=== PATIENT | male | born 1985 | race Caucasian/White ===

== ENCOUNTER 2017-12-01 13:41 | Emergency (ER) | payer MEDICAID ==
[~2017-12-01] VITALS: Ht 177.8 cm; Wt 84.0 kg
[~2017-12-01 13:41] MED LIST: ARIP5TAB4 PO; AZIT250T13 PO; CLIN150C2 PO; GUAI600T45 PO; HYDR1TAB PO; PSEU-259 PO; RISP3TAB11 PO; TRAM50TA2 PO
[2017-12-01] MEDS ORDERED: normal saline 1000ML IV soln IVB ONE (14:05)
[2017-12-01 14:24] LABS: BASOPHILS % (AUTO) 0.7 % (0-1); EOSINOPHILS # (AUTO) 0.1 X10'3 (0-0.9); EOSINOPHILS % (AUTO) 2.4 % (0-6); HEMATOCRIT 35.3 % (42.0-52.0); HEMOGLOBIN 11.8 g/dl (14.0-17.9); LYMPHOCYTES # (AUTO) 1.9 X10'3 (1.1-4.8); LYMPHOCYTES % (AUTO) 38.4 % (21-51); MEAN CORPUSCULAR HEMOGLOBIN 30.6 PG (27.0-31.0); MEAN CORPUSCULAR HGB CONC 33.4 % (33.0-36.5); MEAN CORPUSCULAR VOLUME 91.6 FL (78-98); MEAN PLATELET VOLUME 6.5 FL (7.4-10.4); MONOCYTES # (AUTO) 0.4 X10'3 (0-0.9); MONOCYTES % (AUTO) 8.2 % (2-12); NEUTROPHILS # (AUTO) 2.5 X10'3 (1.8-7.7); NEUTROPHILS % (AUTO) 50.3 % (42-75); PLATELET COUNT 297 X10'3 (140-440); RED BLOOD COUNT 3.86 X10'6 (4.70-6.10); RED CELL DISTRIBUTION WIDTH 14.9 % (11.5-14.5); WHITE BLOOD COUNT 4.9 X10'3 (4.5-11.0)
[2017-12-01 14:40] LABS: ALANINE AMINOTRANSFERASE 21 U/L (12-78); ALBUMIN 3.3 G/DL (3.4-5.0); ALKALINE PHOSPHATASE 58 IU/L (46-116); ANION GAP 6 (8-16); ASPARTATE AMINO TRANSFERASE 15 U/L (10-37); BILIRUBIN,TOTAL 0.3 MG/DL (0.1-1.0); BLOOD UREA NITROGEN 13 MG/DL (7-18); CHLORIDE 109 MMOL/L (99-107); CREATININE 0.42 MG/DL (0.60-1.10); GLUCOSE 94 MG/DL (70-104); POTASSIUM 3.6 MMOL/L (3.5-5.1); SODIUM 142 MMOL/L (135-145); TOTAL CARBON DIOXIDE 26.8 MMOL/L (24-32); TOTAL PROTEIN 6.6 G/DL (6.4-8.2); eGFR > 90 ML/MIN
[2017-12-01 14:40] LABS: URINE AMPHETAMINE SCREEN NEGATIVE (Neg); URINE BARBITUATE SCREEN NEGATIVE (Neg); URINE BENZODIAZEPINES SCREEN NEGATIVE (Neg); URINE CANNABINOID SCREEN POSITIVE (Neg); URINE COCAINE SCREEN NEGATIVE (Neg); URINE METHADONE SCREEN NEGATIVE (Neg); URINE OPIATE SCREEN NEGATIVE (Neg); URINE PHENCYCLIDINE SCREEN NEGATIVE (Neg)
[2017-12-01 14:41] LABS: ETHANOL 0.325 GM/DL (0.0-0.010)
[2017-12-01 19:41] VITALS: BP 122/73
== END 2017-12-01 19:42 | disposition home or self-care (01) ==
LOC: ER 13:41
DX: F10.129 Alcohol abuse with intoxication, unspecified (principal); Z59.0 Homelessness; Z79.899 Other long term (current) drug therapy; Y90.9 Presence of alcohol in blood, level not specified
CPT/HCPCS: 36415; 80053; 80305; 80320; 85025; 99284; J7030

== ENCOUNTER → 2018-02-20 | Emergency (ER) | payer MEDICAID ==
[~2018-02-20] VITALS: Ht 182.9 cm; Wt 74.0 kg
[2018-02-20 14:29] VITALS: BP 126/81
== END | disposition home or self-care (01) ==
LOC: ER 12:43
DX: S99.822A Other specified injuries of left foot, initial encounter (principal); S99.821A Other specified injuries of right foot, initial encounter; F17.210 Nicotine dependence, cigarettes, uncomplicated; Z79.899 Other long term (current) drug therapy; Z59.0 Homelessness; Z60.2 Problems related to living alone; X58.XXXA Exposure to other specified factors, initial encounter; Y93.9 Activity, unspecified; Y92.89 Other specified places as the place of occurrence of the external cause; Y99.8 Other external cause status
CPT/HCPCS: 99281

== ENCOUNTER 2018-02-24 12:58 | Emergency (ER) | payer MEDICAID ==
[~2018-02-24] VITALS: Ht 188 cm; Wt 95.0 kg
[2018-02-24] MEDS ORDERED: Potassium Cl inj 20 MEQ, magnesium sulf injection 2 GM, folic acid inj. 1 MG, thiamine ... IV ONE ×6 (13:39)
[2018-02-24] MEDS ORDERED: normal saline 1000ML IV soln IVB ONE (13:40)
[2018-02-24 14:06] LABS: BASOPHILS % (AUTO) 0.3 % (0-1); EOSINOPHILS # (AUTO) 0.1 X10'3 (0-0.9); EOSINOPHILS % (AUTO) 1.1 % (0-6); HEMATOCRIT 35.1 % (42.0-52.0); HEMOGLOBIN 11.8 g/dl (14.0-17.9); LYMPHOCYTES # (AUTO) 2.1 X10'3 (1.1-4.8); LYMPHOCYTES % (AUTO) 25.4 % (21-51); MEAN CORPUSCULAR HEMOGLOBIN 32.5 PG (27.0-31.0); MEAN CORPUSCULAR HGB CONC 33.5 % (33.0-36.5); MEAN CORPUSCULAR VOLUME 96.8 FL (78-98); MEAN PLATELET VOLUME 6.9 FL (7.4-10.4); MONOCYTES # (AUTO) 0.8 X10'3 (0-0.9); MONOCYTES % (AUTO) 9.2 % (2-12); NEUTROPHILS # (AUTO) 5.3 X10'3 (1.8-7.7); PLATELET COUNT 306 X10'3 (140-440); RED BLOOD COUNT 3.62 X10'6 (4.70-6.10); RED CELL DISTRIBUTION WIDTH 14.7 % (11.5-14.5); WHITE BLOOD COUNT 8.2 X10'3 (4.5-11.0)
[2018-02-24 14:12] LABS: INR 0.9 INR; PROTHROMBIN TIME 9.7 SECONDS (9.0-12.0)
[2018-02-24 14:16] LABS: ALANINE AMINOTRANSFERASE 30 U/L (12-78); ALBUMIN 3.4 G/DL (3.4-5.0); ALBUMIN/GLOBULIN RATIO 0.9 (1.1-1.5); ALKALINE PHOSPHATASE 64 IU/L (46-116); ANION GAP 10 (8-16); ASPARTATE AMINO TRANSFERASE 15 U/L (10-37); BILIRUBIN,TOTAL 0.3 MG/DL (0.1-1.0); BLOOD UREA NITROGEN 15 MG/DL (7-18); BUN/CREATININE RATIO 34.1 (5.4-32.0); CALCIUM 8.9 MG/DL (8.5-10.1); CHLORIDE 103 MMOL/L (99-107); CREATININE 0.44 MG/DL (0.60-1.10); GLUCOSE 98 MG/DL (70-104); POTASSIUM 3.6 MMOL/L (3.5-5.1); SODIUM 140 MMOL/L (135-145); TOTAL CARBON DIOXIDE 27.5 MMOL/L (24-32); eGFR > 90 ML/MIN
[2018-02-24 14:36] LABS: ACETAMINOPHEN < 2.0 UG/ML (10-30)
[2018-02-24 14:37] LABS: ETHANOL 0.348 GM/DL (0.0-0.010)
[2018-02-24] MEDS ORDERED: normal saline 1000ml 1,000 ML IV ONE ×2 (15:05)
[2018-02-24 17:06] LABS: URINE AMPHETAMINE SCREEN NEGATIVE (Neg); URINE BARBITUATE SCREEN NEGATIVE (Neg); URINE BENZODIAZEPINES SCREEN NEGATIVE (Neg); URINE CANNABINOID SCREEN NEGATIVE (Neg); URINE COCAINE SCREEN NEGATIVE (Neg); URINE METHADONE SCREEN NEGATIVE (Neg); URINE OPIATE SCREEN NEGATIVE (Neg); URINE PHENCYCLIDINE SCREEN NEGATIVE (Neg)
[2018-02-24 19:33] VITALS: BP 105/62
== END 2018-02-24 21:45 | disposition home or self-care (01) ==
LOC: ER 12:58
DX: F10.129 Alcohol abuse with intoxication, unspecified (principal); R41.82 Altered mental status, unspecified; Z59.0 Homelessness
CPT/HCPCS: 36415; 80053; 80305; 80320; 80329; 85025; 85610; 96360; 96361; 99285; J3411; J3475; J3480; J3490; J7030

== ENCOUNTER 2018-05-12 15:50 | Emergency (ER) | payer MEDICAID ==
[2018-05-12] MEDS ORDERED: CHLO25CA10 PO (23:37)
== END 2018-05-12 17:03 | disposition left against medical advice (07) ==
LOC: ER 15:51
DX: Z02.89 Encounter for other administrative examinations (principal); Z53.21 Procedure and treatment not carried out due to patient leaving prior to being seen by health care provider

== ENCOUNTER 2018-10-23 12:25 | Emergency (ER) | payer MEDICAID ==
[~2018-10-23] VITALS: Ht 182.9 cm; Wt 90.0 kg
[~2018-10-23 12:25] MED LIST changes: +CHLO25CA10 PO
[2018-10-23 12:35] VITALS: BP 124/71
[2018-10-23] MEDS ORDERED: TETanus/Pertussis (Acell)/Diphther VAC/PF (Tdap-Adult) 0.5ml syringe IM ONE (12:50)
== END 2018-10-23 13:54 ==
LOC: ER 12:25
DX: S06.0X0A Concussion without loss of consciousness, initial encounter (principal); S00.03XA Contusion of scalp, initial encounter; S00.81XA Abrasion of other part of head, initial encounter; F10.129 Alcohol abuse with intoxication, unspecified; Y90.9 Presence of alcohol in blood, level not specified; Z60.2 Problems related to living alone; Z59.0 Homelessness; Z56.0 Unemployment, unspecified; Z79.2 Long term (current) use of antibiotics; Z79.899 Other long term (current) drug therapy; X58.XXXA Exposure to other specified factors, initial encounter; Y93.89 Activity, other specified; Y92.89 Other specified places as the place of occurrence of the external cause; Y99.8 Other external cause status
CPT/HCPCS: 70450; 90471; 90715; 99284

== ENCOUNTER 2018-12-02 23:24 | Emergency (ER) | payer MEDICAID ==
[~2018-12-02] VITALS: Ht 180.3 cm; Wt 94.9 kg
[2018-12-03 00:15] VITALS: BP 123/73
== END 2018-12-03 01:56 | disposition home or self-care (01) ==
LOC: ER 23:24
DX: T69.022A Immersion foot, left foot, initial encounter (principal); T69.021A Immersion foot, right foot, initial encounter; J06.9 Acute upper respiratory infection, unspecified; F17.200 Nicotine dependence, unspecified, uncomplicated; Z79.2 Long term (current) use of antibiotics; Z79.899 Other long term (current) drug therapy; Z59.0 Homelessness; Z60.2 Problems related to living alone; X31.XXXA Exposure to excessive natural cold, initial encounter; Y93.89 Activity, other specified; Y92.89 Other specified places as the place of occurrence of the external cause; Y99.8 Other external cause status
CPT/HCPCS: 99281

== ENCOUNTER 2019-02-05 03:16 | Emergency (ER) | payer MEDICAID ==
[~2019-02-05] VITALS: Ht 180.3 cm; Wt 98.1 kg
--- NOTE | 2019-02-05 03:38 | NUR ---
ANGELINA CONTACTED CASE #[id number]
[2019-02-05] MEDS ORDERED: acetaminophen 325mg tablet PO ONE (04:25)
[2019-02-05 04:48] VITALS: BP 127/76
== END 2019-02-05 04:55 | disposition home or self-care (01) ==
LOC: ER 03:16
DX: S09.90XA Unspecified injury of head, initial encounter (principal); M54.5 Low back pain; M79.641 Pain in right hand; Z59.0 Homelessness; Z60.2 Problems related to living alone; Z79.899 Other long term (current) drug therapy; W22.8XXA Striking against or struck by other objects, initial encounter; Y93.39 Activity, other involving climbing, rappelling and jumping off; Y92.89 Other specified places as the place of occurrence of the external cause; Y99.8 Other external cause status
CPT/HCPCS: 99282

== ENCOUNTER 2019-07-20 21:49 | Emergency (ER) | payer MEDICAID ==
[~2019-07-20] VITALS: Ht 180.3 cm; Wt 90.0 kg
[2019-07-20 21:51] VITALS: BP 109/58
== END 2019-07-20 23:01 | disposition home or self-care (01) ==
LOC: ER 21:50
DX: S00.01XA Abrasion of scalp, initial encounter (principal); S90.811A Abrasion, right foot, initial encounter; F20.9 Schizophrenia, unspecified; Z59.0 Homelessness; Z79.2 Long term (current) use of antibiotics; Z79.899 Other long term (current) drug therapy; V89.2XXA Person injured in unspecified motor-vehicle accident, traffic, initial encounter; Y93.89 Activity, other specified; Y92.89 Other specified places as the place of occurrence of the external cause; Y99.8 Other external cause status
CPT/HCPCS: 73630; 99283

== ENCOUNTER 2019-12-22 23:16 | Emergency (ER) | payer MEDICAID ==
[~2019-12-22] VITALS: Ht 180.3 cm; Wt 83.2 kg
[~2019-12-22 23:16] MED LIST changes: +ARIP5TAB14 PO; -ARIP5TAB4 PO
[2019-12-22 23:22] VITALS: BP 139/89
== END 2019-12-23 00:24 | disposition home or self-care (01) ==
LOC: ER 23:17
DX: M79.604 Pain in right leg (principal); Z60.2 Problems related to living alone; Z59.0 Homelessness; Z79.2 Long term (current) use of antibiotics; Z79.899 Other long term (current) drug therapy
CPT/HCPCS: 99281

== ENCOUNTER 2020-04-12 17:59 | Emergency (ER) | payer MEDICAID ==
[~2020-04-12] VITALS: Ht 180.3 cm; Wt 81.8 kg
[2020-04-12] MEDS ORDERED: LORazepam 2 mg/ml vial IV ONE ×2 (19:20→20:20)
[2020-04-12] MEDS ORDERED: normal saline 1000ML IV soln IVB ONE ×2 (19:20→20:20)
[2020-04-12 19:42] LABS: BASOPHILS # (AUTO) 0.1 X10'3 (0-0.2); BASOPHILS % (AUTO) 0.6 % (0-1); EOSINOPHILS # (AUTO) 0.1 X10'3 (0-0.9); EOSINOPHILS % (AUTO) 0.9 % (0-6); HEMATOCRIT 30.8 % (42.0-52.0); LYMPHOCYTES # (AUTO) 1.1 X10'3 (1.1-4.8); LYMPHOCYTES % (AUTO) 13.7 % (21-51); MEAN CORPUSCULAR HEMOGLOBIN 30.5 PG (27.0-31.0); MEAN CORPUSCULAR HGB CONC 32.5 g/dL (33.0-36.5); MEAN CORPUSCULAR VOLUME 93.9 FL (78-98); MEAN PLATELET VOLUME 6.6 FL (7.4-10.4); MONOCYTES # (AUTO) 1.2 X10'3 (0-0.9); MONOCYTES % (AUTO) 14.6 % (2-12); NEUTROPHILS # (AUTO) 5.6 X10'3 (1.8-7.7); NEUTROPHILS % (AUTO) 70.2 % (42-75); PLATELET COUNT 506 X10'3 (140-440); RED BLOOD COUNT 3.29 X10'6 (4.70-6.10); RED CELL DISTRIBUTION WIDTH 15.5 % (11.5-14.5)
[2020-04-12 19:49] LABS: PARTIAL THROMBOPLASTIN TIME 28 SECONDS (22-32)
[2020-04-12 19:58] LABS: ALANINE AMINOTRANSFERASE 20 U/L (12-78); ALBUMIN 2.8 G/DL (3.4-5.0); ALBUMIN/GLOBULIN RATIO 0.5 (1.1-1.5); ALKALINE PHOSPHATASE 93 IU/L (46-116); ANION GAP 9 (8-16); ASPARTATE AMINO TRANSFERASE 17 U/L (10-37); BILIRUBIN,TOTAL 0.5 MG/DL (0.1-1.0); BLOOD UREA NITROGEN 11 MG/DL (7-18); BUN/CREATININE RATIO 12.8 (5.4-32.0); CALCIUM 8.5 MG/DL (8.5-10.1); CHLORIDE 107 MMOL/L (99-107); CREATININE 0.86 MG/DL (0.60-1.10); GLUCOSE 129 MG/DL (70-104); POTASSIUM 3.7 MMOL/L (3.5-5.1); SODIUM 147 MMOL/L (135-145); TOTAL CARBON DIOXIDE 30.8 MMOL/L (24-32); TOTAL PROTEIN 8.1 G/DL (6.4-8.2); eGFR > 90 ML/MIN
[2020-04-12 20:03] LABS: ETHANOL 0.011 GM/DL (0.0-0.010); TROPONIN I < 0.04 NG/ML (0.0-0.05)
[2020-04-12 20:31] LABS: CLARITY,URINE TURBID (Clear); COLOR,URINE YELLOW (Yellow); GLUCOSE, URINE NEGATIVE (Neg); KETONES,URINE NEGATIVE (Neg); LEUKOCYTE ESTERASE ,URINE NEGATIVE (Neg); NITRITES, URINE NEGATIVE (Neg); OCCULT BLOOD,URINE TRACE-INTACT (Neg); PROTEIN,URINE TRACE mg/dl (Neg)
[2020-04-12 20:35] LABS: UA COLLECTION TYPE URINAL
[2020-04-12 20:38] LABS: BACTERIA,URINE NONE SEEN /HPF (Neg); RBC,URINE NONE SEEN /HPF (0-2); SQUAMOUS EPITHELIAL CELL,UR FEW /LPF (FEW); WBC,URINE NONE SEEN /HPF (0-4)
[2020-04-12 20:39] LABS: AMORPHOUS URATES 4+
[2020-04-12 20:49] LABS: URINE AMPHETAMINE SCREEN POSITIVE (Neg); URINE BARBITUATE SCREEN NEGATIVE (Neg); URINE BENZODIAZEPINES SCREEN NEGATIVE (Neg); URINE CANNABINOID SCREEN NEGATIVE (Neg); URINE COCAINE SCREEN NEGATIVE (Neg); URINE METHADONE SCREEN NEGATIVE (Neg); URINE OPIATE SCREEN NEGATIVE (Neg); URINE PHENCYCLIDINE SCREEN NEGATIVE (Neg)
[2020-04-12 22:18] VITALS: BP 123/84
== END 2020-04-12 22:21 | disposition home or self-care (01) ==
LOC: ER 17:59
DX: F10.239 Alcohol dependence with withdrawal, unspecified (principal); E86.0 Dehydration; R19.7 Diarrhea, unspecified; R32 Unspecified urinary incontinence; Z72.89 Other problems related to lifestyle; Z60.2 Problems related to living alone; Z59.0 Homelessness; Z79.2 Long term (current) use of antibiotics; Z79.899 Other long term (current) drug therapy; Y90.9 Presence of alcohol in blood, level not specified
CPT/HCPCS: 36415; 70450; 71045; 80053; 80305; 80320; 81001; 82140; 84484; 85025; 85610; 85730; 93005; 96361; 96374; 96376; 99285; J2060; J7030

== ENCOUNTER 2020-04-30 13:27 | Emergency (ER) | payer MEDICAID ==
[~2020-04-30] VITALS: Ht 180.3 cm; Wt 81.0 kg
[2020-04-30 13:35] VITALS: BP 112/75
[2020-04-30] MEDS ORDERED: PERM60CR19 TOP (14:33)
== END 2020-04-30 14:55 | disposition home or self-care (01) ==
LOC: ER 13:29
DX: B86 Scabies (principal); L29.8 Other pruritus; Z72.89 Other problems related to lifestyle; Z60.2 Problems related to living alone; Z59.0 Homelessness; Z79.2 Long term (current) use of antibiotics; Z79.899 Other long term (current) drug therapy
CPT/HCPCS: 99283

== ENCOUNTER 2020-05-08 09:37 | Emergency (ER) | payer MEDICAID ==
[~2020-05-08 09:37] MED LIST changes: +PERM60CR19 TOP
--- NOTE | 2020-05-08 09:45 | NUR ---
Pt was placed in T2 to await triage. Pt was not in room when I went in to triage him. I was informed he was in the bathroom
--- NOTE | 2020-05-08 09:53 | NUR ---
Went in to T2 to attempt to triage patient. Pt refused to be seen, and left running across the street. Unable to contact patient due to being homeless and has no phone. Was seen here recently for scabies and provided with medication to treat it.
== END 2020-05-08 10:00 | disposition left against medical advice (07) ==
LOC: ER 09:37
DX: R21 Rash and other nonspecific skin eruption (principal); Z53.21 Procedure and treatment not carried out due to patient leaving prior to being seen by health care provider

== ENCOUNTER 2020-07-14 01:12 | Emergency (ER) | payer MEDICAID ==
[~2020-07-14] VITALS: Ht 180.3 cm; Wt 75.0 kg
[~2020-07-14 01:12] MED LIST changes: -PERM60CR19 TOP
[2020-07-14] MEDS ORDERED: TETanus/Pertussis (Acell)/Diphther VAC/PF (Tdap-Adult) 0.5ml syringe IMVAC ONE (02:15)
[2020-07-14] MEDS ORDERED: LIDOcaine 1% W/epiNEPHrine 1:200,000 10ml vial IJ ONE (02:50)
[2020-07-14] MEDS ORDERED: amox tr/potassium clavulanate 875/125mg TAB PO ONE (02:50)
[2020-07-14] MEDS ORDERED: AMOX-422 PO (04:22)
[2020-07-14 04:35] VITALS: BP 91/57
== END 2020-07-14 04:38 | disposition home or self-care (01) ==
LOC: ER 01:13
DX: S62.394A Other fracture of fourth metacarpal bone, right hand, initial encounter for closed fracture (principal); S00.31XA Abrasion of nose, initial encounter; S61.204A Unspecified open wound of right ring finger without damage to nail, initial encounter; Z72.89 Other problems related to lifestyle; Z60.2 Problems related to living alone; Z59.0 Homelessness; Z79.899 Other long term (current) drug therapy; Y08.89XA Assault by other specified means, initial encounter; Y93.89 Activity, other specified; Y92.89 Other specified places as the place of occurrence of the external cause; Y99.8 Other external cause status
CPT/HCPCS: 29125; 73130; 90471; 90715; 96374; 99283; 99284

== ENCOUNTER 2020-07-18 05:11 | Emergency (ER) | payer MEDICAID ==
[~2020-07-18] VITALS: Ht 180.3 cm; Wt 85.0 kg
[~2020-07-18 05:11] MED LIST changes: +AMOX-422 PO
[2020-07-18 05:17] VITALS: BP 127/88
[2020-07-18] MEDS ORDERED: amox tr/potassium clavulanate 875/125mg TAB PO ONE (05:50)
[2020-07-18] MEDS ORDERED: AMOX-117 PO (05:59)
== END 2020-07-18 06:27 | disposition home or self-care (01) ==
LOC: ER 05:12
DX: S62.604D Fracture of unspecified phalanx of right ring finger, subsequent encounter for fracture with routine healing (principal); L08.89 Other specified local infections of the skin and subcutaneous tissue; Z72.89 Other problems related to lifestyle; Z59.0 Homelessness; Z60.2 Problems related to living alone; Z79.899 Other long term (current) drug therapy; X58.XXXD Exposure to other specified factors, subsequent encounter
CPT/HCPCS: 29125; 99283

== ENCOUNTER 2020-07-22 19:23 | Emergency (ER) | payer MEDICAID ==
[~2020-07-22] VITALS: Ht 180.3 cm; Wt 66.4 kg
[~2020-07-22 19:23] MED LIST changes: +AMOX-117 PO
[2020-07-22 19:25] VITALS: BP 125/83
[2020-07-22] MEDS ORDERED: ketorolac tromethamine 15mg/ml inj. IM ONE (20:15)
== END 2020-07-22 21:20 | disposition home or self-care (01) ==
LOC: ER 19:25
DX: S62.304A Unspecified fracture of fourth metacarpal bone, right hand, initial encounter for closed fracture (principal); Z60.2 Problems related to living alone; Z59.0 Homelessness; Z79.2 Long term (current) use of antibiotics; Z79.899 Other long term (current) drug therapy; X58.XXXA Exposure to other specified factors, initial encounter; Y93.89 Activity, other specified; Y92.89 Other specified places as the place of occurrence of the external cause; Y99.8 Other external cause status
CPT/HCPCS: 29125; 73130; 96372; 99283; J1885

== ENCOUNTER 2020-08-03 02:24 | Emergency (ER) | payer MEDICAID ==
[~2020-08-03] VITALS: Ht 185.4 cm; Wt 75.0 kg
[~2020-08-03 02:24] MED LIST changes: -AMOX-117 PO; -AMOX-422 PO
[2020-08-03 02:34] VITALS: BP 133/86
== END 2020-08-03 02:37 | disposition home or self-care (01) ==
LOC: ER 02:24
DX: M79.641 Pain in right hand (principal); Z72.89 Other problems related to lifestyle; Z60.2 Problems related to living alone; Z59.0 Homelessness; Z79.899 Other long term (current) drug therapy
CPT/HCPCS: 99281

== ENCOUNTER 2020-09-17 15:15 | Emergency (ER) | payer MEDICAID ==
[~2020-09-17] VITALS: Ht 182.9 cm; Wt 75.0 kg
[2020-09-17 16:55] VITALS: BP 139/93
== END 2020-09-17 16:57 | disposition home or self-care (01) ==
LOC: ER 15:16
DX: Z59.0 Homelessness (principal); Z60.2 Problems related to living alone; Z72.89 Other problems related to lifestyle; Z79.2 Long term (current) use of antibiotics; Z79.899 Other long term (current) drug therapy
CPT/HCPCS: 99283

== ENCOUNTER 2020-11-07 04:42 | Emergency (ER) | payer MEDICAID ==
[~2020-11-07] VITALS: Ht 180.3 cm; Wt 120.0 kg
[2020-11-07 04:46] VITALS: BP 157/98
== END 2020-11-07 05:02 | disposition home or self-care (01) ==
LOC: ER 04:43
DX: R05 Cough (principal); Z20.828 Contact with and (suspected) exposure to other viral communicable diseases; Z72.89 Other problems related to lifestyle; Z60.2 Problems related to living alone; Z59.0 Homelessness; Z79.2 Long term (current) use of antibiotics; Z79.899 Other long term (current) drug therapy
CPT/HCPCS: 36415; 87635; 99283

== ENCOUNTER 2020-11-14 20:23 | Emergency (ER) | payer MEDICAID ==
[~2020-11-14] VITALS: Ht 180.3 cm; Wt 68.1 kg
[2020-11-14 20:30] VITALS: BP 118/82
--- NOTE | 2020-11-14 21:34 | NUR ---
when asked why pt is here he states that hes "just not feeling good" when asked how he sais he has been throwing up for a few days, when asked what he has been eating he stated "trashcan food". provider made aware.
== END 2020-11-14 21:50 | disposition home or self-care (01) ==
LOC: ER 20:24
DX: R11.0 Nausea (principal); Z72.89 Other problems related to lifestyle; Z60.2 Problems related to living alone; Z59.0 Homelessness; Z79.2 Long term (current) use of antibiotics; Z79.899 Other long term (current) drug therapy
CPT/HCPCS: 99281

== ENCOUNTER 2021-04-27 08:09 | Inpatient (IN) | payer MEDICAID ==
[~2021-04-27] VITALS: Ht 180.3 cm; Wt 106.4 kg
[2021-04-27] MEDS ORDERED: loperamide 2mg capsule PO PRN (09:05)
[2021-04-27] MEDS ORDERED: acetaminophen 325mg tablet PO PRN (09:05)
[2021-04-27] MEDS ORDERED: NICOTINE POLACRILEX 2 MG LOZENGE BC PRN (09:05)
[2021-04-27] MEDS ORDERED: NO HOME MEDS (09:29)
--- NOTE | 2021-04-27 09:35 | NUR ---
Admission note: Pt admitted today on 1370 from [facility] to restore competency. Pt has history of schizophrenia and substance abuse. Pt had negative PPD and Covid tests. Pt has multiple charges ranging from obstruction, public intoxication, trespassing, disturbing the peace, defecating in prohibited place, battery upon officer, unlawful camping, possession. Pt is not on any medications. Pt is cooperative with admit.
[2021-04-27 10:23] VITALS: BP 114/76
[2021-04-27 20:00] VITALS: BP 116/73
[2021-04-27] MEDS ORDERED: risperiDONE 0.5mg tablet PO SCH (21:00)
--- NOTE | 2021-04-28 05:18 | NUR ---
Nursing Progress Note: Stu Ortegatika Legal hold 1370 Client on involuntary status for GD Report received from Ramiro Ag RN, with use of SBAR. Why are they here: Admission note: Pt admitted today on 1370 from [facility] to restore competency. Pt has history of schizophrenia and substance abuse. Pt had negative PPD and Covid tests. Pt has multiple charges ranging from obstruction, public intoxication, trespassing, disturbing the peace, defecating in prohibited place, battery upon officer, unlawful camping, possession. Pt is not on any medications. Pt is cooperative with admit. Assessment What has happened this shift: S/I, H/I: Denies. A/VH: Denies. Sleep: Sleeping after shift change. Will tally at 0500 hours. 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 Were meds taken: Any med S/E: None reported or observed. Mental Status Exam Appearance: Clean, wearing scrubs. Looks somewhat disheveled. Eye contact: Fair. Behavior: Sleepy but cooperative. Speech: Quiet, regular rhythm. Mood: Depressed. Affect: Flat. Thought process: Delusional, looks toward the window and mumbles. Thought Content: Just wants to sleep. Cognition: Oriented to person, place, somewhat to situation, not to date. Insight: Poor. Judgment: Poor. Interventions PRN's used: None. Therapeutic interventions: Maintained a safe and therapeutic environment, provided clear and simple instructions, encouraged cooperation with unit procedures, monitored behaviors and need for intervention; distraction, redirection, and maintained Q 15 minute safety checks Justification of Continued Inpatient Treatment: Pt. requires interruption of current crisis, medication adjustments, and a safe and supportive environment.
[2021-04-28 08:00] VITALS: BP 94/62
[2021-04-28 11:28] LABS: HEMOGLOBIN A1C 5.4 % (4.5-6.2)
[2021-04-28 11:34] LABS: CHOL/HDL RATIO 2.4 (0.00-4.99); CHOLESTEROL 112 MG/DL (0-200); HDL CHOLESTEROL 47 MG/DL (35-60); LDL CHOLESTEROL 56 MG/DL (50-100); TRIGLYCERIDES 37 MG/DL (20-135)
--- NOTE | 2021-04-28 18:56 | NUR ---
Nursing Progress Note: Legal hold 1370 Client on involuntary status for GD Report received from Juliet Coleman RN, with use of SBAR. Why are they here: Admission note: Pt admitted today on 1370 from [facility] to restore competency. Pt has history of schizophrenia and substance abuse. Pt had negative PPD and Covid tests. Pt has multiple charges ranging from obstruction, public intoxication, trespassing, disturbing the peace, defecating in prohibited place, battery upon officer, unlawful camping, possession. Pt is not on any medications. Pt is cooperative with admit. Assessment What has happened this shift: Pt was quiet and paced in his room. He asked how long he had to be here. He denies MH symptoms but was brief in answers and did not want to talk. Pt was isolative most of the day. Paced the halls a little. S/I, H/I: Denies. A/VH: Denies. Sleep: No naps ADL's: Independent Group attendance: No groups Were meds taken: No meds on day shift Any med S/E: None noted. Mental Status Exam Appearance: Wearing unit scrubs. Eye contact: Fair. Behavior: Isolative, quiet. Speech: WNL Mood: Quiet Affect: Blunted Thought process: Circumstantial Thought Content: Wants to know how long he is here and why, how to go, etc. Cognition: Alert Insight: Poor. Judgment: Poor. Interventions PRN's used: None. Therapeutic interventions: Maintained a safe and therapeutic environment, provided clear and simple instructions, encouraged cooperation with unit procedures, monitored behaviors and need for intervention; distraction, redirection, and maintained Q 15 minute safety checks Justification of Continued Inpatient Treatment: Pt. requires interruption of current crisis, medication adjustments, and a safe and supportive environment.
[2021-04-28 20:00] VITALS: BP 104/71
[2021-04-28] MEDS ORDERED: risperiDONE 2mg tablet PO SCH (21:00)
--- NOTE | 2021-04-29 04:17 | NUR ---
Nursing Progress Note: Carmencita Ortegafrancisca Legal hold 1370 Client on involuntary status for GD Report received from Ramiro Ag RN, with use of SBAR. Why are they here: Admission note: Pt admitted today on 1370 from [facility] to restore competency. Pt has history of schizophrenia and substance abuse. Pt had negative PPD and Covid tests. Pt has multiple charges ranging from obstruction, public intoxication, trespassing, disturbing the peace, defecating in prohibited place, battery upon officer, unlawful camping, possession. Pt is not on any medications. Pt is cooperative with admit. Assessment What has happened this shift: Patient sleeps in bed following shift change. Patient awakens for nightly medications and 1:1 Interview at bedside. Patient is oriented to person, place, time, not totally aware of circumstances surrounding his admission here. Patient is very polite and cooperative. Out of his room for snacks. During interview patient keeps looking to the right, towards the window, like someone is there? Patient denies hallucinations. Patient is reassured that he is in a safe place. Frequent rounding for patient safety. S/I, H/I: Denies. A/VH: Denies. Sleep: Sleeping after shift change. Will tally at 0500 hours. ADL's: Independent Group attendance: No group on pumper hand. Were meds taken: Compliant with NOC medications. Any med S/E: None reported or observed. Mental Status Exam Appearance: Clean, wearing scrubs. Disheveled. Eye contact: Fair. Behavior: Sleepy but cooperative. Speech: Quiet, regular rhythm. Mood: Depressed. Affect: Flat. Thought process: Difficult to evaluate. Thought Content: Just wants to sleep. Cognition: Oriented to person, time,, not to situation that brought him here. Insight: Poor. Judgment: Poor. Interventions PRN's used: None. Therapeutic interventions: Maintained a safe and therapeutic environment, provided clear and simple instructions, encouraged cooperation with unit procedures, monitored behaviors and need for intervention; distraction, redirection, and maintained Q 15 minute safety checks Justification of Continued Inpatient Treatment: Pt. requires interruption of current crisis, medication adjustments, and a safe and supportive environment.
[2021-04-29 06:49] LABS: EOSINOPHILS # (AUTO) 0.1 X10'3 (0-0.9); HEMATOCRIT 39.2 % (42.0-52.0); HEMOGLOBIN 13.1 g/dl (14.0-17.9); LYMPHOCYTES # (AUTO) 1.6 X10'3 (1.1-4.8); LYMPHOCYTES % (AUTO) 37.4 % (21-51); MEAN CORPUSCULAR HEMOGLOBIN 30.9 PG (27.0-31.0); MEAN CORPUSCULAR HGB CONC 33.5 g/dL (33.0-36.5); MEAN CORPUSCULAR VOLUME 92.1 FL (78-98); MEAN PLATELET VOLUME 7.6 FL (7.4-10.4); MONOCYTES # (AUTO) 0.4 X10'3 (0-0.9); MONOCYTES % (AUTO) 8.5 % (2-12); NEUTROPHILS # (AUTO) 2.1 X10'3 (1.8-7.7); NEUTROPHILS % (AUTO) 50.1 % (42-75); PLATELET COUNT 228 X10'3 (140-440); RED BLOOD COUNT 4.26 X10'6 (4.70-6.10); RED CELL DISTRIBUTION WIDTH 13.5 % (11.5-14.5); WHITE BLOOD COUNT 4.2 X10'3 (4.5-11.0)
[2021-04-29 07:07] LABS: ALANINE AMINOTRANSFERASE 20 U/L (12-78); ALBUMIN 3.6 G/DL (3.4-5.0); ALKALINE PHOSPHATASE 70 IU/L (46-116); ANION GAP 4 (8-16); ASPARTATE AMINO TRANSFERASE 9 U/L (10-37); BLOOD UREA NITROGEN 13 MG/DL (7-18); BUN/CREATININE RATIO 21.3 (5.4-32.0); CALCIUM 8.8 MG/DL (8.5-10.1); CHLORIDE 108 MMOL/L (99-107); CREATININE 0.61 MG/DL (0.60-1.10); GLUCOSE 83 MG/DL (70-104); POTASSIUM 3.9 MMOL/L (3.5-5.1); SODIUM 145 MMOL/L (135-145); TOTAL CARBON DIOXIDE 32.9 MMOL/L (24-32); TOTAL PROTEIN 7.3 G/DL (6.4-8.2); eGFR > 90 ML/MIN
[2021-04-29] MEDS ORDERED: paliperidone palmitate inj 234 MG/1.5 ML SYRINGE IM ONE (08:00)
[2021-04-29 09:03] VITALS: BP 100/73
--- NOTE | 2021-04-29 14:12 | NUR ---
Nursing Progress Note: Legal hold 1370 Client on involuntary status for GD Report received from DANIEL Garcia, with use of SBAR. Why are they here: Pt admitted from [facility] to restore competency. Pt has history of schizophrenia and substance abuse. Pt had negative PPD and Covid tests. Pt has multiple charges ranging from obstruction, public intoxication, trespassing, disturbing the peace, defecating in prohibited place, battery upon officer, unlawful camping, possession. Pt is not on any medications. Assessment What has happened this shift: Pt was up for breakfast. Pt was cooperative with scheduled 234 mg Invega Sustenna injection given in his left deltoid this morning at 0848. Pt denied depression, SI/HI. Pt denied AH. When asked VH, pt replied, "not right now." Asked pt if he had been experiencing VH last night. Pt replied, "yeah...people walking around." No unsafe behaviors noted. S/I, H/I: Pt denied A/VH: Pt denied AH/VH today though admitted to some VH last night. Sleep: Pt slept 7 hours last night per noc shift report. ADL's: Independent Group attendance: No groups today. Were meds taken: Yes Any med S/E: None noted or reported Mental Status Exam Appearance: Thin man with disheveled medium length curly dark brown hair wearing a blue surgical mask and clean green unit scrubs. Eye contact: Fair Behavior: Cooperative with care, paces unit, mostly isolative to self. Speech: Clear, audible, minimal, poverty of speech Mood: Calm Affect: Calm Thought process: Poverty of thought. Thought Content: Pt was cooperative, answered questions with short responses but did not express his thoughts. Cognition: A/O X 2 Insight: Poor. Judgment: Poor. Interventions PRN's used: None. Therapeutic interventions: 1:1 assessment, therapeutic communication, encouraged pt to express his thoughts and feelings, active listening. VIEYRA Invega Sustenna injection/education/monitoring, behavior monitoring, and maintained Q 15 minute safety checks. Justification of Continued Inpatient Treatment: Pt is here to establish competency to stand trial. He needs medication management in a safe and therapeutic environment.
--- NOTE | 2021-04-29 17:14 | NUR ---
HS Risperdal D/c'd. 2nd Invega Sustenna injection due on 05/03/21.
[2021-04-29 20:46] VITALS: BP 95/62
--- NOTE | 2021-04-30 01:12 | NUR ---
Nursing Progress Note: Legal hold: 1370 Client on involuntary status for GD Report received from Ramiro SANCHEZ, with use of SBAR. Why are they here: Pt admitted from [facility] to restore competency. Pt has history of schizophrenia and substance abuse. Pt had negative PPD and Covid tests. Pt has multiple charges ranging from obstruction, public intoxication, trespassing, disturbing the peace, defecating in prohibited place, battery upon officer, unlawful camping, and possession. Pt is not on any medications. Assessment What has happened this shift: Pt was lying in bed awake when change of shift occurred. During 1:1 assessment, pt denied SI/SH/HI/AVH. Pt responds not today when asked about auditory hallucinations, pt states he has had hallucinations in the past. Pt laid in bed most of shift and does not interact with staff or peers; isolates to self in room. Reports eating his meals and showering earlier in the day. Appears disheveled with green scrubs and unbrushed hair. No medications this shift. Pt did not get up for snack. S/I, H/I: Pt denied A/VH: Pt denied AH/VH today though [facility] Sleep: pt stayed in bed sleeping all shift ADL's: Independent Group attendance: n/a Were meds taken: n/a Any med S/E: None noted or reported Mental Status Exam Appearance: Thin man with disheveled medium length curly dark brown hair with clean green unit scrubs. Eye contact: Fair Behavior: Cooperative with care, isolates to self in room Speech: Clear, audible, minimal, poverty of speech Mood: Calm, "fine" Affect: Calm, cooperative Thought process: Poverty of thought. Thought Content: Cooperative with assessment, answers all questions with simple no Cognition: A/O X 2 Insight: Poor. Judgment: Poor. Interventions PRN's used: None. Therapeutic interventions: 1:1 assessment, therapeutic communication, encouraged pt to express his thoughts and feelings, active listening. LA Invega Sustenna monitoring, behavior monitoring, and maintained Q 15 minute safety checks. Justification of Continued Inpatient Treatment: Pt is here to establish competency to stand trial. He needs medication management in a safe and therapeutic environment.
[2021-04-30 08:00] VITALS: BP 113/74
--- NOTE | 2021-04-30 15:34 | NUR ---
Nursing Progress Note: Legal hold 1370 Client on involuntary status for GD Report received from DANIEL Johnson, with use of SBAR. Why are they here: Pt admitted from [facility] to restore competency. Pt has history of schizophrenia and substance abuse. Pt had negative PPD and Covid tests. Pt has multiple charges ranging from obstruction, public intoxication, trespassing, disturbing the peace, defecating in prohibited place, battery upon officer, unlawful camping, possession. Pt is not on any medications. Assessment What has happened this shift: Pt visible on the unit today, pacing slowly through the garcia or in his room. Pt stays to himself and does not initiate interaction with others. Pt responding to internal stimuli - observed talking and laughing to himself. When nurse says, "Hi Cameron, how are you today?" Pt responds by mimicking, "Hi Cameron, how are you today. S/I, H/I: Pt denied A/VH: Pt denied AH/VH today though admitted to some VH last night. Sleep: Pt slept 7.5 hours last night per noc shift report. ADL's: Independent Group attendance: No groups today. Were meds taken: Yes Any med S/E: None noted or reported Mental Status Exam Appearance: Thin man with disheveled medium length curly dark brown hair wearing a blue surgical mask and clean green unit scrubs. Eye contact: Fair Behavior: Cooperative with care, paces unit, mostly isolative to self. Speech: Clear, audible, minimal, poverty of speech Mood: Calm Affect: Calm Thought process: Poverty of thought. Thought Content: Pt was cooperative, answered questions with short responses but did not express his thoughts. Cognition: A/O X 2 Insight: Poor. Judgment: Poor. Interventions PRN's used: None. Therapeutic interventions: 1:1 assessment, therapeutic communication, encouraged pt to express his thoughts and feelings, active listening. VIEYRA Invega Sustenna injection/education/monitoring, behavior monitoring, and maintained Q 15 minute safety checks. Justification of Continued Inpatient Treatment: Pt is here to establish competency to stand trial. He needs medication management in a safe and therapeutic environment.
[2021-04-30 19:09] VITALS: BP 111/68
--- NOTE | 2021-04-30 20:36 | NUR ---
Nursing Progress Note: Legal hold 1370 Client on involuntary status for GD Report received from LUIS CARLOS Rubio, with use of SBAR. Why are they here: Pt admitted from [facility] to restore competency. Pt has history of schizophrenia and substance abuse. Pt had negative PPD and Covid tests. Pt has multiple charges ranging from obstruction, public intoxication, trespassing, disturbing the peace, defecating in prohibited place, battery upon officer, unlawful camping, possession. Pt is not on any medications. Assessment What has happened this shift: Pt was walking in the garcia at change of shift. Pt isolates to himself and states "Im here because Im just pacing the hallway you know?" Pt is calm cooperative with flat affect paces in the hallway until snack time then goes to bed. S/I, H/I: Pt denied A/VH: Pt denied AH/VH Sleep: see sleep hours ADL's: Independent Group attendance: No evening groups Were meds taken: Yes Any med S/E: None noted or reported Mental Status Exam Appearance: Thin man with disheveled medium length curly dark brown hair wearing clean green unit scrubs. Eye contact: Fair Behavior: Cooperative with care, paces unit, mostly isolative to self. Speech: Clear, audible, minimal, poverty of speech Mood: Calm Affect: Calm Thought process: Poverty of thought. Thought Content: Pt talks about pacing Cognition: A/O X 2 Insight: Poor. Judgment: Poor. Interventions PRN's used: None. Therapeutic interventions: 1:1 assessment, therapeutic communication, encouraged pt to express his thoughts and feelings, active listening. JARRELL Haas injection/education/monitoring, behavior monitoring, and maintained Q 15 minute safety checks. Justification of Continued Inpatient Treatment: Pt is here to establish competency to stand trial. He needs medication management in a safe and therapeutic environment. Addendum: 04/30/21 at 2351 by Nargis Pemberton RN Pt up requesting a snack states he can't sleep, prn trazodone given
[2021-04-30] MEDS: traZODone 50mg tablet PO PRN (23:48)
[2021-05-01 08:00] VITALS: BP 99/73
--- NOTE | 2021-05-01 13:55 | NUR ---
Initial: Pt admit for schizophrenia. Currently on a regular diet documented with 100% PO intake throughout [facility]. [facility] 05/01. No documented edema or wounds. No nutrition diagnosis at this time. Will continue to follow. Recommendations: 1) Continue regular diet 2) Bowel care per rx 3) Weekly scaled weights Addendum: 05/01/21 at [address] Amended: Links added.
--- NOTE | 2021-05-01 15:18 | NUR ---
Nursing Progress Note: Legal hold 1370 Client on involuntary status for GD Report received from DANIEL Geiger, with use of SBAR. Why are they here: Pt admitted from [facility] to restore competency. Pt has history of schizophrenia and substance abuse. Pt had negative PPD and Covid tests. Pt has multiple charges ranging from obstruction, public intoxication, trespassing, disturbing the peace, defecating in prohibited place, battery upon officer, unlawful camping, possession. Pt is not on any medications. Assessment What has happened this shift: Pt was up for breakfast. Pt was pleasant and cooperative with unit procedures. Pt does not socialize with staff or peers. Pt is mostly isolative to self. Pt does pace the unit. Pt is disorganized in behavior and speech. When asked pt if he was feeling depressed, he replied, "hmmm... a little." Pt denied SI, "I'm just walking around." When asked if he were hearing voices, pt replied, "not right now...I don't know if I'm seein' straight though." Asked pt if he was seeing anything unusual. Pt answered, "no." At 1050, this RN noted that pt was holding a lock (a dread lock) of his hair in his hands playing with it. Pt admitted to pulling it off of his head; no bleeding or injury noted. Pt has messy disheveled curly brown hair with mats/dreads scattered through it. Encouraged pt to shower to wash his hair and apply conditioner to work out the mats and dreads. Pt declined. Pt has poverty of speech and thought, he is very food and snack focused. S/I, H/I: Pt denied A/VH: Pt denied though did state that he wasn't sure if he was seeing straight. Sleep: Pt slept 5.5 hours last night per noc shift report, pt does not nap during the day. ADL's: Independent Group attendance: No Were meds taken: None scheduled. Any med S/E: None noted or reported Mental Status Exam Appearance: Thin man with disheveled medium length curly dark brown hair with scattered mats/dreads, and a sparse varghese/moustache wearing green unit scrubs with food stains on his top. Eye contact: Fair Behavior: Disorganized, cooperative though resistive to personal hygiene, paces, isolative to self. Speech: Clear, audible, minimal, poverty of speech. Mood: Mildly anxious Affect: Restless Thought process: Disorganized, poverty of thought. Thought Content: Focused on food and snacks. Cognition: A/O X 2 Insight: Poor. Judgment: Poor. Interventions PRN's used: None. Therapeutic interventions: 1:1 assessment, therapeutic communication, active listening, encouraged pt to express his thoughts and feelings, ensured contract for safety, gave clear and simple directions, encouragement to participate in unit activities and attend groups, behavior monitoring and intervention as needed; distraction, redirection, reality orientation, limit setting, provided positive reinforcement, and maintained Q 15 minute safety checks. Justification of Continued Inpatient Treatment: Pt is here to establish competency to stand trial. He needs medication management in a safe and therapeutic environment.
[2021-05-01] MEDS: LORazepam 1 MG tablet PO PRN (18:36)
[2021-05-01 20:04] VITALS: BP 104/72
--- NOTE | 2021-05-01 21:14 | NUR ---
Nursing Progress Note: Legal hold 1370 Client on involuntary status for GD Report received from DANIEL Rubio, with use of SBAR. Why are they here: Pt admitted from [facility] to restore competency. Pt has history of schizophrenia and substance abuse. Pt had negative PPD and Covid tests. Pt has multiple charges ranging from obstruction, public intoxication, trespassing, disturbing the peace, defecating in prohibited place, battery upon officer, unlawful camping, possession. Pt is not on any medications. Assessment What has happened this shift: Pt was walking in the garcia at change of shift and requested "sleeping pills." Pt explained he wants to go to bed and "Im agitate." Pt was irritable and was overheard talking to himself stating "Listed dumb ass it's way too much, stop laughing!" Pt denies a/vh. Pt isolates to himself. Pt has several cups and wrappers from food in his room. Attempted to assist patient with cleaning up garbage on his night stand and he states "No dont throw anything away I need all of that." Pt has a cup with a chunk of his hair in it and explains he needs a hair cut because he has too much hair. Pt had pulled this hair out during day shift according to day shifts note and he now wants to save it. Pt was given prn ativan and then had a snack before going to bed. S/I, H/I: Pt denied A/VH: Pt denied although he is over heard having conversations with himself. Sleep: see sleep hours ADL's: Independent Group attendance: No Were meds taken: prn only Any med S/E: None noted or reported Mental Status Exam Appearance: Thin man with disheveled medium length curly dark brown hair with scattered mats/dreads, and a sparse varghese/moustache wearing green unit scrubs with food stains on his top. Eye contact: Fair Behavior: Disorganized, cooperative though resistive to personal hygiene, paces, isolative to self. Speech: Clear, audible, minimal, poverty of speech. Mood: agitated Affect: constricted Thought process: Disorganized, poverty of thought. Thought Content: Focused on food and sleep Cognition: A/O X 2 Insight: Poor. Judgment: Poor. Interventions PRN's used: None. Therapeutic interventions: 1:1 assessment, therapeutic communication, active listening, encouraged pt to express his thoughts and feelings, ensured contract for safety, gave clear and simple directions, encouragement to participate in unit activities and attend groups, behavior monitoring and intervention as needed; distraction, redirection, reality orientation, limit setting, provided positive reinforcement, and maintained Q 15 minute safety checks. Justification of Continued Inpatient Treatment: Pt is here to establish competency to stand trial. He needs medication management in a safe and therapeutic environment.
[2021-05-02] MEDS: PALIPERIDONE 3 MG TAB.ER.24 PO SCH (07:23)
[2021-05-02 08:58] VITALS: BP 113/75
[2021-05-02] MEDS: LORazepam 1 MG tablet PO PRN ×2 (09:42→20:11)
--- NOTE | 2021-05-02 15:05 | NUR ---
Nursing Progress Note: Legal hold 1370 Client on involuntary status for GD Report received from DANIEL Geiger, with use of SBAR. Why are they here: Pt admitted from [facility] to restore competency. Pt has history of schizophrenia and substance abuse. Pt had negative PPD and Covid tests. Pt has multiple charges ranging from obstruction, public intoxication, trespassing, disturbing the peace, defecating in prohibited place, battery upon officer, unlawful camping, possession. Pt is not on any medications. Assessment What has happened this shift: Pt was up before breakfast. Pt was cooperative with taking his PO paliperidone 3 mg this morning. Pt showered and combed out the tangles in his hair. Pt vigorously brushed his teeth for at least 10 minutes. Pt became restless and agitated after breakfast. Pt made statements about wishing to leave to see his family. Reality orientation was provided by the charge nurse that pt was here on a 1370 to establish competency for trial. It was explained that while he couldn't leave, his family could visit him here. Pt was observed pacing and talking angrily to himself. He appeared to be responding to internal stimuli. Pt was offered a PRN Ativan 1 mg which he took at 0942. Pt continues to deny SI/HI/AH/VH. Pt remains very food focused with frequent complaints of hunger and repeated requests for extra food and snacks. S/I, H/I: Pt denies A/VH: Pt denies though talks to self and appears to be responding to internal stimuli. Sleep: Pt slept 7 hours last night per noc shift report, pt does not nap during the day. ADL's: Independent Group attendance: No Were meds taken: Yes Any med S/E: None noted or reported Mental Status Exam Appearance: Thin man with facial hair and medium length curly dark brown hair dressed in clean green unit scrubs. Eye contact: Fair Behavior: Restless, irritable, paces and talks to himself, food seeking. Speech: Clear, audible Mood: Mild agitation. Affect: Restless, mildly agitated. Thought process: Perseverative Thought Content: Perseverated on wanting to leave and wanting more food and snacks. Cognition: A/O X 2; oriented to person and place. Insight: Poor. Judgment: Poor. Interventions PRN's used: Ativan 1 mg. Therapeutic interventions: 1:1 assessment, therapeutic communication, active listening, encouraged pt to express his thoughts and feelings, ensured contract for safety, gave clear and simple directions, encouragement of personal hygiene, encouragement to participate in unit activities and attend groups, behavior monitoring and intervention as needed; distraction, redirection, reality orientation, limit setting, provided positive reinforcement, and maintained Q 15 minute safety checks. Justification of Continued Inpatient Treatment: Pt is here to establish competency to stand trial. He needs medication management in a safe and therapeutic environment.
[2021-05-02 19:18] VITALS: BP 107/77
[2021-05-02] MEDS: traZODone 50mg tablet PO PRN (20:11)
[2021-05-02] MEDS: acetaminophen 325mg tablet PO PRN (20:12)
--- NOTE | 2021-05-02 21:42 | NUR ---
Nursing Progress Note: Legal hold 1370 Client on involuntary status for GD Report received from DANIEL Hassan, with use of SBAR. Why are they here: Pt admitted from [facility] to restore competency. Pt has history of schizophrenia and substance abuse. Pt had negative PPD and Covid tests. Pt has multiple charges ranging from obstruction, public intoxication, trespassing, disturbing the peace, defecating in prohibited place, battery upon officer, unlawful camping, possession. Pt is not on any medications. Assessment What has happened this shift: Pt was in the hallway at change of shift requesting snacks. Pt denies a/vh but was noted to be responding to internal stimuli. Pt requested a shower while other people were using the showers and then decided to not take one tonight. Pt c/o "jaw pain" and took tylenol prior to going to bed. S/I, H/I: Pt denies A/VH: Pt denies though talks to self and appears to be responding to internal stimuli. Sleep:see sleep hours ADL's: Independent Group attendance: No Were meds taken: Yes Any med S/E: None noted or reported Mental Status Exam Appearance: Thin man with facial hair and medium length curly dark brown hair dressed in clean green unit scrubs. Eye contact: Fair Behavior: Restless, irritable, paces and talks to himself, food seeking. Speech: Clear, audible Mood: anxious Affect: shallow Thought process: Perseverative Thought Content: Perseverate wanting more food and snacks. Cognition: A/O X 2; oriented to person and place. Insight: Poor. Judgment: Poor. Interventions PRN's used: Ativan, trazodone Therapeutic interventions: 1:1 assessment, therapeutic communication, active listening, encouraged pt to express his thoughts and feelings, ensured contract for safety, gave clear and simple directions, encouragement of personal hygiene, encouragement to participate in unit activities and attend groups, behavior monitoring and intervention as needed; distraction, redirection, reality orientation, limit setting, provided positive reinforcement, and maintained Q 15 minute safety checks. Justification of Continued Inpatient Treatment: Pt is here to establish competency to stand trial. He needs medication management in a safe and therapeutic environment.
[2021-05-03 08:00] VITALS: BP 121/70
[2021-05-03] MEDS ORDERED: paliperidone palmitate 156 mg/ml inj.**IM only IM ONE (08:00)
[2021-05-03] MEDS: LORazepam 1 MG tablet PO PRN (08:36)
[2021-05-03] MEDS: PALIPERIDONE 3 MG TAB.ER.24 PO SCH (08:36)
[2021-05-03] MEDS ORDERED: haloperidol 5mg tablet PO ONE (09:50)
[2021-05-03] MEDS ORDERED: diphenhydrAMINE 25mg capsule PO ONE (09:50)
[2021-05-03] MEDS ORDERED: LORazepam 1 MG tablet PO ONE (09:50)
[2021-05-03] MEDS: simethicone 125mg capsule PO PRN ×2 (10:00→15:50)
[2021-05-03] MEDS ORDERED: paliperidone palmitate inj 234 MG/1.5 ML SYRINGE IM ONE (12:15)
[2021-05-03] MEDS ORDERED: simethicone 125mg capsule PO SCH (13:00)
[2021-05-03] MEDS: mag hydrox/Alum hydrox/simeth 30ml oral suspension PO PRN (16:41)
--- NOTE | 2021-05-03 17:11 | NUR ---
Nursing Progress Note: JUDI. Legal hold: 1370 Client on involuntary status for GD Report received from DANIEL Geiger, with use of SBAR. Why are they here: Pt admitted from [facility] to restore competency. Pt has history of schizophrenia and substance abuse. Pt had negative PPD and Covid tests. Pt has multiple charges ranging from obstruction, public intoxication, trespassing, disturbing the peace, defecating in prohibited place, battery upon officer, unlawful camping, and possession. Pt is not on any medications. Assessment What has happened this shift: Received patient sleeping at shift change, no distress noted. Pt woke prior to breakfast and paced garcia. Pt has extremely bad gas. Simethicone was ordered and PRN Maalox administered. Will need to continue to monitor. Pt encouraged to sit on toilet. Reports bowel movement this A.M. Pt appeared to be responding to internal stimuli AEB intently talking to self then looking over shoulder. Pt presented as slightly agitated. PRN Ativan was administered with 0800 medication with minimal effect. Pt kept asking repairer typewriter when do I get to leave. Him Coder explained that he was here for court competency. Pt later was observed standing in front of nurses station, raising voice and then observed on the phone increasing tone and agitation. Pt was demanding to leave and was not redirectable. BEN Wagoner came to repairer typewriter and ordered PO Haldol 10mg, Ativan 2mg, Benadryl 50 mg. Pt took medication without issue. Pt slept until lunch and when he woke was much calmer. Pt showered this afternoon. Pt is disorganized in his thoughts and when he speaks he doesnt always make sense, but able to make needs known. Invega Sustenna injections was due today, however medication was not received in pharmacy. Per Diego medication should be here tomorrow. Robert changed next Invega Sustenna injection to 234mg. S/I, H/I: Pt denies both. A/VH: Pt denies though talks to self and appears to be responding to internal stimuli. Sleep: 7.0 hours per sleep assessment. Napped after PO medication. ADL's: Independent Group attendance: No Were meds taken: Yes, without issue. Any med S/E: None noted or reported Mental Status Exam Appearance: Thin man with facial hair and medium length curly dark brown hair, unkempt varghese. Dressed in clean green unit scrubs. Eye contact: Fair Behavior: Restless, irritable, paces and talks to himself, food seeking. Speech: Mumbles, disorganized. Mood: Agitated at first, then calm. Affect: Flat Thought process: Perseverating Thought Content: Perseverated on wanting to leave and wanting more food and snacks. Cognition: A/O X 2; oriented to person and place. Insight: Poor. Judgment: Poor. Interventions PRN's used: Haldol 10mg, Ativan 2mg, Benadryl 50mg. Therapeutic interventions: 1:1 assessment, therapeutic communication, active listening, encouraged pt to express his thoughts and feelings, gave clear and simple directions, encouragement of personal hygiene, encouragement to participate in unit activities and attend groups, behavior monitoring and intervention as needed; distraction, redirection, reality orientation, limit setting, provided positive reinforcement, and maintained Q 15 minute safety checks. Justification of Continued Inpatient Treatment: Pt is here to establish competency to stand trial. He needs medication management in a safe and therapeutic environment. Addendum: 05/03/21 at 1717 by Emily Sandoval RN Other PRN's administered Maalox and Simethicone x2.
[2021-05-03 20:00] VITALS: BP 146/78
--- NOTE | 2021-05-04 00:02 | NUR ---
Nursing Progress Note: Legal hold 1370 Client on involuntary status for GD Report received from DANIEL Hernandez, with use of SBAR. Why are they here: Pt admitted from [facility] to restore competency. Pt has history of schizophrenia and substance abuse. Pt had negative PPD and Covid tests. Pt has multiple charges ranging from obstruction, public intoxication, trespassing, disturbing the peace, defecating in prohibited place, battery upon officer, unlawful camping, possession. Pt is not on any medications. Assessment What has happened this shift: Pt was in bed at shift change, refusing to answer questions, but allowed physical exam. Pt remained in bed all evening and was only seen out of his room once for snack. Pt did not request prns and does not have hs meds scheduled. S/I, H/I: rose A/VH: rose Sleep: see sleep hours ADL's: Independent, needs shower Group attendance: No Were meds taken: n/a Any med S/E: n/a Mental Status Exam Appearance: long hair, disheveled Eye contact: poor Behavior: sleeping Speech: rose Mood: tired Affect: rose Thought process: rose Thought Content: rose Cognition: rose Insight: Poor. Judgment: Poor. Interventions PRN's used: rose Therapeutic interventions: 1:1 assessment, therapeutic communication, active listening, encouraged pt to express his thoughts and feelings, ensured contract for safety, gave clear and simple directions, encouragement of personal hygiene, encouragement to participate in unit activities and attend groups, behavior monitoring and intervention as needed; distraction, redirection, reality orientation, limit setting, provided positive reinforcement, and maintained Q 15 minute safety checks. Justification of Continued Inpatient Treatment: Pt is here to establish competency to stand trial. He needs medication management in a safe and therapeutic environment.
[2021-05-04] MEDS: PALIPERIDONE 3 MG TAB.ER.24 PO SCH (07:53)
[2021-05-04 08:00] VITALS: BP 123/72
[2021-05-04] MEDS: simethicone 125mg capsule PO PRN (08:12)
[2021-05-04] MEDS ORDERED: paliperidone palmitate inj 234 MG/1.5 ML SYRINGE IM ONE ×2 (10:00→13:15)
--- NOTE | 2021-05-04 17:03 | NUR ---
Nursing Progress Note: JUDI. Legal hold: 1370 Client on involuntary status for GD Report received from DANIEL Power, with use of SBAR. Why are they here: [facility]. Pt has history of schizophrenia and substance abuse. Pt had negative PPD and Covid tests. Pt has multiple charges ranging from obstruction, public intoxication, trespassing, disturbing the peace, defecating in prohibited place, battery upon officer, unlawful camping, and possession. Pt is not on any medications. Assessment What has happened this shift: Received patient sleeping at shift change, pt woke before breakfast and paced garcia. Pt reports he slept well. Pt presents with no agitation this AM and was compliant with his medication. Pt denies S/I, H/I. When asked about voices pt states not right now, but I do sometimes. Pt continues to ask when he can leave and scientific writer reiterates why he is here and needs to wait for his court hearing. Pt remained calm throughout the shift. Eats meals in group room, paces garcia or rests in his bed. Pt keeps to himself. Pt is less disorganized today. Pt received 2nd dose of Invega Sustenna 234 mg injection in left deltoid (per provider order.) S/I, H/I: Pt denies both. A/VH: Endorses AH but not right now. Sleep: 7.75 hours per sleep assessment. Intermittent naps ADL's: Independent Group attendance: No Were meds taken: Yes, without issue. Any med S/E: None noted or reported Mental Status Exam Appearance: Thin man with facial hair and medium length, unkempt curly dark brown hair, unkempt varghese. Dressed in clean green unit scrubs. Eye contact: Fair Behavior: Cooperative, calm continues to paces and talks to himself, food seeking. Speech: Mumbles, less disorganized. Mood: Restless Affect: Flat Thought process: Perseverating Thought Content: Perseverated on wanting to leave, but not agitated. Cognition: A/O X 3 Insight: Poor. Judgment: Poor. Interventions PRN's used: Simethicone Therapeutic interventions: 1:1 assessment, therapeutic communication, active listening, encouraged pt to express his thoughts and feelings, gave clear and simple directions, encouragement of personal hygiene, encouragement to participate in unit activities and attend groups, behavior monitoring and intervention as needed, redirection, reality orientation,provided positive reinforcement, and maintained Q 15 minute safety checks. Justification of Continued Inpatient Treatment: Pt is here to establish competency to stand trial. He needs medication management in a safe and therapeutic environment. Addendum: 05/04/21 at 1815 by Emily Sandoval RN Pt's gas and flatulence have decreased significantly today.
[2021-05-04] MEDS: acetaminophen 325mg tablet PO PRN (19:08)
[2021-05-04 19:24] VITALS: BP 110/75
--- NOTE | 2021-05-05 02:15 | NUR ---
Nursing Progress Note: Legal hold 1370 Client on involuntary status for GD Report received from DANIEL Hernandez, with use of SBAR. Why are they here: Pt admitted from [facility] to restore competency. Pt has history of schizophrenia and substance abuse. Pt had negative PPD and Covid tests. Pt has multiple charges ranging from obstruction, public intoxication, trespassing, disturbing the peace, defecating in prohibited place, battery upon officer, unlawful camping, possession. Pt is not on any medications. Assessment What has happened this shift: Pt was more active on the unit this shift. Pt was seen walking the halls at various times during the evening shift. Pt does not interact with other patients but was friendly and cooperative for 1;1. Pt complained of arm pain but no other complaints. Pt given Tylenol for arm pain. Pt attended snack and went to bed without issue. S/I, H/I: denies, states, Not right now A/VH: denies, states, not right now Sleep: see sleep hours ADL's: Independent Group attendance: No Were meds taken: n/a Any med S/E: n/a Mental Status Exam Appearance: long messy hair Eye contact: fair Behavior: calm Speech: quiet Mood: tired Affect: flat Thought process: linear Thought Content: food Cognition: a/o x3 Insight: Poor. Judgment: Poor. Interventions PRN's used: tylenol Therapeutic interventions: 1:1 assessment, therapeutic communication, active listening, encouraged pt to express his thoughts and feelings, ensured contract for safety, gave clear and simple directions, encouragement of personal hygiene, encouragement to participate in unit activities and attend groups, behavior monitoring and intervention as needed; distraction, redirection, reality orientation, limit setting, provided positive reinforcement, and maintained Q 15 minute safety checks.
[2021-05-05 07:45] VITALS: BP 109/76
[2021-05-05] MEDS: PALIPERIDONE 3 MG TAB.ER.24 PO SCH (08:08)
[2021-05-05] MEDS: LORazepam 1 MG tablet PO PRN (08:11)
--- NOTE | 2021-05-05 10:51 | NUR ---
Nursing Progress Note: Legal hold: 1370 Client on involuntary status for GD Report received from Juliet Coleman RN, with use of SBAR. Why are they here: Pt admitted from [facility] to restore competency. Pt has history of schizophrenia and substance abuse. Pt had negative PPD and Covid tests. Pt has multiple charges ranging from obstruction, public intoxication, trespassing, disturbing the peace, defecating in prohibited place, battery upon officer, unlawful camping, and possession. Pt is not on any medications. Assessment What has happened this shift: Pt pacing halls asking for a shower and coffee at start of shift. Pt given coffee and is put on the "shower list." Pt smiled. Pt is cooperative with medications pass and morning assessment. He showered before breakfast. After breakfast pt c/o of hunger so was given mild and a P&J sandwich. Pt later up for snacks and lunch. S/I, H/I: denies A/VH: Endorses A/H Sleep: intermittent napping during the morning ADL's: Independent Group attendance: N/A Were Meds taken: Yes Any med S/E: None noted or reported Mental Status Exam Appearance: Thin male with unkempt curly dark brown hair and wearing clean green unit scrubs. Eye contact: Fair Behavior: Cooperative, calm Speech: Mumbles, disorganized Mood: Restless Affect: Flat Thought process: Perseverating Thought Content: Perseverated on wanting to leave Cognition: A/O X 3 Insight: Poor. Judgment: Poor. Interventions PRN's used: N/A Therapeutic interventions: Provided 1:1 assessment, therapeutic communication with active listening, encouraged pt to express his thoughts and feelings, medication administration/education/monitoring, reality orientation,provided positive reinforcement, and maintained Q 15 minute safety checks. Justification of Continued Inpatient Treatment: Pt is here to establish competency to stand trial. He needs medication management in a safe and therapeutic environment.
[2021-05-05 19:00] VITALS: BP 94/60
--- NOTE | 2021-05-06 01:20 | NUR ---
Nursing Progress Note: Legal hold 1370 Client on involuntary status for GD Report received from DANIEL Hernandez, with use of SBAR. Why are they here: [facility]. Pt has history of schizophrenia and substance abuse. Pt had negative PPD and Covid tests. Pt has multiple charges ranging from obstruction, public intoxication, trespassing, disturbing the peace, defecating in prohibited place, battery upon officer, unlawful camping, possession. Pt is not on any medications. Assessment What has happened this shift: Pt isolated to his room a lot this shift but would walk the halls at various times. Pt does not interact with patients or staff unless approached, but is cooperative for 1:1. Pts only need at this time is for more snacks, as he reports he is constantly hungry. No hs meds scheduled. S/I, H/I: denies, states, Not right now A/VH: denies, states, not right now Sleep: see sleep hours ADL's: Independent Group attendance: No Were meds taken: n/a Any med S/E: n/a Mental Status Exam Appearance: long messy hair Eye contact: fair Behavior: calm Speech: quiet Mood: tired Affect: flat Thought process: linear Thought Content: food Cognition: a/o x3 Insight: Poor. Judgment: Poor. Interventions PRN's used: none Therapeutic interventions: 1:1 assessment, therapeutic communication, active listening, encouraged pt to express his thoughts and feelings, ensured contract for safety, gave clear and simple directions, encouragement of personal hygiene, encouragement to participate in unit activities and attend groups, behavior monitoring and intervention as needed; distraction, redirection, reality orientation, limit setting, provided positive reinforcement, and maintained Q 15 minute safety checks.
[2021-05-06 07:36] VITALS: BP 108/76
[2021-05-06] MEDS: PALIPERIDONE 3 MG TAB.ER.24 PO SCH (08:16)
--- NOTE | 2021-05-06 15:08 | NUR ---
Nursing Progress Note: Legal hold: 1370 Client on involuntary status for GD Report received from DANIEL Rubio, with use of SBAR. Why are they here: Pt admitted from [facility] to restore competency. Pt has history of schizophrenia and substance abuse. Pt had negative PPD and Covid tests. Pt has multiple charges ranging from obstruction, public intoxication, trespassing, disturbing the peace, defecating in prohibited place, battery upon officer, unlawful camping, and possession. Pt is not on any medications. Assessment What has happened this shift: Pt observed sleeping on his bed at start of shift. Normal RR, even and unlabored. Pt woke for breakfast. Pt joins the others in the main room for meals and snacks throughout the day. The rest of the day he spends sitting on his bed or resting on his bed. S/I, H/I: denies A/VH: Endorses A/H Sleep: Naps on his bed in the morning ADL's: Independent Group attendance: N/A Were Meds taken: Yes Any med S/E: None noted or reported Mental Status Exam Appearance: Thin male with unkempt curly dark brown hair and wearing clean green unit scrubs. Eye contact: Fair Behavior: Cooperative, calm Speech: Mumbles, disorganized Mood: Restless Affect: Flat Thought process: Perseverating Thought Content: Quiet today Cognition: A/O X 3 Insight: Poor. Judgment: Poor. Interventions PRN's used: N/A Therapeutic interventions: Provided 1:1 assessment, therapeutic communication with active listening, encouraged pt to express his thoughts and feelings, medication administration/education/monitoring, reality orientation,provided positive reinforcement, and maintained Q 15 minute safety checks. Justification of Continued Inpatient Treatment: Pt is here to establish competency to stand trial. He needs medication management in a safe and therapeutic environment.
[2021-05-06] MEDS: simethicone 125mg capsule PO PRN (16:43)
[2021-05-06 20:06] VITALS: BP 111/74
[2021-05-06] MEDS: simethicone 125mg capsule PO SCH (20:06)
--- NOTE | 2021-05-07 00:17 | NUR ---
Nursing Progress Note: Legal hold 1370 Client on involuntary status for GD Report received from DANIEL Hernandez, with use of SBAR. Why are they here: [facility]. Pt has history of schizophrenia and substance abuse. Pt had negative PPD and Covid tests. Pt has multiple charges ranging from obstruction, public intoxication, trespassing, disturbing the peace, defecating in prohibited place, battery upon officer, unlawful camping, possession. Pt is not on any medications. Assessment What has happened this shift: Pt was active on the unit tonight, walking the halls but not interacting with other patients. Pt showered independently and attended snack. No behavior issues noted and no delusional statements made. All hs meds were taken without issue. Pt is now on scheduled simethicone. S/I, H/I: denies, states, Not right now A/VH: denies, states, not right now Sleep: see sleep hours ADL's: Independent Group attendance: No Were meds taken: n/a Any med S/E: n/a Mental Status Exam Appearance: long messy hair Eye contact: fair Behavior: calm Speech: quiet Mood: tired Affect: flat Thought process: linear Thought Content: food Cognition: a/o x3 Insight: Poor. Judgment: Poor. Interventions PRN's used: none Therapeutic interventions: 1:1 assessment, therapeutic communication, active listening, encouraged pt to express his thoughts and feelings, ensured contract for safety, gave clear and simple directions, encouragement of personal hygiene, encouragement to participate in unit activities and attend groups, behavior monitoring and intervention as needed; distraction, redirection, reality orientation, limit setting, provided positive reinforcement, and maintained Q 15 minute safety checks.
[2021-05-07 07:42] VITALS: BP 108/68
[2021-05-07] MEDS: PALIPERIDONE 3 MG TAB.ER.24 PO SCH (08:02)
[2021-05-07] MEDS: simethicone 125mg capsule PO SCH ×3 (08:02→20:00)
--- NOTE | 2021-05-07 16:48 | NUR ---
Nursing Progress Note: Legal hold 1370 Client on involuntary status for GD Report received from DANIEL Johnson, with use of SBAR. Why are they here: Pt admitted from [facility] to restore competency. Pt has history of schizophrenia and substance abuse. Pt had negative PPD and Covid tests. Pt has multiple charges ranging from obstruction, public intoxication, trespassing, disturbing the peace, defecating in prohibited place, battery upon officer, unlawful camping, possession. Pt is not on any medications. Assessment What has happened this shift: Pt visible on the unit today, pacing slowly through the garcia or in his room. Pt stays to himself and does not initiate interaction with others. Pt responding to internal stimuli - observed talking and laughing to himself. Pt encouraged to shower, but he refuses today. Pt compliant with medications. S/I, H/I: Pt denied A/VH: Pt denied AH/VH today Sleep: Pt slept 8.5 hours last night per noc shift report. ADL's: Independent Group attendance: No groups today. Were meds taken: Yes Any med S/E: None noted or reported Mental Status Exam Appearance: Thin man with disheveled medium length curly dark brown hair wearing a blue surgical mask and clean green unit scrubs. Eye contact: Fair Behavior: Cooperative with care, paces unit, mostly isolative to self. Speech: Clear, audible, minimal, poverty of speech Mood: Calm Affect: Calm Thought process: Poverty of thought. Thought Content: Pt was cooperative, answered questions with short responses but did not express his thoughts. Cognition: A/O X 2 Insight: Poor. Judgment: Poor. Interventions PRN's used: None. Therapeutic interventions: 1:1 assessment, therapeutic communication, encouraged pt to express his thoughts and feelings, active listening. VIEYRA Invega Sustenna injection/education/monitoring, behavior monitoring, and maintained Q 15 minute safety checks. Justification of Continued Inpatient Treatment: Pt is here to establish competency to stand trial. He needs medication management in a safe and therapeutic environment.
[2021-05-07 19:50] VITALS: BP 95/76
--- NOTE | 2021-05-08 02:29 | NUR ---
Nursing Progress Note: Legal hold 1370 Client on involuntary status for GD Report received from DANIEL Hernandez, with use of SBAR. Why are they here: [facility]. Pt has history of schizophrenia and substance abuse. Pt had negative PPD and Covid tests. Pt has multiple charges ranging from obstruction, public intoxication, trespassing, disturbing the peace, defecating in prohibited place, battery upon officer, unlawful camping, possession. Pt is not on any medications. Assessment What has happened this shift: Pt was active this evening, walking the halls until he went to bed. Pt showered tonight, without needing prompting. Pt still has a poverty of words and does not want to discuss much. Pt accepted simethicone without issue. No prns needed. S/I, H/I: denies, states, Not right now A/VH: denies, states, not right now Sleep: see sleep hours ADL's: Independent Group attendance: No Were meds taken: n/a Any med S/E: n/a Mental Status Exam Appearance: long messy hair Eye contact: fair Behavior: calm Speech: quiet Mood: tired Affect: flat Thought process: linear Thought Content: food Cognition: a/o x3 Insight: Poor. Judgment: Poor. Interventions PRN's used: none Therapeutic interventions: 1:1 assessment, therapeutic communication, active listening, encouraged pt to express his thoughts and feelings, ensured contract for safety, gave clear and simple directions, encouragement of personal hygiene, encouragement to participate in unit activities and attend groups, behavior monitoring and intervention as needed; distraction, redirection, reality orientation, limit setting, provided positive reinforcement, and maintained Q 15 minute safety checks.
[2021-05-08 07:50] VITALS: BP 99/61
[2021-05-08] MEDS: simethicone 125mg capsule PO SCH ×3 (07:58→20:52)
[2021-05-08] MEDS: PALIPERIDONE 3 MG TAB.ER.24 PO SCH (07:58)
--- NOTE | 2021-05-08 16:58 | NUR ---
Nursing Progress Note: Legal hold 1370 Client on involuntary status for GD Report received from DANIEL Geiger, with use of SBAR. Why are they here: [facility]. Pt has history of schizophrenia and substance abuse. Pt had negative PPD and Covid tests. Pt has multiple charges ranging from obstruction, public intoxication, trespassing, disturbing the peace, defecating in prohibited place, battery upon officer, unlawful camping, possession. Pt is not on any medications. Assessment What has happened this shift: Pt visible on the unit today, pacing slowly through the garcia or in his room. Pt stays to himself and does not initiate interaction with others. Pt responding to internal stimuli - observed talking and laughing to himself. Pt encouraged to shower, but he refuses today. Pt compliant with medications. Pt more focused on food and asks repeatedly for lelea crackers. Pt bx is cooperative and he accepts "no" without agitation. S/I, H/I: Pt denied A/VH: Pt denied AH/VH today Sleep: Pt slept 8.5 hours last night per noc shift report. ADL's: Independent Group attendance: No groups today. Were meds taken: Yes Any med S/E: None noted or reported Mental Status Exam Appearance: Thin man with disheveled medium length curly dark brown hair wearing a blue surgical mask and clean green unit scrubs. Eye contact: Fair Behavior: Cooperative with care, paces unit, mostly isolative to self. Speech: Clear, audible, minimal, poverty of speech Mood: Calm Affect: Calm Thought process: Poverty of thought. Thought Content: Pt was cooperative, answered questions with short responses but did not express his thoughts. Cognition: A/O X 2 Insight: Poor. Judgment: Poor. Interventions PRN's used: None. Therapeutic interventions: 1:1 assessment, therapeutic communication, encouraged pt to express his thoughts and feelings, active listening. JARRELL Invjimmy Sustenna injection/education/monitoring, behavior monitoring, and maintained Q 15 minute safety checks. Justification of Continued Inpatient Treatment: Pt is here to establish competency to stand trial. He needs medication management in a safe and therapeutic environment.
[2021-05-08 20:53] VITALS: BP 104/64
--- NOTE | 2021-05-09 01:53 | NUR ---
Nursing Progress Note: Legal hold 1370 Client on involuntary status for GD Report received from DANIEL Hernandez with use of SBAR. Why are they here: [facility]. Pt has history of schizophrenia and substance abuse. Pt had negative PPD and Covid tests. Pt has multiple charges ranging from obstruction, public intoxication, trespassing, disturbing the peace, defecating in prohibited place, battery upon officer, unlawful camping, possession. Pt is not on any medications. Assessment What has happened this shift: The patient spends a lot of time in his room when he's not pacing. He doesn't initiate conversation, except to ask for snacks. He's not behavioral, or prone to outburst. He keeps quiet. The patient appears disheveled, but clean. He has no scheduled medicine, except for Simethicone, which is somewhat effective, but not fully. He goes to bed right after HS med pass, but gets up a couple times to pace during the night. S/I, H/I: Denies A/VH: Denies Sleep: See sleep assessment ADL's: Independent Group attendance: No Were meds taken: Yes Any med S/E: No Mental Status Exam Appearance: Tall disheveled man with long messy hair, wearing unit scrubs. Eye contact: Fair Behavior: Calm, cooperative, isolative, paced, guarded Speech: Quiet Mood: "OK" Affect: Flat Thought process: Linear Thought Content: Getting needs met. Cognition: a/o x3 Insight: Poor. Judgment: Poor. Interventions PRN's used: none Therapeutic interventions: 1:1 assessment, therapeutic communication, active listening, encouraged pt to express his thoughts and feelings, ensured contract for safety, gave clear and simple directions, encouragement of personal hygiene, encouragement to participate in unit activities and attend groups, behavior monitoring and intervention as needed; distraction, redirection, reality orientation, limit setting, provided positive reinforcement, and maintained Q 15 minute safety checks.
[2021-05-09] MEDS: PALIPERIDONE 3 MG TAB.ER.24 PO SCH (07:37)
[2021-05-09] MEDS: simethicone 125mg capsule PO SCH ×3 (07:37→20:30)
[2021-05-09 08:00] VITALS: BP 105/68
--- NOTE | 2021-05-09 08:50 | NUR ---
Reassessment: Pt continues eating well with mostly 100% PO intake on regular diet. LB 05/07. No nutrition intervention implemented at this time. Will continue to follow. Recommendations: 1) Continue regular diet 2) Bowel care per rx 3) Weekly scaled weights Addendum: 05/09/21 at [address] Amended: Links added.
--- NOTE | 2021-05-09 12:11 | NUR ---
Nursing Progress Note: Legal hold 1370 Client on involuntary status for GD Report received from DANIEL Geiger, with use of SBAR. Why are they here: Pt admitted from [facility] to restore competency. Pt has history of schizophrenia and substance abuse. Pt had negative PPD and Covid tests. Pt has multiple charges ranging from obstruction, public intoxication, trespassing, disturbing the peace, defecating in prohibited place, battery upon officer, unlawful camping, possession. Pt is not on any medications. Assessment What has happened this shift: Pt was up before breakfast. Pt was cooperative with taking his PO paliperidone 3 mg this morning. Edmunda allowed 1:1 assessment at bedside. Patient is seen talking to himself in the hallway, when this video game script writer asked patient who he was talking to patient states "myself". Patient was up for all meals and snacks. S/I, H/I: Pt denies A/VH: Pt denies though talks to self and appears to be responding to internal stimuli. Sleep: Pt slept 9 hours last night per noc shift report, pt does not nap during the day. ADL's: Independent Group attendance: No Were meds taken: Yes Any med S/E: None noted or reported Mental Status Exam Appearance: Thin man with facial hair and medium length curly dark brown hair dressed in clean green unit scrubs. Eye contact: Fair Behavior: Restless, irritable, paces and talks to himself, food seeking. Speech: Clear, audible Mood: Mild agitation. Affect: Restless, Thought process: Perseverative Thought Content: Perseverated on wanting to leave and wanting more food and snacks. Cognition: A/O X 2; oriented to person and place. Insight: Poor. Judgment: Poor. Interventions PRN's used: none yet today Therapeutic interventions: 1:1 assessment, therapeutic communication, active listening, encouraged pt to express his thoughts and feelings, ensured contract for safety, gave clear and simple directions, encouragement of personal hygiene, encouragement to participate in unit activities and attend groups, behavior monitoring and intervention as needed; distraction, redirection, reality orientation, limit setting, provided positive reinforcement, and maintained Q 15 minute safety checks. Justification of Continued Inpatient Treatment: Pt is here to establish competency to stand trial. He needs medication management in a safe and therapeutic environment.
[2021-05-09 19:09] VITALS: BP 119/83
--- NOTE | 2021-05-10 01:36 | NUR ---
Nursing Progress Note: Legal hold 1370 Client on involuntary status for GD Report received from DANIEL Hassan, with use of SBAR. Why are they here: Pt admitted from [place] [facility] to restore competency. Pt has history of schizophrenia and substance abuse. Pt had negative PPD and Covid tests. Pt has multiple charges ranging from obstruction, public intoxication, trespassing, disturbing the peace, defecating in prohibited place, battery upon officer, unlawful camping, possession. Pt is not on any medications. Assessment What has happened this shift: Pt was in the hallway at change of shift, asking for snacks and a shower. pt showered this evening and was provided with clean scrubs to wear. Pt continues to be food oriented. Pt isolates to himself and appears to be RIS although denies a/vh. Pt is med compliant at HS med pass and then went to bed. S/I, H/I: Pt denies A/VH: Pt denies though talks to self and appears to be responding to internal stimuli. Sleep: see sleep hours ADL's: Independent Group attendance: No Were meds taken: Yes Any med S/E: None noted or reported Mental Status Exam Appearance: Thin man with facial hair and medium length curly dark brown hair dressed in clean green unit scrubs. Eye contact: Fair Behavior: Restless, irritable, paces and talks to himself, food seeking. Speech: Clear, audible Mood: euthymic Affect: Restless, Thought process: Perseverative Thought Content: Perseverated on wanting to leave and wanting more food and snacks. Cognition: A/O X 2; oriented to person and place. Insight: Poor. Judgment: Poor. Interventions PRN's used: none yet today Therapeutic interventions: 1:1 assessment, therapeutic communication, active listening, encouraged pt to express his thoughts and feelings, ensured contract for safety, gave clear and simple directions, encouragement of personal hygiene, encouragement to participate in unit activities and attend groups, behavior monitoring and intervention as needed; distraction, redirection, reality orientation, limit setting, provided positive reinforcement, and maintained Q 15 minute safety checks. Justification of Continued Inpatient Treatment: Pt is here to establish competency to stand trial. He needs medication management in a safe and therapeutic environment.
[2021-05-10] MEDS: simethicone 125mg capsule PO SCH ×3 (07:49→21:09)
[2021-05-10] MEDS: PALIPERIDONE 3 MG TAB.ER.24 PO SCH (07:49)
[2021-05-10 08:27] VITALS: BP 112/78
--- NOTE | 2021-05-10 14:23 | NUR ---
Nursing Progress Note: JUDI Legal hold: 1370 Client on involuntary status for GD Report received from LUIS CARLOS Geiger, with use of SBAR. Why are they here: [facility]. Pt has history of schizophrenia and substance abuse. Pt had negative PPD and Covid tests. Pt has multiple charges ranging from obstruction, public intoxication, trespassing, disturbing the peace, defecating in prohibited place, battery upon officer, unlawful camping, and possession. Pt is not on any medications. Assessment What has happened this shift: Received patient sleeping at shift change, respirations even and unlabored. Pt woke prior to breakfast and requested a cup of coffee. Pt paced garcia, keeping to himself. He is calm and cooperative. Pt appears slightly more animated. Noted pt standing in garcia, looking around at activity and smiling, then continued with pacing. Pt intermittently naps throughout the day. Pt endorses AH, sometimes their good, sometimes their bad, thats just how it works sometimes. Pt has some disorganized thoughts, he is unable to remember where he was living when he was arrested maybe it was [place] or [employer]. Pt states his charges were trespassing, resisting arrest. Some thought blocking occurs during conversation, however pt presents better today than last week. S/I, H/I: Pt denies both. A/VH: Pt denies though talks to self and appears to be responding to internal stimuli. Sleep: 6.5 hours per sleep assessment. Intermittent short naps. ADL's: Independent Group attendance: No Were meds taken: Yes, without hesitation. Any med S/E: None noted or reported Mental Status Exam Appearance: Thin man with scruffy facial hair, big, curly dark brown hair dressed in clean green unit scrubs. Eye contact: Fair Behavior: Cooperative, restless. Paces garcia talks to himself, food seeking. Isolates to self. Speech: Clear, audible, minimal. Mood: Restless Affect: Flat Thought process: Thought Content: Continues to want to leave, but is cooperative. Cognition: A/O X 3 Insight: Poor. Judgment: Poor. Interventions PRN's used: None. Therapeutic interventions: Encouraged pt to express his thoughts and feelings, gave clear and simple directions, encouraged participation in personal hygiene and unit activities, behavior monitoring and intervention as needed, redirection, reality orientation, limit setting, provided positive reinforcement, and maintained Q 15 minute safety checks. Justification of Continued Inpatient Treatment: Patient is here to establish competency to stand trial. Patient needs medication management in a safe and therapeutic environment.
[2021-05-10 20:57] VITALS: BP 103/64
[2021-05-10] MEDS: traZODone 50mg tablet PO PRN (21:09)
[2021-05-10] MEDS: LORazepam 1 MG tablet PO PRN (21:10)
--- NOTE | 2021-05-11 03:57 | NUR ---
Nursing Progress Note: Legal hold 1370 Client on involuntary status for GD Report received from DANIEL Rubio, with use of SBAR. Why are they here: Pt admitted from [facility] to restore competency. Pt has history of schizophrenia and substance abuse. Pt had negative PPD and Covid tests. Pt has multiple charges ranging from obstruction, public intoxication, trespassing, disturbing the peace, defecating in prohibited place, battery upon officer, unlawful camping, possession. Pt is not on any medications. Assessment What has happened this shift: Pt paced majority of the shift, resting inbetween pacing a couple times. Pt given PRNs to no effect. He perseverates on food, but is redirectable and polite. He is gesturing towards the ceiling, and observed to be talking to self but denies AH/VH. Pt's gas seems to worsen post dairy product, specifically milk carton, and when asked pt states his stomach "has more gurgles" after milk. Elimination of dairy could be attempted to see if pts gassiness improves. S/I, H/I: Pt denies A/VH: Pt denies though talks to self and appears to be responding to internal stimuli. Sleep: see sleep hours ADL's: Independent Group attendance: No Were meds taken: Yes Any med S/E: None noted or reported Mental Status Exam Appearance: Thin man with facial hair and medium length curly dark brown hair dressed in clean green unit scrubs. Eye contact: Good Behavior: Restless, paces and talks to himself, food seeking Speech: Clear, audible Mood: "Good" Affect: Restless Thought process: Perseverative Thought Content: Perseverated on wanting more food and snacks. Cognition: A/O X 2; oriented to person and place. Insight: Poor. Judgment: Poor Interventions PRN's used: Trazodone, Ativan to no effect Therapeutic interventions: 1:1 assessment, therapeutic communication, active listening, encouraged pt to express his thoughts and feelings, ensured contract for safety, gave clear and simple directions, encouragement of personal hygiene, encouragement to participate in unit activities and attend groups, behavior monitoring and intervention as needed; distraction, redirection, reality orientation, limit setting, provided positive reinforcement, and maintained Q 15 minute safety checks. Justification of Continued Inpatient Treatment: Pt is here to establish competency to stand trial. He needs medication management in a safe and therapeutic environment.
[2021-05-11] MEDS: LORazepam 1 MG tablet PO PRN ×3 (04:41→21:11)
[2021-05-11] MEDS: PALIPERIDONE 3 MG TAB.ER.24 PO SCH (07:12)
[2021-05-11] MEDS: simethicone 125mg capsule PO SCH ×3 (07:12→21:11)
[2021-05-11 07:28] VITALS: BP 109/76
--- NOTE | 2021-05-11 15:06 | NUR ---
Nursing Progress Note: JUDI Legal hold: 1370 Client on involuntary status for GD Report received from LUIS CARLOS Mims, with use of SBAR. Why are they here: Patient admitted from [facility] to restore competency. Pt has history of schizophrenia and substance abuse. Pt had negative PPD and Covid tests. Pt has multiple charges ranging from obstruction, public intoxication, trespassing, disturbing the peace, defecating in prohibited place, battery upon officer, unlawful camping, and possession. Pt is not on any medications. Assessment What has happened this shift: Received patient sleeping at shift change, respirations even and unlabored. Pt woke prior to breakfast and requested a PB&J. Pt continues to pace halls when he is awake. Coach Driver observed pt leaning his head against the window of the nurses station, when asked if he was okay pt stated Im just talking to myself. Pt appeared a little more anxious than yesterday. PRN Ativan was administered with moderate effect. Pt continues to be food focused. Pt received soymilk at breakfast with no residual effect. Milk carton at lunch and pt was extremely gassy. Coach Driver ordered soymilk for breakfast and dinner and will encourage pt not to drink milk. Pt has not been sleeping Trazadone was increased to 100mg HS with repeat dose. NO MILK CARTON DRINK monitor other dairy products for increased gas. S/I, H/I: Pt denies both. A/VH: Pt denies though talks to self and appears to be responding to internal stimuli. Sleep: 4.0 hours per sleep assessment. Short nap after breakfast and lunch. ADL's: Independent Group attendance: No Were meds taken: Yes, without hesitation. Any med S/E: None noted or reported Mental Status Exam Appearance: Thin man with scruffy facial hair, big, curly dark brown hair dressed in clean green unit scrubs. Eye contact: Fair Behavior: Cooperative, restless. Paces garcia talks to himself, food seeking. Isolates to self. Speech: Clear, audible, minimal. Mood: Restless Affect: Flat Thought process: Disorganized at times. Thought Content: Food focused. Cognition: A/O X 3 Insight: Poor. Judgment: Poor. Interventions PRN's used: Ativan Therapeutic interventions: Encouraged pt to express his thoughts and feelings, gave clear and simple directions, encouraged participation in personal hygiene and unit activities, behavior monitoring and intervention as needed, redirection, reality orientation, limit setting, provided positive reinforcement, and maintained Q 15 minute safety checks. Justification of Continued Inpatient Treatment: Patient is here to establish competency to stand trial. Patient needs medication management in a safe and therapeutic environment.
[2021-05-11] MEDS: mag hydrox/Alum hydrox/simeth 30ml oral suspension PO PRN (15:57)
[2021-05-11 19:56] VITALS: BP 117/84
[2021-05-11] MEDS: traZODone 50mg tablet PO PRN (21:11)
--- NOTE | 2021-05-12 04:40 | NUR ---
Nursing Progress Note: Legal hold: 1370 Client on involuntary status for GD Report received from DANIEL Rubio with use of SBAR. Why are they here: Pt admitted from [facility] to restore competency. Pt has history of schizophrenia and substance abuse. Pt had negative PPD and Covid tests. Pt has multiple charges ranging from obstruction, public intoxication, trespassing, disturbing the peace, defecating in prohibited place, battery upon officer, unlawful camping, possession. Pt is not on any medications. Assessment What has happened this shift: Patient laying in bed at the beginning of shift. Pleasant and cooperative with care; compliant with medication. PRN Trazodone and Ativan provided with fair effect. Patient denies SI, HI, A/VH but appears to be talking to himself at times. Patient continues to have excessive gas; no milk products consumed this shift. Patient participated in HS snack prior to bed. He is observed sleeping and appear to be sleeping better this shift than previous night. He continues to get up intermittently to request snacks but easily redirected. S/I, H/I: Denies A/VH: Appears to be responding to IS Sleep: Refer to sleep assessment ADL's: Independent Group attendance: No Were meds taken: Yes Any med S/E: None observed or reported Mental Status Exam Appearance: Disheveled, malodorous and wearing green unit attire. Eye contact: Good Behavior: Pleasant and cooperative, pacing the unit Speech: Clear, audible, minimal Mood: "Good" Affect: Congruent to mood Thought process: Perseverative Thought Content: Food and meeting needs Cognition: A/O X 2; oriented to person and place. Insight: Poor. Judgment: Poor Interventions PRN's used: Trazodone and Ativan Therapeutic interventions: 1:1 assessment, therapeutic communication, active listening, encouraged pt to express his thoughts and feelings, ensured contract for safety, gave clear and simple directions, encouragement of personal hygiene, encouragement to participate in unit activities and attend groups, behavior monitoring and intervention as needed; distraction, redirection, reality orientation, limit setting, provided positive reinforcement, and maintained Q 15 minute safety checks. Justification of Continued Inpatient Treatment: Pt is here to establish competency to stand trial. He needs medication management in a safe and therapeutic environment.
[2021-05-12 08:12] VITALS: BP 115/74
[2021-05-12] MEDS: PALIPERIDONE 3 MG TAB.ER.24 PO SCH (08:52)
[2021-05-12] MEDS: simethicone 125mg capsule PO SCH ×3 (08:52→20:56)
--- NOTE | 2021-05-12 16:16 | NUR ---
Nursing Progress Note Legal hold: 1370 Client on involuntary status for GD Report received from LUIS CARLOS Mims, with use of SBAR. Why are they here: Patient admitted from [facility] to restore competency. Pt has history of schizophrenia and substance abuse. Pt had negative PPD and Covid tests. Pt has multiple charges ranging from obstruction, public intoxication, trespassing, disturbing the peace, defecating in prohibited place, battery upon officer, unlawful camping, and possession. Pt is not on any medications. Assessment What has happened this shift: Pt awake pacing halls at start of shift. Pt requesting "coffee and P&J" prior to breakfast. Pt given coffee. Suggested pt eat at breakfast. Pt complied. Pt appears to be hungry and thirsty requesting both all shift. Pt is redirected to meals and snacks. Reminded pt to decrease diary intake encouraging him to not eat cheese or drink milk at meals. Pt is med compliant. S/I, H/I: Denies both A/VH: Endorses A/H; observed mumbling while fixated on a window Sleep: Slept 4 hours per sleep assessment; no naps today ADL's: Independent Group attendance: No Were Meds taken: Yes Any med S/E: None noted or reported Mental Status Exam Appearance: Thin man with dark brown hair dressed in clean green unit scrubs. Eye contact: Fair Behavior: Cooperative, continuously talks to himself; appears irritable with his voices Speech: Clear, can be somewhat pressured Mood: Restless Affect: Flat Thought process: Disorganized Thought Content: Food and liquid focused Cognition: A/O X 3 Insight: Poor. Judgment: Poor. Interventions PRN's used: N/A Therapeutic interventions: 1:1 assessment, therapeutic communication with active listening, behavior monitoring and intervention as needed, reality orientation, and maintained Q 15 minute safety checks. Justification of Continued Inpatient Treatment: Patient is here to establish competency to stand trial. Patient needs medication management in a safe and therapeutic environment.
[2021-05-12 19:00] VITALS: BP 128/77
[2021-05-12] MEDS: traZODone 50mg tablet PO PRN (20:56)
[2021-05-12] MEDS: LORazepam 1 MG tablet PO PRN (20:56)
--- NOTE | 2021-05-13 05:03 | NUR ---
Nursing Progress Note: Legal hold: 1370 Client on involuntary status for GD Report received from DANIEL Rubio with use of SBAR. Why are they here: Pt admitted from [facility] to restore competency. Pt has history of schizophrenia and substance abuse. Pt had negative PPD and Covid tests. Pt has multiple charges ranging from obstruction, public intoxication, trespassing, disturbing the peace, defecating in prohibited place, battery upon officer, unlawful camping, possession. Pt is not on any medications. Assessment What has happened this shift: Patient active on the unit at the beginning of shift making several requests. Patient asking for a lot of mouth was in the last several times and instructional writer asked why he was going through them so quickly. He responded, "I've been having really bad breath and the toothpaste and a tooth brush can't seam to get it." Patient is cooperative with medication. PRNs Ativan and Trazodone provided with fair effect. Patient denies SI, HI, A/VH but appears to talk to himself throughout the shift. When patient does not feel his requests are being met quick enough or not satisfied with the answer he asks the next staff member he sees. Patient participated in HS snack and immediately after requesting more snacks; he is pleasant with redirection, however, continues to ask each staff member when he is unsatisfied with answers. Patient showered prior to bed; clean sweats and t-shirt provided and he appears to be happy with the clothing. Patient is observed sleeping and waking intermittently throughout the night. S/I, H/I: Denies A/VH: Appears to be responding to IS Sleep: Refer to sleep assessment ADL's: Independent Group attendance: No Were meds taken: Yes Any med S/E: None observed or reported Mental Status Exam Appearance: Disheveled, malodorous and wearing green unit attire. Eye contact: Good Behavior: Pleasant, pacing the unit Speech: Clear, audible, minimal Mood: "Good" Affect: Congruent to mood Thought process: Perseverative Thought Content: Meeting needs, food, shower Cognition: A/O X 2; oriented to person and place. Insight: Poor. Judgment: Poor Interventions PRN's used: Trazodone and Ativan Therapeutic interventions: 1:1 assessment, therapeutic communication, active listening, encouraged pt to express his thoughts and feelings, ensured contract for safety, gave clear and simple directions, encouragement of personal hygiene, encouragement to participate in unit activities and attend groups, behavior monitoring and intervention as needed; distraction, redirection, reality orientation, limit setting, provided positive reinforcement, and maintained Q 15 minute safety checks. Justification of Continued Inpatient Treatment: Pt is here to establish competency to stand trial. He needs medication management in a safe and therapeutic environment.
[2021-05-13 08:00] VITALS: BP 114/73
[2021-05-13] MEDS: PALIPERIDONE 3 MG TAB.ER.24 PO SCH (08:07)
[2021-05-13] MEDS: simethicone 125mg capsule PO SCH ×3 (08:07→21:05)
--- NOTE | 2021-05-13 14:39 | NUR ---
Nursing Progress Note Legal hold: 1370 Client on involuntary status for GD Report received from Juliet Coleman RN, with use of SBAR. Why are they here: [facility]. Pt has history of schizophrenia and substance abuse. Pt had negative PPD and Covid tests. Pt has multiple charges ranging from obstruction, public intoxication, trespassing, disturbing the peace, defecating in prohibited place, battery upon officer, unlawful camping, and possession. Pt is not on any medications. Assessment What has happened this shift: Pt up pacing halls at the start of the shift. Pt continued to pace most of the day. Pt is pleasant and cooperative with treatment here. He is requesting a "hair cut." Pt also asked, "where am I going from here?" Pt was reminded of his court proceedings once mentally cleared to return to court. Pt did not acknowledge understanding instead turned and walked off. S/I, H/I: Denies A/VH: Endorses A/H; he is observed more than once laughing inappropriately and talking aloud to himself Sleep: Up all shift ADL's: Independent Group attendance: N/A Were Meds taken: Yes Any med S/E: None noted or reported Mental Status Exam Appearance: Thin man with dark brown hair dressed in clean green unit scrubs with orange crocks Eye contact: Fair Behavior: Cooperative Speech: Clear, can be somewhat pressured Mood: Restless Affect: Flat Thought process: Disorganized Thought Content: Food and liquid focused Cognition: A/O X 3 Insight: Poor. Judgment: Poor. Interventions PRN's used: N/A Therapeutic interventions: 1:1 assessment, therapeutic communication with active listening, behavior monitoring and intervention as needed, reality orientation, and maintained Q 15 minute safety checks. Justification of Continued Inpatient Treatment: Patient is here to establish competency to stand trial. Patient needs medication management in a safe and therapeutic environment.
[2021-05-13 19:19] VITALS: BP 123/69
[2021-05-13] MEDS: LORazepam 1 MG tablet PO PRN (21:05)
[2021-05-13] MEDS: traZODone 50mg tablet PO PRN (21:05)
--- NOTE | 2021-05-14 04:58 | NUR ---
Nursing Progress Note: Legal hold: 1370 Client on involuntary status for GD Report received from DANIEL Rubio with use of SBAR. Why are they here: Pt admitted from [facility] to restore competency. Pt has history of schizophrenia and substance abuse. Pt had negative PPD and Covid tests. Pt has multiple charges ranging from obstruction, public intoxication, trespassing, disturbing the peace, defecating in prohibited place, battery upon officer, unlawful camping, possession. Pt is not on any medications. Assessment What has happened this shift: Patient pacing the unit at the beginning of shift. Pleasant and cooperative with care; compliant with medication. PRN Trazodone and Ativan provided with good effect. Patient denies SI, HI, A/VH. He continues to appear to be responding to IS. Patient continues to perseverate on snack but more redirectable this shift; less staff splitting the previous HS shift. Patient participated in DC[employer] green party prior to bed. He is observed sleeping; continues to wake intermittently but goes back to sleep. S/I, H/I: Denies A/VH: Appears to be responding to IS Sleep: Refer to sleep assessment ADL's: Independent Group attendance: No Were meds taken: Yes Any med S/E: None observed or reported Mental Status Exam Appearance: Neat and clean; wearing appropriate attire Eye contact: Good Behavior: Pleasant, pacing the unit Speech: Clear, audible, minimal Mood: "Good" Affect: Congruent to mood Thought process: Perseverative Thought Content: Meeting needs, food Cognition: A/O X 2; oriented to person and place. Insight: Poor. Judgment: Poor Interventions PRN's used: Trazodone and Ativan Therapeutic interventions: 1:1 assessment, therapeutic communication, active listening, encouraged pt to express his thoughts and feelings, ensured contract for safety, gave clear and simple directions, encouragement of personal hygiene, encouragement to participate in unit activities and attend groups, behavior monitoring and intervention as needed; distraction, redirection, reality orientation, limit setting, provided positive reinforcement, and maintained Q 15 minute safety checks. Justification of Continued Inpatient Treatment: Pt is here to establish competency to stand trial. He needs medication management in a safe and therapeutic environment.
[2021-05-14] MEDS: simethicone 125mg capsule PO SCH ×3 (07:42→21:41)
[2021-05-14] MEDS: PALIPERIDONE 3 MG TAB.ER.24 PO SCH (07:42)
[2021-05-14 08:00] VITALS: BP 110/73
--- NOTE | 2021-05-14 15:23 | NUR ---
Nursing Progress Note Legal hold 1370 Client on involuntary status for GD Report received from RN with use of SBAR Why are they here: [facility]. Pt has history of schizophrenia and substance abuse. Pt had negative PPD and Covid tests. Pt has multiple charges ranging from obstruction, public intoxication, trespassing, disturbing the peace, defecating in prohibited place, battery upon officer, unlawful camping, possession. Pt is not on any medications. Assessment What has happened this shift: Received Pt in bed sleeping w/o distress at the beginning of the shift. Pt woke and was cooperative with vitals. Pt ate breakfast and all meals in community room with others appropriately and ate well. Pt took AM meds and all scheduled meds w/o issue. Pt walks halls a lot and seen talking to himself often. Pt asks for food and drinks frequently and is able to take direction and limits well. Pt continues to have intermittent foul flatus. Pt showered today and cleaned his room. S/I, H/I: Pt denied A/VH: Pt denied AH/VH today Sleep: None this shift ADL's: Independent Group attendance: NA Were meds taken: Yes Any med S/E: None noted or reported Mental Status Exam Appearance: Disheveled, in green scrubs Eye contact: Fair Behavior: Cooperative, pleasant, isolative Speech: Clear, audible, minimal, poverty of speech Mood: Euthymic Affect: Calm Thought process: Poverty of thought Thought Content: Getting food and drinks Cognition: A/O X 2 Insight: Poor Judgment: Poor Interventions PRN's used: None Therapeutic interventions: 1:1 assessment, therapeutic communication, encouraged pt to express his thoughts and feelings, active listening/education/monitoring, behavior monitoring, and maintained Q 15 minute safety checks. Justification of Continued Inpatient Treatment: Pt is here to establish competency to stand trial. He needs medication management in a safe and therapeutic environment.
[2021-05-14 20:01] VITALS: BP 99/64
[2021-05-14] MEDS: mag hydrox/Alum hydrox/simeth 30ml oral suspension PO PRN (21:41)
[2021-05-14] MEDS: LORazepam 1 MG tablet PO PRN (21:41)
--- NOTE | 2021-05-15 05:26 | NUR ---
Nursing Progress Note: Legal hold: 1370 Client on involuntary status for GD Report received from DANIEL Rubio with use of SBAR. Why are they here: Pt admitted from [facility] to restore competency. Pt has history of schizophrenia and substance abuse. Pt had negative PPD and Covid tests. Pt has multiple charges ranging from obstruction, public intoxication, trespassing, disturbing the peace, defecating in prohibited place, battery upon officer, unlawful camping, possession. Pt is not on any medications. Assessment What has happened this shift: Patient pacing the garcia at the beginning of shift. Pleasant and cooperative with care; compliant with medication. PRNs Ativan, Trazodone and Maalox provided with good effect. Patient continues to deny SI, HI, A/VH; he appears to be responding to IS. Patient participated in HS snack prior to bed; observed sleeping and does not appear to be having difficulty. S/I, H/I: Denies A/VH: Appears to be responding to IS Sleep: Refer to sleep assessment ADL's: Independent Group attendance: No Were meds taken: Yes Any med S/E: None observed or reported Mental Status Exam Appearance: Neat and clean; wearing appropriate attire Eye contact: Good Behavior: Pleasant, pacing the unit Speech: Clear, audible, minimal Mood: "Good" Affect: Congruent to mood Thought process: Perseverative Thought Content: Meeting needs, food Cognition: A/O X 2; oriented to person and place. Insight: Poor. Judgment: Poor Interventions PRN's used: Trazodone, Maalox and Ativan Therapeutic interventions: 1:1 assessment, therapeutic communication, active listening, encouraged pt to express his thoughts and feelings, ensured contract for safety, gave clear and simple directions, encouragement of personal hygiene, encouragement to participate in unit activities and attend groups, behavior monitoring and intervention as needed; distraction, redirection, reality orientation, limit setting, provided positive reinforcement, and maintained Q 15 minute safety checks. Justification of Continued Inpatient Treatment: Pt is here to establish competency to stand trial. He needs medication management in a safe and therapeutic environment.
[2021-05-15] MEDS: simethicone 125mg capsule PO SCH ×3 (07:28→20:09)
[2021-05-15] MEDS: PALIPERIDONE 3 MG TAB.ER.24 PO SCH (07:28)
[2021-05-15] MEDS: mag hydrox/Alum hydrox/simeth 30ml oral suspension PO PRN ×2 (07:35→20:09)
[2021-05-15 08:00] VITALS: BP 127/80
--- NOTE | 2021-05-15 18:02 | NUR ---
Nursing Progress Note: JUDI Legal hold 1370 Client on involuntary status for GD. Report received from LUIS CARLOS Geiger with use of SBAR. Why are they here: Pt admitted from [facility] to restore competency. Pt has history of schizophrenia and substance abuse. Pt had negative PPD and Covid tests. Pt has multiple charges ranging from obstruction, public intoxication, trespassing, disturbing the peace, defecating in prohibited place, battery upon officer, unlawful camping, possession. Pt is not on any medications. Assessment What has happened this shift: Received patient sleeping at shift change, no distress noted. Pt is cooperative with care and medications. Pt continues to be fixated on food and drinks, always wants to eat. Pt reported having a bowel movement today the first in four days. Executive Sous Chef asked if he wanted to be started on a stool softener pt stated "I don't always need it." Observed pt pacing garcia and talking to himself, but showed no agitation and is polite. Pt states the soy milk has been easier on his stomach. Pt has AH, but "none today." S/I, H/I: Denies both. A/VH: Pt denied AH/VH today. Sleep: 5.75 hours per sleep assessment. Intermittent naps. ADL's: Independent. Showered today. Group attendance: No scheduled group today. Were meds taken: Yes, without issue. Any med S/E: None noted or reported Mental Status Exam Appearance: Disheveled, but clean, scruffy varghese, big hair. Dressed in green scrubs. Eye contact: Fair Behavior: Cooperative, pleasant, isolative Speech: Clear, audible, minimal, poverty of speech Mood: Euthymic Affect: Calm Thought process: Poverty of thought Thought Content: Getting needs met. Cognition: A/O X 2 Insight: Poor Judgment: Poor Interventions PRN's used: None Therapeutic interventions: 1:1 assessment, therapeutic communication, encouraged pt to express his thoughts and feelings, active listening/education/monitoring, behavior monitoring, and maintained Q 15 minute safety checks. Justification of Continued Inpatient Treatment: Pt is here to establish competency to stand trial. He needs medication management in a safe and therapeutic environment.
[2021-05-15 19:54] VITALS: BP 105/70
[2021-05-15] MEDS: traZODone 50mg tablet PO PRN (20:09)
[2021-05-15] MEDS: LORazepam 1 MG tablet PO PRN (20:09)
--- NOTE | 2021-05-16 04:54 | NUR ---
Nursing Progress Note: Legal hold: 1370 Client on involuntary status for GD Report received from DANIEL Rubio with use of SBAR. Why are they here: Pt admitted from [facility] to restore competency. Pt has history of schizophrenia and substance abuse. Pt had negative PPD and Covid tests. Pt has multiple charges ranging from obstruction, public intoxication, trespassing, disturbing the peace, defecating in prohibited place, battery upon officer, unlawful camping, possession. Pt is not on any medications. Assessment What has happened this shift: Patient active on the unit at the beginning of shift. Pleasant and cooperative with care; compliant with medication. PRN Ativan, Trazodone and Maalox provided with good effect. Patient denies SI, HI, A/VH; appear to be responding to IS. Patient received HS snack prior to bed; observed sleeping and does not appear to be having difficulty. S/I, H/I: Denies A/VH: Appears to be responding to IS Sleep: Refer to sleep assessment ADL's: Independent Group attendance: No Were meds taken: Yes Any med S/E: None observed or reported Mental Status Exam Appearance: Neat and clean; wearing appropriate attire Eye contact: Good Behavior: Pleasant, pacing the unit Speech: Clear, audible, minimal Mood: "Good" Affect: Congruent to mood Thought process: Perseverative Thought Content: Meeting needs, food Cognition: A/O X 2; oriented to person and place. Insight: Poor. Judgment: Poor Interventions PRN's used: Trazodone, Maalox and Ativan Therapeutic interventions: 1:1 assessment, therapeutic communication, active listening, encouraged pt to express his thoughts and feelings, ensured contract for safety, gave clear and simple directions, encouragement of personal hygiene, encouragement to participate in unit activities and attend groups, behavior monitoring and intervention as needed; distraction, redirection, reality orientation, limit setting, provided positive reinforcement, and maintained Q 15 minute safety checks. Justification of Continued Inpatient Treatment: Pt is here to establish competency to stand trial. He needs medication management in a safe and therapeutic environment.
[2021-05-16] MEDS: simethicone 125mg capsule PO SCH ×3 (07:47→20:00)
[2021-05-16] MEDS: PALIPERIDONE 3 MG TAB.ER.24 PO SCH (07:47)
[2021-05-16 08:21] VITALS: BP 101/74
--- NOTE | 2021-05-16 09:33 | NUR ---
F/u 05/16: Pt continues eating well with mostly 100% PO intake on regular diet. LBM 05/15. No nutrition intervention implemented at this time. Will continue to follow. Recommendations: 1) Continue regular diet 2) Bowel care per rx 3) Weekly scaled weights Addendum: 05/16/21 at [address] Amended: Links added.
[2021-05-16] MEDS: mag hydrox/Alum hydrox/simeth 30ml oral suspension PO PRN (14:30)
--- NOTE | 2021-05-16 14:47 | NUR ---
Nursing Progress Note: Legal hold 1370 Client on involuntary status for GD. Report received from LUIS CARLOS Geiger with use of SBAR. Why are they here: Pt admitted from [facility] to restore competency. Pt has history of schizophrenia and substance abuse. Pt had negative PPD and Covid tests. Pt has multiple charges ranging from obstruction, public intoxication, trespassing, disturbing the peace, defecating in prohibited place, battery upon officer, unlawful camping, possession. Pt is not on any medications. Assessment What has happened this shift: Pt showered before breakfast. Pt denied depression, anxiety, SI/HI/AH/VH. Pt was cooperative with morning medications. Pt asked for Maalox before routine meds as he stated, "my stomach feels like it's bowling." Suggested pt take his routine simethicone first and if his stomach still felt like this afterwards to let this RN know. Pt did not ask for Maalox again until after lunch. Pt was given PRN Maalox at 1430 with good effect. Pt is pleasant and cooperative with care. Pt paces the hallways though is mostly isolative to self. No unsafe behaviors noted. S/I, H/I: Pt denies. A/VH: Pt denies. Sleep: Pt slept 6.25 hours last night per noc shift report, takes short intermittent naps during the day. ADL's: Independent. Showered today. Group attendance: No scheduled group today. Were meds taken: Yes Any med S/E: None noted or reported Mental Status Exam Appearance: Disheveled, but clean man with a scruffy varghese, and brushed out curly/afro-like, dark hair. Dressed in dark pants and a black t-shirt with a green scrub top over it. Eye contact: Fair to good. Behavior: Cooperative, pleasant, isolative, paces the unit and anxiously awaits meals and snacks. Speech: Clear, audible, minimal, poverty of speech Mood: Euthymic Affect: Calm Thought process: Poverty of thought Thought Content: Focuses on routine of the day, especially meals and snacks. Cognition: A/O X 2 Insight: Poor Judgment: Poor Interventions PRN's used: Maalox Therapeutic interventions: 1:1 assessment, therapeutic communication, encouraged pt to express his thoughts and feelings, active listening/education/monitoring, behavior monitoring, and maintained Q 15 minute safety checks. Justification of Continued Inpatient Treatment: Pt is here to establish competency to stand trial. He needs medication management in a safe and therapeutic environment.
[2021-05-16 20:59] VITALS: BP 108/68
--- NOTE | 2021-05-17 00:58 | NUR ---
Nursing Progress Note: Legal hold: 1370 Client on involuntary status for GD Report received from DANIEL Hassan with use of SBAR. Why are they here: Pt admitted from [facility] to restore competency. Pt has history of schizophrenia and substance abuse. Pt had negative PPD and Covid tests. Pt has multiple charges ranging from obstruction, public intoxication, trespassing, disturbing the peace, defecating in prohibited place, battery upon officer, unlawful camping, possession. Pt is not on any medications. Assessment What has happened this shift: Patient was active on the unit but is not observed interacting with others. Pt is friendly and cooperative for 1;1, denies having any concerns. Pt reported that the voices have been gone since yesterday. Pt attended snack, accepted hs meds without issue. S/I, H/I: Denies A/VH: denies Sleep: Refer to sleep assessment ADL's: Independent Group attendance: No Were meds taken: Yes Any med S/E: None observed or reported Mental Status Exam Appearance: Neat and clean; wearing appropriate attire Eye contact: Good Behavior: Pleasant, pacing the unit Speech: Clear, audible, minimal Mood: "Good" Affect: Congruent to mood Thought process: Perseverative Thought Content: Meeting needs, food Cognition: A/O X 2; oriented to person and place. Insight: Poor. Judgment: Poor Interventions PRN's used: none Therapeutic interventions: 1:1 assessment, therapeutic communication, active listening, encouraged pt to express his thoughts and feelings, ensured contract for safety, gave clear and simple directions, encouragement of personal hygiene, encouragement to participate in unit activities and attend groups, behavior monitoring and intervention as needed; distraction, redirection, reality orientation, limit setting, provided positive reinforcement, and maintained Q 15 minute safety checks. Justification of Continued Inpatient Treatment: Pt is here to establish competency to stand trial. He needs medication management in a safe and therapeutic environment.
[2021-05-17 07:44] VITALS: BP 119/80
[2021-05-17] MEDS: PALIPERIDONE 3 MG TAB.ER.24 PO SCH (08:03)
[2021-05-17] MEDS: simethicone 125mg capsule PO SCH ×3 (08:03→20:00)
--- NOTE | 2021-05-17 15:09 | NUR ---
Nursing Progress Note: Legal hold 1370 Client on involuntary status for GD. Report received from LUIS CARLOS Geiger with use of SBAR. Why are they here: Pt admitted from [facility] to restore competency. Pt has history of schizophrenia and substance abuse. Pt had negative PPD and Covid tests. Pt has multiple charges ranging from obstruction, public intoxication, trespassing, disturbing the peace, defecating in prohibited place, battery upon officer, unlawful camping, possession. Pt is not on any medications. Assessment What has happened this shift: Pt was up for breakfast. Pt was cooperative with medications. Pt reports he is "great." Pt denies depression, SI/HI/AH/VH. Pt became mildly agitated before afternoon snack as he asked for coffee at around 1445 and was told he had to wait until 1500. Pt began cussing to himself. Pt was calm again after snack. S/I, H/I: Pt denies. A/VH: Pt denies. Sleep: Pt slept 6.75 hours last night per noc shift report, takes short intermittent naps during the day. ADL's: Independent. Group attendance: No scheduled group today. Were meds taken: Yes Any med S/E: None noted or reported Mental Status Exam Appearance: Disheveled, but clean man with a scruffy varghese, and brushed out curly/afro-like, dark hair. Dressed in green unit scrubs. Eye contact: Fair to good. Behavior: Cooperative, mostly pleasant, isolative, paces the unit and anxiously awaits meals and snacks. Speech: Clear, audible, minimal, poverty of speech Mood: Euthymic Affect: Calm, one brief period of mild agitation before afternoon snack. Thought process: Poverty of thought Thought Content: Focuses on routines of the day, especially meals and snacks. Cognition: A/O X 2 Insight: Poor Judgment: Poor Interventions PRN's used: None Therapeutic interventions: 1:1 assessment, therapeutic communication, encouraged pt to express his thoughts and feelings, active listening/education/monitoring, behavior monitoring, and maintained Q 15 minute safety checks. Justification of Continued Inpatient Treatment: Pt is here to establish competency to stand trial. He needs medication management in a safe and therapeutic environment.
[2021-05-17] MEDS: magnesium hydroxide 30ml (MOM) UD suspension PO PRN (17:19)
[2021-05-17 19:00] VITALS: BP 85/45
[2021-05-17] MEDS: traZODone 50mg tablet PO PRN (19:37)
--- NOTE | 2021-05-18 00:03 | NUR ---
Nursing Progress Note: Legal hold: 1370 Client on involuntary status for GD Report received from DANIEL Hernandez with use of SBAR. Why are they here: Pt admitted from [facility] to restore competency. Pt has history of schizophrenia and substance abuse. Pt had negative PPD and Covid tests. Pt has multiple charges ranging from obstruction, public intoxication, trespassing, disturbing the peace, defecating in prohibited place, battery upon officer, unlawful camping, possession. Pt is not on any medications. Assessment What has happened this shift: Patient was in bed off and on during first part of shift. Pt walks the halls not interacting with others. Pt denies any complaints, denies voices. Pt attended snack and accepted hs meds without issue. Pt requested trazadone for sleep tonight. Pt has been consuming at least 5 pitchers of water a night so pt was encouraged to drink just a couple at night. Pt was receptive to limiting water. S/I, H/I: Denies A/VH: denies Sleep: Refer to sleep assessment ADL's: Independent Group attendance: No Were meds taken: Yes Any med S/E: None observed or reported Mental Status Exam Appearance: Neat and clean; messy hair Eye contact: Good Behavior: Pleasant, pacing the unit Speech: Clear, audible, minimal Mood: ok Affect: Congruent to mood Thought process: Perseverative Thought Content: Meeting needs, food Cognition: A/O X 2; oriented to person and place. Insight: Poor. Judgment: Poor Interventions PRN's used: none Therapeutic interventions: 1:1 assessment, therapeutic communication, active listening, encouraged pt to express his thoughts and feelings, ensured contract for safety, gave clear and simple directions, encouragement of personal hygiene, encouragement to participate in unit activities and attend groups, behavior monitoring and intervention as needed; distraction, redirection, reality orientation, limit setting, provided positive reinforcement, and maintained Q 15 minute safety checks. Justification of Continued Inpatient Treatment: Pt is here to establish competency to stand trial. He needs medication management in a safe and therapeutic environment.
[2021-05-18] MEDS: simethicone 125mg capsule PO SCH ×3 (07:37→20:31)
[2021-05-18] MEDS: PALIPERIDONE 3 MG TAB.ER.24 PO SCH (07:37)
[2021-05-18] MEDS: LORazepam 1 MG tablet PO PRN (07:37)
[2021-05-18 08:00] VITALS: BP 105/77
--- NOTE | 2021-05-18 14:35 | NUR ---
Nursing Progress Note: Legal hold 1370 Client on involuntary status for GD. Report received from Ramiro SANCHEZ with use of SBAR. Why are they here: [facility]. Pt has history of schizophrenia and substance abuse. Pt had negative PPD and Covid tests. Pt has multiple charges ranging from obstruction, public intoxication, trespassing, disturbing the peace, defecating in prohibited place, battery upon officer, unlawful camping, possession. Pt is not on any medications. Assessment What has happened this shift: Pt was up before breakfast asking for a water pitcher refill. Pt appeared restless and was hovering near the nurse's station with many requests. Pt was given a PRN Ativan at 0737 with good effect. After breakfast, pt reported that he was "doin' good." Pt denied depression, SI/HI/AH/VH. Pt is A/O x 3, pt was disoriented to the date, he initially thought it was April but then changed his mind and said May but did not know the date, he did know it was 2020. Pt is oriented to the situation. He stated that he was in [facility] for public intoxication and trespassing and that he is anxious to get the court paperwork over with so he could get out of here. Pt's daily paliperidone was decreased from 6 mg to 3 mg, he has a new order for Haldol 5 mg HS. S/I, H/I: Pt denies. A/VH: Pt denies. Sleep: Pt slept 5 hours last night per noc shift report. ADL's: Independent. Group attendance: No scheduled group today. Were meds taken: Yes Any med S/E: None noted or reported Mental Status Exam Appearance: Disheveled, but clean man with a scruffy varghese, and brushed out curly/afro-like, dark hair. Dressed in green unit scrubs. Eye contact: Good Behavior: Cooperative, mostly pleasant, isolative, paces the unit and anxiously awaits meals and snacks. Speech: Clear, audible, minimal, poverty of speech Mood: Anxious Affect: Restless Thought process: Somewhat perseverative Thought Content: Perseverates on meals, drinks, and snacks. Cognition: A/O X 3, d/o to time. Insight: Poor Judgment: Poor Interventions PRN's used: Ativan 1 mg Therapeutic interventions: 1:1 assessment, therapeutic communication, encouraged pt to express his thoughts and feelings, active listening/education/monitoring, behavior monitoring; distraction, redirection, limit setting, provided positive reinforcement, and maintained Q 15 minute safety checks. Justification of Continued Inpatient Treatment: Pt is here to establish competency to stand trial. He needs medication management in a safe and therapeutic environment.
[2021-05-18 19:00] VITALS: BP 93/63
[2021-05-18] MEDS: haloperidol 5mg tablet PO SCH (20:31)
[2021-05-18] MEDS: traZODone 50mg tablet PO PRN (20:31)
--- NOTE | 2021-05-19 01:58 | NUR ---
Nursing Progress Note: Legal hold: 1370 Client on involuntary status for GD Report received from DANIEL Hernandez with use of SBAR. Why are they here: Pt admitted from [facility] to restore competency. Pt has history of schizophrenia and substance abuse. Pt had negative PPD and Covid tests. Pt has multiple charges ranging from obstruction, public intoxication, trespassing, disturbing the peace, defecating in prohibited place, battery upon officer, unlawful camping, possession. Pt is not on any medications. Assessment What has happened this shift: Patient has horrible flatulence again this evening. Pt endorses hearing voices, states they are, ok, they say hi and stuff. Pt walked the halls most of the evening, occasionally asking for more snacks. Pt requested a shower and did so independently. Pt accepted hs meds without issue. Pt started on Haldol tonight. S/I, H/I: Denies A/VH: endorses voices Sleep: Refer to sleep assessment ADL's: Independent Group attendance: No Were meds taken: Yes Any med S/E: None observed or reported Mental Status Exam Appearance: Neat and clean; messy hair Eye contact: Good Behavior: Pleasant, pacing the unit Speech: Clear, audible, minimal Mood: ok Affect: Congruent to mood Thought process: Perseverative Thought Content: Meeting needs, food Cognition: A/O X 2; oriented to person and place. Insight: Poor. Judgment: Poor Interventions PRN's used: none Therapeutic interventions: 1:1 assessment, therapeutic communication, active listening, encouraged pt to express his thoughts and feelings, ensured contract for safety, gave clear and simple directions, encouragement of personal hygiene, encouragement to participate in unit activities and attend groups, behavior monitoring and intervention as needed; distraction, redirection, reality orientation, limit setting, provided positive reinforcement, and maintained Q 15 minute safety checks. Justification of Continued Inpatient Treatment: Pt is here to establish competency to stand trial. He needs medication management in a safe and therapeutic environment.
[2021-05-19 08:00] VITALS: BP 109/78
[2021-05-19] MEDS: PALIPERIDONE 3 MG TAB.ER.24 PO SCH (08:22)
[2021-05-19] MEDS: simethicone 125mg capsule PO SCH ×3 (08:22→20:00)
[2021-05-19] MEDS: LORazepam 1 MG tablet PO PRN (12:43)
--- NOTE | 2021-05-19 12:51 | NUR ---
Pt decided at the last minute that he was not going to take his NOON dose of Olanzapine. Pt states, "I am not here for a medication change." He further stated he takes, Depakote, Vistaril, Risperdal and Trazodone when "I am having an episode." Addendum: 05/19/21 at 1255 by Laisha Hong RN ERROR this note was not intended for this chart. Please disregard.
[2021-05-19] MEDS: magnesium hydroxide 30ml (MOM) UD suspension PO PRN (14:05)
--- NOTE | 2021-05-19 14:09 | NUR ---
Nursing Progress Note: Legal hold 1370 Client on involuntary status for GD. Report received from Ramiro SANCHEZ with use of SBAR. Why are they here: Pt admitted from [facility] to restore competency. Pt has history of schizophrenia and substance abuse. Pt had negative PPD and Covid tests. Pt has multiple charges ranging from obstruction, public intoxication, trespassing, disturbing the peace, defecating in prohibited place, battery upon officer, unlawful camping, possession. Pt is not on any medications. Assessment What has happened this shift: Pt denies depression, SI/HI/AH/VH. Pt is restless and does appear anxious at times. Pt was given a PRN Ativan 1 mg at 1243 for increased restlessness and anxiety with good effect. Pt had some episodes of flatulence after lunch. Pt approached this RN to ask for some Maalox. Asked pt what was going on with his stomach, what was he feeling? Pt described symptoms of constipation. Pt admits to having a small BM this morning but holds his lower abdomen and states that it's like it's stuck and won't come out. Pt denied heartburn or indigestion. Medication education provided that what he needed was MOM not Maalox. MOM given at 1405. S/I, H/I: Pt denies. A/VH: Pt denies. Sleep: Pt slept 6 hours last night per noc shift report. ADL's: Independent. Group attendance: No scheduled group today. Were meds taken: Yes Any med S/E: Pt reported symptoms of constipation. Mental Status Exam Appearance: Disheveled, but clean man with a scruffy varghese, and brushed out curly/afro-like, dark hair. Dressed in green unit scrubs. Eye contact: Good Behavior: Cooperative, restless, mostly pleasant, isolative, paces the unit and anxiously awaits meals and snacks. Speech: Clear, audible, minimal, poverty of speech Mood: Anxious Affect: Restless Thought process: Somewhat perseverative Thought Content: Perseverates on meals, drinks, and snacks. Cognition: A/O X 3, d/o to time. Insight: Poor Judgment: Poor Interventions PRN's used: Ativan 1 mg, MOM Therapeutic interventions: 1:1 assessment, therapeutic communication, encouraged pt to express his thoughts and feelings, active listening/education/monitoring, medication administration/education/monitoring, behavior monitoring; distraction, redirection, limit setting, provided positive reinforcement, and maintained Q 15 minute safety checks. Justification of Continued Inpatient Treatment: Pt is here to establish competency to stand trial. He needs medication management in a safe and therapeutic environment.
[2021-05-19 19:00] VITALS: BP 104/64
[2021-05-19] MEDS: haloperidol 5mg tablet PO SCH (20:00)
[2021-05-19] MEDS: traZODone 50mg tablet PO PRN (20:00)
--- NOTE | 2021-05-19 23:40 | NUR ---
Nursing Progress Note: Legal hold: 1370 Client on involuntary status for GD Report received from DANIEL Hernandez with use of SBAR. Why are they here: Pt admitted from [facility] to restore competency. Pt has history of schizophrenia and substance abuse. Pt had negative PPD and Covid tests. Pt has multiple charges ranging from obstruction, public intoxication, trespassing, disturbing the peace, defecating in prohibited place, battery upon officer, unlawful camping, possession. Pt is not on any medications. Assessment What has happened this shift: Patient continues to have foul smelling flatulence despite receiving simethicone. Pt denies being suicidal but endorses voices. Pt is seen walking the halls with a blank look on his face, he does not interact with others except to ask for snacks and water. Pt is cooperative and does not have any behavior issues. All hs meds taken. S/I, H/I: Denies A/VH: endorses voices Sleep: Refer to sleep assessment ADL's: Independent Group attendance: No Were meds taken: Yes Any med S/E: None observed or reported Mental Status Exam Appearance: Neat and clean; messy hair Eye contact: Good Behavior: Pleasant, pacing the unit Speech: Clear, audible, minimal Mood: ok Affect: Congruent to mood Thought process: Perseverative Thought Content: Meeting needs, food Cognition: A/O X 2; oriented to person and place. Insight: Poor. Judgment: Poor Interventions PRN's used: none Therapeutic interventions: 1:1 assessment, therapeutic communication, active listening, encouraged pt to express his thoughts and feelings, ensured contract for safety, gave clear and simple directions, encouragement of personal hygiene, encouragement to participate in unit activities and attend groups, behavior monitoring and intervention as needed; distraction, redirection, reality orientation, limit setting, provided positive reinforcement, and maintained Q 15 minute safety checks. Justification of Continued Inpatient Treatment: Pt is here to establish competency to stand trial. He needs medication management in a safe and therapeutic environment.
[2021-05-20] MEDS: simethicone 125mg capsule PO SCH ×3 (07:08→20:10)
[2021-05-20] MEDS: LORazepam 1 MG tablet PO PRN (07:08)
[2021-05-20] MEDS: PALIPERIDONE 3 MG TAB.ER.24 PO SCH (07:08)
[2021-05-20 07:55] VITALS: BP 107/72
[2021-05-20] MEDS ORDERED: paliperidone palmitate inj 234 MG/1.5 ML SYRINGE IM ONE (14:20)
[2021-05-20] MEDS: magnesium hydroxide 30ml (MOM) UD suspension PO PRN (16:09)
--- NOTE | 2021-05-20 16:21 | NUR ---
ADMINISTERED INVEGA SUSTENNA 234MG IM L DELTOID
--- NOTE | 2021-05-20 16:23 | NUR ---
Nursing Progress Note: Legal hold 1370 Client on involuntary status for GD. Report received from Juliet Coleman RN with use of SBAR. Why are they here: Pt admitted from [facility] to restore competency. Pt has history of schizophrenia and substance abuse. Pt had negative PPD and Covid tests. Pt has multiple charges ranging from obstruction, public intoxication, trespassing, disturbing the peace, defecating in prohibited place, battery upon officer, unlawful camping, possession. Pt is not on any medications. Assessment What has happened this shift: Received pt sleeping at the start of shift. Pt up for meals and snacks. Reports BM this morning. Towards the end of the shift pt received another dose of MOM. Pt ask a few times during the day when he will be able to return to court of his hearing. Pt showered today and changed into clean scrubs. S/I, H/I: Pt denies. A/VH: Pt denies. Sleep: Slept in the morning after breakfast ADL's: Independent. Group attendance: N/A Were Meds taken: Yes Any med S/E: None noted or reported Mental Status Exam Appearance: Tall lean young man with dark bushy hair wearing green scrubs Eye contact: Good Behavior: Cooperative, restless states, "bored." Speech: Clear, poverty of speech Mood: Anxious Affect: Restless Thought process: Perseverates on food, water and coffee Thought Content: food, water and coffee Cognition: A/O X 3, d/o to time. Insight: Poor Judgment: Poor Interventions PRN's used: Ativan 1 mg, MOM Therapeutic interventions: Provided 1:1 assessment with therapeutic communication, medication administration/education/monitoring, provided positive reinforcement, and maintained Q 15 minute safety checks. Justification of Continued Inpatient Treatment: Pt is here to establish competency to stand trial. He needs medication management in a safe and therapeutic environment.
[2021-05-20] MEDS: haloperidol 5mg tablet PO SCH (20:10)
[2021-05-20] MEDS: traZODone 50mg tablet PO PRN (20:10)
--- NOTE | 2021-05-21 01:04 | NUR ---
Nursing Progress Note: Legal hold: 1370 Client on involuntary status for GD Report received from DANIEL Hernandez with use of SBAR. Why are they here: Pt admitted from [facility] to restore competency. Pt has history of schizophrenia and substance abuse. Pt had negative PPD and Covid tests. Pt has multiple charges ranging from obstruction, public intoxication, trespassing, disturbing the peace, defecating in prohibited place, battery upon officer, unlawful camping, possession. Pt is not on any medications. Assessment What has happened this shift: Patient was active on the unit all evening. Pt walks the halls not interacting with others. Pt was not observed responding to IS. Pt still endorses voices but states, they arent bad. Pt accepted hs meds without issue. S/I, H/I: Denies A/VH: endorses voices Sleep: Refer to sleep assessment ADL's: Independent Group attendance: No Were meds taken: Yes Any med S/E: None observed or reported Mental Status Exam Appearance: Neat and clean; messy hair Eye contact: Good Behavior: Pleasant, pacing the unit Speech: Clear, audible, minimal Mood: ok Affect: Congruent to mood Thought process: Perseverative Thought Content: Meeting needs, food Cognition: A/O X 2; oriented to person and place. Insight: Poor. Judgment: Poor Interventions PRN's used: none Therapeutic interventions: 1:1 assessment, therapeutic communication, active listening, encouraged pt to express his thoughts and feelings, ensured contract for safety, gave clear and simple directions, encouragement of personal hygiene, encouragement to participate in unit activities and attend groups, behavior monitoring and intervention as needed; distraction, redirection, reality orientation, limit setting, provided positive reinforcement, and maintained Q 15 minute safety checks. Justification of Continued Inpatient Treatment: Pt is here to establish competency to stand trial. He needs medication management in a safe and therapeutic environment.
[2021-05-21] MEDS: simethicone 125mg capsule PO SCH ×3 (07:37→20:00)
--- NOTE | 2021-05-21 14:49 | NUR ---
Nursing Progress Note Legal hold 1370 Client on involuntary status for GD Report received from RN with use of SBAR Why are they here: [facility]. Pt has history of schizophrenia and substance abuse. Pt had negative PPD and Covid tests. Pt has multiple charges ranging from obstruction, public intoxication, trespassing, disturbing the peace, defecating in prohibited place, battery upon officer, unlawful camping, possession. Pt is not on any medications. Assessment What has happened this shift: Received Pt in bed sleeping w/o distress at the beginning of the shift. Pt woke and was cooperative with vitals. Pt ate breakfast and all meals in community room with others appropriately and ate well. Pt took AM meds and all scheduled meds w/o issue. Pt showered in the morning w/o prompting. Pt asks for water and coffee frequently, and cooperates with limits well. Took nap in morning, and watched tv in community room a lot. Pt seen talking to himself while walking halls S/I, H/I: Pt denied A/VH: Pt denied AH/VH today Sleep: None this shift ADL's: Independent Group attendance: NA Were meds taken: Yes Any med S/E: None noted or reported Mental Status Exam Appearance: Disheveled, in green scrubs Eye contact: Fair Behavior: Cooperative, pleasant, isolative Speech: Clear, audible, minimal, poverty of speech Mood: Euthymic Affect: Calm Thought process: Poverty of thought Thought Content: Getting food and drinks Cognition: A/O X 2 Insight: Poor Judgment: Poor Interventions PRN's used: None Therapeutic interventions: 1:1 assessment, therapeutic communication, encouraged pt to express his thoughts and feelings, active listening/education/monitoring, behavior monitoring, and maintained Q 15 minute safety checks. Justification of Continued Inpatient Treatment: Pt is here to establish competency to stand trial. He needs medication management in a safe and therapeutic environment.
[2021-05-21] MEDS: haloperidol 5mg tablet PO SCH (20:00)
[2021-05-21] MEDS: traZODone 50mg tablet PO PRN (20:00)
[2021-05-21 20:39] VITALS: BP 100/63
--- NOTE | 2021-05-22 00:49 | NUR ---
Nursing Progress Note: Legal hold: 1370 Client on involuntary status for GD Report received from DANIEL Hernandez with use of SBAR. Why are they here: Pt admitted from [facility] to restore competency. Pt has history of schizophrenia and substance abuse. Pt had negative PPD and Covid tests. Pt has multiple charges ranging from obstruction, public intoxication, trespassing, disturbing the peace, defecating in prohibited place, battery upon officer, unlawful camping, possession. Pt is not on any medications. Assessment What has happened this shift: Patient reports that he had a good day. Pt does not engage much but denies any complaints or concerns. Pt was observed talking to himself at various times during the evening shift. Pt does not appear to be in distress. Pt will ask for snacks multiple times but is polite when told no. all hs meds taken without issue. S/I, H/I: Denies A/VH: endorses voices Sleep: Refer to sleep assessment ADL's: Independent Group attendance: No Were meds taken: Yes Any med S/E: None observed or reported Mental Status Exam Appearance: Neat and clean; messy hair Eye contact: Good Behavior: Pleasant, pacing the unit Speech: Clear, audible, minimal Mood: ok Affect: Congruent to mood Thought process: Perseverative Thought Content: Meeting needs, food Cognition: A/O X 2; oriented to person and place. Insight: Poor. Judgment: Poor Interventions PRN's used: none Therapeutic interventions: 1:1 assessment, therapeutic communication, active listening, encouraged pt to express his thoughts and feelings, ensured contract for safety, gave clear and simple directions, encouragement of personal hygiene, encouragement to participate in unit activities and attend groups, behavior monitoring and intervention as needed; distraction, redirection, reality orientation, limit setting, provided positive reinforcement, and maintained Q 15 minute safety checks. Justification of Continued Inpatient Treatment: Pt is here to establish competency to stand trial. He needs medication management in a safe and therapeutic environment.
[2021-05-22 07:14] VITALS: BP 100/60
[2021-05-22] MEDS: simethicone 125mg capsule PO SCH ×3 (08:04→20:18)
--- NOTE | 2021-05-22 12:59 | NUR ---
Nursing Progress Note: Legal hold: 1370 Client on involuntary status for GD Report received from DANIEL Hernandez with use of SBAR. Why are they here: Pt admitted from [facility] to restore competency. Pt has history of schizophrenia and substance abuse. Pt had negative PPD and Covid tests. Pt has multiple charges ranging from obstruction, public intoxication, trespassing, disturbing the peace, defecating in prohibited place, battery upon officer, unlawful camping, possession. Pt is not on any medications. Assessment What has happened this shift: Patient was seen ambulating in the halls at various times during the day. Pt was observed talking to himself, in no apparent distress. Pt is polite and cooperative for 1:1 but does not talk much. Pt is still endorsing voices that he says, they dont bother me. All meds were taken without issue. S/I, H/I: Denies A/VH: endorses voices Sleep: Refer to sleep assessment ADL's: Independent Group attendance: No Were meds taken: Yes Any med S/E: None observed or reported Mental Status Exam Appearance: Neat and clean; messy hair Eye contact: Good Behavior: Pleasant, pacing the unit Speech: Clear, audible, minimal Mood: ok Affect: Congruent to mood Thought process: Perseverative Thought Content: Meeting needs, food Cognition: A/O X 2; oriented to person and place. Insight: Poor. Judgment: Poor Interventions PRN's used: none Therapeutic interventions: 1:1 assessment, therapeutic communication, active listening, encouraged pt to express his thoughts and feelings, ensured contract for safety, gave clear and simple directions, encouragement of personal hygiene, encouragement to participate in unit activities and attend groups, behavior monitoring and intervention as needed; distraction, redirection, reality orientation, limit setting, provided positive reinforcement, and maintained Q 15 minute safety checks. Justification of Continued Inpatient Treatment: Pt is here to establish competency to stand trial. He needs medication management in a safe and therapeutic environment.
[2021-05-22 19:25] VITALS: BP 96/57
[2021-05-22] MEDS: haloperidol 5mg tablet PO SCH (20:18)
[2021-05-22] MEDS: traZODone 50mg tablet PO PRN (20:18)
--- NOTE | 2021-05-23 00:40 | NUR ---
Nursing Progress Note: Legal hold: 1370 Report received from Mary SANCHEZ with use of SBAR Why are they here: Pt admitted from [facility] to restore competency. Pt has history of schizophrenia and substance abuse. Pt had negative PPD and Covid tests. Pt has multiple charges ranging from obstruction, public intoxication, trespassing, disturbing the peace, defecating in prohibited place, battery upon officer, unlawful camping, possession. Pt is not on any medications. Assessment What has happened this shift: The patient has been periodically up on the unit. He was friendly and pleasant when approached for the evening assessment. At the beginning of the shift he was sleeping on his bed and he did report that he was feeling fatigued. He stated that he has been sleeping good at night and that his appetite was good as well. He has asked for extra food items several times. His interactions were appropriate. He denies psychotic symptoms and none were evident during the assessment. When asked how his mood was he stated "good right now" He appeared disheveled with his hair sticking up in disarray but he appears clean and stated that he had showered yesterday. He has had no behaviors that required redirection from staff. He has been compliant with the unit rules. S/I, H/I: denied by the patient A/VH: denied by the patient Sleep: patient reports sleeping well during the night ADL's: Independent Group attendance: No groups this shift Were meds taken: yes Any med S/E the patient denied side effects Mental Status Exam Appearance: Appears stated age wearing green scrubs Eye contact: Intermittent Behavior: see above note Speech: spontaneous with moderate rate rhythm Mood: "good" Affect: Blunted Thought process: logical, linear Cognition: alert and oriented Insight: impaired Judgment: impaired Interventions PRN's used: Trazodone Therapeutic interventions: One to one with the patient to assess for severity of thought disorder and for depressive symptoms. Medication provided. Assessed for medication side effects. Encouraged patient to contact staff if he had any concerns or needs. 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
[2021-05-23] MEDS: simethicone 125mg capsule PO SCH ×3 (07:39→20:02)
[2021-05-23 07:46] VITALS: BP 109/73
--- NOTE | 2021-05-23 09:41 | NUR ---
F/u 05/16: Pt PO ~100% avg meals on regular diet meeting needs. LBM 05/22. No nutrition intervention implemented at this time. Will continue to follow. Recommendations: 1) Continue regular diet 2) Bowel care per rx 3) Weekly scaled weights Addendum: 05/23/21 at [address] Amended: Links added.
--- NOTE | 2021-05-23 15:13 | NUR ---
Nursing Progress Note: Legal hold: 1370 Client on involuntary status for GD Report received from Fely SANCHEZ with use of SBAR. Why are they here: Pt admitted from [facility] to restore competency. Pt has history of schizophrenia and substance abuse. Pt had negative PPD and Covid tests. Pt has multiple charges ranging from obstruction, public intoxication, trespassing, disturbing the peace, defecating in prohibited place, battery upon officer, unlawful camping, possession. Pt is not on any medications. Assessment What has happened this shift:Patient has had no change in the past few days. Patient was seen ambulating in the halls at various times during the day. Pt was observed talking to himself, in no apparent distress. Pt is polite and cooperative for 1:1 but does not talk much. Pt is still endorsing voices that he says, they dont bother me. All meds were taken without issue. Only medication given on day shift are gas pills. Patient did report less gas today and less abdominal discomfort. S/I, H/I: Denies A/VH: endorses voices Sleep: Per NOC 8.5 ADL's: Independent Group attendance: No Were meds taken: Yes Any med S/E: None observed or reported Mental Status Exam Appearance: Neat and clean; messy hair Eye contact: Good Behavior: Pleasant, pacing the unit, asking for snack/food all day long Speech: Clear, audible, minimal Mood: ok Affect: Congruent to mood Thought process: Perseverative Thought Content: Meeting needs, food Cognition: A/O X 2; oriented to person and place. Insight: Poor. Judgment: Poor Interventions PRN's used: none Therapeutic interventions: 1:1 assessment, therapeutic communication, active listening, encouraged pt to express his thoughts and feelings, ensured contract for safety, gave clear and simple directions, encouragement of personal hygiene, encouragement to participate in unit activities and attend groups, behavior monitoring and intervention as needed; distraction, redirection, reality orientation, limit setting, provided positive reinforcement, and maintained Q 15 minute safety checks. Justification of Continued Inpatient Treatment: Pt is here to establish competency to stand trial. He needs medication management in a safe and therapeutic environment.
[2021-05-23] MEDS: traZODone 50mg tablet PO PRN (20:02)
[2021-05-23] MEDS: haloperidol 5mg tablet PO SCH (20:02)
[2021-05-23 20:20] VITALS: BP 97/62
--- NOTE | 2021-05-23 23:51 | NUR ---
Nursing Progress Note: Legal hold: 1370 Client on involuntary status for GD Report received from DANIEL Rubio with use of SBAR. Why are they here: Pt admitted from [facility] to restore competency. Pt has history of schizophrenia and substance abuse. Pt had negative PPD and Covid tests. Pt has multiple charges ranging from obstruction, public intoxication, trespassing, disturbing the peace, defecating in prohibited place, battery upon officer, unlawful camping, possession. Pt is not on any medications. Assessment What has happened this shift: Patient was friendly and cooperative for 1;1, denying having any complaints. Pt continues to walk the halls, talking to himself at times. When asked if the voices bother him, he responds, no, theyre not bad. Pt reported having one bout of diarrhea this morning. S/I, H/I: Denies A/VH: endorses voices Sleep: Refer to sleep assessment ADL's: Independent Group attendance: No Were meds taken: Yes Any med S/E: None observed or reported Mental Status Exam Appearance: Neat and clean; messy hair Eye contact: Good Behavior: Pleasant, pacing the unit Speech: Clear, audible, minimal Mood: ok Affect: Congruent to mood Thought process: Perseverative Thought Content: Meeting needs, food Cognition: A/O X 2; oriented to person and place. Insight: Poor. Judgment: Poor Interventions PRN's used: none Therapeutic interventions: 1:1 assessment, therapeutic communication, active listening, encouraged pt to express his thoughts and feelings, ensured contract for safety, gave clear and simple directions, encouragement of personal hygiene, encouragement to participate in unit activities and attend groups, behavior monitoring and intervention as needed; distraction, redirection, reality orientation, limit setting, provided positive reinforcement, and maintained Q 15 minute safety checks. Justification of Continued Inpatient Treatment: Pt is here to establish competency to stand trial. He needs medication management in a safe and therapeutic environment.
[2021-05-24] MEDS: simethicone 125mg capsule PO SCH ×3 (07:14→20:43)
[2021-05-24 07:52] VITALS: BP 98/60
--- NOTE | 2021-05-24 12:47 | NUR ---
Nursing Progress Note Legal hold 1370 Client on involuntary status for GD Report received from RN with use of SBAR Why are they here: [facility]. Pt has history of schizophrenia and substance abuse. Pt had negative PPD and Covid tests. Pt has multiple charges ranging from obstruction, public intoxication, trespassing, disturbing the peace, defecating in prohibited place, battery upon officer, unlawful camping, possession. Pt is not on any medications. Assessment What has happened this shift: Received Pt in bed sleeping w/o distress at the beginning of the shift. Pt woke and was cooperative with vitals and AM assessments. Pt ate breakfast and all meals in community room with others appropriately and ate well. Pt took his AM med w/o issue. Pt asks for water and snacks often, yet cooperates with limits well. Took short nap in morning, and was seen walking halls and stopping to watch TV in recreation room periodically. Pt continues to talk to himself throughout the day. Pt continues to be calm and polite with staff and others. S/I, H/I: Pt denied A/VH: Pt denied AH/VH today Sleep: None this shift ADL's: Independent Group attendance: NA Were meds taken: Yes Any med S/E: None noted or reported Mental Status Exam Appearance: Disheveled, in own clothes Eye contact: Fair Behavior: Cooperative, pleasant, isolative Speech: Clear, audible, minimal, poverty of speech Mood: Euthymic Affect: Calm Thought process: Poverty of thought Thought Content: Getting snacks and drinks Cognition: A/O X 2 Insight: Poor Judgment: Poor Interventions PRN's used: None Therapeutic interventions: 1:1 assessment, therapeutic communication, encouraged pt to express his thoughts and feelings, active listening/education/monitoring, behavior monitoring, and maintained Q 15 minute safety checks. Justification of Continued Inpatient Treatment: Pt is here to establish competency to stand trial. He needs medication management in a safe and therapeutic environment.
[2021-05-24 19:00] VITALS: BP 96/52
[2021-05-24] MEDS: traZODone 50mg tablet PO PRN (20:43)
[2021-05-24] MEDS: haloperidol 5mg tablet PO SCH (20:43)
--- NOTE | 2021-05-24 22:28 | NUR ---
Nursing Progress Note Legal hold 1370 Client on involuntary status for GD Report received from DANIEL Hassan with use of SBAR Why are they here: [facility]. Pt has history of schizophrenia and substance abuse. Pt had negative PPD and Covid tests. Pt has multiple charges ranging from obstruction, public intoxication, trespassing, disturbing the peace, defecating in prohibited place, battery upon officer, unlawful camping, possession. Pt is not on any medications. Assessment What has happened this shift: Patient was out of room for dinner meal, he was observed watching some television, he retired early to his room to sleep. 1:1 Interview at bedside. Patient is disheveled looking. He is oriented to person and place, Patient is disheveled looking. He denies S/I, H/I or any hallucinations. Patient complies with evening medications. He states he had a small BM this am. S/I, H/I: Denies. A/VH: Denies. Sleep: Napping shortly after dinner. Will tally at 0500 hours. ADL's: Independent. Group attendance: No group on quartz cutter. Were meds taken: Yes, medication compliant. Any med S/E: None noted or reported. Mental Status Exam Appearance: Disheveled, wearing street clothes. Eye contact: Fair. Behavior: Cooperative, pleasant, isolating in room. Speech: Clear, audible, minimal, poverty of speech. Mood: Euthymic. Affect: Calm. Thought process: Poverty of thought. Thought Content: Sleep. Cognition: A/O X 2. Insight: Poor. Judgment: Poor. Interventions PRN's used: None Therapeutic interventions: 1:1 assessment, therapeutic communication, encouraged pt to express his thoughts and feelings, active listening/education/monitoring, behavior monitoring, and maintained Q 15 minute safety checks. Justification of Continued Inpatient Treatment: Pt is here to establish competency to stand trial. He needs medication management in a safe and therapeutic environment.
[2021-05-25 07:00] VITALS: BP 108/69
[2021-05-25] MEDS: simethicone 125mg capsule PO SCH ×3 (07:56→20:38)
--- NOTE | 2021-05-25 12:07 | NUR ---
Pt attended [facility] today. NEEL ManzoW
--- NOTE | 2021-05-25 12:49 | NUR ---
Nursing Progress Note: Legal hold: 1370 Client on involuntary status for GD Report received from Fely SANCHEZ with use of SBAR. Why are they here: Pt admitted from [facility] to restore competency. Pt has history of schizophrenia and substance abuse. Pt had negative PPD and Covid tests. Pt has multiple charges ranging from obstruction, public intoxication, trespassing, disturbing the peace, defecating in prohibited place, battery upon officer, unlawful camping, possession. Pt is not on any medications. Assessment What has happened this shift:Patient has had no change in the past few days. Patient was seen ambulating in the halls at various times during the day. Pt was observed talking to himself, in no apparent distress. Pt is polite and cooperative for 1:1 but does not talk much. Pt is still endorsing voices that he says, they dont say much lately" All meds were taken without issue. Only medication given on day shift are gas pills. Patient did report less gas today and less abdominal discomfort. Patient was weighed today, it should be noted that patient has gained greater than 30 pounds in the 28 days that he has been here. Hints patient is always fixated on food. S/I, H/I: Denies A/VH: endorses voices Sleep: Per NOC 8.5 ADL's: Independent Group attendance: No Were meds taken: Yes Any med S/E: None observed or reported Mental Status Exam Appearance: Neat and clean; messy hair Eye contact: Good Behavior: Pleasant, pacing the unit, asking for snack/food all day long Speech: Clear, audible, minimal Mood: ok Affect: Congruent to mood Thought process: Perseverative Thought Content: Meeting needs, food Cognition: A/O X 2; oriented to person and place. Insight: Poor. Judgment: Poor Interventions PRN's used: none Therapeutic interventions: 1:1 assessment, therapeutic communication, active listening, encouraged pt to express his thoughts and feelings, ensured contract for safety, gave clear and simple directions, encouragement of personal hygiene, encouragement to participate in unit activities and attend groups, behavior monitoring and intervention as needed; distraction, redirection, reality orientation, limit setting, provided positive reinforcement, and maintained Q 15 minute safety checks. Justification of Continued Inpatient Treatment: Pt is here to establish competency to stand trial. He needs medication management in a safe and therapeutic environment.
[2021-05-25 19:00] VITALS: BP 93/61
[2021-05-25] MEDS: haloperidol 5mg tablet PO SCH (20:39)
[2021-05-25] MEDS: traZODone 50mg tablet PO PRN (20:39)
--- NOTE | 2021-05-26 02:46 | NUR ---
Nursing Progress Note Legal hold 1370 Client on involuntary status for GD Report received from DANIEL Rubio with use of SBAR Why are they here: [facility]. Pt has history of schizophrenia and substance abuse. Pt had negative PPD and Covid tests. Pt has multiple charges ranging from obstruction, public intoxication, trespassing, disturbing the peace, defecating in prohibited place, battery upon officer, unlawful camping, possession. Pt is not on any medications. Assessment Patient primarily isolates in his room following shift change. 1:1 at bedside. Patient looks disheveled, he speaks minimally Patient denies S/I, H/I, or any depression. Patient discusses getting a haircut in the am. He is prompted to shower. S/I, H/I: Denies. A/VH: Denies. Sleep:Will tally at 0500 hours. ADL's: Independent, some prompting. Group attendance: No group on [facility] shift lead. Were meds taken: Yes, medication compliant. Any med S/E: None noted or reported. Mental Status Exam Appearance: Disheveled, wearing street clothes. Eye contact: Fair. Behavior: Cooperative, pleasant, isolating in room. Speech: Clear, audible, minimal, poverty of speech. Mood: Euthymic. Affect: Calm. Thought process: Poverty of thought. Thought Content: Sleep. Cognition: A/O X 2. Insight: Poor. Judgment: Poor. Interventions PRN's used: None Therapeutic interventions: 1:1 assessment, therapeutic communication, encouraged pt to express his thoughts and feelings, active listening/education/monitoring, behavior monitoring, and maintained Q 15 minute safety checks. Justification of Continued Inpatient Treatment: Pt is here to establish competency to stand trial. He needs medication management in a safe and therapeutic environment.
[2021-05-26 07:00] VITALS: BP 97/59
[2021-05-26] MEDS: simethicone 125mg capsule PO SCH ×3 (08:04→21:05)
--- NOTE | 2021-05-26 11:57 | NUR ---
Nursing Progress Note: Legal hold: 1370 Client on involuntary status for GD Report received from Juliet Coleman RN with use of SBAR. Why are they here: Pt admitted from [facility] to restore competency. Pt has history of schizophrenia and substance abuse. Pt had negative PPD and Covid tests. Pt has multiple charges ranging from obstruction, public intoxication, trespassing, disturbing the peace, defecating in prohibited place, battery upon officer, unlawful camping, possession. Pt is not on any medications. Assessment What has happened this shift:Patient has had no change in the past few days. Patient was seen ambulating in the halls at various times during the day. Pt was observed talking to himself, in no apparent distress. Pt is polite and cooperative for 1:1 but does not talk much. Pt is still endorsing voices that he says, they dont say much lately" All meds were taken without issue. Only medication given on day shift are gas pills. Patient did report less gas today and less abdominal discomfort. Patient is allowed to have meals and snack during snack times, he seems to be good with those boundaries. As in the past he was so fixated on food he was heating around the clock while awake. Cameron reports that "his Tummy" feels better if he does not over eat. No flatulent smells early this day. S/I, H/I: Denies A/VH: endorses voices Sleep: Per NOC 5.0, patient thinks he slept better than that and will attempt to nap ADL's: Independent Group attendance: No Were meds taken: Yes Any med S/E: None observed or reported Mental Status Exam Appearance: Neat and clean; messy hair (wanting a hair cut) Eye contact: Good Behavior: Pleasant, pacing the unit, asking for snack/food all day long Speech: Clear, audible, minimal Mood: ok Affect: Congruent to mood Thought process: Perseverative Thought Content: Meeting needs, food Cognition: A/O X 2; oriented to person and place. Insight: Poor. Judgment: Poor Interventions PRN's used: none Therapeutic interventions: 1:1 assessment, therapeutic communication, active listening, encouraged pt to express his thoughts and feelings, ensured contract for safety, gave clear and simple directions, encouragement of personal hygiene, encouragement to participate in unit activities and attend groups, behavior monitoring and intervention as needed; distraction, redirection, reality orientation, limit setting, provided positive reinforcement, and maintained Q 15 minute safety checks. Justification of Continued Inpatient Treatment: Pt is here to establish competency to stand trial. He needs medication management in a safe and therapeutic environment.
[2021-05-26 20:00] VITALS: BP 102/72
[2021-05-26] MEDS: traZODone 50mg tablet PO PRN (21:05)
[2021-05-26] MEDS: haloperidol 5mg tablet PO SCH (21:05)
--- NOTE | 2021-05-26 23:58 | NUR ---
Nursing Progress Note Legal hold 1370 Client on involuntary status for GD Report received from DANIEL Rubio with use of SBAR Why are they here: Pt admitted from [facility] to restore competency. Pt has history of schizophrenia and substance abuse. Pt had negative PPD and Covid tests. Pt has multiple charges ranging from obstruction, public intoxication, trespassing, disturbing the peace, defecating in prohibited place, battery upon officer, unlawful camping, possession. Pt is not on any medications. Assessment Patient primarily isolates in his room following shift change. 1:1 at bedside. Patient looks disheveled, he speaks minimally Patient denies S/I, H/I, or any depression. Patient is focused on food and rest. He denies any S/I, H/I, or any hallucinations. Patient is cooperative with medication administration. S/I, H/I: Denies. A/VH: Denies. Sleep:Will tally at 0500 hours. ADL's: Independent, some prompting. 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 Were meds taken: Yes, medication compliant. Any med S/E: None noted or reported. Mental Status Exam Appearance: Disheveled, wearing street clothes. Eye contact: Fair. Behavior: Cooperative, pleasant, isolating in room. Speech: Clear, audible, minimal, poverty of speech. Mood: Euthymic. Affect: Calm. Thought process: Poverty of thought. Thought Content: Sleep. Cognition: A/O X 2. Insight: Poor. Judgment: Poor. Interventions PRN's used: None Therapeutic interventions: 1:1 assessment, therapeutic communication, encouraged pt to express his thoughts and feelings, active listening/education/monitoring, behavior monitoring, and maintained Q 15 minute safety checks. Justification of Continued Inpatient Treatment: Pt is here to establish competency to stand trial. He needs medication management in a safe and therapeutic environment.
[2021-05-27] MEDS: simethicone 125mg capsule PO SCH ×3 (07:44→20:11)
[2021-05-27 08:00] VITALS: BP 102/74
--- NOTE | 2021-05-27 12:54 | NUR ---
Nursing Progress Note Legal hold 1370 Client on involuntary status for GD Report received from RN with use of SBAR Why are they here: Pt admitted from [facility] to restore competency. Pt has history of schizophrenia and substance abuse. Pt had negative PPD and Covid tests. Pt has multiple charges ranging from obstruction, public intoxication, trespassing, disturbing the peace, defecating in prohibited place, battery upon officer, unlawful camping, possession. Pt is not on any medications. Assessment What has happened this shift: Received Pt in bed sleeping w/o distress at the beginning of the shift. Pt woke and was cooperative with vitals and AM assessments. Pt ate breakfast and all meals in community room with others appropriately and continues to eat well and have foul smelling flatus. Pt took his AM Simethicone w/o issue. Pt asks for water and snacks often and is cooperative with all responses and/or limits. Pt spent time in community room watching TV and sat in hallway and watched unit activities. Pt continues to talk to himself throughout the day as if responding to internal stimuli. Pt encouraged to shower and perform ADLs. S/I, H/I: Pt denied A/VH: Pt denied Sleep: None this shift ADL's: Independent Group attendance: NA Were meds taken: Yes Any med S/E: None noted or reported Mental Status Exam Appearance: Disheveled, in own clothes Eye contact: Fair Behavior: Cooperative, pleasant, isolative Speech: Clear, audible, minimal, poverty of speech Mood: Euthymic Affect: Calm Thought process: Poverty of thought Thought Content: Getting snacks and drinks Cognition: A/O X 2 Insight: Poor Judgment: Poor Interventions PRN's used: None Therapeutic interventions: 1:1 assessment, therapeutic communication, encouraged pt to express his thoughts and feelings, active listening/education/monitoring, behavior monitoring, and maintained Q 15 minute safety checks. Justification of Continued Inpatient Treatment: Pt is here to establish competency to stand trial. He needs medication management in a safe and therapeutic environment.
[2021-05-27 19:28] VITALS: BP 98/55
[2021-05-27] MEDS: traZODone 50mg tablet PO PRN (20:12)
[2021-05-27] MEDS: haloperidol 5mg tablet PO SCH (20:12)
--- NOTE | 2021-05-28 01:45 | NUR ---
Nursing Progress Note Legal hold 1370 Client on involuntary status for GD Report received from DANIEL Rubio with use of SBAR Why are they here: Pt admitted from [facility] to restore competency. Pt has history of schizophrenia and substance abuse. Pt had negative PPD and Covid tests. Pt has multiple charges ranging from obstruction, public intoxication, trespassing, disturbing the peace, defecating in prohibited place, battery upon officer, unlawful camping, possession. Pt is not on any medications. Assessment What happened this shift: The patient was seen at shift change walking the halls and mumbling to himself. He has a vague look of anticipation. He doesn't speak much, but will answer yes or no. He occasionally stops to request crackers or other snacks. The patient continues to have noxious gas. Simethicone might be helping. He denies all mental health symptoms, but is obviously responding to IS. He's compliant with HS medications, wanders for a while, then goes to bed. S/I, H/I: Denies. A/VH: Denies. Sleep: See sleep assessment. ADL's: Independent, some prompting. Group attendance: No group on systems architect. Were meds taken: Yes. Any med S/E: None reported or observed. Mental Status Exam Appearance: Disheveled, wearing street clothes. Eye contact: Fair. Behavior: Cooperative, pleasant, isolating in room, wanders halls. Speech: Clear. Poverty Mood: Euthymic. Affect: Calm. Thought process: Poverty of thought. Thought Content: Snacks. Cognition: A/O X 2. Insight: Poor. Judgment: Poor. Interventions PRN's used: None Therapeutic interventions: 1:1 assessment, therapeutic communication, encouraged pt to express his thoughts and feelings, active listening/education/monitoring, behavior monitoring, and maintained Q 15 minute safety checks. Justification of Continued Inpatient Treatment: Pt is here to establish competency to stand trial. He needs medication management in a safe and therapeutic environment.
[2021-05-28 08:00] VITALS: BP 108/71
[2021-05-28] MEDS: simethicone 125mg capsule PO SCH ×3 (08:25→20:13)
[2021-05-28] MEDS: acetaminophen 325mg tablet PO PRN (12:56)
--- NOTE | 2021-05-28 14:42 | NUR ---
Nursing Progress Note Legal hold 1370 Client on involuntary status for GD Report received from RN with use of SBAR Why are they here: Pt admitted from [facility] to restore competency. Pt has history of schizophrenia and substance abuse. Pt had negative PPD and Covid tests. Pt has multiple charges ranging from obstruction, public intoxication, trespassing, disturbing the peace, defecating in prohibited place, battery upon officer, unlawful camping, possession. Pt is not on any medications. Assessment What has happened this shift: Patient was asleep at change of shift and up for breakfast. Patient takes his medication as prescribed. Patient is friendly. Patient took a morning nap and is seen walking around the unit during the day. Patient is in no distress. Patient drinks a lot of water. Patient denies suicidal/homicidal ideation. Patient denies audio/visual hallucinations but appears to mumble to himself. Possibly responding to internal stimuli. Patient c/o right leg pain and given Tylenol. No distress observed. S/I, H/I: Denies A/VH: Denies Sleep: Morning nap ADL's: Independent Group attendance: No Were meds taken: Yes Any med S/E: None noted or reported Mental Status Exam Appearance: Disheveled, in scrubs Eye contact: Fair Behavior: Cooperative, pleasant, isolative Speech: Clear, poverty of speech Mood: Euthymic Affect: Calm Thought process: Poverty of thought Thought Content: Getting his needs met Cognition: A/O X 2 Insight: Poor Judgment: Poor Interventions PRN's used: Tylenol Therapeutic interventions: 1:1 assessment, therapeutic communication, encouraged pt to express his thoughts and feelings, active listening/education/monitoring, behavior monitoring, and maintained Q 15 minute safety checks. Justification of Continued Inpatient Treatment: Pt is here to establish competency to stand trial. He needs medication management in a safe and therapeutic environment.
[2021-05-28 20:12] VITALS: BP 100/66
[2021-05-28] MEDS: haloperidol 5mg tablet PO SCH (20:13)
--- NOTE | 2021-05-29 02:04 | NUR ---
Nursing Progress Note Legal hold 1370 Client on involuntary status for GD Report received from DANIEL Rubio with use of SBAR Why are they here: Pt admitted from [facility] to restore competency. Pt has history of schizophrenia and substance abuse. Pt had negative PPD and Covid tests. Pt has multiple charges ranging from obstruction, public intoxication, trespassing, disturbing the peace, defecating in prohibited place, battery upon officer, unlawful camping, possession. Pt is not on any medications. Assessment What happened this shift: Received the patient napping on his bed. He gets up for vital signs, then walks the halls. He occasionally stops, as if he's listening for something, then walks on. When asked, he denies having hallucinations tonight. Spends more time in his room tonight, but comes to get snacks and HS meds, before returning to his room. S/I, H/I: Denies. A/VH: Denies. Sleep: See sleep assessment. ADL's: Independent, some prompting. 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 Were meds taken: Yes. Any med S/E: None reported or observed. Mental Status Exam Appearance: Disheveled, wild, flyaway hair, wearing street clothes. Eye contact: Fair. Behavior: Cooperative, pleasant, isolating in room, wanders halls. Speech: Clear. Poverty of speech Mood: Euthymic. Affect: Calm. Thought process: Poverty of thought. Thought Content: Snacks. Cognition: A/O X 2. Insight: Poor. Judgment: Poor. Interventions PRN's used: None Therapeutic interventions: 1:1 assessment, therapeutic communication, encouraged pt to express his thoughts and feelings, active listening/education/monitoring, behavior monitoring, and maintained Q 15 minute safety checks. Justification of Continued Inpatient Treatment: Pt is here to establish competency to stand trial. He needs medication management in a safe and therapeutic environment.
--- NOTE | 2021-05-29 07:20 | NUR ---
Requested IQ testing from [facility]. Dr Wheeler is going to meet with Cameron to complete IQ testing, hopefully this week. DAMIEN Pérez
[2021-05-29] MEDS ORDERED: paliperidone palmitate inj 234 MG/1.5 ML SYRINGE IM ONE (08:00)
[2021-05-29] MEDS: simethicone 125mg capsule PO SCH ×3 (08:29→20:15)
[2021-05-29 08:35] VITALS: BP 102/67
--- NOTE | 2021-05-29 11:32 | NUR ---
Reassessment: Pt continues with mostly 100% PO intake on regular diet while receiving double protein TID. Noted pt participating in snacks per documentation nurse. LBM 05/26 with PRN bowel care available last given 05/20. D/w dietary to send prunes and prune juice with next meal to assist with bowel regularity. Will continue to follow. Recommendations: 1) Continue regular diet; double eggs WB double meat BIDLD per diet order; offer snacks 2) Bowel care per rx 3) Weekly scaled weights Addendum: 05/29/21 at [address] Amended: Links added.
--- NOTE | 2021-05-29 11:58 | NUR ---
Esperanza Haas 234mg Due 06/10/2021
--- NOTE | 2021-05-29 12:37 | NUR ---
Nursing Progress Note: Legal hold: 1370 Client on involuntary status for GD Report received from Fely SANCHEZ with use of SBAR. Why are they here: Pt admitted from [facility] to restore competency. Pt has history of schizophrenia and substance abuse. Pt had negative PPD and Covid tests. Pt has multiple charges ranging from obstruction, public intoxication, trespassing, disturbing the peace, defecating in prohibited place, battery upon officer, unlawful camping, possession. Pt is not on any medications. Assessment What has happened this shift: Patient has had no change in the past few days. Patient was seen ambulating in the halls at various times during the day. Pt was observed talking to himself, in no apparent distress. Pt is polite and cooperative for 1:1 but does not talk much. Pt is still endorsing voices that he says, they dont say much lately" All meds were taken without issue. Invega Sustenna was not given today, Invega Sustenna 234mg is schedule for 06/10/21 patient is aware. Only medication given on day shift are gas pills. Patient did report some abdominal discomfort today along with gas, it is unclear if anything different was done. Patient is allowed to have meals and snack during snack times, he seems to be good with those boundaries. As in the past he was so fixated on food he was heating around the clock while awake. Patient did asked for a snack 35 mins before lunch, this com writer had patient wait for meal time. S/I, H/I: Denies A/VH: endorses voices, seem quieter lately Sleep: Per NOC 7.5, ADL's: Independent Group attendance: No Were meds taken: Yes Any med S/E: None observed or reported Mental Status Exam Appearance: Neat and clean; messy hair, clean shaven Eye contact: Good Behavior: Pleasant, pacing the unit, asking for snack/food all day long Speech: Clear, audible, minimal Mood: ok Affect: Congruent to mood Thought process: Perseverative Thought Content: Meeting needs, food Cognition: A/O X 2; oriented to person and place. Insight: Poor. Judgment: Poor Interventions PRN's used: none Therapeutic interventions: 1:1 assessment, therapeutic communication, active listening, encouraged pt to express his thoughts and feelings, ensured contract for safety, gave clear and simple directions, encouragement of personal hygiene, encouragement to participate in unit activities and attend groups, behavior monitoring and intervention as needed; distraction, redirection, reality orientation, limit setting, provided positive reinforcement, and maintained Q 15 minute safety checks. Justification of Continued Inpatient Treatment: Pt is here to establish competency to stand trial. He needs medication management in a safe and therapeutic environment.
[2021-05-29] MEDS: acetaminophen 325mg tablet PO PRN (16:58)
[2021-05-29 19:27] VITALS: BP 95/54
[2021-05-29] MEDS: haloperidol 5mg tablet PO SCH (20:15)
[2021-05-29] MEDS: traZODone 50mg tablet PO PRN (20:15)
--- NOTE | 2021-05-29 22:22 | NUR ---
Nursing Progress Note: Legal hold: 1370 Client on involuntary status for GD Report received from Ramiro SANCHEZ with use of SBAR. Why are they here: Pt admitted from [facility] to restore competency. Pt has history of schizophrenia and substance abuse. Pt had negative PPD and Covid tests. Pt has multiple charges ranging from obstruction, public intoxication, trespassing, disturbing the peace, defecating in prohibited place, battery upon officer, unlawful camping, possession. Pt is not on any medications. Assessment What has happened this shift: pt was at the nurses station at change of shift requesting a snack. Pt states he is still feeling hungry after having dinner. Pt spent time walking in the hallway and his room before evening snack. Pt had a snack and still c/o feeling "a little bit hungry still but I'm ok." Pt is med compliant before going to bed. S/I, H/I: Denies A/VH: I still hear some voices but not bad Sleep:see sleep hours ADL's: Independent Group attendance: No Were meds taken: Yes Any med S/E: None observed or reported Mental Status Exam Appearance: Neat and clean; messy hair, clean shaven Eye contact: Good Behavior: Pleasant, pacing the unit, asking for snacks/food Speech: Clear, audible, minimal Mood: "im doing good" Affect: Congruent to mood Thought process: Perseverative Thought Content: Meeting needs, food Cognition: A/O X 2; oriented to person and place. Insight: Poor. Judgment: Poor Interventions PRN's used: trazodone Therapeutic interventions: 1:1 assessment, therapeutic communication, active listening, encouraged pt to express his thoughts and feelings, ensured contract for safety, gave clear and simple directions, encouragement of personal hygiene, encouragement to participate in unit activities and attend groups, behavior monitoring and intervention as needed; distraction, redirection, reality orientation, limit setting, provided positive reinforcement, and maintained Q 15 minute safety checks. Justification of Continued Inpatient Treatment: Pt is here to establish competency to stand trial. He needs medication management in a safe and therapeutic environment.
[2021-05-30 07:55] VITALS: BP 108/65
[2021-05-30] MEDS: simethicone 125mg capsule PO SCH ×3 (08:24→20:04)
--- NOTE | 2021-05-30 11:12 | NUR ---
Nursing Progress Note: Legal hold: 1370 Client on involuntary status for GD Report received from Fely SANCHEZ with use of SBAR. Why are they here: Pt admitted from [facility] to restore competency. Pt has history of schizophrenia and substance abuse. Pt had negative PPD and Covid tests. Pt has multiple charges ranging from obstruction, public intoxication, trespassing, disturbing the peace, defecating in prohibited place, battery upon officer, unlawful camping, possession. Pt is not on any medications. Assessment What has happened this shift: Patient has had no change in the past few days. Patient was seen ambulating in the halls at various times during the day. Pt was observed talking to himself, in no apparent distress. Pt is polite and cooperative for 1:1 but does not talk much. Pt is still endorsing voices that he says, they dont say much lately" All meds were taken without issue. Patient did report some abdominal discomfort today along with gas, it should be noted that patient was allowed to have a second breakfast this morning. S/I, H/I: Denies A/VH: endorses voices, "not as much today" Sleep: Per NOC 8.0 ADL's: Independent Group attendance: No Were meds taken: Yes Any med S/E: None observed or reported Mental Status Exam Appearance: Neat and clean; messy hair, clean shaven Eye contact: Good Behavior: Pleasant, pacing the unit, asking for snack/food all day long Speech: Clear, audible, minimal Mood: ok Affect: Congruent to mood Thought process: Perseverative Thought Content: Meeting needs, food Cognition: A/O X 2; oriented to person and place. "I don't why they think I did something wrong" Insight: Poor. Judgment: Poor Interventions PRN's used: none Therapeutic interventions: 1:1 assessment, therapeutic communication, active listening, encouraged pt to express his thoughts and feelings, ensured contract for safety, gave clear and simple directions, encouragement of personal hygiene, encouragement to participate in unit activities and attend groups, behavior monitoring and intervention as needed; distraction, redirection, reality orientation, limit setting, provided positive reinforcement, and maintained Q 15 minute safety checks. Justification of Continued Inpatient Treatment: Pt is here to establish competency to stand trial. He needs medication management in a safe and therapeutic environment.
[2021-05-30 19:35] VITALS: BP 105/67
[2021-05-30] MEDS: haloperidol 5mg tablet PO SCH (20:04)
[2021-05-30] MEDS: traZODone 50mg tablet PO PRN (20:05)
--- NOTE | 2021-05-30 21:09 | NUR ---
Nursing Progress Note: Legal hold: 1370 Client on involuntary status for GD Report received from Gerald SANCHEZ with use of SBAR. Why are they here: Pt admitted from [facility] to restore competency. Pt has history of schizophrenia and substance abuse. Pt had negative PPD and Covid tests. Pt has multiple charges ranging from obstruction, public intoxication, trespassing, disturbing the peace, defecating in prohibited place, battery upon officer, unlawful camping, possession. Pt is not on any medications. Assessment What has happened this shift: Pt was in the garcia asking for candy at change of shift. Pt states he is doing good. Denies voices, gives minimal response to questions. Pt isolates to himself, is polite and cooperative during interaction. Pt is med compliant. Spent evening pacing and resting in bed intermittently until he went to sleep S/I, H/I: Denies A/VH: denies Sleep: see sleep hours ADL's: Independent Group attendance: No Were meds taken: Yes Any med S/E: None observed or reported Mental Status Exam Appearance: Neat and clean; messy hair, clean shaven Eye contact: Good Behavior: Pleasant, pacing the unit, asking for snack/food Speech: Clear, audible, minimal Mood: ok Affect: Congruent to mood Thought process: Perseverative Thought Content: Meeting needs, food Cognition: A/O X 2; oriented to person and place. Insight: Poor. Judgment: Poor Interventions PRN's used: none Therapeutic interventions: 1:1 assessment, therapeutic communication, active listening, encouraged pt to express his thoughts and feelings, ensured contract for safety, gave clear and simple directions, encouragement of personal hygiene, encouragement to participate in unit activities and attend groups, behavior monitoring and intervention as needed; distraction, redirection, reality orientation, limit setting, provided positive reinforcement, and maintained Q 15 minute safety checks. Justification of Continued Inpatient Treatment: Pt is here to establish competency to stand trial. He needs medication management in a safe and therapeutic environment.
[2021-05-31 08:00] VITALS: BP 88/53
[2021-05-31] MEDS: simethicone 125mg capsule PO SCH ×3 (08:29→20:21)
--- NOTE | 2021-05-31 16:29 | NUR ---
Nursing Progress Note: Legal hold: 1370 Client on involuntary status for GD Report received from Fely SANCHEZ with use of SBAR. Why are they here: Pt admitted from [facility] to restore competency. Pt has history of schizophrenia and substance abuse. Pt had negative PPD and Covid tests. Pt has multiple charges ranging from obstruction, public intoxication, trespassing, disturbing the peace, defecating in prohibited place, battery upon officer, unlawful camping, possession. Pt is not on any medications. Assessment What has happened this shift: Patient was awake and roaming the halls at change of shift. Patient took a shower this morning. Then late morning patient walks out with a clean shaven head which was done by one of the Tech's. Patient was smiling and enjoying the compliments. Patient watches T.V. talks naps but doesn't really interact with people. Patient has poverty of speech. Patient appears to be responding to internal stimuli. S/I, H/I: Denies A/VH: hearing some voices Sleep: Napped in the morning ADL's: Independent Group attendance: No Were meds taken: Yes Any med S/E: None observed or reported Mental Status Exam Appearance: Neat and clean; messy hair, then no hair. clean shaven Eye contact: Good Behavior: Polite, quiet, asked for an extra tray Speech: Clear, audible, minimal Mood: Euthymic Affect: Flat Thought process: Disorganized Thought Content: Meeting needs, food Cognition: to name and place Insight: Poor. Judgment: Poor Interventions PRN's used: none Therapeutic interventions: 1:1 assessment, therapeutic communication, active listening, encouraged pt to express his thoughts and feelings, ensured contract for safety, gave clear and simple directions, encouragement of personal hygiene, encouragement to participate in unit activities and attend groups, behavior monitoring and intervention as needed; distraction, redirection, reality orientation, limit setting, provided positive reinforcement, and maintained Q 15 minute safety checks. Justification of Continued Inpatient Treatment: Pt is here to establish competency to stand trial. He needs medication management in a safe and therapeutic environment.
[2021-05-31 20:18] VITALS: BP 115/76
[2021-05-31] MEDS: haloperidol 5mg tablet PO SCH (20:21)
--- NOTE | 2021-05-31 21:46 | NUR ---
Nursing Progress Note: Legal hold: 1370 Client on involuntary status for GD Report received from Gerald SANCHEZ with use of SBAR. Why are they here: Pt admitted from [facility] to restore competency. Pt has history of schizophrenia and substance abuse. Pt had negative PPD and Covid tests. Pt has multiple charges ranging from obstruction, public intoxication, trespassing, disturbing the peace, defecating in prohibited place, battery upon officer, unlawful camping, possession. Pt is not on any medications. Assessment What has happened this shift: Pt spent the evening walking the halls talking to himself. Pt does not interact with other patients and only does with staff when he needs something. Pt is cooperative for care and assessments and does not have any behavior issues. All hs meds taken without issue. S/I, H/I: Denies A/VH: denies Sleep: see sleep hours ADL's: Independent Group attendance: No Were meds taken: Yes Any med S/E: None observed or reported Mental Status Exam Appearance: Neat and clean; shaved head Eye contact: Good Behavior: Pleasant, pacing the unit, asking for snack/food Speech: Clear, audible, minimal Mood: ok Affect: Congruent to mood Thought process: Perseverative Thought Content: Meeting needs, food Cognition: A/O X 2; oriented to person and place. Insight: Poor. Judgment: Poor Interventions PRN's used: none Therapeutic interventions: 1:1 assessment, therapeutic communication, active listening, encouraged pt to express his thoughts and feelings, ensured contract for safety, gave clear and simple directions, encouragement of personal hygiene, encouragement to participate in unit activities and attend groups, behavior monitoring and intervention as needed; distraction, redirection, reality orientation, limit setting, provided positive reinforcement, and maintained Q 15 minute safety checks. Justification of Continued Inpatient Treatment: Pt is here to establish competency to stand trial. He needs medication management in a safe and therapeutic environment.
[2021-06-01] MEDS: simethicone 125mg capsule PO SCH ×3 (07:31→20:00)
[2021-06-01 08:58] VITALS: BP 113/74
--- NOTE | 2021-06-01 15:21 | NUR ---
Nursing Progress Note: Legal hold: 1370 Client on involuntary status for GD Report received from Fely SANCHEZ with use of SBAR. Why are they here: Pt admitted from [facility] to restore competency. Pt has history of schizophrenia and substance abuse. Pt had negative PPD and Covid tests. Pt has multiple charges ranging from obstruction, public intoxication, trespassing, disturbing the peace, defecating in prohibited place, battery upon officer, unlawful camping, possession. Pt is not on any medications. Assessment What has happened this shift: Patient was asleep at change of shift and up before breakfast. Patient appears more linear today. Patient takes his meds as prescribed. Patient played [employer] in the early afternoon with staff and peers. Patient denies SI/HI and denies A/V hallucinations. Patient does not appear comfortable speaking with RN but answers questions. S/I, H/I: Denies A/VH: Denies Sleep: Morning nap ADL's: Independent Group attendance: N/A Were meds taken: Yes Any med S/E: None observed or reported Mental Status Exam Appearance: Patient appears neat and wearing green scrubs Eye contact: Good Behavior: Polite, quiet, Speech: Clear, audible, minimal Mood: Euthymic Affect: Flat Thought process: Linear Thought Content: Meeting needs Cognition: to name and place Insight: Poor. Judgment: Poor Interventions PRN's used: none Therapeutic interventions: 1:1 assessment, therapeutic communication, active listening, encouraged pt to express his thoughts and feelings, ensured contract for safety, gave clear and simple directions, encouragement of personal hygiene, encouragement to participate in unit activities and attend groups, behavior monitoring and intervention as needed; distraction, redirection, reality orientation, limit setting, provided positive reinforcement, and maintained Q 15 minute safety checks. Justification of Continued Inpatient Treatment: Pt is here to establish competency to stand trial. He needs medication management in a safe and therapeutic environment.
--- NOTE | 2021-06-01 15:44 | NUR ---
Pt. attended [facility] today. NEEL ManzoW
[2021-06-01 19:25] VITALS: BP 108/80
[2021-06-01] MEDS: traZODone 50mg tablet PO PRN (20:00)
[2021-06-01] MEDS: haloperidol 5mg tablet PO SCH (20:00)
--- NOTE | 2021-06-02 00:31 | NUR ---
Nursing Progress Note: Legal hold: 1370 Client on involuntary status for GD Report received from andie RN with use of SBAR. Why are they here: Pt admitted from [facility] to restore competency. Pt has history of schizophrenia and substance abuse. Pt had negative PPD and Covid tests. Pt has multiple charges ranging from obstruction, public intoxication, trespassing, disturbing the peace, defecating in prohibited place, battery upon officer, unlawful camping, possession. Pt is not on any medications. Assessment What has happened this shift: No changes in the patient for evening shift. Pt walks the halls not interacting with others but is polite when approached. Pt denies having any complaints and denies hearing voices today, but Pt was observed talking to himself. Pt accepted hs meds without issue. S/I, H/I: Denies A/VH: denies Sleep: see sleep hours ADL's: Independent Group attendance: No Were meds taken: Yes Any med S/E: None observed or reported Mental Status Exam Appearance: Neat and clean; shaved head Eye contact: Good Behavior: Pleasant, pacing the unit, asking for snack/food Speech: Clear, audible, minimal Mood: Im good Affect: Congruent to mood Thought process: rose Thought Content: Meeting needs, food Cognition: A/O X 2; oriented to person and place. Insight: Poor. Judgment: Poor Interventions PRN's used: none Therapeutic interventions: 1:1 assessment, therapeutic communication, active listening, encouraged pt to express his thoughts and feelings, ensured contract for safety, gave clear and simple directions, encouragement of personal hygiene, encouragement to participate in unit activities and attend groups, behavior monitoring and intervention as needed; distraction, redirection, reality orientation, limit setting, provided positive reinforcement, and maintained Q 15 minute safety checks. Justification of Continued Inpatient Treatment: Pt is here to establish competency to stand trial. He needs medication management in a safe and therapeutic environment.
[2021-06-02] MEDS: simethicone 125mg capsule PO SCH ×3 (07:57→20:00)
[2021-06-02 08:57] VITALS: BP 112/69
--- NOTE | 2021-06-02 13:28 | NUR ---
Nursing Progress Note: Legal hold: 1370 Client on involuntary status for GD Report received from Fely SANCHEZ with use of SBAR. Why are they here: Pt admitted from [facility] to restore competency. Pt has history of schizophrenia and substance abuse. Pt had negative PPD and Covid tests. Pt has multiple charges ranging from obstruction, public intoxication, trespassing, disturbing the peace, defecating in prohibited place, battery upon officer, unlawful camping, possession. Pt is not on any medications. Assessment What has happened this shift: Patient was asleep at change of shift and up soon after. Patient appears linear today. Patient takes his meds as prescribed. Patient states he is doing well. Patient denies SI/HI and denies A/V hallucinations. Patient asks for extra food. Patient still has a lot of gas and laughs about it. S/I, H/I: Denies A/VH: Denies Sleep: Took a couple of cat naps ADL's: Independent Group attendance: No Were meds taken: Yes Any med S/E: None observed or reported Mental Status Exam Appearance: Patient appears neat and wearing green scrubs Eye contact: Good Behavior: Polite, quiet, Speech: Clear, audible, minimal Mood: Euthymic Affect: Flat Thought process: Linear Thought Content: Meeting needs, food Cognition: to name and place Insight: Poor. Judgment: Poor Interventions PRN's used: none Therapeutic interventions: 1:1 assessment, therapeutic communication, active listening, encouraged pt to express his thoughts and feelings, ensured contract for safety, gave clear and simple directions, encouragement of personal hygiene, encouragement to participate in unit activities and attend groups, behavior monitoring and intervention as needed; distraction, redirection, reality orientation, limit setting, provided positive reinforcement, and maintained Q 15 minute safety checks. Justification of Continued Inpatient Treatment: Pt is here to establish competency to stand trial. He needs medication management in a safe and therapeutic environment.
[2021-06-02 19:31] VITALS: BP 108/73
[2021-06-02] MEDS: traZODone 50mg tablet PO PRN (20:00)
[2021-06-02] MEDS: haloperidol 5mg tablet PO SCH (20:00)
--- NOTE | 2021-06-03 01:45 | NUR ---
Nursing Progress Note: Legal hold: 1370 Client on involuntary status for GD Report received from andie RN with use of SBAR. Why are they here: Pt admitted from [facility] to restore competency. Pt has history of schizophrenia and substance abuse. Pt had negative PPD and Covid tests. Pt has multiple charges ranging from obstruction, public intoxication, trespassing, disturbing the peace, defecating in prohibited place, battery upon officer, unlawful camping, and possession. Pt is not on any medications. Assessment What has happened this shift: Pt is cooperative and friendly for all assessments and care but does not say much. Pt mostly only speaks when he needs something, usually food or drinks. Pt denies hearing voices but is observed talking to himself at various times during the evening shift. All hs meds taken without issue. S/I, H/I: Denies A/VH: denies Sleep: see sleep hours ADL's: Independent Group attendance: No Were meds taken: Yes Any med S/E: None observed or reported Mental Status Exam Appearance: Neat and clean; shaved head Eye contact: Good Behavior: Pleasant, pacing the unit, asking for snack/food Speech: Clear, audible, minimal Mood: Im good Affect: Congruent to mood Thought process: rose Thought Content: Meeting needs, food Cognition: A/O X 2; oriented to person and place. Insight: Poor. Judgment: Poor Interventions PRN's used: none Therapeutic interventions: 1:1 assessment, therapeutic communication, active listening, encouraged pt to express his thoughts and feelings, ensured contract for safety, gave clear and simple directions, encouragement of personal hygiene, encouragement to participate in unit activities and attend groups, behavior monitoring and intervention as needed; distraction, redirection, reality orientation, limit setting, provided positive reinforcement, and maintained Q 15 minute safety checks. Justification of Continued Inpatient Treatment: Pt is here to establish competency to stand trial. He needs medication management in a safe and therapeutic environment.
[2021-06-03 08:05] VITALS: BP 104/66
[2021-06-03] MEDS: simethicone 125mg capsule PO SCH ×3 (08:53→20:05)
--- NOTE | 2021-06-03 15:00 | NUR ---
Nursing Progress Note: Legal hold: 1370 Client on involuntary status for GD Report received from Fely SANCHEZ with use of SBAR. Why are they here: Pt admitted from [facility] to restore competency. Pt has history of schizophrenia and substance abuse. Pt had negative PPD and Covid tests. Pt has multiple charges ranging from obstruction, public intoxication, trespassing, disturbing the peace, defecating in prohibited place, battery upon officer, unlawful camping, possession. Pt is not on any medications. Assessment What has happened this shift: Patient was asleep at change of shift and up soon after. Patient appears linear today and appears to be at baseline. Patient takes his meds as prescribed. Patient states he is doing well. Patient denies SI/HI and denies A/V hallucinations. Patient asks for extra food. Patient is not longer allowed to have Hot cocoa because it has milk. Patient is not having gas like he was the last few days. Patient is lactose intolerant. Patient is easy to take care of. S/I, H/I: Denies A/VH: Denies Sleep: Took a couple of naps ADL's: Independent Group attendance: N/A Were meds taken: Yes Any med S/E: None observed or reported Mental Status Exam Appearance: Patient appears a little disheveled and wearing green scrubs Eye contact: Good Behavior: Polite, quiet, Speech: Clear, audible, minimal Mood: Euthymic Affect: Flat Thought process: Linear Thought Content: Meeting needs, food Cognition: to name and place Insight: Poor. Judgment: Poor Interventions PRN's used: none Therapeutic interventions: 1:1 assessment, therapeutic communication, active listening, encouraged pt to express his thoughts and feelings, ensured contract for safety, gave clear and simple directions, encouragement of personal hygiene, encouragement to participate in unit activities and attend groups, behavior monitoring and intervention as needed; distraction, redirection, reality orientation, limit setting, provided positive reinforcement, and maintained Q 15 minute safety checks. Justification of Continued Inpatient Treatment: Pt is here to establish competency to stand trial. He needs medication management in a safe and therapeutic environment.
[2021-06-03 19:23] VITALS: BP 106/63
[2021-06-03] MEDS: haloperidol 5mg tablet PO SCH (20:05)
[2021-06-03] MEDS: traZODone 50mg tablet PO PRN (20:08)
--- NOTE | 2021-06-04 00:13 | NUR ---
Nursing Progress Note: Legal hold: 1370 Client on involuntary status for GD Report received from Mo SANCHEZ with use of SBAR. Why are they here: Pt admitted from [facility] to restore competency. Pt has history of schizophrenia and substance abuse. Pt had negative PPD and Covid tests. Pt has multiple charges ranging from obstruction, public intoxication, trespassing, disturbing the peace, defecating in prohibited place, battery upon officer, unlawful camping, possession. Pt is not on any medications. Assessment What has happened this shift: Patient was up pacing the garcia at change of shift. Patient takes his meds as prescribed and states he is doing well. Patient denies SI/HI and denies A/V hallucinations. Patient is social with peers in group room. Patient is not having gas like he was the last few days. Patient is lactose intolerant. S/I, H/I: Denies A/VH: Denies Sleep: See sleep hrs. ADL's: Independent Group attendance: N/A Were meds taken: Yes Any med S/E: None observed or reported Mental Status Exam Appearance: Patient appears a little disheveled and wearing green scrubs Eye contact: Good Behavior: Polite, quiet, Speech: Clear, audible, minimal Mood: Euthymic Affect: Flat Thought process: Linear Thought Content: Meeting needs, food Cognition: to name and place Insight: Poor. Judgment: Poor Interventions PRN's used: none Therapeutic interventions: 1:1 assessment, therapeutic communication, active listening, encouraged pt to express his thoughts and feelings, ensured contract for safety, gave clear and simple directions, encouragement of personal hygiene, encouragement to participate in unit activities and attend groups, behavior monitoring and intervention as needed; distraction, redirection, reality orientation, limit setting, provided positive reinforcement, and maintained Q 15 minute safety checks. Justification of Continued Inpatient Treatment: Pt is here to establish competency to stand trial. He needs medication management in a safe and therapeutic environment.
[2021-06-04 07:22] VITALS: BP 107/72
[2021-06-04] MEDS: simethicone 125mg capsule PO SCH ×3 (08:36→20:31)
--- NOTE | 2021-06-04 16:17 | NUR ---
Nursing Progress Note: Legal hold: 1370 Client on involuntary status for GD Report received from Fely SANCHEZ with use of SBAR. Why are they here: Pt admitted from [facility] to restore competency. Pt has history of schizophrenia and substance abuse. Pt had negative PPD and Covid tests. Pt has multiple charges ranging from obstruction, public intoxication, trespassing, disturbing the peace, defecating in prohibited place, battery upon officer, unlawful camping, possession. Pt is not on any medications. Assessment What has happened this shift: Patient was asleep at change of shift and up soon after. Patient again appears linear today and appears to be at baseline. Patient takes his meds as prescribed. Patient states he is doing well. Patient denies SI/HI and denies A/V hallucinations. Patient asks for extra food. Patient has replaced hot cocoa with tea and is doing well. Patient does not appear to get the court proceedings that Jermaine is attempting to teach him. Patient is social and walks around the unit. S/I, H/I: Denies A/VH: Denies Sleep: Took a couple of naps ADL's: Independent Group attendance: N/A Were meds taken: Yes Any med S/E: None observed or reported Mental Status Exam Appearance: Patient appears a little disheveled and wearing green scrubs Eye contact: Good Behavior: Polite, quiet, Speech: Clear, audible, minimal Mood: Euthymic Affect: Flat Thought process: Linear Thought Content: Meeting needs, food Cognition: to name and place Insight: Poor. Judgment: Poor Interventions PRN's used: none Therapeutic interventions: 1:1 assessment, therapeutic communication, active listening, encouraged pt to express his thoughts and feelings, ensured contract for safety, gave clear and simple directions, encouragement of personal hygiene, encouragement to participate in unit activities and attend groups, behavior monitoring and intervention as needed; distraction, redirection, reality orientation, limit setting, provided positive reinforcement, and maintained Q 15 minute safety checks. Justification of Continued Inpatient Treatment: Pt is here to establish competency to stand trial. He needs medication management in a safe and therapeutic environment.
[2021-06-04 20:24] VITALS: BP 109/65
[2021-06-04] MEDS: traZODone 50mg tablet PO PRN (20:31)
[2021-06-04] MEDS: haloperidol 5mg tablet PO SCH (20:31)
--- NOTE | 2021-06-05 00:30 | NUR ---
Nursing Progress Note: Legal hold: 1370 Client on involuntary status for GD Report received from Mary SANCHEZ with use of SBAR. Why are they here: Pt admitted from [facility] to restore competency. Pt has history of schizophrenia and substance abuse. Pt had negative PPD and Covid tests. Pt has multiple charges ranging from obstruction, public intoxication, trespassing, disturbing the peace, defecating in prohibited place, battery upon officer, unlawful camping, possession. Pt is not on any medications. Assessment What has happened this shift: Patient was awake at change of shift and pacing the garcia. Patient takes his meds as prescribed. Patient states he is doing well. Patient denies SI/HI and denies A/V hallucinations. Patient is social and walks around the unit. S/I, H/I: Denies A/VH: Denies Sleep: Took a couple of naps ADL's: Independent Group attendance: N/A Were meds taken: Yes Any med S/E: None observed or reported Mental Status Exam Appearance: Patient appears a little disheveled and wearing green scrubs Eye contact: Good Behavior: Polite, quiet, Speech: Clear, audible, minimal Mood: Euthymic Affect: Flat Thought process: Linear Thought Content: Meeting needs, food Cognition: to name and place Insight: Poor. Judgment: Poor Interventions PRN's used: none Therapeutic interventions: 1:1 assessment, therapeutic communication, active listening, encouraged pt to express his thoughts and feelings, ensured contract for safety, gave clear and simple directions, encouragement of personal hygiene, encouragement to participate in unit activities and attend groups, behavior monitoring and intervention as needed; distraction, redirection, reality orientation, limit setting, provided positive reinforcement, and maintained Q 15 minute safety checks. Justification of Continued Inpatient Treatment: Pt is here to establish competency to stand trial. He needs medication management in a safe and therapeutic environment.
[2021-06-05 07:45] VITALS: BP 104/77
[2021-06-05] MEDS: simethicone 125mg capsule PO SCH ×3 (08:24→20:15)
--- NOTE | 2021-06-05 14:39 | NUR ---
Nursing Progress Note: Legal hold: 1370 Client on involuntary status for GD Report received from Fely SANCHEZ with use of SBAR. Why are they here: Pt admitted from [facility] to restore competency. Pt has history of schizophrenia and substance abuse. Pt had negative PPD and Covid tests. Pt has multiple charges ranging from obstruction, public intoxication, trespassing, disturbing the peace, defecating in prohibited place, battery upon officer, unlawful camping, possession. Pt is not on any medications. Assessment What has happened this shift: Patient was asleep at change of shift and up soon after. Patient wanders the halls. He is pleasant and no signs of distress. Patient does not appear to be responding to internal stimuli. Patient denies SI/HI and denies A/V hallucinations. Patient watches T.V. or wanders the halls. Providers are deciding if he is capable of standing trial or possibly conserve him. Patient likes extra food. Continue to monitor. S/I, H/I: Denies A/VH: Denies Sleep: Took a couple of naps ADL's: Independent Group attendance: No Were meds taken: Yes Any med S/E: None observed or reported Mental Status Exam Appearance: Patient is neat and wearing his own clothes Eye contact: Good Behavior: Polite, quiet, Speech: Clear, audible, minimal Mood: Euthymic Affect: Flat Thought process: Linear Thought Content: Meeting needs, food Cognition: to name and place Insight: Poor. Judgment: Poor Interventions PRN's used: none Therapeutic interventions: 1:1 assessment, therapeutic communication, active listening, encouraged pt to express his thoughts and feelings, ensured contract for safety, gave clear and simple directions, encouragement of personal hygiene, encouragement to participate in unit activities and attend groups, behavior monitoring and intervention as needed; distraction, redirection, reality orientation, limit setting, provided positive reinforcement, and maintained Q 15 minute safety checks. Justification of Continued Inpatient Treatment: Pt is here to establish competency to stand trial. He needs medication management in a safe and therapeutic environment.
--- NOTE | 2021-06-05 14:48 | NUR ---
Pt. attended group today. The topic today was identifying the triggers, signs and symptoms of an upcoming episode/event so that Pts. can learn to apply coping skills before they get to a bad place with their symptoms. We talked about what they are hopeful for in the future. Pt was quiet for the entirety of the group. He did appear to listen to his peers and this [employer] but did not have much to say about the topic at hand. Anna Cui, VICE PRESIDENT [employer]
[2021-06-05] MEDS: haloperidol 5mg tablet PO SCH (20:15)
[2021-06-05 20:45] VITALS: BP 98/64
--- NOTE | 2021-06-06 02:53 | NUR ---
Nursing Progress Note: Cameron Legal hold: 1370 Client on involuntary status for GD Report received from Mo RN with use of SBAR. Why are they here: Pt admitted from [facility] to restore competency. Pt has history of schizophrenia and substance abuse. Pt had negative PPD and Covid tests. Pt has multiple charges ranging from obstruction, public intoxication, trespassing, disturbing the peace, defecating in prohibited place, battery upon officer, unlawful camping, possession. Pt is not on any medications. Assessment What has happened this shift: Patient was pacing the hallway somewhat at change of shift. Pt seen resting in bed for a while then up for HS snacks. Pt states he is doing well, denies MH symptoms and has no need at this time. Took all prescribed HS medication and went to bed. Continue to monitor. S/I, H/I: Denies A/VH: Denies Sleep: ADL's: Independent Group attendance: No Were meds taken: Yes Any med S/E: None observed or reported Mental Status Exam Appearance: Patient is neat and wearing his own clothes Eye contact: Good Behavior: Polite, quiet, Speech: Clear, audible, minimal Mood: Euthymic Affect: Flat Thought process: Linear Thought Content: Meeting needs, food Cognition: to name and place Insight: Poor. Judgment: Poor Interventions PRN's used: none Therapeutic interventions: 1:1 assessment, therapeutic communication, active listening, encouraged pt to express his thoughts and feelings, ensured contract for safety, gave clear and simple directions, encouragement of personal hygiene, encouragement to participate in unit activities and attend groups, behavior monitoring and intervention as needed; distraction, redirection, reality orientation, limit setting, provided positive reinforcement, and maintained Q 15 minute safety checks. Justification of Continued Inpatient Treatment: Pt is here to establish competency to stand trial. He needs medication management in a safe and therapeutic environment.
[2021-06-06 07:26] VITALS: BP 117/86
[2021-06-06] MEDS: simethicone 125mg capsule PO SCH ×3 (07:59→20:12)
--- NOTE | 2021-06-06 12:15 | NUR ---
Reassessment: Pt continues w/ adequate PO intake and tolerates regular diet while receiving double protein TID. Noted pt requests more food and consumes snacks often. LBM 06/01 with PRN bowel care available last given 05/20. Pt noted to be having daily moderate stools in EMR. No N/V/D reported. Pt compliant w/ meds. Will continue to monitor. Recommendations: 1) Continue regular diet; double eggs WB double meat BIDLD per diet order; offer snacks 2) Bowel care per rx 3) Weekly scaled weights Addendum: 06/06/21 at [address] Amended: Links added.
--- NOTE | 2021-06-06 15:59 | NUR ---
Nursing Progress Note: Legal hold: 1370 Client on involuntary status for GD Report received from Fely SANCHEZ with use of SBAR. Why are they here: Pt admitted from [facility] to restore competency. Pt has history of schizophrenia and substance abuse. Pt had negative PPD and Covid tests. Pt has multiple charges ranging from obstruction, public intoxication, trespassing, disturbing the peace, defecating in prohibited place, battery upon officer, unlawful camping, possession. Pt is not on any medications. Assessment What has happened this shift: Patient was asleep at change of shift and up soon after. Pt bx is appropriate and accepts boundaries and "no" without agitation. Patient takes his meds as prescribed. Patient states he is doing well. Patient denies SI/HI and denies A/V hallucinations. Patient is minimally social and walks around the unit. S/I, H/I: Denies A/VH: Denies Sleep: Took a couple of naps ADL's: Independent Group attendance: N/A Were meds taken: Yes Any med S/E: None observed or reported Mental Status Exam Appearance: Patient appears a little disheveled and wearing green scrubs Eye contact: Good Behavior: Polite, quiet, Speech: Clear, audible, minimal Mood: Euthymic Affect: Flat Thought process: Linear Thought Content: Meeting needs, food Cognition: to name and place Insight: Poor. Judgment: Poor Interventions PRN's used: none Therapeutic interventions: 1:1 assessment, therapeutic communication, active listening, encouraged pt to express his thoughts and feelings, ensured contract for safety, gave clear and simple directions, encouragement of personal hygiene, encouragement to participate in unit activities and attend groups, behavior monitoring and intervention as needed; distraction, redirection, reality orientation, limit setting, provided positive reinforcement, and maintained Q 15 minute safety checks. Justification of Continued Inpatient Treatment: Pt is here to establish competency to stand trial. He needs medication management in a safe and therapeutic environment.
[2021-06-06 19:37] VITALS: BP 129/82
[2021-06-06] MEDS: haloperidol 5mg tablet PO SCH (20:12)
--- NOTE | 2021-06-07 02:58 | NUR ---
Nursing Progress Note: Cameron Legal hold: 1370 Client on involuntary status for GD Report received from Mo RN with use of SBAR. Why are they here: Pt admitted from [facility] to restore competency. Pt has history of schizophrenia and substance abuse. Pt had negative PPD and Covid tests. Pt has multiple charges ranging from obstruction, public intoxication, trespassing, disturbing the peace, defecating in prohibited place, battery upon officer, unlawful camping, possession. Pt is not on any medications. Assessment What has happened this shift: Patient was up pacing the hallways at change of shift, then seen in the rec room watching TV. Patient takes his meds as prescribed. Patient states he is doing well. Patient denies SI/HI and denies A/V hallucinations. Patient is minimally social and walks around the unit. S/I, H/I: Denies A/VH: Denies Sleep: see sleep assessment ADL's: Independent Group attendance: N/A Were meds taken: Yes Any med S/E: None observed or reported Mental Status Exam Appearance: Patient appears a little disheveled and wearing green scrubs Eye contact: Good Behavior: Polite, quiet, Speech: Clear, audible, minimal Mood: Euthymic Affect: Flat Thought process: Linear Thought Content: Meeting needs, food Cognition: to name and place Insight: Poor. Judgment: Poor Interventions PRN's used: none Therapeutic interventions: 1:1 assessment, therapeutic communication, active listening, encouraged pt to express his thoughts and feelings, ensured contract for safety, gave clear and simple directions, encouragement of personal hygiene, encouragement to participate in unit activities and attend groups, behavior monitoring and intervention as needed; distraction, redirection, reality orientation, limit setting, provided positive reinforcement, and maintained Q 15 minute safety checks. Justification of Continued Inpatient Treatment: Pt is here to establish competency to stand trial. He needs medication management in a safe and therapeutic environment.
[2021-06-07 08:13] VITALS: BP 102/64
[2021-06-07] MEDS: simethicone 125mg capsule PO SCH ×3 (08:22→20:02)
--- NOTE | 2021-06-07 14:56 | NUR ---
Nursing Progress Note: Legal hold: 1370 Client on involuntary status for GD Report received from Fely SANCHEZ with use of SBAR. Why are they here: Pt admitted from [facility] to restore competency. Pt has history of schizophrenia and substance abuse. Pt had negative PPD and Covid tests. Pt has multiple charges ranging from obstruction, public intoxication, trespassing, disturbing the peace, defecating in prohibited place, battery upon officer, unlawful camping, possession. Pt is not on any medications. Assessment What has happened this shift: Patient has had no change in the past few days. Patient was seen ambulating in the halls at various times during the day. Pt was observed talking to himself, in no apparent distress. Pt is polite and cooperative for 1:1 but does not talk much. Pt is still endorsing voices that he says, they dont say much lately" All meds were taken without issue. Only medication given on day shift are gas pills. Patient is allowed to have meals and snack during snack times, he seems to be good with those boundaries. No delusional statements this shift. S/I, H/I: Denies A/VH: endorses voices, seem quieter lately Sleep: no naps on this shift, patient is seen laying down but not sleeping ADL's: Independent Group attendance: No Were meds taken: Yes Any med S/E: None observed or reported Mental Status Exam Appearance: Neat and clean; messy hair, clean shaven Eye contact: Good Behavior: Pleasant, pacing the unit, asks for water often Speech: Clear, audible, minimal Mood: ok Affect: Congruent to mood Thought process: Perseverative Thought Content: Meeting needs, food Cognition: A/O X 2; oriented to person and place. Insight: Poor. Judgment: Poor Interventions PRN's used: none Therapeutic interventions: 1:1 assessment, therapeutic communication, active listening, encouraged pt to express his thoughts and feelings, ensured contract for safety, gave clear and simple directions, encouragement of personal hygiene, encouragement to participate in unit activities and attend groups, behavior monitoring and intervention as needed; distraction, redirection, reality orientation, limit setting, provided positive reinforcement, and maintained Q 15 minute safety checks. Justification of Continued Inpatient Treatment: Pt is here to establish competency to stand trial. He needs medication management in a safe and therapeutic environment.
[2021-06-07 19:00] VITALS: BP 100/67
[2021-06-07] MEDS: haloperidol 5mg tablet PO SCH (20:02)
--- NOTE | 2021-06-08 03:33 | NUR ---
Nursing Progress Note: Cameron Legal hold: 1370 Client on involuntary status for GD Report received from Ramiro SANCHEZ with use of SBAR. Why are they here: Pt admitted from [facility] to restore competency. Pt has history of schizophrenia and substance abuse. Pt had negative PPD and Covid tests. Pt has multiple charges ranging from obstruction, public intoxication, trespassing, disturbing the peace, defecating in prohibited place, battery upon officer, unlawful camping, possession. Pt is not on any medications. Assessment What has happened this shift: Patient was seen ambulating in the hallway at change of shift, pacing at times, smiling. Pt calm and cooperative, states he is doing good today. No complaints or needs at this time. Pt up for snacks and took all HS medication and went to bed. S/I, H/I: Denies A/VH: endorses voices, seem quieter lately Sleep: ADL's: Independent Group attendance: No Were meds taken: Yes Any med S/E: None observed or reported Mental Status Exam Appearance: Neat and clean in green scrubs Eye contact: Good Behavior: Pleasant, quiet Speech: Clear, audible, minimal Mood: ok Affect: Congruent to mood Thought process: Perseverative Thought Content: Meeting needs, food Cognition: A/O X 2; oriented to person and place. Insight: Poor. Judgment: Poor Interventions PRN's used: none Therapeutic interventions: 1:1 assessment, therapeutic communication, active listening, encouraged pt to express his thoughts and feelings, ensured contract for safety, gave clear and simple directions, encouragement of personal hygiene, encouragement to participate in unit activities and attend groups, behavior monitoring and intervention as needed; distraction, redirection, reality orientation, limit setting, provided positive reinforcement, and maintained Q 15 minute safety checks. Justification of Continued Inpatient Treatment: Pt is here to establish competency to stand trial. He needs medication management in a safe and therapeutic environment.
[2021-06-08 07:15] VITALS: BP 101/72
[2021-06-08] MEDS: simethicone 125mg capsule PO SCH ×3 (07:56→20:11)
--- NOTE | 2021-06-08 14:51 | NUR ---
Nursing Progress Note: Legal hold: 1370 Client on involuntary status for GD Report received from Juliet Coleman RN with use of SBAR. Why are they here: [facility]. Pt has history of schizophrenia and substance abuse. Pt had negative PPD and Covid tests. Pt has multiple charges ranging from obstruction, public intoxication, trespassing, disturbing the peace, defecating in prohibited place, battery upon officer, unlawful camping, possession. Pt is not on any medications. Assessment What has happened this shift: Patient has had no change in the past week or so. Patient was seen ambulating in the halls at various times during the day. Pt was observed talking to himself, in no apparent distress. Pt is polite and cooperative for 1:1 but does not talk much. Denies voices today. All meds were taken without issue. Only medication given on day shift are gas pills. Patient is allowed to have meals and snack during snack times, he seems to be good with those boundaries. In the past he was perseverating on food and Hot Ivory, it should be known that there is plenty of calories in the snack and meals served and that patient has horrible gas when he eats or drinks dairy products. CHB is restricting the hot ivory mix and sticking to food only at meal times, this has decrease his GI upset. No delusional statements this shift. S/I, H/I: Denies A/VH: endorses voices, seem quieter lately Sleep: no naps on this shift, patient is seen laying down but not sleeping ADL's: Independent Group attendance: No Were meds taken: Yes Any med S/E: None observed or reported Mental Status Exam Appearance: Neat and clean; messy hair, clean shaven Eye contact: Good Behavior: Pleasant, pacing the unit, asks for water often Speech: Clear, audible, minimal Mood: ok Affect: Congruent to mood Thought process: Perseverative Thought Content: Meeting needs, food Cognition: A/O X 2; oriented to person and place. Insight: Poor. Judgment: Poor Interventions PRN's used: none Therapeutic interventions: 1:1 assessment, therapeutic communication, active listening, encouraged pt to express his thoughts and feelings, ensured contract for safety, gave clear and simple directions, encouragement of personal hygiene, encouragement to participate in unit activities and attend groups, behavior monitoring and intervention as needed; distraction, redirection, reality orientation, limit setting, provided positive reinforcement, and maintained Q 15 minute safety checks. Justification of Continued Inpatient Treatment: Pt is here to establish competency to stand trial. He needs medication management in a safe and therapeutic environment.
[2021-06-08 20:00] VITALS: BP 113/74
[2021-06-08] MEDS: haloperidol 5mg tablet PO SCH (20:11)
--- NOTE | 2021-06-09 02:01 | NUR ---
Nursing Progress Note: Cameron Legal hold: 1370 Client on involuntary status for GD Report received from Ramiro SANCHEZ with use of SBAR. Why are they here: Pt admitted from [facility] to restore competency. Pt has history of schizophrenia and substance abuse. Pt had negative PPD and Covid tests. Pt has multiple charges ranging from obstruction, public intoxication, trespassing, disturbing the peace, defecating in prohibited place, battery upon officer, unlawful camping, possession. Pt is not on any medications. Assessment What has happened this shift: Patient has had no change in the past week or so. Patient was seen ambulating in the halls. Pt calm and cooperative with care, no complaints pt states he is doing well. Pt denies MH symptoms. Pt was observed talking to himself, in no apparent distress. Pt up for snacks and took all HS medications with no issues S/I, H/I: Denies A/VH: endorses voices, seem quieter lately Sleep: ADL's: Independent Group attendance: No Were meds taken: Yes Any med S/E: None observed or reported Mental Status Exam Appearance: Neat and clean in green scrubs Eye contact: Good Behavior: Pleasant, pacing the unit Speech: Clear, audible, minimal Mood: Euthymic Affect: Congruent to mood Thought process: Perseverative Thought Content: Meeting needs, food Cognition: A/O X 2; oriented to person and place. Insight: Poor. Judgment: Poor Interventions PRN's used: none Therapeutic interventions: 1:1 assessment, therapeutic communication, active listening, encouraged pt to express his thoughts and feelings, ensured contract for safety, gave clear and simple directions, encouragement of personal hygiene, encouragement to participate in unit activities and attend groups, behavior monitoring and intervention as needed; distraction, redirection, reality orientation, limit setting, provided positive reinforcement, and maintained Q 15 minute safety checks. Justification of Continued Inpatient Treatment: Pt is here to establish competency to stand trial. He needs medication management in a safe and therapeutic environment.
[2021-06-09 08:00] VITALS: BP 113/77
[2021-06-09] MEDS: simethicone 125mg capsule PO SCH ×3 (08:05→20:18)
--- NOTE | 2021-06-09 16:52 | NUR ---
Nursing Progress Note Legal hold: 1370 Client on involuntary status for GD Report received from Juliet Coleman RN with use of SBAR. Why are they here: [facility]. Pt has history of schizophrenia and substance abuse. Pt had negative PPD and Covid tests. Pt has multiple charges ranging from obstruction, public intoxication, trespassing, disturbing the peace, defecating in prohibited place, battery upon officer, unlawful camping, possession. Pt is not on any medications. Assessment What has happened this shift: PT attended meals and took medications. He did not want to talk much but was polite. Denies MH symptoms. Possible AH noticed. He remained in his room most of the day but came out for snacks and paced a little. S/I, H/I: Pt Denies A/VH: Possible AH Sleep: A few naps today ADL's: Independent Group attendance: No group Were meds taken: Yes Any med S/E: None noted Mental Status Exam Appearance: Wearing his own clothes Eye contact: Direct Behavior: Smiles, polite, bored. Speech: WNL Mood: Euthymic Affect: Congruent to mood Thought process: Circumstantial Thought Content: Meeting needs Cognition: Alert Insight: Poor. Judgment: Poor Interventions PRN's used: none Therapeutic interventions: 1:1 assessment, therapeutic communication, active listening, encouraged pt to express his thoughts and feelings, ensured contract for safety, gave clear and simple directions, encouragement of personal hygiene, encouragement to participate in unit activities and attend groups, behavior monitoring and intervention as needed; distraction, redirection, reality orientation, limit setting, provided positive reinforcement, and maintained Q 15 minute safety checks. Justification of Continued Inpatient Treatment: Pt is here to establish competency to stand trial. He needs medication management in a safe and therapeutic environment.
[2021-06-09 20:00] VITALS: BP 117/82
[2021-06-09] MEDS: haloperidol 5mg tablet PO SCH (20:18)
--- NOTE | 2021-06-10 02:11 | NUR ---
Nursing Progress Note: Cameron Legal hold: 1370 Client on involuntary status for GD Report received from Ramiro SANCHEZ with use of SBAR. Why are they here: Pt admitted from [facility] to restore competency. Pt has history of schizophrenia and substance abuse. Pt had negative PPD and Covid tests. Pt has multiple charges ranging from obstruction, public intoxication, trespassing, disturbing the peace, defecating in prohibited place, battery upon officer, unlawful camping, possession. Pt is not on any medications. Assessment What has happened this shift: Pt up and walking the hallways, pt stated his day was good and that he was doing alright. No complaints, denied MH symptoms, pt up for snacks and took prescribed medications. Pt retired to bed early after snack time. S/I, H/I: Pt Denies A/VH: Possible AH Sleep: ADL's: Independent Group attendance: Were meds taken: Yes Any med S/E: None noted Mental Status Exam Appearance: Wearing his own clothes Eye contact: Direct Behavior: Smiles, polite, bored. Speech: WNL Mood: Euthymic Affect: Congruent to mood Thought process: Circumstantial Thought Content: Meeting needs Cognition: Alert Insight: Poor. Judgment: Poor Interventions PRN's used: none Therapeutic interventions: 1:1 assessment, therapeutic communication, active listening, encouraged pt to express his thoughts and feelings, ensured contract for safety, gave clear and simple directions, encouragement of personal hygiene, encouragement to participate in unit activities and attend groups, behavior monitoring and intervention as needed; distraction, redirection, reality orientation, limit setting, provided positive reinforcement, and maintained Q 15 minute safety checks. Justification of Continued Inpatient Treatment: Pt is here to establish competency to stand trial. He needs medication management in a safe and therapeutic environment.
[2021-06-10 07:30] VITALS: BP 119/76
[2021-06-10] MEDS: simethicone 125mg capsule PO SCH ×3 (07:50→20:17)
--- NOTE | 2021-06-10 17:15 | NUR ---
Nursing Progress Note: Legal hold: 1370 Client on involuntary status for GD Report received from Juliet Coelman RN with use of SBAR. Why are they here: Pt admitted from [facility] to restore competency. Pt has history of schizophrenia and substance abuse. Pt had negative PPD and Covid tests. Pt has multiple charges ranging from obstruction, public intoxication, trespassing, disturbing the peace, defecating in prohibited place, battery upon officer, unlawful camping, possession. Pt is not on any medications. Assessment What has happened this shift: RN received pt. asleep at stat of shift. Pt. awoke shortly after and requesting coffee. Pt. took all medications and ate breakfast and then returned to his bed to sleep. 1:1 done at bedside. Pt. reports he is doing well and hopeful for the future. Pt. observed pacing the halls. Pt. is social with peers at times, but isolates to his room often. S/I, H/I: Denies A/VH: Denies Sleep: Pt. napped intermittently. ADL's: Independent Group attendance: NA Were meds taken: Yes Any med S/E: None noted Mental Status Exam Appearance: Wearing his own clothes Eye contact: Direct Behavior: Cooperative, social at times, isolates to his room also. Speech: WNL Mood: Euthymic Affect: Congruent to mood Thought process: Circumstantial Thought Content: Getting needs met Cognition: A&Ox4 Insight: Poor. Judgment: Poor. Interventions PRN's used: none Therapeutic interventions: 1:1 assessment, therapeutic communication, active listening, encouraged pt to express his thoughts and feelings, ensured contract for safety, gave clear and simple directions, encouragement of personal hygiene, encouragement to participate in unit activities and attend groups, behavior monitoring and intervention as needed; distraction, redirection, reality orientation, limit setting, provided positive reinforcement, and maintained Q 15 minute safety checks. Justification of Continued Inpatient Treatment: Pt is here to establish competency to stand trial. He needs medication management in a safe and therapeutic environment.
[2021-06-10 19:49] VITALS: BP 104/71
[2021-06-10] MEDS: haloperidol 5mg tablet PO SCH (20:18)
--- NOTE | 2021-06-11 00:40 | NUR ---
Nursing Progress Note: Legal hold: 1370 Report received from Ramiro SANCHEZ with use of SBAR. Why are they here: Pt admitted from [facility] to restore competency. Pt has history of schizophrenia and substance abuse. Pt had negative PPD and Covid tests. Pt has multiple charges ranging from obstruction, public intoxication, trespassing, disturbing the peace, defecating in prohibited place, battery upon officer, unlawful camping, possession. Assessment What has happened this shift: The patient was up on the unit and in the general patient areas but has minimal interactions with others. He was cooperative with the evening assessment. He denies that he is having any problems with any of his medications and he is medication compliant. His affect was fairly flat. When asked why he is here he stated that he was unable to understand what was happening during his court hearing. He denies that he has any problems currently and that is going to be discharged tomorrow and that he did not have to return to court. When asked what his discharge plan was to provide for food, longterm and clothing he made some vague comments about staying at family members home who no longer lived in the area. S/I, H/I: Denied by the patient A/VH: Denied by the patient Sleep: Denied problems with sleep ADL's: requires prompting Group attendance: no shifts this shift Were meds taken: Yes Any med S/E Denied by the patient Mental Status Exam Appearance: Shaved head, wearing green scrubs. Eye contact: Intermittent Behavior: withdrawn. Not socializing with peers. Pleasant during one to one. No behavior problems on the unit. Speech: Minimal, vague replies. Spontaneous Mood: Patient described his mood as "doing good" Affect: flat affect Thought process: poorly organized, lacks insight Thought Content: Believes he is being discharged tomorrow Cognition: alert Insight: Impaired Judgment: Impaired Interventions PRN's used: NO Therapeutic interventions: One to one with the patient to assess for severity of thoughts disorder. He remains on q 15 minute safety checks. Discussed court with the patient. Educated to medications. Restraints/seclusion/emergency medication: NA Justification of Continued Inpatient Treatment: The patient remains on the unit until it can be determined that he can contribute in his defense regarding court charges against him.
[2021-06-11] MEDS: simethicone 125mg capsule PO SCH ×3 (07:24→21:53)
[2021-06-11 07:31] VITALS: BP 109/70
--- NOTE | 2021-06-11 17:25 | NUR ---
Nursing Progress Note: Legal hold: 1370 Client on involuntary status for GD Report received from DANIEL Johnson with use of SBAR. Why are they here: Pt admitted from [facility] to restore competency. Pt has history of schizophrenia and substance abuse. Pt had negative PPD and Covid tests. Pt has multiple charges ranging from obstruction, public intoxication, trespassing, disturbing the peace, defecating in prohibited place, battery upon officer, unlawful camping, possession. Pt is not on any medications. Assessment What has happened this shift: RN received pt. asleep at stat of shift. Pt. awoke shortly after and requesting coffee. Pt. took all medications and ate breakfast and then went back to sleep. Pt. observed pacing the halls and asking multiple staff for needs. Pt. encouraged to go to group but refused. 1:1 done at bedside, pt. denies all psych symptoms and reports he believes he will be discharged today. S/I, H/I: Denies A/VH: Denies Sleep: Pt. napped intermittently. ADL's: Independent Group attendance: No Were meds taken: Yes Any med S/E: None noted Mental Status Exam Appearance: Wearing his own clothes Eye contact: Direct Behavior: Cooperative, socially withdrawn, pacing, napping in his room. Speech: WNL Mood: Euthymic Affect: Congruent to mood Thought process: Circumstantial Thought Content: Circumstantial. Cognition: A&Ox4 Insight: Poor. Judgment: Poor. Interventions PRN's used: none Therapeutic interventions: 1:1 assessment, therapeutic communication, active listening, encouraged pt to express his thoughts and feelings, ensured contract for safety, gave clear and simple directions, encouragement of personal hygiene, encouragement to participate in unit activities and attend groups, behavior monitoring and intervention as needed; distraction, redirection, reality orientation, limit setting, provided positive reinforcement, and maintained Q 15 minute safety checks. Justification of Continued Inpatient Treatment: Pt is here to establish competency to stand trial. He needs medication management in a safe and therapeutic environment.
[2021-06-11 20:00] VITALS: BP 96/56
[2021-06-11] MEDS: haloperidol 5mg tablet PO SCH (21:53)
[2021-06-11] MEDS: traZODone 50mg tablet PO PRN (21:53)
--- NOTE | 2021-06-12 04:32 | NUR ---
Nursing Progress Note: Legal hold: 1370 Report received from Ramiro SANCHEZ with use of SBAR. Why are they here: Pt admitted from [facility] to restore competency. Pt has history of schizophrenia and substance abuse. Pt had negative PPD and Covid tests. Pt has multiple charges ranging from obstruction, public intoxication, trespassing, disturbing the peace, defecating in prohibited place, battery upon officer, unlawful camping, possession. Assessment What has happened this shift: Patient walking the garcia at the beginning of shift. Pleasant and cooperative with care; compliant with medication. PRN Trazodone provided with good effect. Patient denies SI, HI, A/VH; he appears internally preoccupied. Patient is isolative to self the majority of the time; participated in HS snack. He is observed sleeping and does not appear to be having difficulty sleeping. Patient's Invega Sustenna is due. S/I, H/I: Denies A/VH: Appears internally preoccupied Sleep: Refer to sleep assessment ADL's: Independent Group attendance: NA Were meds taken: Yes Any med S/E: None observed or reported Mental Status Exam Appearance: Neat, appropriately dressed Eye contact: Good Behavior: Pleasant and cooperative, isolative to self Speech: Clear, audible, minimal Mood: "Good" Affect: Constricted Thought process: Poverty of thought Thought Content: Meeting needs Cognition: alert Insight: Impaired Judgment: Impaired Interventions PRN's used: None Therapeutic interventions: One to one with the patient to assess for severity of thoughts disorder. He remains on q 15 minute safety checks. Discussed court with the patient. Educated to medications. Restraints/seclusion/emergency medication: NA Justification of Continued Inpatient Treatment: The patient remains on the unit until it can be determined that he can contribute in his defense regarding court charges against him.
[2021-06-12] MEDS: simethicone 125mg capsule PO SCH ×3 (08:18→20:29)
[2021-06-12 08:21] VITALS: BP 107/67
--- NOTE | 2021-06-12 16:08 | NUR ---
Nursing Progress Note: Legal hold: 1370 Client on involuntary status for GD Report received from Fely SANCHEZ with use of SBAR. Why are they here: Pt admitted from [facility] to restore competency. Pt has history of schizophrenia and substance abuse. Pt had negative PPD and Covid tests. Pt has multiple charges ranging from obstruction, public intoxication, trespassing, disturbing the peace, defecating in prohibited place, battery upon officer, unlawful camping, possession. Pt is not on any medications. Assessment What has happened this shift: Pt received sleeping in his bed. Pt up shortly after start of shift and remained up most of shift. Pt ate all meals and snacks and requested food and coffee between meal times and he paced around the unit. Pt denies all mental health symptoms. Pt has bright affect. S/I, H/I: Denies A/VH: Denies Sleep: Pt. napped intermittently. ADL's: Independent Group attendance: NA Were meds taken: Yes Any med S/E: None noted Mental Status Exam Appearance: Wearing his own clothes Eye contact: Direct Behavior: Cooperative, social at times, isolates to his room also. Speech: WNL Mood: Euthymic Affect: Congruent to mood Thought process: Circumstantial Thought Content: Getting needs met Cognition: A&Ox4 Insight: Poor. Judgment: Poor. Interventions PRN's used: none Therapeutic interventions: 1:1 assessment, therapeutic communication, active listening, encouraged pt to express his thoughts and feelings, ensured contract for safety, gave clear and simple directions, encouragement of personal hygiene, encouragement to participate in unit activities and attend groups, behavior monitoring and intervention as needed; distraction, redirection, reality orientation, limit setting, provided positive reinforcement, and maintained Q 15 minute safety checks. Justification of Continued Inpatient Treatment: Pt is here to establish competency to stand trial. He needs medication management in a safe and therapeutic environment.
[2021-06-12 19:17] VITALS: BP 115/68
[2021-06-12] MEDS: traZODone 50mg tablet PO PRN (20:29)
[2021-06-12] MEDS: haloperidol 5mg tablet PO SCH (20:29)
--- NOTE | 2021-06-13 04:19 | NUR ---
Nursing Progress Note: Legal hold: 1370 Report received from Ramiro SANCHEZ with use of SBAR. Why are they here: Pt admitted from [facility] to restore competency. Pt has history of schizophrenia and substance abuse. Pt had negative PPD and Covid tests. Pt has multiple charges ranging from obstruction, public intoxication, trespassing, disturbing the peace, defecating in prohibited place, battery upon officer, unlawful camping, possession. Assessment What has happened this shift: Patient active on the unit at the beginning of shift. Pleasant and cooperative with care; compliant with medication; PRN Trazodone provided with positive effect. Patient denies SI, HI, A/VH; appear to be preoccupied and no delusional thought content expressed this shift. Patient participated in HS snack and observed playing handheld game prior to bed; observed sleeping and does not appear to be having difficulty. Patient's Invega Sustenna is due; doctor is aware. S/I, H/I: Denies A/VH: Appears internally preoccupied Sleep: Refer to sleep assessment ADL's: Independent Group attendance: NA Were meds taken: Yes Any med S/E: None observed or reported Mental Status Exam Appearance: Neat, appropriately dressed Eye contact: Good Behavior: Pleasant and cooperative, isolative to self Speech: Clear, audible, minimal Mood: "Good" Affect: Constricted Thought process: Poverty of thought Thought Content: Meeting needs Cognition: Intact Insight: Impaired Judgment: Impaired Interventions PRN's used: Trazodone Therapeutic interventions: One to one with the patient to assess for severity of thoughts disorder. He remains on q 15 minute safety checks. Discussed court with the patient. Educated to medications. Restraints/seclusion/emergency medication: NA Justification of Continued Inpatient Treatment: The patient remains on the unit until it can be determined that he can contribute in his defense regarding court charges against him.
[2021-06-13 07:26] VITALS: BP 108/62
[2021-06-13] MEDS: simethicone 125mg capsule PO SCH ×3 (08:29→20:06)
--- NOTE | 2021-06-13 14:07 | NUR ---
Reassessment: Pt continues w/ adequate PO intake and tolerates regular diet while receiving double protein TID. Noted pt requests more food and consumes snacks often. LBM 06/12, Pt noted to be having daily moderate stools in EMR. No N/V/D reported. Pt compliant w/ meds. No nutritional diagnosis at this time. Will continue to monitor. Recommendations: 1) Continue regular diet; double eggs WB double meat BIDLD per diet order; offer snacks 2) Bowel care per rx 3) Weekly scaled weights Addendum: 06/13/21 at [address] Amended: Links added.
--- NOTE | 2021-06-13 17:58 | NUR ---
Nursing Progress Note: Cameron Ortega Legal hold: 1370/ GD Report received from DANIEL Geigre with use of SBAR. Why are they here: Pt admitted from [facility] to restore competency. Pt has history of schizophrenia and substance abuse. Pt had negative PPD and Covid tests. Pt has multiple charges ranging from obstruction, public intoxication, trespassing, disturbing the peace, defecating in prohibited place, battery upon officer, unlawful camping, and possession. Assessment What has happened this shift: Patient up and walking around unit upon shift change. Pt participated in community room for breakfast, noted socializing with peers. Patient is polite and cooperative with care. 1:1 assessment completed, patient is compliant with medications. Denies SI, HI, A/VH. No evidence of internal stimuli or delusions evidenced on this shift. Patient noted taking short naps throughout the day. He walks around frequently and is polite to other patients on the unit. Patient endorsed to this poem writer that he wants to leave. Pt stated that he has lived with his dad in the past and wants to live with him again when he leaves. S/I, H/I: Denies A/VH: Denies, no evidence of internal stimuli Sleep: Pt slept 7 hours last night per NOC shift, short infrequent naps throughout the day ADL's: Independent Group attendance: No Were meds taken: Yes Any med S/E: None observed or reported Mental Status Exam Appearance: Clean, neat, looks his stated age, appropriately dressed Eye contact: Good Behavior: Pleasant and cooperative Speech: Clear Mood: Pt stated he feels fine Affect: Flat, able to make needs known Thought process: Poverty of thought Thought Content: Wants to leave and live with his dad Cognition: Intact Insight: Impaired Judgment: Impaired Interventions PRN's used: N/A Therapeutic interventions: Maintained Q 15min safety checks, 1:1 physical assessment, ensured contract for safety, medication education and monitoring, and maintained a safe and therapeutic environment. Restraints/seclusion/emergency medication: N/A Justification of Continued Inpatient Treatment: Patient requires routine observation and structure and medication adjustment and monitoring to help pts ability to stand trial for court charges against him.
[2021-06-13 19:28] VITALS: BP 103/68
[2021-06-13] MEDS: traZODone 50mg tablet PO PRN (20:06)
[2021-06-13] MEDS: haloperidol 5mg tablet PO SCH (20:06)
--- NOTE | 2021-06-14 | NUR ---
Nursing Progress Note: Legal hold: Court hold Report received from Mary SANCHEZ with use of SBAR Why are they here: Pt admitted from [facility] to restore competency. Pt has history of schizophrenia and substance abuse. Pt had negative PPD and Covid tests. Pt has multiple charges ranging from obstruction, public intoxication, trespassing, disturbing the peace, defecating in prohibited place, battery upon officer, unlawful camping, possession. Assessment What has happened this shift: The patient was up out of bed periodically but had minimal socialization with others. He is passive in his treatment. He does not know the names of the medications he is taking or why exactly he is taking them. He was not able to state what was going on with his court proceedings but did state that he hoped that the charges would be dropped. He stated that if he is discharged he would like to stay with relatives but has not contacted them or even knew if they still lived in the area. He is has no income per his report. He did state he knew he was mentally ill and that his diagnosis was schizophrenia. He does not appear to be in any distress and he was polite and friendly when approached for the evening assessment. S/I, H/I: Denied by the patient A/VH: Denied by the patient Sleep: reports he is sleeping well ADL's: appears clean and well groomed Group attendance: no groups this shift Were meds taken: yes Any med S/E denied by the patient Mental Status Exam Appearance: appears stated age with close cropped hair. He is dressed appropriately for the unit Eye contact: intermittent Behavior: no behaviors that have required interventions of staff. He is pleasant Speech: moderate rate and rhythm. Spontaneou Mood: he described his mood as "good" Affect: blunted. Thought process: a little disorganized but was able to answer questions appropriately to what was asked. Thought Content: wants to be discharged Cognition: alert Insight: poor Judgment: poor Interventions PRN's used: none Therapeutic interventions: One to one with the patient to educate him to his medications. Assessed the patient's ability to plan for self care if he left the hospital. Mood symptoms and self harm risk assessed. Assessed for the severity of thought disorder Restraints/seclusion/emergency medication: na Justification of Continued Inpatient Treatment: The patient is unable to formulate a realistic plan for food, residential or clothing at this time.
[2021-06-14 07:24] VITALS: BP 112/72
[2021-06-14] MEDS: simethicone 125mg capsule PO SCH ×3 (07:49→20:44)
--- NOTE | 2021-06-14 17:43 | NUR ---
Nursing Progress Note: Cameron Ortega Legal hold: 1370/ GD Report received from DANIEL Geiger with use of SBAR. Why are they here: Pt admitted from [facility] to restore competency. Pt has history of schizophrenia and substance abuse. Pt had negative PPD and Covid tests. Pt has multiple charges ranging from obstruction, public intoxication, trespassing, disturbing the peace, defecating in prohibited place, battery upon officer, unlawful camping, and possession. Assessment What has happened this shift: Patient walking around unit upon change of shift. Pt observed in room for 1:1 assessment. Lungs CTA. Patient is polite, composed and cooperative with care. He joined peers in community room for breakfast, noted socializing with others. Does not appear to be responding to internal stimuli. No delusional statements made on this shift. Will continue to monitor. Pt appears bored, often looking for food and coffee despite routine snack and meal times. He took short naps throughout the day. When this tag writer asked patient how he is feeling, pt stated, Alright. He is compliant with medications. He responds to questions with minimal responses. Patient did not attend group therapy today. This tag writer asked patient if he would join group and he said that he is too tired. Pt endorsed that he likes to sleep during the day because he doesnt sleep as good at night. Pt continues to endorse that he wants to leave but does not have a realistic safety plan. S/I, H/I: Denies A/VH: Denies, no evidence of internal stimuli Sleep: Pt slept 7.25 hours last night per NOC shift, short infrequent naps throughout the day ADL's: Independent Group attendance: No Were meds taken: Yes Any med S/E: None observed or reported Mental Status Exam Appearance: Clean, looks his stated age, dressed in green unit scrubs Eye contact: Good Behavior: Pleasant, composed, and cooperative Speech: Clear Mood: Pt stated he feels Alright Affect: Flat, calm Thought process: Poverty of thought Thought Content: Perseveration on discharge Cognition: Intact, able to make needs known to staff Insight: Impaired Judgment: Impaired Interventions PRN's used: N/A Therapeutic interventions: Maintained Q 15min safety checks, 1:1 physical assessment, ensured contract for safety, medication education and monitoring, and maintained a safe and therapeutic environment. Restraints/seclusion/emergency medication: N/A Justification of Continued Inpatient Treatment: Patient continues require safe and supportive environment and medication monitoring. Per MD, patient is incompetent to stand trial at this time. Will continue to monitor.
[2021-06-14 19:48] VITALS: BP 104/71
[2021-06-14] MEDS: haloperidol 5mg tablet PO SCH (20:44)
[2021-06-14] MEDS: traZODone 50mg tablet PO PRN (20:47)
--- NOTE | 2021-06-14 23:37 | NUR ---
Nursing Progress Note: Legal hold: 1370 Client on involuntary status for GD Report received from nurse with use of SBAR: DANIEL Hernandez Why are they here: Pt admitted from [facility] to restore competency. Pt has history of schizophrenia and substance abuse. Pt had negative PPD and Covid tests. Pt has multiple charges ranging from obstruction, public intoxication, trespassing, disturbing the peace, defecating in prohibited place, battery upon officer, unlawful camping, and possession. Assessment What has happened this shift: Received pt. resting in bed at the beginning of the shift, this pattern chart writer introduced self and established rapport. Pt. presents as cooperative and somewhat restless. He questions this pattern chart writer regarding when snack time will be, and appears to be motivated by food. Pt. requires some direction and encouragement to complete ADLs, and presents as disheveled. 1:1 completed later at bedside, pt. denies any S/I, H/I, A/V/MORALES, and no delusional statements made. His speech is soft, and he responds minimally to direct questions with mostly yes/no answers. Pt. retreats to bed early, and appears to be resting comfortably, will continue to monitor. S/I, H/I: Denies A/VH: Denies, does not appear internally preoccupied Sleep: Pt. retreated to bed early, appears to be sleeping well ADL's: Requires some encouragement Group attendance: N/A Were meds taken: Yes Any med S/E: None Mental Status Exam Appearance: Somewhat disheveled, however appropriately dressed Eye contact: Good Behavior: Cooperative and somewhat restless Speech: Soft, responds minimally to direct questions Mood: Pleasant Affect: Blunted with animation Thought process: Poverty of thought Thought Content: Preoccupation with obtaining snacks and some restlessness Cognition: A&O X2 Insight: Poor Judgment: Fair Interventions PRN's used: None Therapeutic interventions: Introduced self and established rapport, maintained a safe and supportive environment, ensured contract for safety, provided clear and simple instructions, provided direction and encouragement as needed, and maintained Q 15min safety checks. Restraints/seclusion/emergency medication: N/A Justification of Continued Inpatient Treatment: Per BEN Mccoy, pt. continues to require a safe and supportive environment, and is not competent to stand trial at this time.
[2021-06-15 07:42] VITALS: BP 102/72
[2021-06-15] MEDS: simethicone 125mg capsule PO SCH ×3 (08:14→20:21)
[2021-06-15] MEDS: magnesium hydroxide 30ml (MOM) UD suspension PO PRN (15:19)
--- NOTE | 2021-06-15 17:46 | NUR ---
Nursing Progress Note: Cameron Ortega Legal hold: 1370/ GD Report received from DANIEL Rubio with use of SBAR. Why are they here: Pt admitted from [facility] to restore competency. Pt has history of schizophrenia and substance abuse. Pt had negative PPD and Covid tests. Pt has multiple charges ranging from obstruction, public intoxication, trespassing, disturbing the peace, defecating in prohibited place, battery upon officer, unlawful camping, and possession. Assessment What has happened this shift: Patient walking around unit upon change of shift. Pt observed in room for 1:1 assessment. He is compliant with medications. Lungs CTA. Pt has had very little change in the last few days. Continues to pace the halls and frequently ask for snacks. He continues to be polite, composed and cooperative with care. He joined peers in community room for breakfast and retreated back to his room shortly after. Does not appear to be responding to internal stimuli. No delusional statements made on this shift. Will continue to monitor. He responds to questions with minimal responses. He took short naps throughout the day. When this senior copywriter asked patient how he is feeling, pt stated, I am doing good. Patient appears to have poverty of thought. When asked if he wanted to participate in group today pt stated, there are too many people in there, it is hard to concentrate. Patient spent the remainder of his day walking around the unit talking to peers, taking short naps in his room, and joining others for meals/snack time. S/I, H/I: Denies A/VH: Denies, no evidence of internal stimuli Sleep: Pt slept 7.25 hours last night per NOC shift, short infrequent naps throughout the day ADL's: Independent Group attendance: No Were meds taken: Yes Any med S/E: None observed or reported Mental Status Exam Appearance: Clean, looks his stated age, dressed appropriately for the unit Eye contact: Good Behavior: Pleasant, composed, and cooperative Speech: Clear Mood: Pt stated he feels Alright Affect: Flat, calm Thought process: Poverty of thought Thought Content: Appears to be bored, thinks about food and snacks throughout the day to keep him busy Cognition: Intact, able to make needs known to staff Insight: Impaired Judgment: Impaired Interventions PRN's used: N/A Therapeutic interventions: Maintained Q 15min safety checks, prompted participation on the unit, 1:1 physical assessment, ensured contract for safety, medication education and monitoring, and maintained a safe and therapeutic environment. Restraints/seclusion/emergency medication: N/A Justification of Continued Inpatient Treatment: Patient continues require safe and supportive environment and medication monitoring. Per MD, patient is incompetent to stand trial at this time. Will continue to monitor.
[2021-06-15 19:17] VITALS: BP 103/64
[2021-06-15] MEDS: traZODone 50mg tablet PO PRN (20:21)
[2021-06-15] MEDS: haloperidol 5mg tablet PO SCH (20:21)
[2021-06-15] MEDS: mag hydrox/Alum hydrox/simeth 30ml oral suspension PO PRN (20:56)
--- NOTE | 2021-06-16 04:13 | NUR ---
Nursing Progress Note: Legal hold:1370 Report received from Mary SANCHEZ with use of SBAR Why are they here: Pt admitted from [facility] to restore competency. Pt has history of schizophrenia and substance abuse. Pt had negative PPD and Covid tests. Pt has multiple charges ranging from obstruction, public intoxication, trespassing, disturbing the peace, defecating in prohibited place, battery upon officer, unlawful camping, possession. Assessment What has happened this shift: Pt continues to keep to himself. He is able to make needs known and primarily fixates on requesting snacks. He denies mental health assessment questions, and cannot explain what caused him to be admitted to [facility]. He is polite and pleasant, and compliant with his medications. He appears to be responding to IS at times even though he denies AH aeb walking around, turning his head while smirking and talking under his breath and laughing to himself. S/I, H/I: Denies A/VH: Denies, but appears to be responding to IS Sleep: See Sleep Assessment ADL's: Independent Group attendance: N/A Were meds taken: yes Any med S/E : none stated nor observed Mental Status Exam Appearance: clean wearing unit scrubs Eye contact: fair Behavior: walking unit, attending snack, isolating to self Speech: Clear Mood: "good" Affect: blunted Thought process: a little disorganized but was able to answer questions appropriately to what was asked Thought Content: snacks Cognition: Alert Insight: poor Judgment: poor Interventions PRN's used: Maalox Therapeutic interventions: One to one with the patient to educate him to his medications. Assessed the patient's ability to plan for self care if he left the hospital. Mood symptoms and self harm risk assessed. Assessed for the severity of thought disorder Restraints/seclusion/emergency medication: na Justification of Continued Inpatient Treatment: The patient is unable to formulate a realistic plan for food, senior care or clothing at this time.
[2021-06-16] MEDS: simethicone 125mg capsule PO SCH ×3 (08:05→20:12)
[2021-06-16] MEDS: PALIPERIDONE 3 MG TAB.ER.24 PO SCH (08:05)
[2021-06-16 08:32] VITALS: BP 93/60
--- NOTE | 2021-06-16 13:04 | NUR ---
Nursing Progress Note: Legal hold: 1370 Client on involuntary status for GD Report received from Juliet Coleman RN with use of SBAR. Why are they here: Pt admitted from [facility] to restore competency. Pt has history of schizophrenia and substance abuse. Pt had negative PPD and Covid tests. Pt has multiple charges ranging from obstruction, public intoxication, trespassing, disturbing the peace, defecating in prohibited place, battery upon officer, unlawful camping, possession. Pt is not on any medications. Assessment What has happened this shift: Patient has had no change in the past week or so. Patient was seen ambulating in the halls at various times during the day. Pt was observed talking to himself, in no apparent distress. Pt is polite and cooperative for 1:1 but does not talk much. Denies voices today. All meds were taken without issue. Only medication given on day shift are gas pills and a re-start of his p.o. invega 9mg. No delusional statements this shift. S/I, H/I: Denies A/VH: endorses voices, seem quieter lately Sleep: no naps on this shift, patient is seen laying down but not sleeping ADL's: Independent Group attendance: N/A Were meds taken: Yes Any med S/E: None observed or reported Mental Status Exam Appearance: Neat and clean; messy hair, clean shaven Eye contact: Good Behavior: Pleasant, pacing the unit, asks for water often Speech: Clear, audible, minimal Mood: ok Affect: Congruent to mood Thought process: Perseverative Thought Content: Meeting needs, food Cognition: A/O X 2; oriented to person and place. Insight: Poor. Judgment: Poor Interventions PRN's used: none Therapeutic interventions: 1:1 assessment, therapeutic communication, active listening, encouraged pt to express his thoughts and feelings, ensured contract for safety, gave clear and simple directions, encouragement of personal hygiene, encouragement to participate in unit activities and attend groups, behavior monitoring and intervention as needed; distraction, redirection, reality orientation, limit setting, provided positive reinforcement, and maintained Q 15 minute safety checks. Justification of Continued Inpatient Treatment: Pt is here to establish competency to stand trial. He needs medication management in a safe and therapeutic environment.
[2021-06-16 19:00] VITALS: BP 98/67
[2021-06-16] MEDS: haloperidol 5mg tablet PO SCH (20:12)
[2021-06-16] MEDS: traZODone 50mg tablet PO PRN (20:12)
--- NOTE | 2021-06-17 01:11 | NUR ---
Nursing Progress Note: Legal hold: 1370 Client on involuntary status for GD Report received from Mo RN with use of SBAR. Why are they here: Pt admitted from [facility] to restore competency. Pt has history of schizophrenia and substance abuse. Pt had negative PPD and Covid tests. Pt has multiple charges ranging from obstruction, public intoxication, trespassing, disturbing the peace, defecating in prohibited place, battery upon officer, unlawful camping, possession. Pt is not on any medications. Assessment What has happened this shift: Patient Pt was up and walking in the garcia at shift change. Pt was observed talking to himself, in no apparent distress. 1:1 done at bed side but does not talk much. Denies voices today. All meds were taken without issue. No delusional statements this shift. S/I, H/I: Denies A/VH: endorses voices, seem quieter lately Sleep: See sleep assessment ADL's: Independent Group attendance: N/A Were meds taken: Yes Any med S/E: None observed or reported Mental Status Exam Appearance: Neat and clean; clean shaven Eye contact: Good Behavior: Pleasant, pacing the unit, asks for water often Speech: Clear, audible, minimal Mood: ok Affect: Congruent to mood Thought process: Perseverative Thought Content: Meeting needs, food Cognition: A/O X 2; oriented to person and place. Insight: Poor. Judgment: Poor Interventions PRN's used: none Therapeutic interventions: 1:1 assessment, therapeutic communication, active listening, encouraged pt to express his thoughts and feelings, ensured contract for safety, gave clear and simple directions, encouragement of personal hygiene, encouragement to participate in unit activities and attend groups, behavior monitoring and intervention as needed; distraction, redirection, reality orientation, limit setting, provided positive reinforcement, and maintained Q 15 minute safety checks. Justification of Continued Inpatient Treatment: Pt is here to establish competency to stand trial. He needs medication management in a safe and therapeutic environment.
[2021-06-17 08:00] VITALS: BP 93/62
[2021-06-17] MEDS: PALIPERIDONE 3 MG TAB.ER.24 PO SCH (08:09)
[2021-06-17] MEDS: simethicone 125mg capsule PO SCH ×3 (08:09→20:10)
--- NOTE | 2021-06-17 14:53 | NUR ---
Nursing Progress Note: Legal hold: 1370 Client on involuntary status for GD Report received from Juliet Coleman RN with use of SBAR. Why are they here: Pt admitted from [facility] to restore competency. Pt has history of schizophrenia and substance abuse. Pt had negative PPD and Covid tests. Pt has multiple charges ranging from obstruction, public intoxication, trespassing, disturbing the peace, defecating in prohibited place, battery upon officer, unlawful camping, possession. Pt is not on any medications. Assessment What has happened this shift: Patient has had no change in the past week or so. Patient was seen ambulating in the halls at various times during the day. Pt was observed talking to himself, in no apparent distress. Pt is polite and cooperative for 1:1 but does not talk much. Denies voices today. All meds were taken without issue. Patient seems a little bit more content than he was at the end of last week. It is of the opinion of this sign writer letterer or painter that the po invega is a good choice for him until he is discharged. Patient is not asking for water, snacks, ice tea....as often. No delusional statements this shift. S/I, H/I: Denies A/VH: endorses voices, seem quieter lately Sleep: no naps on this shift, patient is seen laying down but not sleeping ADL's: Independent Group attendance: N/A Were meds taken: Yes Any med S/E: None observed or reported Mental Status Exam Appearance: Neat and clean; messy hair, clean shaven Eye contact: Good Behavior: Pleasant, pacing the unit, asks for water often Speech: Clear, audible, minimal Mood: ok Affect: Congruent to mood Thought process: Perseverative Thought Content: Meeting needs, food Cognition: A/O X 2; oriented to person and place. Insight: Poor. Judgment: Poor Interventions PRN's used: none Therapeutic interventions: 1:1 assessment, therapeutic communication, active listening, encouraged pt to express his thoughts and feelings, ensured contract for safety, gave clear and simple directions, encouragement of personal hygiene, encouragement to participate in unit activities and attend groups, behavior monitoring and intervention as needed; distraction, redirection, reality orientation, limit setting, provided positive reinforcement, and maintained Q 15 minute safety checks. Justification of Continued Inpatient Treatment: Pt is here to establish competency to stand trial. He needs medication management in a safe and therapeutic environment.
[2021-06-17 19:39] VITALS: BP 106/67
[2021-06-17] MEDS: haloperidol 5mg tablet PO SCH (20:10)
[2021-06-17] MEDS: traZODone 50mg tablet PO PRN (20:11)
--- NOTE | 2021-06-18 01:08 | NUR ---
Nursing Progress Note: Legal hold: 1370 Client on involuntary status for GD Report received from Ramiro SANCHEZ with use of SBAR. Why are they here: Pt admitted from [facility] to restore competency. Pt has history of schizophrenia and substance abuse. Pt had negative PPD and Covid tests. Pt has multiple charges ranging from obstruction, public intoxication, trespassing, disturbing the peace, defecating in prohibited place, battery upon officer, unlawful camping, possession. Pt is not on any medications. Assessment What has happened this shift: Patient has had no change in the past week or so. Patient was ambulating in the halls at various times during the shift. Pt was observed talking to himself, in no apparent distress. Pt is polite and cooperative Denies voices today. All meds were taken without issue. No delusional statements this shift. S/I, H/I: Denies A/VH: endorses voices, seem quieter lately Sleep: See sleep assessment ADL's: Independent Group attendance: N/A Were meds taken: Yes Any med S/E: None observed or reported Mental Status Exam Appearance: Neat and clean; messy hair, clean shaven Eye contact: Good Behavior: Pleasant, pacing the unit, asks for water often Speech: Clear, audible, minimal Mood: ok Affect: Congruent to mood Thought process: Perseverative Thought Content: Meeting needs, food Cognition: A/O X 2; oriented to person and place. Insight: Poor. Judgment: Poor Interventions PRN's used: Trazodone Therapeutic interventions: 1:1 assessment, therapeutic communication, active listening, encouraged pt to express his thoughts and feelings, ensured contract for safety, gave clear and simple directions, encouragement of personal hygiene, encouragement to participate in unit activities and attend groups, behavior monitoring and intervention as needed; distraction, redirection, reality orientation, limit setting, provided positive reinforcement, and maintained Q 15 minute safety checks. Justification of Continued Inpatient Treatment: Pt is here to establish competency to stand trial. He needs medication management in a safe and therapeutic environment.
[2021-06-18 07:00] VITALS: BP 92/61
[2021-06-18] MEDS: PALIPERIDONE 3 MG TAB.ER.24 PO SCH (07:24)
[2021-06-18] MEDS: simethicone 125mg capsule PO SCH ×3 (07:24→20:07)
--- NOTE | 2021-06-18 13:54 | NUR ---
Nursing Progress Note: Legal hold: 1370 Client on involuntary status for GD Report received from Juliet Coleman RN with use of SBAR. Why are they here: Pt admitted from [facility] to restore competency. Pt has history of schizophrenia and substance abuse. Pt had negative PPD and Covid tests. Pt has multiple charges ranging from obstruction, public intoxication, trespassing, disturbing the peace, defecating in prohibited place, battery upon officer, unlawful camping, possession. Pt is not on any medications. Assessment What has happened this shift: Patient has had no change in the past week or so. Patient was seen ambulating in the halls at various times during the day. Pt was observed talking to himself, in no apparent distress. Pt is polite and cooperative for 1:1 but does not talk much. Denies voices today. All meds were taken without issue. Patient seems a little bit more content than he was at the end of last week. It is of the opinion of this flex o writer operator that the po invega is a good choice for him until he is discharged. Patient stated today that he like the Invega shot better than the pills. Patient is not asking for water, snacks, ice tea....as often. No delusional statements this shift. S/I, H/I: Denies A/VH: Denies Sleep: no naps on this shift, patient is seen laying down but not sleeping ADL's: Independent Group attendance: N/A Were meds taken: Yes Any med S/E: None observed or reported Mental Status Exam Appearance: Neat and clean; messy hair, clean shaven Eye contact: Good Behavior: Pleasant, pacing the unit, asks for water often Speech: Clear, audible, minimal Mood: ok Affect: Congruent to mood Thought process: Perseverative Thought Content: Meeting needs, food Cognition: A/O X 2; oriented to person and place. Insight: Poor. Judgment: Poor Interventions PRN's used: none Therapeutic interventions: 1:1 assessment, therapeutic communication, active listening, encouraged pt to express his thoughts and feelings, ensured contract for safety, gave clear and simple directions, encouragement of personal hygiene, encouragement to participate in unit activities and attend groups, behavior monitoring and intervention as needed; distraction, redirection, reality orientation, limit setting, provided positive reinforcement, and maintained Q 15 minute safety checks. Justification of Continued Inpatient Treatment: Pt is here to establish competency to stand trial. He needs medication management in a safe and therapeutic environment.
[2021-06-18] MEDS: haloperidol 5mg tablet PO SCH (20:08)
[2021-06-18] MEDS: traZODone 50mg tablet PO PRN (20:08)
[2021-06-18 20:54] VITALS: BP 110/62
--- NOTE | 2021-06-19 00:42 | NUR ---
Nursing Progress Note: Legal hold: 1370 Client on involuntary status for GD Report received from Ramiro SANCHEZ with use of SBAR. Why are they here: Pt admitted from [facility] to restore competency. Pt has history of schizophrenia and substance abuse. Pt had negative PPD and Covid tests. Pt has multiple charges ranging from obstruction, public intoxication, trespassing, disturbing the peace, defecating in prohibited place, battery upon officer, unlawful camping, possession. Pt is not on any medications. Assessment What has happened this shift: Patient isolated to his room this shift. He came out of his room and ate snack in the Group room. He was med compliant and cooperative.No delusional statements this shift. S/I, H/I: Denies A/VH: Denies Sleep: no naps on this shift, patient is seen laying down but not sleeping ADL's: Independent Group attendance: N/A Were meds taken: Yes Any med S/E: None observed or reported Mental Status Exam Appearance: Neat and clean; messy hair, clean shaven Eye contact: Good Behavior: Pleasant, pacing the unit, asks for water often Speech: Clear, audible, minimal Mood: ok Affect: Congruent to mood Thought process: Perseverative Thought Content: Meeting needs, food Cognition: A/O X 2; oriented to person and place. Insight: Poor. Judgment: Poor Interventions PRN's used: Trazodone Therapeutic interventions: 1:1 assessment, therapeutic communication, active listening, encouraged pt to express his thoughts and feelings, ensured contract for safety, gave clear and simple directions, encouragement of personal hygiene, encouragement to participate in unit activities and attend groups, behavior monitoring and intervention as needed; distraction, redirection, reality orientation, limit setting, provided positive reinforcement, and maintained Q 15 minute safety checks. Justification of Continued Inpatient Treatment: Pt is here to establish competency to stand trial. He needs medication management in a safe and therapeutic environment.
[2021-06-19 08:00] VITALS: BP 90/64
[2021-06-19] MEDS: simethicone 125mg capsule PO SCH ×3 (08:59→20:36)
[2021-06-19] MEDS: PALIPERIDONE 3 MG TAB.ER.24 PO SCH (09:00)
--- NOTE | 2021-06-19 13:48 | NUR ---
Nursing Progress Note: Legal hold: 1370 Client on involuntary status for GD Report received from nurse with use of SBAR: DANIEL Arce Why are they here: Pt admitted from [facility] to restore competency. Pt has history of schizophrenia and substance abuse. Pt had negative PPD and Covid tests. Pt has multiple charges ranging from obstruction, public intoxication, trespassing, disturbing the peace, defecating in prohibited place, battery upon officer, unlawful camping, and possession. Assessment What has happened this shift: Received pt. resting in bed at the beginning of the shift, he awoke independently and attended snack in the Group Room. 1:1 completed later at bedside, pt. continues to present as cooperative and pleasant. He continues to deny any MH s/s and no delusional statements made. When questioned by this insurance underwriter sales regarding court, pt. states, "I'm just waiting for them to send the letters in to court." He reports confidently he feels ready to stand trial. Pt. attends the patio with others, however refuses to go to group. He naps intermittently throughout the day, pacing intermittently. S/I, H/I: Denies A/VH: Denies, does not appear internally preoccupied Sleep: Pt. reports he has been sleeping well, he naps intermittently during the shift ADL's: Requires some encouragement at times Group attendance: No Were meds taken: Yes Any med S/E: None Mental Status Exam Appearance: Somewhat disheveled, however appropriately dressed Eye contact: Good Behavior: Cooperative and somewhat restless Speech: Soft, responds minimally to direct questions Mood: Pleasant Affect: Blunted with animation Thought process: Poverty of thought Thought Content: Preoccupation with obtaining snacks and some restlessness Cognition: A&O X3 Insight: Fair Judgment: Fair Interventions PRN's used: None Therapeutic interventions: Maintained a safe and supportive environment, ensured contract for safety, provided clear and simple instructions, provided direction and encouragement as needed, provided active listening and positive encouragement, and maintained Q 15min safety checks. Restraints/seclusion/emergency medication: N/A Justification of Continued Inpatient Treatment: Per BEN Mccoy, pt. continues to require a safe and supportive environment, and is not competent to stand trial at this time.
[2021-06-19] MEDS: traZODone 50mg tablet PO PRN (20:36)
[2021-06-19] MEDS: haloperidol 5mg tablet PO SCH (20:36)
[2021-06-19 20:44] VITALS: BP 98/63
--- NOTE | 2021-06-20 00:33 | NUR ---
Nursing Progress Note: Legal hold: 1370 Client on involuntary status for GD Report received from nurse with use of SBAR: DANIEL Rubio Why are they here: Pt admitted from [facility] to restore competency. Pt has history of schizophrenia and substance abuse. Pt had negative PPD and Covid tests. Pt has multiple charges ranging from obstruction, public intoxication, trespassing, disturbing the peace, defecating in prohibited place, battery upon officer, unlawful camping, and possession. Assessment What has happened this shift: Received pt. resting in bed at the beginning of the shift, he awoke and attended snack in the Group Room. 1:1 completed later at bedside, pt. continues to present as cooperative and pleasant. He continues to deny any MH s/s and no delusional statements made. S/I, H/I: Denies A/VH: Denies, does not appear internally preoccupied Sleep: See sleep assessment ADL's: Requires some encouragement at times Group attendance: No Were meds taken: Yes Any med S/E: None Mental Status Exam Appearance: Somewhat disheveled, however appropriately dressed Eye contact: Good Behavior: Cooperative and somewhat restless Speech: Soft, responds minimally to direct questions Mood: Pleasant Affect: Blunted with animation Thought process: Poverty of thought Thought Content: Preoccupation with obtaining snacks and some restlessness Cognition: A&O X3 Insight: Fair Judgment: Fair Interventions PRN's used: None Therapeutic interventions: Maintained a safe and supportive environment, ensured contract for safety, provided clear and simple instructions, provided direction and encouragement as needed, provided active listening and positive encouragement, and maintained Q 15min safety checks. Restraints/seclusion/emergency medication: N/A Justification of Continued Inpatient Treatment: Per BEN Mccoy, pt. continues to require a safe and supportive environment, and is not competent to stand trial at this time.
[2021-06-20] MEDS: simethicone 125mg capsule PO SCH ×3 (07:51→20:01)
[2021-06-20] MEDS: PALIPERIDONE 3 MG TAB.ER.24 PO SCH (07:51)
[2021-06-20 08:00] VITALS: BP 108/71
--- NOTE | 2021-06-20 15:26 | NUR ---
Nursing Progress Note: Legal hold: 1370 Client on involuntary status for GD Report received from nurse with use of SBAR: DANIEL Arce Why are they here: Pt admitted from [facility] to restore competency. Pt has history of schizophrenia and substance abuse. Pt had negative PPD and Covid tests. Pt has multiple charges ranging from obstruction, public intoxication, trespassing, disturbing the peace, defecating in prohibited place, battery upon officer, unlawful camping, and possession. Assessment What has happened this shift: Received pt. sleeping in bed at the beginning of the shift, he awoke and attended breakfast in the Group Room. 1:1 completed later at bedside, pt. continues to present as cooperative and pleasant. He continues to deny all MH s/s, and no delusional statements made. Pt. states with a smile, "I'm doing good." He inquires at the nurses' station whether his court papers had been sent out yet, and was informed they have been. Pt. naps intermittently throughout the day, pacing intermittently. S/I, H/I: Denies A/VH: Denies, does not appear internally preoccupied Sleep: Sleep hours are 8.25, pt. continues to nap intermittently during the shift ADL's: Requires some encouragement at times Group attendance: No Were meds taken: Yes Any med S/E: None Mental Status Exam Appearance: Somewhat disheveled, however appropriately dressed Eye contact: Good Behavior: Cooperative and somewhat restless Speech: Soft, responds minimally to direct questions Mood: Pleasant Affect: Blunted with animation Thought process: Poverty of thought Thought Content: Goal oriented Cognition: A&O X3 Insight: Fair Judgment: Fair Interventions PRN's used: None Therapeutic interventions: Maintained a safe and supportive environment, ensured contract for safety, provided clear and simple instructions, provided direction and encouragement as needed, encouraged participation on the unit, and maintained Q 15min safety checks. Restraints/seclusion/emergency medication: N/A Justification of Continued Inpatient Treatment: Per BEN Mccoy, pt. continues to require a safe and supportive environment, and is not competent to stand trial at this time.
[2021-06-20 20:00] VITALS: BP 122/66
[2021-06-20] MEDS: haloperidol 5mg tablet PO SCH (20:01)
--- NOTE | 2021-06-21 01:35 | NUR ---
Nursing Progress Note: Legal hold: 1370 Client on involuntary status for GD Report received from nurse with use of SBAR: Amy RN Why are they here: Pt admitted from [facility] to restore competency. Pt has history of schizophrenia and substance abuse. Pt had negative PPD and Covid tests. Pt has multiple charges ranging from obstruction, public intoxication, trespassing, disturbing the peace, defecating in prohibited place, battery upon officer, unlawful camping, and possession. Assessment What has happened this shift: Pt continues to do well, no behavior issues noted and pt is generally polite with staff and patients. pt spent time in his room as well as time walking the halls but does not engage with others. pt can be seen talking to himself at various times during the evening shift. S/I, H/I: Denies A/VH: Denies, does not appear internally preoccupied Sleep: See sleep hours ADL's: Requires some encouragement at times Group attendance: No Were meds taken: Yes Any med S/E: None Mental Status Exam Appearance: Somewhat disheveled, however appropriately dressed Eye contact: Good Behavior: Cooperative and somewhat restless Speech: Soft, responds minimally to direct questions Mood: Pleasant Affect: Blunted with animation Thought process: Poverty of thought Thought Content: Goal oriented Cognition: A&O X3 Insight: Fair Judgment: Fair Interventions PRN's used: None Therapeutic interventions: Maintained a safe and supportive environment, ensured contract for safety, provided clear and simple instructions, provided direction and encouragement as needed, encouraged participation on the unit, and maintained Q 15min safety checks. Restraints/seclusion/emergency medication: N/A Justification of Continued Inpatient Treatment: Per BEN Mccoy, pt. continues to require a safe and supportive environment, and is not competent to stand trial at this time.
[2021-06-21 07:20] VITALS: BP 106/71
[2021-06-21] MEDS: simethicone 125mg capsule PO SCH ×3 (08:21→21:01)
[2021-06-21] MEDS: PALIPERIDONE 3 MG TAB.ER.24 PO SCH (08:22)
--- NOTE | 2021-06-21 09:58 | NUR ---
Reassessment: Pt continues eating well with mostly 100% PO intake on regular diet while receiving double protein TID. LBM 06/18, PRN MoM available, last given 06/15. No nutrition intervention implemented at this time. Will continue to follow. Recommendations: 1) Continue regular diet; double eggs WB double meat BIDLD per diet order; offer snacks 2) Routine bowel care 3) Weekly scaled weights Addendum: 06/21/21 at [address] Amended: Links added.
--- NOTE | 2021-06-21 14:51 | NUR ---
Sent the following letter to: [facility], Infrastructure Consultant, Zuleima Mota, [place] office, [facility] Health Specialist, [facility] Office June 21, 2021 [place] [id number] Re: Sentencing of Cameron Ortega (: 81) Re: Certificate of Episcopal to Competence (Penal Code 1372 (a)(1)) [facility], Cameron Ortega is a 36-year-old male found incompetent to stand trial who was admitted to [facility] ([facility]) on 04/27/21 at 11:00 AM. He was evaluated by a clinical psychologist in [facility], Cameron was deemed incompetent to stand trial and sent for evangelical/treatment to [facility] on a [address] order. A psychiatric History and Physical was completed upon admission to the facility. Upon admission Cameron was confused and disoriented. He was pacing and looking around the room, restless, and admitted to being confused. He would look down at his hands like he did not recognize himself. He knew he was at [facility] from [facility], however, he did not know where here was. He had been oriented multiple times to the unit and still could not state where he was. He appeared to be responding to internal stimuli. He was able to report what some of his charges were, peeing in public and public intoxication. Cameron had been arrested for a series of misdemeanors from October 2018 to the end of January 2021. Including public intoxication, resisting arrest/obstruction, trespass by entering an occupying, disturbing the peace, urinating and defecating in prohibited place, battery upon an officer, possession of injecting/smoking device, and unlawful camping. After extensive treatment with psychotropic medications, milieu therapy, testing on the legal process, and mock court trials we find that the patient is not able to understand the nature and consequences of the proceedings against him and continues to be unable to assist his senior trial attorney in his defense due to mental illness. Cameron underwent psychological testing and the results indicated his overall intellectual functioning is in the highly probable impairment range. He also tested well below average in functional reading and math skills. These scores validate Mendez difficulty with understanding the court process. Cameron believes that he is not guilty of his charges by the mere fact that he is not currently involved in the acts that he was arrested for (public intoxication, urinating in public, etc). In our opinion he remains incompetent to stand trial and will remain incompetent for the foreseeable future. We recommend that Cameron remain at [facility] while he waits for trail. He is currently stable on his medications and we believe he can benefit from continued mental health treatment. We also recommend a referral for [facility] Conservatorship evaluation by [facility] and [facility]. Cameron presents as gravely disabled and unable to formulate a viable plan for food, clothing, or residential. If you have any questions, please do not hesitate to contact me at [phone]. Sincerely, Brian Hong MD Bicycle Service Technician [facility] CC: Infrastructure Consultant Director of [facility] Transitions and Discharge (TAD) office [place] [facility] Specialist [facility] Office DAMIEN Pérez
--- NOTE | 2021-06-21 18:04 | NUR ---
Nursing Progress Note: Cameron Ortega Jr Legal hold: 1370 Client on involuntary status for GD Report received from nurse with use of SBAR: Felicita RN Why are they here: [facility]. Pt has history of schizophrenia and substance abuse. Pt had negative PPD and Covid tests. Pt has multiple charges ranging from obstruction, public intoxication, trespassing, disturbing the peace, defecating in prohibited place, battery upon officer, unlawful camping, and possession. Assessment What has happened this shift: Patient noted walking around the unit at shift change, asking for coffee. He sat in the community room for breakfast, sitting by himself quietly eating food. Patient observed wondering around the unit after breakfast then retreating to his room. 1:1 assessment completed. Lungs CTA. Compliant with medications. He only responds when asked questions, with short responses. Pt is polite and cooperative when approached by staff or peers. He appears self-isolative, guarded and withdrawn. He has a blunt affect. Patient refused to join group therapy today despite encouragement. He denies SI/HI, AH or VH. He does not appear to be internally preoccupied. When asked how he is feeling, patient stated, Doing good. Patient spent the majority of the day walking around the unit, taking short naps in-between, and joining for meals in the community room. S/I, H/I: Denies A/VH: Denies. Does not appear internally preoccupied Sleep: Pt slept 8.25 hours last night per NOC shift, short infrequent naps throughout the day ADL's: Requires encouragement Group attendance: No Were meds taken: Yes Any med S/E: None observed or reported Mental Status Exam Appearance: Somewhat disheveled, wearing green unit scrubs Eye contact: Good Behavior: Cooperative, polite, self-isolative, guarded and withdrawn Speech: Clear, only responds when asked questions, with short responses Mood: Pleasant, reserved Affect: Blunted Thought process: Poverty of thought Thought Content: Unable to assess. Pt provides minimal responses. Cognition: Alert and able to make needs known to staff Insight: Fair Judgment: Fair Interventions PRN's used: None Therapeutic interventions: 1:1 assessment, provided direction and encouragement as needed, maintained a safe and supportive environment, ensured contract for safety, provided clear and simple instructions, encouraged participation on the unit, and maintained Q15 minute safety checks. Restraints/seclusion/emergency medication: N/A Justification of Continued Inpatient Treatment: Patient continues to require a safe and supportive environment, medication management and monitoring, and ability to gain competency to stand trial. At this time per MD patient is not competent to stand trial.
[2021-06-21 19:00] VITALS: BP 104/59
[2021-06-21] MEDS: haloperidol 5mg tablet PO SCH (21:01)
[2021-06-21] MEDS: traZODone 50mg tablet PO PRN (21:01)
--- NOTE | 2021-06-22 03:28 | NUR ---
Nursing Progress Note: Legal hold: 1370 Client on involuntary status for GD Report received from nurse with use of SBAR: DANIEL Hernandez Why are they here: Pt admitted from [facility] to restore competency. Pt has history of schizophrenia and substance abuse. Pt had negative PPD and Covid tests. Pt has multiple charges ranging from obstruction, public intoxication, trespassing, disturbing the peace, defecating in prohibited place, battery upon officer, unlawful camping, and possession. Assessment What has happened this shift: Patient walking in the garcia at the beginning of shift. Pleasant and cooperative with care; compliant with medication. PRN Trazodone provided with positive effect. Patient denies SI, HI, A/VH; does not appear to be responding to IS and no delusional thought content expressed this shift. Patient participated in HS snack prior to bed; observed sleeping and does not appear to be having difficulty. S/I, H/I: Denies A/VH: Denies Sleep: Refer to sleep assessment ADL's: Independent Group attendance: NA Were meds taken: Yes Any med S/E: None observed or reported Mental Status Exam Appearance: Appropriate, wearing green unit scrubs Eye contact: Good Behavior: Pleasant and cooperative, pacing, self isolative Speech: Clear, audible, minimal Mood: Euthymic Affect: Congruent to mood Thought process: Linear Thought Content: Waiting for court date, meeting needs Cognition: A/O x4 Insight: Fair Judgment: Fair Interventions PRN's used: Trazodone Therapeutic interventions: 1:1 assessment, provided direction and encouragement as needed, maintained a safe and supportive environment, ensured contract for safety, provided clear and simple instructions, encouraged participation on the unit, and maintained Q15 minute safety checks. Restraints/seclusion/emergency medication: N/A Justification of Continued Inpatient Treatment: Patient continues to require a safe and supportive environment, medication management and monitoring, and ability to gain competency to stand trial. At this time per MD patient is not competent to stand trial.
[2021-06-22 08:00] VITALS: BP 109/67
[2021-06-22] MEDS: simethicone 125mg capsule PO SCH ×3 (08:30→20:09)
[2021-06-22] MEDS: PALIPERIDONE 3 MG TAB.ER.24 PO SCH (08:30)
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
[2021-06-22 19:00] VITALS: BP 105/79
[2021-06-22] MEDS: haloperidol 5mg tablet PO SCH (20:09)
[2021-06-22] MEDS: traZODone 50mg tablet PO PRN (20:09)
--- NOTE | 2021-06-23 04:09 | NUR ---
Nursing Progress Note: Legal hold: 1370 Client on involuntary status for GD Report received from nurse with use of SBAR: DANIEL Hernandez Why are they here: Pt admitted from [facility] to restore competency. Pt has history of schizophrenia and substance abuse. Pt had negative PPD and Covid tests. Pt has multiple charges ranging from obstruction, public intoxication, trespassing, disturbing the peace, defecating in prohibited place, battery upon officer, unlawful camping, and possession. Assessment What has happened this shift: Patient quietly pacing the unit at the beginning of shift. Pleasant and cooperative with care; compliant with medication. PRN Trazodone provided with positive effect. Patient denies SI, HI, A/VH; does not appear to be responding to IS and no delusional thought content expressed. Patient participated in HS snack prior to bed; observed sleeping and does not appear to be having difficulty. S/I, H/I: Denies A/VH: Denies Sleep: Refer to sleep assessment ADL's: Independent Group attendance: NA Were meds taken: Yes Any med S/E: None observed or reported Mental Status Exam Appearance: Appropriate, wearing green unit scrubs Eye contact: Good Behavior: Pleasant and cooperative, pacing, self isolative Speech: Clear, audible, minimal Mood: Euthymic Affect: Congruent to mood Thought process: Linear Thought Content: Meeting needs Cognition: A/O x4 Insight: Fair Judgment: Fair Interventions PRN's used: Trazodone Therapeutic interventions: 1:1 assessment, provided direction and encouragement as needed, maintained a safe and supportive environment, ensured contract for safety, provided clear and simple instructions, encouraged participation on the unit, and maintained Q15 minute safety checks. Restraints/seclusion/emergency medication: N/A Justification of Continued Inpatient Treatment: Patient continues to require a safe and supportive environment, medication management and monitoring, and ability to gain competency to stand trial. At this time per MD patient is not competent to stand trial.
[2021-06-23 07:17] VITALS: BP 110/74
[2021-06-23] MEDS: PALIPERIDONE 3 MG TAB.ER.24 PO SCH (08:03)
[2021-06-23] MEDS: simethicone 125mg capsule PO SCH ×3 (08:03→20:09)
--- NOTE | 2021-06-23 13:50 | NUR ---
Nursing Progress Note Legal hold: 1370 Client on involuntary status for GD Report received from nurse with use of SBAR: Juliet Coleman RN Why are they here: Pt admitted from [facility] to restore competency. Pt has history of schizophrenia and substance abuse. Pt has multiple charges ranging from obstruction, public intoxication, trespassing, disturbing the peace, defecating in prohibited place, battery upon officer, unlawful camping, and possession. Assessment What has happened this shift: Pt is a conserved pt here for competency. He is at baseline. Pt is compliant with treatment and unit rules. No changes S/I, H/I: Denies A/VH: Denies. Does not appear internally preoccupied Sleep: Pt napped after lunch ADL's: Requires encouragement Group attendance: N/A Were meds taken: Yes Any med S/E: None noted or reported Mental Status Exam Appearance: disheveled, wearing green unit scrubs from yesterday Eye contact: Good Behavior: Cooperative, guarded and withdrawn Speech: Clear, normal rate and rhythm Mood: Pleasant, reserved Affect: Blunted Thought process: Poverty of thought Thought Content: Unable to assess. Pt provides minimal responses. Cognition: Alert and able to make needs known to staff Insight: Fair Judgment: Fair Interventions PRN's used: None Therapeutic interventions: Provided morning 1:1 assessment with therapeutic communication and active listening, medication administration/education/monitoring, encouraged shower and prompted to put on clean unit scrubs or personal clothing, provided clear and simple instructions, and maintained Q15 minute safety checks. Restraints/seclusion/emergency medication: N/A Justification of Continued Inpatient Treatment: Patient continues to require a safe and supportive environment, medication management and monitoring, and ability to gain competency to stand trial. At this time per MD, patient is not competent to stand trial.
[2021-06-23 19:00] VITALS: BP 106/61
[2021-06-23] MEDS: traZODone 50mg tablet PO PRN (20:09)
[2021-06-23] MEDS: haloperidol 5mg tablet PO SCH (20:10)
--- NOTE | 2021-06-24 04:05 | NUR ---
Nursing Progress Note: Legal hold: 1370 Client on involuntary status for GD Report received from nurse with use of SBAR: DANIEL Hernandez Why are they here: Pt admitted from [facility] to restore competency. Pt has history of schizophrenia and substance abuse. Pt had negative PPD and Covid tests. Pt has multiple charges ranging from obstruction, public intoxication, trespassing, disturbing the peace, defecating in prohibited place, battery upon officer, unlawful camping, and possession. Assessment What has happened this shift: Patient awake in his room at the beginning of shift. Pleasant and cooperative with care; compliant with medication. PRN Trazodone provided with positive effect. He continues to deny SI, HI, A/VH; does not appear to be responding to IS and no delusional thought content expressed. Patient observed participating in HS snack prior to bed; observed sleeping and does not appear to be having difficulty. S/I, H/I: Denies A/VH: Denies Sleep: Refer to sleep assessment ADL's: Independent Group attendance: NA Were meds taken: Yes Any med S/E: None observed or reported Mental Status Exam Appearance: Appropriate, wearing green unit scrubs Eye contact: Good Behavior: Pleasant and cooperative, pacing, self isolative Speech: Clear, audible, minimal Mood: Euthymic Affect: Congruent to mood Thought process: Linear Thought Content: Meeting needs Cognition: A/O x4 Insight: Fair Judgment: Fair Interventions PRN's used: Trazodone Therapeutic interventions: 1:1 assessment, provided direction and encouragement as needed, maintained a safe and supportive environment, ensured contract for safety, provided clear and simple instructions, encouraged participation on the unit, and maintained Q15 minute safety checks. Restraints/seclusion/emergency medication: N/A Justification of Continued Inpatient Treatment: Patient continues to require a safe and supportive environment, medication management and monitoring, and ability to gain competency to stand trial. At this time per MD patient is not competent to stand trial.
[2021-06-24 07:34] VITALS: BP 99/70
[2021-06-24] MEDS: simethicone 125mg capsule PO SCH ×3 (08:37→20:41)
[2021-06-24] MEDS: PALIPERIDONE 3 MG TAB.ER.24 PO SCH (08:37)
--- NOTE | 2021-06-24 15:39 | NUR ---
Nursing Progress Note: Cameron Legal hold: 1370 Client on involuntary status for GD Report received from nurse with use of SBAR: DANIEL Interiano Why are they here: Pt admitted from [facility] to restore competency. Pt has history of schizophrenia and substance abuse. Pt has multiple charges ranging from obstruction, public intoxication, trespassing, disturbing the peace, defecating in prohibited place, battery upon officer, unlawful camping, and possession. Assessment What has happened this shift: Received patient pacing the garcia. Pt responded as play writer greeted him. Pt is at baseline waiting for his trial date. Pt continues to be compliant with care and medication. Pt smiles as he paces garcia. Pt keeps to himself and is able to make needs known. No delusional remarks made this shift. S/I, H/I: Denies both. A/VH: Denies. Does not appear internally preoccupied Sleep: Pt took a small nap after PM snack. ADL's: Requires encouragement Group attendance: No scheduled group today. Were meds taken: Yes, without issue. Any med S/E: None noted or reported Mental Status Exam Appearance: Disheveled, wearing green unit scrubs. Eye contact: Good Behavior: Cooperative, quiet, keeps to self. Paced garcia Speech: Clear, normal rate and rhythm Mood: Pleasant, reserved Affect: Blunted Thought process: Poverty of thought Thought Content: Getting needs met. Cognition: Alert and able to make needs known to staff. Insight: Fair Judgment: Fair Interventions PRN's used: None Therapeutic interventions: Provided morning 1:1 assessment with therapeutic communication and active listening, medication administration/education/monitoring, encouraged shower and prompted to put on clean unit scrubs or personal clothing, provided clear and simple instructions, and maintained Q15 minute safety checks. Restraints/seclusion/emergency medication: N/A Justification of Continued Inpatient Treatment: Pt is currently stable on his medications and we believe he can benefit from continued mental health treatment while awaiting his trial date. Cameron presents as gravely disabled and unable to formulate a viable plan for food, clothing, or longterm.
[2021-06-24 19:27] VITALS: BP 106/70
[2021-06-24] MEDS: haloperidol 5mg tablet PO SCH (20:41)
[2021-06-24] MEDS: traZODone 50mg tablet PO PRN (20:41)
--- NOTE | 2021-06-25 03:19 | NUR ---
Nursing Progress Note: Legal hold: 1370 Client on involuntary status for GD Report received from nurse with use of SBAR: Kenton RN Why are they here: Pt admitted from [facility] to restore competency. Pt has history of schizophrenia and substance abuse. Pt had negative PPD and Covid tests. Pt has multiple charges ranging from obstruction, public intoxication, trespassing, disturbing the peace, defecating in prohibited place, battery upon officer, unlawful camping, and possession. Assessment What has happened this shift: Patient pacing the unit at the beginning of shift. Pleasant and cooperative with care; compliant with medication. PRN Trazodone provided with positive effect. Patient continues to deny SI, HI, A/VH; does not appear to be responding to IS and no delusional thought content expressed. Patient participated in HS snack in the community room prior to retiring to bed; observed sleeping and does not appear to be having difficulty. S/I, H/I: Denies A/VH: Denies Sleep: Refer to sleep assessment ADL's: Independent Group attendance: NA Were meds taken: Yes Any med S/E: None observed or reported Mental Status Exam Appearance: Appropriate, wearing green unit scrubs Eye contact: Good Behavior: Pleasant and cooperative, walking the garcia Speech: Clear, audible, minimal Mood: Euthymic Affect: Congruent to mood Thought process: Linear Thought Content: Meeting needs Cognition: A/O x4 Insight: Fair Judgment: Fair Interventions PRN's used: Trazodone Therapeutic interventions: 1:1 assessment, provided direction and encouragement as needed, maintained a safe and supportive environment, ensured contract for safety, provided clear and simple instructions, encouraged participation on the unit, and maintained Q15 minute safety checks. Restraints/seclusion/emergency medication: N/A Justification of Continued Inpatient Treatment: Patient continues to require a safe and supportive environment, medication management and monitoring, and ability to gain competency to stand trial. At this time per MD patient is not competent to stand trial.
[2021-06-25] MEDS: simethicone 125mg capsule PO SCH ×3 (07:21→20:39)
[2021-06-25] MEDS: PALIPERIDONE 3 MG TAB.ER.24 PO SCH (07:21)
[2021-06-25 07:39] VITALS: BP 117/83
--- NOTE | 2021-06-25 15:47 | NUR ---
Nursing Progress Note: Cameron Legal hold: 1370 Client on involuntary status for GD Report received from DANIEL Arias with use of SBAR. Why are they here: [facility]. Pt has history of schizophrenia and substance abuse. Pt has multiple charges ranging from obstruction, public intoxication, trespassing, disturbing the peace, defecating in prohibited place, battery upon officer, unlawful camping, and possession. Assessment What has happened this shift: Received patient sleeping in his room, respirations even an unlabored. Pt is at baseline waiting for his trial date. Pt continues to be compliant with care and medication. Pt smiles as he paces garcia. No behaviors or delusional thought content expressed. Pt is focused on food or drinks, but is always polite when asking. Assistant Professor Of Surgery asked pt if he feels different then when he first came in I feel better this way. Pt denies all MH symptoms. S/I, H/I: Denies both. A/VH: Denies. Does not appear internally preoccupied Sleep: 7.25 hours per sleep assessment. Intermittent naps today. ADL's: Requires encouragement Group attendance: No scheduled group today. Were meds taken: Yes, without issue. Any med S/E: None noted or reported Mental Status Exam Appearance: Disheveled, wearing green unit scrubs. Short-scruffy varghese. Eye contact: Good Behavior: Cooperative, quiet, keeps to self. Paced garcia Speech: Clear, normal rate and rhythm Mood: Pleasant, reserved Affect: Blunted Thought process: Poverty of thought Thought Content: Getting needs met. Cognition: Alert and able to make needs known to staff. Insight: Fair Judgment: Fair Interventions PRN's used: None Therapeutic interventions: Provided morning 1:1 assessment with therapeutic communication and active listening, medication administration/education/monitoring, encouraged shower and prompted to put on clean unit scrubs or personal clothing, provided clear and simple instructions, and maintained Q15 minute safety checks. Restraints/seclusion/emergency medication: N/A Justification of Continued Inpatient Treatment: Pt is currently stable on his medications and we believe he can benefit from continued mental health treatment while awaiting his trial date. Cameron presents as gravely disabled and unable to formulate a viable plan for food, clothing, or fci.
[2021-06-25 19:17] VITALS: BP 104/66
[2021-06-25] MEDS: haloperidol 5mg tablet PO SCH (20:39)
[2021-06-25] MEDS: traZODone 50mg tablet PO PRN (20:40)
--- NOTE | 2021-06-26 03:50 | NUR ---
Nursing Progress Note: Legal hold: 1370 Client on involuntary status for GD Report received from nurse with use of SBAR: DANIEL Hernandez Why are they here: Pt admitted from [facility] to restore competency. Pt has history of schizophrenia and substance abuse. Pt had negative PPD and Covid tests. Pt has multiple charges ranging from obstruction, public intoxication, trespassing, disturbing the peace, defecating in prohibited place, battery upon officer, unlawful camping, and possession. Assessment What has happened this shift: Patient laying in bed at the beginning of shift. Pleasant and cooperative with care; compliant with medication. PRN Trazodone provided with positive effect. Patient denies SI, HI, A/VH; does not appear to b e responding to IS and no delusional thought content expressed. He was observed pacing the unit and participated in HS snack prior to bed; observed sleeping and does not appear to be having difficulty. S/I, H/I: Denies A/VH: Denies Sleep: Refer to sleep assessment ADL's: Independent Group attendance: NA Were meds taken: Yes Any med S/E: None observed or reported Mental Status Exam Appearance: Appropriate, wearing green unit scrubs Eye contact: Good Behavior: Pleasant and cooperative, walking the garcia Speech: Clear, audible, minimal Mood: Euthymic Affect: Congruent to mood Thought process: Linear Thought Content: Meeting needs Cognition: A/O x4 Insight: Fair Judgment: Fair Interventions PRN's used: Trazodone Therapeutic interventions: 1:1 assessment, provided direction and encouragement as needed, maintained a safe and supportive environment, ensured contract for safety, provided clear and simple instructions, encouraged participation on the unit, and maintained Q15 minute safety checks. Restraints/seclusion/emergency medication: N/A Justification of Continued Inpatient Treatment: Patient continues to require a safe and supportive environment, medication management and monitoring, and ability to gain competency to stand trial. At this time per MD patient is not competent to stand trial.
[2021-06-26 07:47] VITALS: BP 97/64
[2021-06-26] MEDS: PALIPERIDONE 3 MG TAB.ER.24 PO SCH (07:51)
[2021-06-26] MEDS: simethicone 125mg capsule PO SCH ×3 (07:51→20:31)
--- NOTE | 2021-06-26 11:51 | NUR ---
Nursing Progress Note: Cameron Legal hold: 1370 Client on involuntary status for GD Report received from DANIEL Mims with use of SBAR. Why are they here: [facility] Pt has history of schizophrenia and substance abuse. Pt has multiple charges ranging from obstruction, public intoxication, trespassing, disturbing the peace, defecating in prohibited place, battery upon officer, unlawful camping, and possession. Assessment What has happened this shift: Received patient sleeping in his room, respirations even an unlabored. Pt is at baseline waiting for his trial date. Pt continues to be compliant with care and medication. Pt smiles as he paces garcia. No behaviors or delusional thought content expressed. Pt wasnt forthright saying he was bored, but when asked he stated ya Im bored. Pt said the things he missed most was pizza and ribs. Pt continues to be focused on food. S/I, H/I: Denies both. A/VH: Denies. Does not appear internally preoccupied Sleep: 7.0 hours per sleep assessment. Intermittent naps today. ADL's: Requires encouragement Group attendance: No scheduled group today. Were meds taken: Yes, without issue. Any med S/E: None noted or reported Mental Status Exam Appearance: Disheveled, wearing green unit scrubs. Unshaven Eye contact: Good Behavior: Cooperative, quiet, keeps to self. Paced garcia Speech: Clear, soft, minimal Mood: Pleasant, reserved Affect: Blunted with some brightening Thought process: Poverty of thought Thought Content: Getting needs met. Cognition: Alert and able to make needs known to staff. Insight: Fair Judgment: Fair Interventions PRN's used: None Therapeutic interventions: Provided morning 1:1 assessment with therapeutic communication and active listening, medication administration/education/monitoring, encouraged shower and prompted to put on clean unit scrubs or personal clothing, provided clear and simple instructions, and maintained Q15 minute safety checks. Restraints/seclusion/emergency medication: N/A Justification of Continued Inpatient Treatment: Pt is currently stable on his medications and we believe he can benefit from continued mental health treatment while awaiting his trial date. Cameron presents as gravely disabled and unable to formulate a viable plan for food, clothing, or usp.
[2021-06-26 19:20] VITALS: BP 117/74
[2021-06-26] MEDS: haloperidol 5mg tablet PO SCH (20:31)
[2021-06-26] MEDS: traZODone 50mg tablet PO PRN (20:32)
--- NOTE | 2021-06-26 23:45 | NUR ---
Nursing Progress Note: Legal hold: 1370 Client on involuntary status for GD Report received from nurse with use of SBAR: DANIEL Hernandez Why are they here: Pt admitted from [facility] to restore competency. Pt has history of schizophrenia and substance abuse. Pt had negative PPD and Covid tests. Pt has multiple charges ranging from obstruction, public intoxication, trespassing, disturbing the peace, defecating in prohibited place, battery upon officer, unlawful camping, and possession. Assessment What has happened this shift: Patient awake and sitting up in bed at the beginning of shift. Pleasant and cooperative with care; compliant with medication. PRN Trazodone provided with positive effect. He continues to deny SI, HI, A/VH; does not appear to be responding to SI and no delusional thought content expressed. Patient participated in HS snack prior to bed; observed sleeping and does not appear to be having difficulty. S/I, H/I: Denies A/VH: Denies Sleep: Refer to sleep assessment ADL's: Independent Group attendance: NA Were meds taken: Yes Any med S/E: None observed or reported Mental Status Exam Appearance: Appropriate, wearing green unit scrubs Eye contact: Good Behavior: Pleasant and cooperative, walking the garcia Speech: Clear, audible, minimal Mood: Euthymic Affect: Congruent to mood Thought process: Linear Thought Content: Meeting needs Cognition: A/O x4 Insight: Fair Judgment: Fair Interventions PRN's used: Trazodone Therapeutic interventions: 1:1 assessment, provided direction and encouragement as needed, maintained a safe and supportive environment, ensured contract for safety, provided clear and simple instructions, encouraged participation on the unit, and maintained Q15 minute safety checks. Restraints/seclusion/emergency medication: N/A Justification of Continued Inpatient Treatment: Patient continues to require a safe and supportive environment, medication management and monitoring, and ability to gain competency to stand trial. At this time per MD patient is not competent to stand trial.
[2021-06-27 07:09] VITALS: BP 97/60
[2021-06-27] MEDS: PALIPERIDONE 3 MG TAB.ER.24 PO SCH (07:46)
[2021-06-27] MEDS: simethicone 125mg capsule PO SCH ×3 (07:46→20:17)
--- NOTE | 2021-06-27 10:36 | NUR ---
Nursing Progress Note: Legal hold: 1370 Client on involuntary status for GD Report received from nurse with use of SBAR: DANIEL Mims Why are they here: Pt admitted from [facility] to restore competency. Pt has history of schizophrenia and substance abuse. Pt had negative PPD and Covid tests. Pt has multiple charges ranging from obstruction, public intoxication, trespassing, disturbing the peace, defecating in prohibited place, battery upon officer, unlawful camping, and possession. Assessment What has happened this shift: Patient sitting in the recreation room watching out of the window at the beginning of shift. Pleasant and cooperative with care; compliant with all medication. Denies SI, HI, A/VH; does not appear to be responding to IS and no delusional thought content expressed. Patient eats meals in community room and remains active on the unit and making needs known. S/I, H/I: Denies A/VH: Denies Sleep: Refer to sleep assessment ADL's: Independent Group attendance: NA Were meds taken: Yes Any med S/E: None observed or reported Mental Status Exam Appearance: Appropriate, wearing green unit scrubs Eye contact: Good Behavior: Pleasant and cooperative, walking the garcia Speech: Clear, audible, minimal Mood: Euthymic Affect: Congruent to mood Thought process: Linear Thought Content: Meeting needs Cognition: A/O x4 Insight: Fair Judgment: Fair Interventions PRN's used: None Therapeutic interventions: 1:1 assessment, provided direction and encouragement as needed, maintained a safe and supportive environment, ensured contract for safety, provided clear and simple instructions, encouraged participation on the unit, and maintained Q15 minute safety checks. Restraints/seclusion/emergency medication: N/A Justification of Continued Inpatient Treatment: Patient continues to require a safe and supportive environment, medication management and monitoring, and ability to gain competency to stand trial. At this time per MD patient is not competent to stand trial.
--- NOTE | 2021-06-27 15:47 | NUR ---
Patient showered and put on clean clothing.
[2021-06-27 20:06] VITALS: BP 108/69
[2021-06-27] MEDS: traZODone 50mg tablet PO PRN (20:17)
[2021-06-27] MEDS: haloperidol 5mg tablet PO SCH (20:17)
--- NOTE | 2021-06-27 23:46 | NUR ---
Nursing Progress Note: Legal hold: 1370 Client on involuntary status for GD Report received from nurse with use of SBAR: Kenton RN Why are they here: Pt admitted from [facility] to restore competency. Pt has history of schizophrenia and substance abuse. Pt had negative PPD and Covid tests. Pt has multiple charges ranging from obstruction, public intoxication, trespassing, disturbing the peace, defecating in prohibited place, battery upon officer, unlawful camping, and possession. Assessment What has happened this shift: Patient sitting on the floor by the nurses station at change of shift. Pt seen wandering the halls and is pleasant when staff interacts for assessments and medications. Pt denies SI/SH/HI/AVH. Pt eats all meals and has no complaints during this shift. Pt is calm and cooperative and is currently awaiting placement. Pt is isolative to himself and does not socialize with peers or staff. Pt has adequate hygiene dressed in personal disheveled clothes-do not seem soiled. S/I, H/I: Denies A/VH: Denies Sleep: Refer to sleep assessment ADL's: Independent Group attendance: NA Were meds taken: Yes Any med S/E: None observed or reported Mental Status Exam Appearance: Appropriate, clean personal clothes Eye contact: Good Behavior: Pleasant and cooperative, walking the halls Speech: Clear, audible, minimal Mood: Euthymic Affect: Congruent to mood Thought process: Linear Thought Content: Meeting needs Cognition: A/O x4 Insight: Fair Judgment: Fair Interventions PRN's used: None Therapeutic interventions: 1:1 assessment, provided direction and encouragement as needed, maintained a safe and supportive environment, ensured contract for safety, provided clear and simple instructions, encouraged participation on the unit, and maintained Q15 minute safety checks. Restraints/seclusion/emergency medication: N/A Justification of Continued Inpatient Treatment: Patient continues to require a safe and supportive environment, medication management and monitoring, and ability to gain competency to stand trial. At this time per MD patient is not competent to stand trial.
[2021-06-28 07:12] VITALS: BP 109/65
[2021-06-28] MEDS: PALIPERIDONE 3 MG TAB.ER.24 PO SCH (07:30)
[2021-06-28] MEDS: simethicone 125mg capsule PO SCH ×3 (07:30→22:45)
--- NOTE | 2021-06-28 09:46 | NUR ---
Reassessment: Pt continues eating well with 100% PO intake on regular diet while receiving double protein TID. No N/V/D noted, LBM 06/18, No nutrition intervention implemented at this time. Will continue to follow. Recommendations: 1) Continue regular diet; double eggs WB double meat BIDLD per diet order; offer snacks 2) Routine bowel care 3) Weekly scaled weights Addendum: 06/28/21 at [address] Amended: Links added.
--- NOTE | 2021-06-28 14:04 | NUR ---
Nursing Progress Note: Legal hold: 1370 Client on involuntary status for GD Report received from nurse with use of SBAR: DANIEL Mims Why are they here: Pt admitted from [facility] to restore competency. Pt has history of schizophrenia and substance abuse. Pt had negative PPD and Covid tests. Pt has multiple charges ranging from obstruction, public intoxication, trespassing, disturbing the peace, defecating in prohibited place, battery upon officer, unlawful camping, and possession. Assessment What has happened this shift: Received pt. up in the hallway at the beginning of the shift, he greeted this comic writer however remains guarded. Pt. then went to sit in the Recreation Room alone in the dark. He remains withdrawn on the unit and with his interactions with others, however is pleasant. 1:1 completed, pt. continues to deny all MH s/s and no delusional statements made. He responds minimally to direct questions only and states in a blunted manner, "I'm doing good." When questioned by this comic writer regarding whether he has heard anything from the court yet, pt. denies he has. Pt. remains up throughout the day, and continues to present as withdrawn. S/I, H/I: Denies A/VH: Denies, does not appear internally preoccupied Sleep: Sleep hours are 9, he reports he slept well ADL's: Requires some encouragement at times r/t hygiene, mostly independent Group attendance: N/A Were meds taken: Yes Any med S/E: None Mental Status Exam Appearance: Somewhat disheveled, however appropriately dressed Eye contact: Good Behavior: Cooperative and somewhat restless Speech: Soft, responds minimally to direct questions only Mood: Guarded, however pleasant Affect: Blunted with animation Thought process: Poverty of thought Thought Content: Goal oriented Cognition: A&O X3 Insight: Fair Judgment: Fair Interventions PRN's used: None Therapeutic interventions: Maintained a safe and supportive environment, ensured contract for safety, provided clear and simple instructions, provided direction and encouragement as needed, encouraged participation on the unit, and maintained Q 15min safety checks. Restraints/seclusion/emergency medication: N/A Justification of Continued Inpatient Treatment: Per BEN Mccoy, pt. continues to require a safe and supportive environment while awaiting information from the court.
[2021-06-28 19:00] VITALS: BP 109/66
[2021-06-28] MEDS: haloperidol 5mg tablet PO SCH (22:45)
[2021-06-28] MEDS: traZODone 50mg tablet PO PRN (22:45)
--- NOTE | 2021-06-28 23:56 | NUR ---
Nursing Progress Note: Legal hold: 1370 Client on involuntary status for GD Report received from DANIEL Rubio Why are they here: Pt admitted from [facility] to restore competency. Pt has history of schizophrenia and substance abuse. Pt had negative PPD and Covid tests. Pt has multiple charges ranging from obstruction, public intoxication, trespassing, disturbing the peace, defecating in prohibited place, battery upon officer, unlawful camping, and possession. Assessment What has happened this shift: Patient isolates in his room following shift change. Patient is well oriented. His affect is flat. Patient denies S/I, H/I, or any hallucinations. The patient is medication compliant. When asked about his thoughts, the patient is evasive. Finally after repeat questions, the patient tells this content writer "I'm just thinking about today and tomorrow." He does not elaborate further. Patient states a BM today. S/I, H/I: Denies. A/VH: Denies. Sleep: Will tally at 0500 hours. ADL's: Requires some prompting. Group attendance: No group on nights. Were meds taken: Yes, medication compliant. Any med S/E: None noted. Mental Status Exam Appearance: Disheveled looking. Eye contact: Good, Behavior: Isolative, quiet. Speech: Soft, responds minimally to direct questions only. (Same as reported from day shift.) Mood: Guarded, however pleasant Affect: Flat. Thought process: Poverty of thought. Thought Content: Unable to eval, patient minimizes answers. Cognition: A&O X3 Insight: Fair Judgment: Fair Interventions PRN's used: Trazadone. Therapeutic interventions: Maintained a safe and supportive environment, ensured contract for safety, provided clear and simple instructions, provided direction and encouragement as needed, encouraged participation on the unit, and maintained Q 15min safety checks. Restraints/seclusion/emergency medication: N/A Justification of Continued Inpatient Treatment: BEN Champion, pt. continues to require a safe and supportive environment while awaiting information from the court.
[2021-06-29] MEDS: simethicone 125mg capsule PO SCH ×3 (07:35→20:11)
[2021-06-29] MEDS: PALIPERIDONE 3 MG TAB.ER.24 PO SCH (07:35)
[2021-06-29 08:00] VITALS: BP_SYST 102; BP_SYST 95; BP_DIAS 55; BP_DIAS 66
--- NOTE | 2021-06-29 12:46 | NUR ---
Nursing Progress Note: Legal hold: 1370 Client on involuntary status for GD Report received from nurse with use of SBAR: Juliet Coleman RN Why are they here: Pt admitted from [facility] to restore competency. Pt has history of schizophrenia and substance abuse. Pt had negative PPD and Covid tests. Pt has multiple charges ranging from obstruction, public intoxication, trespassing, disturbing the peace, defecating in prohibited place, battery upon officer, unlawful camping, and possession. Assessment What has happened this shift: Received pt. sleeping in bed at the beginning of the shift, he was awoken by staff to attend breakfast, and then afterwards retreated back to bed. Pt. napped intermittently throughout the day and he continues to present as cooperative and pleasant, however somewhat restless and withdrawn from others. 1:1 completed at bedside, and pt. continues to deny all MH s/s and responds minimally to direct questions only in a blunted manner. He continues to patiently wait to hear back from the court. Will continue to monitor. S/I, H/I: Denies A/VH: Denies, does not appear internally preoccupied Sleep: Sleep hours are 7.5, he reports he slept well ADL's: Requires some encouragement at times r/t hygiene, mostly independent Group attendance: N/A Were meds taken: Yes Any med S/E: None Mental Status Exam Appearance: Somewhat disheveled, however appropriately dressed Eye contact: Good Behavior: Cooperative and somewhat restless Speech: Soft, responds minimally to direct questions only Mood: Guarded, however pleasant Affect: Blunted with animation Thought process: Poverty of thought Thought Content: Goal oriented Cognition: A&O X3 Insight: Fair Judgment: Fair Interventions PRN's used: None Therapeutic interventions: Maintained a safe and supportive environment, ensured contract for safety, provided clear and simple instructions, provided direction and encouragement as needed, encouraged participation on the unit, and maintained Q 15min safety checks. Restraints/seclusion/emergency medication: N/A Justification of Continued Inpatient Treatment: Per BEN Mccoy, pt. continues to require a safe and supportive environment while awaiting information from the court.
--- NOTE | 2021-06-29 15:51 | NUR ---
Infection: Pt has R sided tooth pain and some pustulant drainage to R side cheek. Called hospitalist Nghia and received orders for Augmentin BID.
[2021-06-29] MEDS: amox tr/potassium clavulanate 875/125mg TAB PO SCH (17:19)
[2021-06-29 19:22] VITALS: BP 100/53
[2021-06-29] MEDS: haloperidol 5mg tablet PO SCH (20:11)
[2021-06-29] MEDS: traZODone 50mg tablet PO PRN (20:11)
--- NOTE | 2021-06-30 | NUR ---
Nursing Progress Note: Legal hold: 1370 Client on involuntary status for GD Report received from nurse with use of SBAR: DANIEL Rubio Why are they here: Pt admitted from [facility] to restore competency. Pt has history of schizophrenia and substance abuse. Pt had negative PPD and Covid tests. Pt has multiple charges ranging from obstruction, public intoxication, trespassing, disturbing the peace, defecating in prohibited place, battery upon officer, unlawful camping, and possession. Assessment What has happened this shift: Received pt. up pacing in the hallway at the beginning of the shift, he acknowledged this senior writer appropriately, however remains somewhat guarded. 1:1 completed, pt. continues to deny all MH s/s, and responds minimally to direct questions only. When questioned by this senior writer regarding court, pt. reports he has not heard anything, however he still plans to plead not guilty. When questioned regarding his plans for discharge, pt. reported that he plans to go live with his father in [place]. Pt. attended snack, and requested PRN Trazodone before retreating to bed. This senior writer monitored small hole on pt's right cheek, no increased redness or drainage noted. Pt. denies any pain or discomfort at area. Ordered ABT administered and will continue to monitor. S/I, H/I: Denies A/VH: Denies, does not appear internally preoccupied Sleep: Pt. requests PRN Trazodone at HS, he appears to be sleeping well ADL's: Requires some encouragement at times r/t hygiene, mostly independent Group attendance: N/A Were meds taken: Yes Any med S/E: None Mental Status Exam Appearance: Somewhat disheveled, however appropriately dressed Eye contact: Good Behavior: Cooperative and somewhat restless Speech: Soft, responds minimally to direct questions only Mood: Guarded, however pleasant Affect: Blunted with animation Thought process: Poverty of thought Thought Content: Goal oriented Cognition: A&O X3 Insight: Fair Judgment: Fair Interventions PRN's used: None Therapeutic interventions: Maintained a safe and supportive environment, ensured contract for safety, provided clear and simple instructions, provided direction and encouragement as needed, encouraged participation on the unit, monitored small open area on pt's cheek and administered ordered ABT, and maintained Q 15min safety checks. Restraints/seclusion/emergency medication: N/A Justification of Continued Inpatient Treatment: BEN Keating, pt. continues to require a safe and supportive environment while awaiting information from the court.
[2021-06-30 07:11] VITALS: BP 99/61
[2021-06-30] MEDS: simethicone 125mg capsule PO SCH ×3 (07:50→20:00)
[2021-06-30] MEDS: PALIPERIDONE 3 MG TAB.ER.24 PO SCH (07:50)
[2021-06-30] MEDS: amox tr/potassium clavulanate 875/125mg TAB PO SCH ×2 (07:50→18:08)
--- NOTE | 2021-06-30 17:07 | NUR ---
Nursing Progress Note: Legal hold: 1370 Client on involuntary status for GD Report received from nurse with use of SBAR: Felicita RN Why are they here: [facility]. Pt has history of schizophrenia and substance abuse. Pt had negative PPD and Covid tests. Pt has multiple charges ranging from obstruction, public intoxication, trespassing, disturbing the peace, defecating in prohibited place, battery upon officer, unlawful camping, and possession. Assessment What has happened this shift: Pt was up for breakfast. Pt was pleasant and cooperative with meds and care. Pt denies depression, SI/HI/AH/VH. Pt continues on PO ABX Augmentin for dental/cheek infection. Pt has a hole in his right cheek that goes all the way through to the outside. No adverse reactions noted from ABX. Continue to monitor. S/I, H/I: Pt denies A/VH: Pt denies Sleep: Pt slept 8.25 hours last night per noc shift report. ADL's: Independent Group attendance: N/A Were meds taken: Yes Any med S/E: None noted or reported. Mental Status Exam Appearance: Pale dark haired man dressed in scrub pants and a sweatshirt with very long fingernails that need trimmed. Eye contact: Good Behavior: Pleasant, cooperative Speech: Soft, responds minimally to direct questions only. Mood: Good Affect: Blunted Thought process: Poverty of thought Thought Content: Food and snack focused. Cognition: A/O X 3 Insight: Fair Judgment: Fair Interventions PRN's used: None Therapeutic interventions: 1:1 assessment, therapeutic communication, active listening, medication administration/education/monitoring, distraction, redirection, provided encouragement and positive reinforcement, maintained Q 15 minute safety checks. Restraints/seclusion/emergency medication: N/A Justification of Continued Inpatient Treatment: Per BEN Pettit, pt. continues to require a safe and supportive environment while awaiting information from the court.
[2021-06-30 19:07] VITALS: BP 115/75
[2021-06-30] MEDS: haloperidol 5mg tablet PO SCH (20:00)
[2021-07-01] MEDS ORDERED: amoxicillin 250mg capsule PO SCH
--- NOTE | 2021-07-01 01:57 | NUR ---
Nursing Progress Note: Legal hold: 1370 Client on involuntary status for GD Report received from nurse with use of SBAR: DANIEL Rubio Why are they here: Pt admitted from [facility] to restore competency. Pt has history of schizophrenia and substance abuse. Pt had negative PPD and Covid tests. Pt has multiple charges ranging from obstruction, public intoxication, trespassing, disturbing the peace, defecating in prohibited place, battery upon officer, unlawful camping, and possession. Assessment What has happened this shift: pt was cooperative for all care and assessments and was active on the unit all evening. Pt walks the halls talking to himself but denies hearing voices. Pt accepted hs meds without issue and went to bed. S/I, H/I: Denies A/VH: Denies, but seen talking to himself Sleep: see sleep assessment ADL's: Requires some encouragement at times r/t hygiene, mostly independent Group attendance: N/A Were meds taken: Yes Any med S/E: None Mental Status Exam Appearance: Somewhat disheveled, however appropriately dressed Eye contact: Good Behavior: Cooperative and somewhat restless Speech: Soft, responds minimally to direct questions only Mood: Guarded, however pleasant Affect: Blunted with animation Thought process: Poverty of thought Thought Content: Goal oriented Cognition: A&O X3 Insight: Fair Judgment: Fair Interventions PRN's used: None Therapeutic interventions: Maintained a safe and supportive environment, ensured contract for safety, provided clear and simple instructions, provided direction and encouragement as needed, encouraged participation on the unit, monitored small open area on pt's cheek and administered ordered ABT, and maintained Q 15min safety checks. Restraints/seclusion/emergency medication: N/A Justification of Continued Inpatient Treatment: Per BEN Pettit, pt. continues to require a safe and supportive environment while awaiting information from the court.
[2021-07-01] MEDS: amox tr/potassium clavulanate 875/125mg TAB PO SCH ×2 (07:31→17:26)
[2021-07-01] MEDS: PALIPERIDONE 3 MG TAB.ER.24 PO SCH (07:31)
[2021-07-01] MEDS: simethicone 125mg capsule PO SCH ×3 (07:31→20:07)
[2021-07-01 08:00] VITALS: BP 105/60
--- NOTE | 2021-07-01 12:03 | NUR ---
Nursing Progress Note: Legal hold: 1370 Client on involuntary status for GD Report received from nurse with use of SBAR: DANIEL Rubio Why are they here: Pt admitted from [facility] to restore competency. Pt has history of schizophrenia and substance abuse. Pt had negative PPD and Covid tests. Pt has multiple charges ranging from obstruction, public intoxication, trespassing, disturbing the peace, defecating in prohibited place, battery upon officer, unlawful camping, and possession. Assessment What has happened this shift: pt continues to be cooperative for all care and assessments. Pt is friendly and does not have any behavioral issues. Pt does not engage when asked questions, mostly answers with yes and no answers. All meds were taken without issue. S/I, H/I: Denies A/VH: Denies, but seen talking to himself Sleep: see sleep assessment ADL's: Requires some encouragement at times r/t hygiene, mostly independent Group attendance: N/A Were meds taken: Yes Any med S/E: None Mental Status Exam Appearance: Somewhat disheveled, however appropriately dressed Eye contact: Good Behavior: Cooperative and somewhat restless Speech: Soft, responds minimally to direct questions only Mood: Guarded, however pleasant Affect: Blunted with animation Thought process: Poverty of thought Thought Content: Goal oriented Cognition: A&O X3 Insight: Fair Judgment: Fair Interventions PRN's used: None Therapeutic interventions: Maintained a safe and supportive environment, ensured contract for safety, provided clear and simple instructions, provided direction and encouragement as needed, encouraged participation on the unit, monitored small open area on pt's cheek and administered ordered ABT, and maintained Q 15min safety checks. Restraints/seclusion/emergency medication: N/A Justification of Continued Inpatient Treatment: Per BEN Pettit, pt. continues to require a safe and supportive environment while awaiting information from the court.
[2021-07-01 19:00] VITALS: BP 109/68
[2021-07-01] MEDS: haloperidol 5mg tablet PO SCH (20:07)
[2021-07-01] MEDS: traZODone 50mg tablet PO PRN (20:07)
--- NOTE | 2021-07-02 00:32 | NUR ---
Nursing Progress Note: Legal hold: 1370 Client on involuntary status for GD Report received from nurse with use of SBAR: Mary RN Why are they here: Pt admitted from [facility] to restore competency. Pt has history of schizophrenia and substance abuse. Pt had negative PPD and Covid tests. Pt has multiple charges ranging from obstruction, public intoxication, trespassing, disturbing the peace, defecating in prohibited place, battery upon officer, unlawful camping, and possession. Assessment What has happened this shift: Pt was in his room awake at shift change. Pt spent time in the group room watching tv with some peers but not interacting with them. He ate snack in group room and was med compliant. Pt paced the garcia a few times before going to bed. S/I, H/I: Denies A/VH: Denies, but seen talking to himself Sleep: see sleep assessment ADL's: Requires some encouragement at times r/t hygiene, mostly independent Group attendance: N/A Were meds taken: Yes Any med S/E: None Mental Status Exam Appearance: Somewhat disheveled, however appropriately dressed Eye contact: Good Behavior: Cooperative and somewhat restless Speech: Soft, responds minimally to direct questions only Mood: Guarded, however pleasant Affect: Blunted with animation Thought process: Poverty of thought Thought Content: Goal oriented Cognition: A&O X3 Insight: Fair Judgment: Fair Interventions PRN's used: None Therapeutic interventions: Maintained a safe and supportive environment, ensured contract for safety, provided clear and simple instructions, provided direction and encouragement as needed, encouraged participation on the unit, monitored small open area on pt's cheek and administered ordered ABT, and maintained Q 15min safety checks. Restraints/seclusion/emergency medication: N/A Justification of Continued Inpatient Treatment: Per BEN Pettit, pt. continues to require a safe and supportive environment while awaiting information from the court.
[2021-07-02 07:22] VITALS: BP 100/56
[2021-07-02] MEDS: PALIPERIDONE 3 MG TAB.ER.24 PO SCH (07:37)
[2021-07-02] MEDS: simethicone 125mg capsule PO SCH ×3 (07:37→20:08)
[2021-07-02] MEDS: amox tr/potassium clavulanate 875/125mg TAB PO SCH ×2 (08:37→17:47)
--- NOTE | 2021-07-02 12:05 | NUR ---
Nursing Progress Note: JUDI Legal hold: 1370 Client on involuntary status for GD Report received from MIRTA Arce with use of SBAR: Why are they here: [facility]. Pt has history of schizophrenia and substance abuse. Pt had negative PPD and Covid tests. Pt has multiple charges ranging from obstruction, public intoxication, trespassing, disturbing the peace, defecating in prohibited place, battery upon officer, unlawful camping, and possession. Assessment What has happened this shift: Patient sleeping at shift change, no distress noted. Pt is at baseline. Pt is polite and no behavioral issues or outbursts noted. Pt presents as bored, paces garcia, watches T.V or naps. Pt denies all mental health symptoms. No c/o mouth pain. S/I, H/I: Denies both. A/VH: Denies both. At times appears internally preoccupied. Sleep: 8.5 hours per sleep assessment. Intermittent naps. ADL's: Requires some encouragement at times r/t hygiene, mostly independent Group attendance: Were meds taken: Yes, without hesitation. Any med S/E: None observed or reported. Mental Status Exam Appearance: Somewhat disheveled, however appropriately dressed. Unshaven. Eye contact: Good Behavior: Cooperative and somewhat restless, Isolates to self/room. Speech: Soft, responds minimally to direct questions only Mood: Guarded, however pleasant Affect: Blunted with occasional smiles. Thought process: Poverty of thought Thought Content: Goal oriented Cognition: A&O X3 Insight: Fair Judgment: Fair Interventions PRN's used: None Therapeutic interventions: Maintained a safe and supportive environment, provided clear and simple instructions, provided direction and encouragement as needed, encouraged participation on the unit, monitored small open area on inside of pt's cheek and administered ordered ABT, and maintained Q 15min safety checks. Restraints/seclusion/emergency medication: N/A Justification of Continued Inpatient Treatment: Patient continues to require a safe and supportive environment while awaiting information from the court.
[2021-07-02 20:03] VITALS: BP 98/58
[2021-07-02] MEDS: haloperidol 5mg tablet PO SCH (20:09)
[2021-07-02] MEDS: traZODone 50mg tablet PO PRN (20:09)
--- NOTE | 2021-07-03 01:25 | NUR ---
Nursing Progress Note: JUDI Legal hold: 1370 Client on involuntary status for GD Report received from MIRTA Hernandez with use of SBAR: Why are they here: [facility]. Pt has history of schizophrenia and substance abuse. Pt had negative PPD and Covid tests. Pt has multiple charges ranging from obstruction, public intoxication, trespassing, disturbing the peace, defecating in prohibited place, battery upon officer, unlawful camping, and possession. Assessment What has happened this shift:Pt was up in Rec room at change of shift. He watched tv in there for awhile then went to the group room for snacks and medication. S/I, H/I: Denies both. A/VH: Denies both. At times appears internally preoccupied. Sleep: See sleep assessment. ADL's: Requires some encouragement at times r/t hygiene, mostly independent Group attendance: Were meds taken: Yes, without hesitation. Any med S/E: None observed or reported. Mental Status Exam Appearance: Somewhat disheveled, however appropriately dressed. Unshaven. Eye contact: Good Behavior: Cooperative and somewhat restless, Isolates to self/room. Speech: Soft, responds minimally to direct questions only Mood: Guarded, however pleasant Affect: Blunted with occasional smiles. Thought process: Poverty of thought Thought Content: Goal oriented Cognition: A&O X3 Insight: Fair Judgment: Fair Interventions PRN's used: None Therapeutic interventions: Maintained a safe and supportive environment, provided clear and simple instructions, provided direction and encouragement as needed, encouraged participation on the unit, monitored small open area on inside of pt's cheek and administered ordered ABT, and maintained Q 15min safety checks. Restraints/seclusion/emergency medication: N/A Justification of Continued Inpatient Treatment: Patient continues to require a safe and supportive environment while awaiting information from the court.
[2021-07-03] MEDS: simethicone 125mg capsule PO SCH ×3 (07:36→20:10)
[2021-07-03] MEDS: amox tr/potassium clavulanate 875/125mg TAB PO SCH ×2 (07:37→17:45)
[2021-07-03] MEDS: PALIPERIDONE 3 MG TAB.ER.24 PO SCH (07:37)
[2021-07-03] MEDS: acetaminophen 325mg tablet PO PRN (07:53)
[2021-07-03 08:00] VITALS: BP 120/74
--- NOTE | 2021-07-03 14:41 | NUR ---
Nursing Progress Note: Legal hold: 1370 Client on involuntary status for GD Report received from nurse with use of SBAR: DANIEL Geiger Why are they here: Pt admitted from [facility] to restore competency. Pt has history of schizophrenia and substance abuse. Pt had negative PPD and Covid tests. Pt has multiple charges ranging from obstruction, public intoxication, trespassing, disturbing the peace, defecating in prohibited place, battery upon officer, unlawful camping, and possession. Assessment What has happened this shift: Pt was up for breakfast and cooperative with medications. Pt c/o 8/10 back pain this morning and was given PRN Tylenol 650 mg at 0753 with good effect. Pt denies mouth/cheek pain. Abscess right cheek is no longer open on the outside. Pt continues on PO ABX Augmentin, no adverse reactions noted. Pt denies depression, anxiety, SI/HI/AH/VH. S/I, H/I: Pt denies A/VH: Pt denies Sleep: Pt slept 8.25 hours last night per noc shift report. ADL's: Independent Group attendance: No Were meds taken: Yes Any med S/E: None noted or reported. Mental Status Exam Appearance: Pale dark haired man dressed in clean green scrubs. Eye contact: Good Behavior: Pleasant, cooperative Speech: Soft, minimal Mood: Euthymic Affect: Blunted Thought process: Poverty of thought Thought Content: Food and snack focused. Cognition: A/O X 3 Insight: Fair Judgment: Fair Interventions PRN's used: Tylenol 650 mg Therapeutic interventions: 1:1 assessment, therapeutic communication, active listening, medication administration/education/monitoring, distraction, redirection, provided encouragement and positive reinforcement, maintained Q 15 minute safety checks. Restraints/seclusion/emergency medication: N/A Justification of Continued Inpatient Treatment: Per BEN Pettit, pt. continues to require a safe and supportive environment while awaiting information from the court.
[2021-07-03] MEDS: traZODone 50mg tablet PO PRN (20:10)
[2021-07-03] MEDS: haloperidol 5mg tablet PO SCH (20:10)
[2021-07-03 20:13] VITALS: BP 97/62
--- NOTE | 2021-07-04 00:04 | NUR ---
Nursing Progress Note: Legal hold: 1370 Client on involuntary status for GD Report received from nurse with use of SBAR: DANIEL Hernandez Why are they here: Pt admitted from [facility] to restore competency. Pt has history of schizophrenia and substance abuse. Pt had negative PPD and Covid tests. Pt has multiple charges ranging from obstruction, public intoxication, trespassing, disturbing the peace, defecating in prohibited place, battery upon officer, unlawful camping, and possession. Assessment What has happened this shift: Pt was in bed at shift change. He had to be awakened for snack and meds. Pt denies depression, anxiety, SI/HI/AH/VH. Pt paced the garcia after snack before retiring to bed. S/I, H/I: Pt denies A/VH: Pt denies Sleep: See sleep assessment ADL's: Independent Group attendance: No Were meds taken: Yes Any med S/E: None noted or reported. Mental Status Exam Appearance: Pale dark haired man dressed in clean green scrubs. Eye contact: Good Behavior: Pleasant, cooperative Speech: Soft, minimal Mood: Euthymic Affect: Blunted Thought process: Poverty of thought Thought Content: Food and snack focused. Cognition: A/O X 3 Insight: Fair Judgment: Fair Interventions PRN's used: Tylenol 650 mg Therapeutic interventions: 1:1 assessment, therapeutic communication, active listening, medication administration/education/monitoring, distraction, redirection, provided encouragement and positive reinforcement, maintained Q 15 minute safety checks. Restraints/seclusion/emergency medication: N/A Justification of Continued Inpatient Treatment: BEN Keating, pt. continues to require a safe and supportive environment while awaiting information from the court.
[2021-07-04] MEDS: PALIPERIDONE 3 MG TAB.ER.24 PO SCH (07:27)
[2021-07-04] MEDS: simethicone 125mg capsule PO SCH ×3 (07:28→20:12)
[2021-07-04] MEDS: amox tr/potassium clavulanate 875/125mg TAB PO SCH ×2 (07:30→17:03)
[2021-07-04 07:37] VITALS: BP 98/54
--- NOTE | 2021-07-04 14:00 | NUR ---
F/u 07/04: Pt continues eating well with 100% PO intake on regular diet while receiving double protein TID. LBM 07/02. No nutrition intervention implemented at this time. Will continue to follow. Recommendations: 1) Continue regular diet; double eggs WB double meat BIDLD per diet order; offer snacks 2) Routine bowel care 3) Weekly scaled weights Addendum: 07/04/21 at [address] Amended: Links added.
--- NOTE | 2021-07-04 14:12 | NUR ---
Nursing Progress Note: Legal hold: 1370 Client on involuntary status for GD Report received from nurse with use of SBAR: Fely RN Why are they here: [facility]. Pt has history of schizophrenia and substance abuse. Pt had negative PPD and Covid tests. Pt has multiple charges ranging from obstruction, public intoxication, trespassing, disturbing the peace, defecating in prohibited place, battery upon officer, unlawful camping, and possession. Assessment What has happened this shift: Pt was pleasant and cooperative with care and medications. Pt denies depression, anxiety, SI/HI/AH/VH. Pt continues on PO ABX for resolving abscess right cheek with no adverse reactions. Continue to monitor. No unsafe behaviors noted. S/I, H/I: Pt denies A/VH: Pt denies Sleep: Pt slept 9.5 hours last night per noc shift report. ADL's: Independent Group attendance: No Were meds taken: Yes Any med S/E: None noted or reported. Mental Status Exam Appearance: Pale dark haired man dressed in clean green scrubs. Eye contact: Good Behavior: Pleasant, cooperative Speech: Soft, minimal Mood: Euthymic Affect: Blunted Thought process: Poverty of thought Thought Content: Food and snack focused. Cognition: A/O X 3 Insight: Fair Judgment: Fair Interventions PRN's used: None Therapeutic interventions: 1:1 assessment, therapeutic communication, active listening, medication administration/education/monitoring, distraction, redirection, provided encouragement and positive reinforcement, maintained Q 15 minute safety checks. Restraints/seclusion/emergency medication: N/A Justification of Continued Inpatient Treatment: Per BEN Pettit, pt. continues to require a safe and supportive environment while awaiting information from the court.
[2021-07-04 19:42] VITALS: BP 112/75
[2021-07-04] MEDS: haloperidol 5mg tablet PO SCH (20:12)
[2021-07-04] MEDS: traZODone 50mg tablet PO PRN (20:12)
--- NOTE | 2021-07-05 04:33 | NUR ---
Nursing Progress Note: Legal hold: 1370 Client on involuntary status for GD Report received from nurse with use of SBAR: DANIEL Rubio Why are they here: Pt admitted from [facility] to restore competency. Pt has history of schizophrenia and substance abuse. Pt had negative PPD and Covid tests. Pt has multiple charges ranging from obstruction, public intoxication, trespassing, disturbing the peace, defecating in prohibited place, battery upon officer, unlawful camping, and possession. Assessment What has happened this shift: Patient observed sitting up in his bed at the beginning of shift. Pleasant and cooperative with care; compliant with medications. PRN Trazodone provided with positive effect. Patient denies SI, HI, A/VH; does not appear to be responding to IS and no delusional thought content expressed. Patient participated in HS snack and observed pacing the unit prior to bed; observed sleeping and does not appear to be having difficulty. S/I, H/I: Denies A/VH: Denies Sleep: Refer to sleep assessment ADL's: Independent Group attendance: NA Were meds taken: Yes Any med S/E: None observed or reported Mental Status Exam Appearance: Neat and appropriately dressed in green unit scrubs Eye contact: Good Behavior: Pleasant and cooperative; isolates to self Speech: Soft, minimal Mood: Euthymic Affect: Blunted Thought process: Poverty of thought Thought Content: Meeting needs, food and snack focused Cognition: A/O X 3 Insight: Fair Judgment: Fair Interventions PRN's used: Trazodone Therapeutic interventions: 1:1 assessment, therapeutic communication, active listening, medication administration/education/monitoring, distraction, redirection, provided encouragement and positive reinforcement, maintained Q 15 minute safety checks. Restraints/seclusion/emergency medication: N/A Justification of Continued Inpatient Treatment: BEN Keating, pt. continues to require a safe and supportive environment while awaiting information from the court.
[2021-07-05] MEDS: simethicone 125mg capsule PO SCH ×3 (07:32→20:24)
[2021-07-05] MEDS: amox tr/potassium clavulanate 875/125mg TAB PO SCH ×2 (07:32→17:44)
[2021-07-05] MEDS: PALIPERIDONE 3 MG TAB.ER.24 PO SCH (07:32)
[2021-07-05] MEDS: acetaminophen 325mg tablet PO PRN (07:33)
[2021-07-05 08:00] VITALS: BP 98/72
--- NOTE | 2021-07-05 13:57 | NUR ---
Nursing Progress Note: Legal hold: 1370 Client on involuntary status for GD Report received from nurse with use of SBAR: DANIEL Geiger Why are they here: Pt admitted from [facility] to restore competency. Pt has history of schizophrenia and substance abuse. Pt had negative PPD and Covid tests. Pt has multiple charges ranging from obstruction, public intoxication, trespassing, disturbing the peace, defecating in prohibited place, battery upon officer, unlawful camping, and possession. Assessment What has happened this shift: Received pt. up pacing in the hallway at the beginning of the shift, he returned an appropriate greeting when greeted by this adjusto writer operator, however remains guarded with conversation. Pt. was compliant with all medications and 1:1 completed; he continues to deny all MH s/s and responds minimally to direct questions only. Pt. reports somewhat restlessly that he is still waiting to hear back from court. He remains up throughout the day and is appropriate on the unit, no delusional statements or inappropriate behaviors exhibited. This adjusto writer operator continued to monitor small area present on pt's right check. Area appears to be healing well, no s/s of increased redness or drainage noted and pt. denies any pain. He continues on ABT. S/I, H/I: Denies A/VH: Denies, does not appear internally preoccupied Sleep: Pt. reports he slept well, sleep hours are 7.5 ADL's: Requires some encouragement at times r/t hygiene, mostly independent Group attendance: N/A Were meds taken: Yes Any med S/E: None Mental Status Exam Appearance: Somewhat disheveled, however appropriately dressed Eye contact: Good Behavior: Cooperative and somewhat restless Speech: Soft, responds minimally to direct questions only Mood: Guarded, however pleasant Affect: Blunted with animation Thought process: Poverty of thought Thought Content: Goal oriented Cognition: A&O X3 Insight: Fair Judgment: Fair Interventions PRN's used: None Therapeutic interventions: Maintained a safe and supportive environment, ensured contract for safety, provided clear and simple instructions, provided direction and encouragement as needed, encouraged participation on the unit, continued to monitor wound on pt's check, and maintained Q 15min safety checks. Restraints/seclusion/emergency medication: N/A Justification of Continued Inpatient Treatment: Per BEN Mccoy, pt. is at baseline, however continues to require a safe and supportive environment.
[2021-07-05 19:00] VITALS: BP 99/58
[2021-07-05] MEDS: haloperidol 5mg tablet PO SCH (20:24)
--- NOTE | 2021-07-06 03:38 | NUR ---
Nursing Progress Note: Legal hold: 1370 Client on involuntary status for GD Report received from nurse with use of SBAR: DANIEL Rubio Why are they here: Pt admitted from [facility] to restore competency. Pt has history of schizophrenia and substance abuse. Pt had negative PPD and Covid tests. Pt has multiple charges ranging from obstruction, public intoxication, trespassing, disturbing the peace, defecating in prohibited place, battery upon officer, unlawful camping, and possession. Assessment What has happened this shift: Pt was in the hallway, pacing, at shift change. Pt spent time in the group room watching tv with some peers but not interacting with them. He ate snack in group room and was med compliant. Pt paced the garcia a few times before going to bed. S/I, H/I: Denies A/VH: Denies Sleep: 6 hours ADL's: Requires some encouragement at times r/t hygiene, mostly independent Group attendance: N/A Were meds taken: Yes Any med S/E: None Mental Status Exam Appearance: Somewhat disheveled, however appropriately dressed Eye contact: Good Behavior: Cooperative and somewhat restless Speech: Soft, responds minimally to direct questions only Mood: Guarded, however pleasant Affect: Blunted with animation Thought process: Poverty of thought Thought Content: Goal oriented Cognition: A&O X3 Insight: Fair Judgment: Fair Interventions PRN's used: None Therapeutic interventions: Maintained a safe and supportive environment, ensured contract for safety, provided clear and simple instructions, provided direction and encouragement as needed, encouraged participation on the unit, monitored small open area on pt's cheek and administered ordered ABT, and maintained Q 15min safety checks. Restraints/seclusion/emergency medication: N/A Justification of Continued Inpatient Treatment: Per BEN Pettit, pt. continues to require a safe and supportive environment while awaiting information from the court.
[2021-07-06] MEDS: amox tr/potassium clavulanate 875/125mg TAB PO SCH (07:35)
[2021-07-06] MEDS: simethicone 125mg capsule PO SCH ×3 (07:35→20:34)
[2021-07-06] MEDS: PALIPERIDONE 3 MG TAB.ER.24 PO SCH (07:35)
[2021-07-06 08:00] VITALS: BP 105/61
--- NOTE | 2021-07-06 13:41 | NUR ---
Nursing Progress Note: Legal hold: 1370 Client on involuntary status for GD Report received from nurse with use of SBAR: Juliet Coleman RN Why are they here: Pt admitted from [facility] to restore competency. Pt has history of schizophrenia and substance abuse. Pt had negative PPD and Covid tests. Pt has multiple charges ranging from obstruction, public intoxication, trespassing, disturbing the peace, defecating in prohibited place, battery upon officer, unlawful camping, and possession. Assessment What has happened this shift: Received pt. up pacing in the hallway at the beginning of the shift, he independently attended breakfast in the Group Room, and afterwards sat in the Recreation Room looking out the window as is his routine. Pt. continues to be cooperative and pleasant with all care, however remains guarded and responds minimally to direct questions only. He continues to deny all MH s/s, and does not appear to be responding to internal stimuli nor any delusional statements made. Pt. is visible on the unit throughout the day, and naps intermittently. He patiently awaits to hear from the court. Pt. completed his course of ABTs today for previously open area on rt. check. Area appears to be healed and he denies any pain or discomfort, will continue to monitor. S/I, H/I: Denies A/VH: Denies, does not appear internally preoccupied Sleep: Pt. reports he slept well, sleep hours are 6 ADL's: Requires some encouragement at times r/t hygiene, mostly independent Group attendance: N/A Were meds taken: Yes Any med S/E: None Mental Status Exam Appearance: Somewhat disheveled, however appropriately dressed Eye contact: Good Behavior: Cooperative and somewhat restless Speech: Soft, responds minimally to direct questions only Mood: Guarded, however pleasant Affect: Blunted with animation Thought process: Poverty of thought Thought Content: Goal oriented Cognition: A&O X3 Insight: Fair Judgment: Fair Interventions PRN's used: None Therapeutic interventions: Maintained a safe and supportive environment, ensured contract for safety, provided clear and simple instructions, provided direction and encouragement as needed, encouraged participation on the unit, continued to monitor wound on pt's check, and maintained Q 15min safety checks. Restraints/seclusion/emergency medication: N/A Justification of Continued Inpatient Treatment: Per BEN Mccoy, pt. is at baseline, however continues to require a safe and supportive environment.
[2021-07-06 20:00] VITALS: BP 102/63
[2021-07-06] MEDS: haloperidol 5mg tablet PO SCH (20:34)
[2021-07-06] MEDS: traZODone 50mg tablet PO PRN (20:36)
--- NOTE | 2021-07-07 01:36 | NUR ---
Nursing Progress Note: Legal hold: 1370 Client on involuntary status for GD Report received from nurse with use of SBAR: DANIEL Rubio Why are they here: Pt admitted from [facility] to restore competency. Pt has history of schizophrenia and substance abuse. Pt had negative PPD and Covid tests. Pt has multiple charges ranging from obstruction, public intoxication, trespassing, disturbing the peace, defecating in prohibited place, battery upon officer, unlawful camping, and possession. Assessment What has happened this shift: Received pt. resting in bed at the beginning of the shift, he later attended snack before retreating back to bed. Pt. remains guarded and is not observed to be interacting with anyone on the unit, however he continues to be cooperative and pleasant. He again denies all MH s/s and is waiting patiently to hear from court. S/I, H/I: Denies A/VH: Denies, does not appear internally preoccupied Sleep: Pt. was administered PRN Trazodone upon request, he appears to be sleeping well. ADL's: Requires some encouragement at times r/t hygiene, mostly independent Group attendance: N/A Were meds taken: Yes Any med S/E: None Mental Status Exam Appearance: Somewhat disheveled, however appropriately dressed. Poor hygiene Eye contact: Good Behavior: Cooperative and somewhat restless Speech: Soft, responds minimally to direct questions only Mood: Guarded, however pleasant Affect: Blunted with animation Thought process: Poverty of thought Thought Content: Goal oriented Cognition: A&O X3 Insight: Fair Judgment: Fair Interventions PRN's used: None Therapeutic interventions: Maintained a safe and supportive environment, ensured contract for safety, provided clear and simple instructions, provided direction and encouragement as needed, encouraged participation on the unit, continued to monitor wound on pt's check, and maintained Q 15min safety checks. Restraints/seclusion/emergency medication: N/A Justification of Continued Inpatient Treatment: Per BEN Mccoy, pt. is at baseline, however continues to require a safe and supportive environment. Awaiting to hear back from court regarding another court date and final disposition.
[2021-07-07] MEDS: simethicone 125mg capsule PO SCH ×3 (07:43→20:46)
[2021-07-07] MEDS: PALIPERIDONE 3 MG TAB.ER.24 PO SCH (07:43)
[2021-07-07 08:00] VITALS: BP 104/77
--- NOTE | 2021-07-07 11:38 | NUR ---
Nursing Progress Note: Legal hold: 1370 Client on involuntary status for GD Report received from nurse DANIEL Reyes with use of SBAR Why are they here: Pt admitted from [facility] to restore competency. Pt has history of schizophrenia and substance abuse. Pt had negative PPD and Covid tests. Pt has multiple charges ranging from obstruction, public intoxication, trespassing, disturbing the peace, defecating in prohibited place, battery upon officer, unlawful camping, and possession. Assessment What has happened this shift: Pt paces the halls or naps most of the shift. He does not engage with staff or peers. He denies SI/AH. He is medication compliant. Continues to ask when he will go to court. S/I, H/I: Denies A/VH: Denies Sleep: Pt. naps during the day ADL's: Pt needs to be prompted for personal hygiene Group attendance: N/A Were Meds taken: Yes Any med S/E: None noted or reported Mental Status Exam Appearance: Tall dark haired male wearing street clothes Eye contact: Fair Behavior: Cooperative; calm sits around at times observing his surroundings Speech: Audible slow to respond to questions Mood: Guarded Affect: Blunted Thought process: Poverty of thought Thought Content: Goal oriented Cognition: A&O X3 Insight: Fair Judgment: Fair Interventions PRN's used: None Therapeutic interventions: Provided 1:1 assessment with therapeutic communication; medication administration/education/monitoring, provided direction and encouragement as needed, encouraged participation on the unit, and maintained Q 15min safety checks. Restraints/seclusion/emergency medication: N/A Justification of Continued Inpatient Treatment: Per BEN Mccoy, pt. is at baseline, however continues to require a safe and supportive environment.
[2021-07-07 19:00] VITALS: BP 110/80
[2021-07-07] MEDS: haloperidol 5mg tablet PO SCH (20:46)
[2021-07-07] MEDS: traZODone 50mg tablet PO PRN (20:46)
--- NOTE | 2021-07-08 02:01 | NUR ---
Nursing Progress Note: Legal hold: 1370 Client on involuntary status for GD Report received from DANIEL Rubio with use of SBAR: Why are they here: Pt admitted from [facility] to restore competency. Pt has history of schizophrenia and substance abuse. Pt had negative PPD and Covid tests. Pt has multiple charges ranging from obstruction, public intoxication, trespassing, disturbing the peace, defecating in prohibited place, battery upon officer, unlawful camping, and possession. Assessment What has happened this shift: The patient was asleep at shift change. He came out after a while for snack time. Patient continues to isolate from other clients, preferring to keep to himself. Says he's looking forward to Friday, just to have things move forward. He believes he's ready. The patient continues to deny all MH symptoms, and none are noticed this shift. He was compliant with medications, then went to bed. S/I, H/I: Denies A/VH: Denies. Sleep: See sleep assessment. ADL's: Independent, needs occasional prompting. Group attendance: N/A Were meds taken: Yes Any med S/E: None reported or observed. Mental Status Exam Appearance: Somewhat disheveled, however appropriately dressed. Poor hygiene Eye contact: Good Behavior: Cooperative, isolative, restless. Speech: Soft, poverty of speech Mood: Guarded, however pleasant Affect: Blunted with animation Thought process: Poverty of thought Thought Content: Goal oriented Cognition: A&O X3 Insight: Fair Judgment: Fair Interventions PRN's used: None Therapeutic interventions: Maintained a safe and supportive environment, ensured contract for safety, provided clear and simple instructions, provided direction and encouragement as needed, encouraged participation on the unit, continued to monitor wound on pt's check, and maintained Q 15min safety checks. Restraints/seclusion/emergency medication: N/A Justification of Continued Inpatient Treatment: BEN Champion, pt. is at baseline, however continues to require a safe and supportive environment. Awaiting to hear back from court regarding another court date and final disposition.
[2021-07-08] MEDS: PALIPERIDONE 3 MG TAB.ER.24 PO SCH (07:59)
[2021-07-08] MEDS: simethicone 125mg capsule PO SCH ×3 (07:59→20:07)
[2021-07-08 08:00] VITALS: BP 110/62
--- NOTE | 2021-07-08 11:49 | NUR ---
Nursing Progress Note: Legal hold: 1370 Client on involuntary status for GD Report received from nurse Juliet Coleman RN with use of SBAR Why are they here: Pt admitted from [facility] to restore competency. Pt has history of schizophrenia and substance abuse. Pt has multiple charges ranging from obstruction, public intoxication, trespassing, disturbing the peace, defecating in prohibited place, battery upon officer, unlawful camping, and possession. Assessment What has happened this shift: Pt observed sitting up against the wall in front of the nurses station at the start of the shift. Pt states he is waiting for coffee. Pt is up for meals and snacks and occasionally is seen in the TV room with others watching the TV. He continues to ask about court. S/I, H/I: Denies A/VH: Denies Sleep: Pt. naps during the day ADL's: Pt prompted for a shower and shave Group attendance: N/A Were Meds taken: Yes Any med S/E: None noted or reported Mental Status Exam Appearance: Tall dark haired male wearing street clothes Eye contact: Fair Behavior: Cooperative; decline suggestions for a shower Speech: Audible slow to respond Mood: Guarded Affect: Blunted Thought process: Poverty of thought Thought Content: Goal oriented Cognition: A&O X3 Insight: Fair Judgment: Fair Interventions PRN's used: None Therapeutic interventions: Provided 1:1 assessment with therapeutic communication; medication administration/education/monitoring, provided direction and encouragement as needed, encouraged participation on the unit, and maintained Q 15min safety checks. Restraints/seclusion/emergency medication: N/A Justification of Continued Inpatient Treatment: BEN Champion, pt. is at baseline, however continues to require a safe and supportive environment.
[2021-07-08 19:00] VITALS: BP 108/61
[2021-07-08] MEDS: traZODone 50mg tablet PO PRN (20:07)
[2021-07-08] MEDS: haloperidol 5mg tablet PO SCH (20:07)
--- NOTE | 2021-07-09 01:11 | NUR ---
Nursing Progress Note: Legal hold: 1370 Client on involuntary status for GD Report received from DANIEL Rubio with use of SBAR: Why are they here: Pt admitted from [facility] to restore competency. Pt has history of schizophrenia and substance abuse. Pt had negative PPD and Covid tests. Pt has multiple charges ranging from obstruction, public intoxication, trespassing, disturbing the peace, defecating in prohibited place, battery upon officer, unlawful camping, and possession. Assessment What has happened this shift: The patient was asleep at shift change. When he came out, he started pacing. He continues to hope that tomorrow is the day he finally goes to court. The patient is speaking clearly, and can easily make himself understood. He appears to be at baseline, and says he's ready for court procedures. Denies SI/HI, and AV/H. He went to bed after HS med pass. S/I, H/I: Denies A/VH: Denies. Sleep: See sleep assessment. ADL's: Independent, needs occasional prompting. Group attendance: N/A Were meds taken: Yes Any med S/E: None reported or observed. Mental Status Exam Appearance: Somewhat disheveled, however appropriately dressed. Poor hygiene Eye contact: Good Behavior: Cooperative, isolative, restless. Speech: Soft, poverty of speech Mood: Guarded, however pleasant Affect: Blunted with animation Thought process: Poverty of thought Thought Content: Goal oriented Cognition: A&O X3 Insight: Fair Judgment: Fair Interventions PRN's used: None Therapeutic interventions: Maintained a safe and supportive environment, ensured contract for safety, provided clear and simple instructions, provided direction and encouragement as needed, encouraged participation on the unit, continued to monitor wound on pt's check, and maintained Q 15min safety checks. Restraints/seclusion/emergency medication: N/A Justification of Continued Inpatient Treatment: Per BEN Mccoy, pt. is at baseline, however continues to require a safe and supportive environment. Awaiting to hear back from court regarding another court date and final disposition.
[2021-07-09] MEDS: PALIPERIDONE 3 MG TAB.ER.24 PO SCH (07:51)
[2021-07-09] MEDS: simethicone 125mg capsule PO SCH ×3 (07:51→20:08)
[2021-07-09 08:05] VITALS: BP 105/68
--- NOTE | 2021-07-09 14:40 | NUR ---
Nursing Progress Note: Legal hold: 1370 Client on involuntary status for GD Report received from nurse with use of SBAR: Juliet Coleman RN Why are they here: Pt admitted from [facility] to restore competency. Pt has history of schizophrenia and substance abuse. Pt had negative PPD and Covid tests. Pt has multiple charges ranging from obstruction, public intoxication, trespassing, disturbing the peace, defecating in prohibited place, battery upon officer, unlawful camping, and possession. Assessment What has happened this shift: Received pt. up pacing in the hallway at the beginning of the shift, he independently attended breakfast in the Group Room, and afterwards sat in the Recreation Room looking out the window as is his routine. Pt. continues to be cooperative and pleasant with all care, however remains guarded and responds minimally to direct questions only. He continues to deny all MH s/s, and does not appear to be responding to internal stimuli nor any delusional statements made. Pt. is visible on the unit throughout the day, and naps intermittently. He patiently awaits to hear from the court. Pt. completed his course of ABTs today for previously open area on rt. check. Area appears to be healed and he denies any pain or discomfort, will continue to monitor. S/I, H/I: Denies A/VH: Denies, appear internally preoccupied Sleep: Pt. reports he slept well, sleep hours are 8.5 ADL's: Requires some encouragement at times r/t hygiene, mostly independent Group attendance: N/A Were meds taken: Yes Any med S/E: None Mental Status Exam Appearance: Somewhat disheveled, however appropriately dressed Eye contact: Good Behavior: Cooperative and somewhat restless Speech: Soft, responds minimally to direct questions only Mood: Guarded, however pleasant Affect: Blunted Thought process: Poverty of thought Thought Content: Goal oriented, "I would like to leave this place to go to the next place" Cognition: A&O X3 Insight: Fair Judgment: Fair Interventions PRN's used: None Therapeutic interventions: Maintained a safe and supportive environment, ensured contract for safety, provided clear and simple instructions, provided direction and encouragement as needed, encouraged participation on the unit, continued to monitor wound on pt's check, and maintained Q 15min safety checks. Restraints/seclusion/emergency medication: N/A Justification of Continued Inpatient Treatment: Patient is on a 1370 from [facility], patient has had very little change in the past few week and is waiting for his court date that is coming up.
[2021-07-09] MEDS: haloperidol 5mg tablet PO SCH (20:08)
[2021-07-09] MEDS: traZODone 50mg tablet PO PRN (20:08)
[2021-07-09 20:27] VITALS: BP 98/64
--- NOTE | 2021-07-10 01:46 | NUR ---
Nursing Progress Note: Legal hold: 1370 Client on involuntary status for GD Report received from DANIEL Rubio with use of SBAR: Why are they here: Pt admitted from [facility] to restore competency. Pt has history of schizophrenia and substance abuse. Pt had negative PPD and Covid tests. Pt has multiple charges ranging from obstruction, public intoxication, trespassing, disturbing the peace, defecating in prohibited place, battery upon officer, unlawful camping, and possession. Assessment What has happened this shift: Received patient lying on his bed napping. He was woke up for vitals then came out and paced the halls for a while. When asked about his hearing today, he says it didn't happen. States that he's not upset about it. After pacing, he went back to his room until snack time. He sat in the group room, then was found in his room for HS meds pass. S/I, H/I: Denies A/VH: Denies. Sleep: See sleep assessment. ADL's: Independent, needs occasional prompting. Group attendance: N/A Were meds taken: Yes Any med S/E: None reported or observed. Mental Status Exam Appearance: Somewhat disheveled, wearing oversized sweat pants and t-shirt. Poor hygiene Eye contact: Good Behavior: Cooperative, isolative, restless. Speech: Soft, poverty of speech Mood: Guarded, however pleasant Affect: Blunted with animation Thought process: Poverty of thought Thought Content: Goal oriented Cognition: A&O X3 Insight: Fair Judgment: Fair Interventions PRN's used: None Therapeutic interventions: Maintained a safe and supportive environment, ensured contract for safety, provided clear and simple instructions, provided direction and encouragement as needed, encouraged participation on the unit, continued to monitor wound on pt's check, and maintained Q 15min safety checks. Restraints/seclusion/emergency medication: N/A Justification of Continued Inpatient Treatment: Per BEN Mccoy, pt. is at baseline, however continues to require a safe and supportive environment. Awaiting to hear back from court regarding another court date and final disposition.
[2021-07-10 07:00] VITALS: BP 111/83
[2021-07-10] MEDS: PALIPERIDONE 3 MG TAB.ER.24 PO SCH (07:56)
[2021-07-10] MEDS: simethicone 125mg capsule PO SCH ×3 (07:57→20:08)
--- NOTE | 2021-07-10 15:23 | NUR ---
Nursing Progress Note: Legal hold: 1370 Client on involuntary status for GD Report received from nurse with use of SBAR: Juliet Coleman RN Why are they here: Pt admitted from [facility] to restore competency. Pt has history of schizophrenia and substance abuse. Pt had negative PPD and Covid tests. Pt has multiple charges ranging from obstruction, public intoxication, trespassing, disturbing the peace, defecating in prohibited place, battery upon officer, unlawful camping, and possession. Assessment What has happened this shift: Received pt. up pacing in the hallway at the beginning of the shift, he independently attended breakfast in the Group Room, and afterwards sat in the Recreation Room looking out the window as is his routine. Pt. continues to be cooperative and pleasant with all care, however remains guarded and responds minimally to direct questions only. He continues to deny all MH s/s, and does not appear to be responding to internal stimuli nor any delusional statements made. Pt. is visible on the unit throughout the day, and naps intermittently. He patiently awaits to hear from the court. patient has no new complaints today. S/I, H/I: Denies A/VH: Denies, appear internally preoccupied Sleep: Pt. reports he slept well, sleep hours are 8 ADL's: Requires some encouragement at times r/t hygiene, mostly independent Group attendance: N/A Were meds taken: Yes Any med S/E: None Mental Status Exam Appearance: Somewhat disheveled, however appropriately dressed Eye contact: Good Behavior: Cooperative and somewhat restless Speech: Soft, responds minimally to direct questions only Mood: Guarded, however pleasant Affect: Blunted Thought process: Poverty of thought Thought Content: Goal oriented, "I would like to know the outcome of my court date" Cognition: A&O X3 Insight: Fair Judgment: Fair Interventions PRN's used: None Therapeutic interventions: Maintained a safe and supportive environment, ensured contract for safety, provided clear and simple instructions, provided direction and encouragement as needed, encouraged participation on the unit, continued to monitor wound on pt's check, and maintained Q 15min safety checks. Restraints/seclusion/emergency medication: N/A Justification of Continued Inpatient Treatment: Patient is on a 1370 from [facility], patient has had very little change in the past few week and is waiting for his court date that is coming up.
[2021-07-10] MEDS: haloperidol 5mg tablet PO SCH (20:08)
[2021-07-10] MEDS: traZODone 50mg tablet PO PRN (20:08)
[2021-07-10 20:11] VITALS: BP 95/57
--- NOTE | 2021-07-11 02:01 | NUR ---
Nursing Progress Note: Legal hold: 1370 Client on involuntary status for GD Report received from DANIEL Rubio with use of SBAR: Why are they here: Pt admitted from [facility] to restore competency. Pt has history of schizophrenia and substance abuse. Pt had negative PPD and Covid tests. Pt has multiple charges ranging from obstruction, public intoxication, trespassing, disturbing the peace, defecating in prohibited place, battery upon officer, unlawful camping, and possession. Assessment What has happened this shift: The patient was pacing the halls at shift change. He says he is still waiting, "I haven't heard anything from the courts. They should drop it because it happened so long ago." The patient is at baseline, speaks clearly, and doesn't make delusional statements. He just continues to wait for something to happen. S/I, H/I: Denies A/VH: Denies. Sleep: See sleep assessment. ADL's: Independent, needs occasional prompting. Group attendance: N/A Were meds taken: Yes Any med S/E: None reported or observed. Mental Status Exam Appearance: Somewhat disheveled, wearing oversized sweat pants and t-shirt. Poor hygiene Eye contact: Good Behavior: Cooperative, isolative, restless. Speech: Soft, poverty of speech Mood: Guarded, however pleasant Affect: Blunted. Thought process: Poverty of thought Thought Content: Goal oriented Cognition: A&O X3 Insight: Fair Judgment: Fair Interventions PRN's used: None Therapeutic interventions: Maintained a safe and supportive environment, ensured contract for safety, provided clear and simple instructions, provided direction and encouragement as needed, encouraged participation on the unit, continued to monitor wound on pt's check, and maintained Q 15min safety checks. Restraints/seclusion/emergency medication: N/A Justification of Continued Inpatient Treatment: Per BEN Mccoy, pt. is at baseline, however continues to require a safe and supportive environment. Awaiting to hear back from court regarding another court date and final disposition.
[2021-07-11] MEDS: simethicone 125mg capsule PO SCH ×3 (07:59→20:15)
[2021-07-11] MEDS: PALIPERIDONE 3 MG TAB.ER.24 PO SCH (07:59)
[2021-07-11 08:00] VITALS: BP 104/75
--- NOTE | 2021-07-11 08:56 | NUR ---
F/u 07/11: Pt continues eating well with 100% PO intake on regular diet while receiving double protein TID. LBM 07/10. No nutrition intervention implemented at this time. Will continue to follow. Recommendations: 1) Continue regular diet; double eggs WB double meat BIDLD per diet order; offer snacks 2) Routine bowel care 3) Weekly scaled weights Addendum: 07/11/21 at [address] Amended: Links added.
--- NOTE | 2021-07-11 09:52 | NUR ---
1370 - SW Mo Bonilla at [employer]. He reports that on 07/09 [place] was deemed incompetent however because he was not present the court date was moved to 08/10. I let Mo know that Cameron would like to be present, I gave him the unit phone number. He reports he will put in a court request for transportation.
--- NOTE | 2021-07-11 15:42 | NUR ---
Nursing Progress Note: Legal hold: 1370 Client on involuntary status for GD Report received from nurse with use of SBAR: Fely RN Why they are here: Pt admitted from [facility] to restore competency. Pt has history of schizophrenia and substance abuse. Pt had negative PPD and Covid tests. Pt has multiple charges ranging from obstruction, public intoxication, trespassing, disturbing the peace, defecating in prohibited place, battery upon officer, unlawful camping, and possession. Assessment What has happened this shift: Patient awake pacing in the hallway at the beginning of the shift. Appears somewhat restless. Ate breakfast in the community room with is peers. Remains guarded and responds minimally to direct questions only. Observed smiling to himself several times as he walked through the [place]arcia alone. Pt. is visible on the unit throughout the day, and naps intermittently. S/I, H/I: Denies A/VH: Denies but appears internally preoccupied Sleep: Pt. 8.5 hours per NOC report ADL's: Requires some encouragement at times r/t hygiene, mostly independent Group attendance: N/A Were meds taken: Yes Any med S/E: None Mental Status Exam Appearance: Somewhat disheveled, however appropriately dressed Eye contact: Poor Behavior: Cooperative and somewhat restless Speech: Soft, responds minimally to direct questions only Mood: Guarded, however pleasant Affect: Usually Blunted, noted smiling at times Thought process: Poverty of thought Thought Content: Goal oriented, continues to anticipate court date Cognition: A&O X3 to person, place and time Insight: Poor Judgment: Poor Interventions PRN's used: None Therapeutic interventions: Maintained a safe and supportive environment, ensured contract for safety, provided clear and simple instructions, provided direction and encouragement as needed, encouraged participation on the unit, continued to monitor wound on pt's cheek, and maintained Q 15min safety checks. Restraints/seclusion/emergency medication: N/A Justification of Continued Inpatient Treatment: Patient is on a 1370 from [facility], patient has had very little change in the past few week and is waiting for his court date that is coming up.
[2021-07-11 20:00] VITALS: BP 132/63
[2021-07-11] MEDS: haloperidol 5mg tablet PO SCH (20:15)
[2021-07-11] MEDS: traZODone 50mg tablet PO PRN (20:23)
--- NOTE | 2021-07-12 01:36 | NUR ---
Nursing Progress Note: Legal hold: 1370 Client on involuntary status for GD Report received from nurse with use of SBAR: Mary RN Why they are here: Pt admitted from [facility] to restore competency. Pt has history of schizophrenia and substance abuse. Pt had negative PPD and Covid tests. Pt has multiple charges ranging from obstruction, public intoxication, trespassing, disturbing the peace, defecating in prohibited place, battery upon officer, unlawful camping, and possession. Assessment What has happened this shift: Patient lying in bed at the start of the shift, he came out of his room briefly for snacks, and then returned to his room. Denies all psychiatric symptoms at this time. Does not appear to be responding to internal stimuli. He continues to state he is ready to leave here, I asked him if he was to leave right now where would he go. He stated he would go to his "spot by the [employer]" to sleep and then in the morning go to his Dad's home in [place]. He is aware he has court soon and states he is tired of being here. S/I, H/I: Denies A/VH: Denies Sleep: Pt sleeps well at night ADL's: independent Group attendance: N/A Were meds taken: Yes Any med S/E: None Mental Status Exam Appearance: dressed in green hospital scrubs, hygiene and grooming fair Eye contact: Fair Behavior: Cooperative Speech: WNL Mood: Even Affect: Restricted Thought process: impaired, poor ability to reason, or make decisions Thought Content: Focused on being ready to leave Cognition: A&O X3 to person, place and time Insight: Poor Judgment: Poor Interventions PRN's used: Trazadone Therapeutic interventions: 1:1 assessment done, medications administered and monitored for effects and side effects. Maintained a safe and supportive environment, Q 15min safety checks. Restraints/seclusion/emergency medication: N/A Justification of Continued Inpatient Treatment: Patient is on a 1370 from [facility], and is waiting for his court date to address his competency and charges.
[2021-07-12 07:40] VITALS: BP 130/79
[2021-07-12] MEDS: simethicone 125mg capsule PO SCH ×3 (08:06→20:11)
[2021-07-12] MEDS: PALIPERIDONE 3 MG TAB.ER.24 PO SCH (08:06)
--- NOTE | 2021-07-12 17:37 | NUR ---
Nursing Progress Note: Legal hold: 1370 Client on involuntary status for GD Report received from nurse with use of SBAR: DANIEL Geiger Why are they here: Pt admitted from [facility] to restore competency. Pt has history of schizophrenia and substance abuse. Pt had negative PPD and Covid tests. Pt has multiple charges ranging from obstruction, public intoxication, trespassing, disturbing the peace, defecating in prohibited place, battery upon officer, unlawful camping, and possession. Assessment What has happened this shift: RN received pt. awake and sitting in Rec Room at start of shift. Pt. received coffee and went back to his room. Pt. took all medications and ate all meals in the community room. Pt. is socially withdrawn and isolates to his room throughout most of the day. 1:1 done at bedside, pt. reports some anxiety r/t wanting to be discharged. S/I, H/I: Denies A/VH: Denies Sleep: Pt. slept 8.25 hrs on NOC shift and did not appear to nap during the day. ADL's: Independent. Group attendance: N/A Were meds taken: Yes Any med S/E: Denies Mental Status Exam Appearance: Somewhat disheveled, however appropriately dressed Eye contact: Good Behavior: Cooperative and somewhat restless Speech: Soft, responds minimally to direct questions only Mood: Guarded, however pleasant Affect: Blunted Thought process: Poverty of thought Thought Content: Goal oriented, "I would like to know the outcome of my court date" Cognition: A&O X3 Insight: Fair Judgment: Fair Interventions PRN's used: None Therapeutic interventions: Maintained a safe and supportive environment, ensured contract for safety, provided clear and simple instructions, provided direction and encouragement as needed, encouraged participation on the unit, continued to monitor wound on pt's check, and maintained Q 15min safety checks. Restraints/seclusion/emergency medication: N/A Justification of Continued Inpatient Treatment: Patient is on a 1370 from [facility], patient has had very little change in the past few week and is waiting for his court date that is coming up.
[2021-07-12 20:00] VITALS: BP 98/60
[2021-07-12] MEDS: traZODone 50mg tablet PO PRN (20:11)
[2021-07-12] MEDS: haloperidol 5mg tablet PO SCH (20:11)
--- NOTE | 2021-07-13 02:14 | NUR ---
Nursing Progress Note: Legal hold: 1370 Client on involuntary status for GD Report received from DANIEL Hernandez Why are they here: Pt admitted from [facility] to restore competency. Pt has history of schizophrenia and substance abuse. Pt had negative PPD and Covid tests. Pt has multiple charges ranging from obstruction, public intoxication, trespassing, disturbing the peace, defecating in prohibited place, battery upon officer, unlawful camping, and possession. Assessment What has happened this shift: Patient primarily isolated in his room this shift. He looks unkept. Patient denies S/I or H/I. He is medication compliant. Patient tells this telegraphic typewriter operator that his thoughts are about family and discharge. S/I, H/I: Denies. A/VH: Denies. Sleep: Will tally at 0500 hours. ADL's: Independent. Group attendance: None on vp research. Were meds taken: Yes, patient is medication compliant. Any med S/E: None noted. Mental Status Exam Appearance: Disheveled looking. Eye contact: Good. Behavior: Isolating, cooperative. Speech: Minimal, mumbles some, responds to direct questions only. Mood: Guarded, cooperative, friendly. Affect: Blunt. Thought process: Poverty of thought. Thought Content: Family and getting out of here. Cognition: A&O X3. Insight: Fair. Judgment: Fair. Interventions PRN's used: Trazadone. Therapeutic interventions: Maintained a safe and supportive environment, ensured contract for safety, provided clear and simple instructions, provided direction and encouragement as needed, encouraged participation on the unit, continued to monitor wound on pt's check, and maintained Q 15min safety checks. Restraints/seclusion/emergency medication: N/A Justification of Continued Inpatient Treatment: Patient is on a 1370 from [facility], patient has had very little change in the past few week and is waiting for his court date that is coming up.
[2021-07-13 07:22] VITALS: BP 111/74
[2021-07-13] MEDS: simethicone 125mg capsule PO SCH ×3 (08:06→20:13)
[2021-07-13] MEDS: PALIPERIDONE 3 MG TAB.ER.24 PO SCH (08:07)
--- NOTE | 2021-07-13 17:04 | NUR ---
Nursing Progress Note: Legal hold: 1370 Client on involuntary status for GD Report received from nurse with use of SBAR: Juliet Gale RN Why are they here: [facility]. Pt has history of schizophrenia and substance abuse. Pt had negative PPD and Covid tests. Pt has multiple charges ranging from obstruction, public intoxication, trespassing, disturbing the peace, defecating in prohibited place, battery upon officer, unlawful camping, and possession. Assessment What has happened this shift: RN received pt. awake and sitting in Rec Room at start of shift. Pt. requesting coffee. Pt. took all medications and ate all meals in the community room. Pt. is socially withdrawn but seen in the milieu often, sitting on floor in hallway. Pt. offers minimal information during interview stating, Im good. S/I, H/I: Denies A/VH: Denies Sleep: Pt. slept 8.5 hrs on NOC shift and did not appear to nap during the day. ADL's: Independent. Group attendance: N/A Were meds taken: Yes Any med S/E: Denies Mental Status Exam Appearance: Somewhat disheveled, but clean and wearing green scrubs. Eye contact: Good Behavior: Cooperative but socially withdrawn. Speech: Soft, responds minimally to direct questions only Mood: Guarded, however pleasant Affect: Blunted Thought process: Poverty of thought Thought Content: Focused on discharge. Cognition: A&O X3 Insight: Fair Judgment: Fair Interventions PRN's used: None Therapeutic interventions: Maintained a safe and supportive environment, ensured contract for safety, provided clear and simple instructions, provided direction and encouragement as needed, encouraged participation on the unit, continued to monitor wound on pt's check, and maintained Q 15min safety checks. Restraints/seclusion/emergency medication: N/A Justification of Continued Inpatient Treatment: Patient is on a 1370 from [facility], patient has had very little change in the past few week and is waiting for his court date that is coming up.
[2021-07-13 19:00] VITALS: BP 114/79
[2021-07-13] MEDS: haloperidol 5mg tablet PO SCH (20:13)
[2021-07-13] MEDS: traZODone 50mg tablet PO PRN (20:13)
--- NOTE | 2021-07-14 01:11 | NUR ---
Nursing Progress Note: Legal hold: 1370 Client on involuntary status for GD Report received from DANIEL Hernandez Why are they here: Pt admitted from [facility] to restore competency. Pt has history of schizophrenia and substance abuse. Pt had negative PPD and Covid tests. Pt has multiple charges ranging from obstruction, public intoxication, trespassing, disturbing the peace, defecating in prohibited place, battery upon officer, unlawful camping, and possession. Assessment: Patient primarily isolates in his room tonight. 1:1 Interview at bedside. Patient speaks minimally and quietly, sometimes mumbling. He has a somewhat disheveled look. Patient is cooperative. He denies S/I, H/I, or any hallucinations. S/I, H/I: Denies. A/VH: Denies. Sleep: Will tally at 0500 hours. ADL's: Independent. Group attendance: None on night order selector. Were meds taken: Yes, patient is medication compliant. Any med S/E: None noted. Mental Status Exam Appearance: Disheveled looking. Eye contact: Good. Behavior: Isolating, cooperative. Speech: Minimal, mumbles some, responds to direct questions only. Mood: Guarded, cooperative, friendly. Affect: Blunt. Thought process: Poverty of thought. Thought Content: Family and getting out of here. Cognition: A&O X3. Insight: Fair. Judgment: Fair. Interventions PRN's used: Trazadone. Therapeutic interventions: Maintained a safe and supportive environment, ensured contract for safety, provided clear and simple instructions, provided direction and encouragement as needed, encouraged participation on the unit, continued to monitor wound on pt's check, and maintained Q 15min safety checks. Restraints/seclusion/emergency medication: N/A Justification of Continued Inpatient Treatment: Patient is on a 1370 from [facility], patient has had very little change in the past few week and is waiting for his court date that is coming up.
[2021-07-14 07:58] VITALS: BP 107/74
[2021-07-14] MEDS: simethicone 125mg capsule PO SCH ×3 (08:02→20:21)
[2021-07-14] MEDS: PALIPERIDONE 3 MG TAB.ER.24 PO SCH (08:02)
--- NOTE | 2021-07-14 17:28 | NUR ---
Nursing Progress Note: Legal hold: 1370 Client on involuntary status for GD Report received from nurse with use of SBAR: Juliet Gale RN Why are they here: [facility]. Pt has history of schizophrenia and substance abuse. Pt had negative PPD and Covid tests. Pt has multiple charges ranging from obstruction, public intoxication, trespassing, disturbing the peace, defecating in prohibited place, battery upon officer, unlawful camping, and possession. Assessment What has happened this shift: RN received pt. awake and sitting in hallway at start of shift. Pt. requesting coffee. Pt. took all medications and ate all meals in the community room. Pt. is socially withdrawn but seen in the milieu pacing and sitting on the hallway floor. During 1:1 interview, pt. states he is good and is hopeful for discharge. S/I, H/I: Denies A/VH: Denies Sleep: Pt. slept 8 hrs on NOC shift and did not appear to nap during the day. ADL's: Independent. Group attendance: N/A Were meds taken: Yes Any med S/E: Denies Mental Status Exam Appearance: Somewhat disheveled, but clean and wearing green scrubs. Eye contact: Good Behavior: Cooperative but socially withdrawn. Speech: Soft, responds minimally to direct questions only Mood: Guarded, however pleasant Affect: Blunted Thought process: Poverty of thought. Thought Content: Focused on discharge. Cognition: A&O X3 Insight: Fair Judgment: Fair Interventions PRN's used: None Therapeutic interventions: Maintained a safe and supportive environment, ensured contract for safety, provided clear and simple instructions, provided direction and encouragement as needed, encouraged participation on the unit, continued to monitor wound on pt's check, and maintained Q 15min safety checks. Restraints/seclusion/emergency medication: N/A Justification of Continued Inpatient Treatment: Patient is on a 1370 from [facility], patient has had very little change in the past few week and is waiting for his court date that is coming up.
[2021-07-14 19:00] VITALS: BP 118/88
[2021-07-14] MEDS: traZODone 50mg tablet PO PRN (20:21)
[2021-07-14] MEDS: haloperidol 5mg tablet PO SCH (20:22)
--- NOTE | 2021-07-15 01:05 | NUR ---
Nursing Progress Note: Legal hold: 1370 Client on involuntary status for GD Report received from DANIEL Hernandez Why are they here: Pt admitted from [facility] to restore competency. Pt has history of schizophrenia and substance abuse. Pt had negative PPD and Covid tests. Pt has multiple charges ranging from obstruction, public intoxication, trespassing, disturbing the peace, defecating in prohibited place, battery upon officer, unlawful camping, and possession. Assessment: Patient primarily isolates in his room tonight. 1:1 Interview at bedside. Patient speaks minimally and quietly, sometimes mumbling. He has a somewhat disheveled look. Patient is cooperative. He denies S/I, H/I, or any hallucinations. Assessment What happened this shift: Patient was observed out of his room following shift change. He exhibits minimal socialization with peers. Patient is somewhat disheveled looking. His speech is quiet. Patient is medication compliant. He denies S/I, H/I, or any hallucinations. He is medication compliant. Patient primarily isolates in his room. S/I, H/I: Denies. A/VH: Denies. Sleep: Will tally at 0500 hours. ADL's: Independent. Group attendance: None on shift supervisor rn. Were meds taken: Yes, patient is medication compliant. Any med S/E: None noted. Mental Status Exam Appearance: Disheveled looking. Eye contact: Good. Behavior: Isolating, cooperative. Speech: Minimal, mumbles some, responds to direct questions only. Mood: Guarded, cooperative, friendly. Affect: Blunt. Thought process: Poverty of thought. Thought Content: Family and getting out of here. Cognition: A&O X3. Insight: Fair. Judgment: Fair. Interventions PRN's used: Trazadone. Therapeutic interventions: Maintained a safe and supportive environment, ensured contract for safety, provided clear and simple instructions, provided direction and encouragement as needed, encouraged participation on the unit, continued to monitor wound on pt's check, and maintained Q 15min safety checks. Restraints/seclusion/emergency medication: N/A Justification of Continued Inpatient Treatment: Patient is on a 1370 from [facility], patient has had very little change in the past few week and is waiting for his court date that is coming up. Addendum: 07/15/21 at 0110 by Jose Pabon RN Correction, report was received from Heidi Hassan RN at shift change with use of SBAR.
[2021-07-15] MEDS: PALIPERIDONE 3 MG TAB.ER.24 PO SCH (07:35)
[2021-07-15] MEDS: simethicone 125mg capsule PO SCH ×3 (07:35→21:00)
[2021-07-15 08:00] VITALS: BP 107/79
--- NOTE | 2021-07-15 16:22 | NUR ---
Nursing Progress Note: Legal hold: 1370 Client on involuntary status for GD Report received from nurse with use of SBAR: Juliet Gale RN Why are they here: [facility]. Pt has history of schizophrenia and substance abuse. Pt had negative PPD and Covid tests. Pt has multiple charges ranging from obstruction, public intoxication, trespassing, disturbing the peace, defecating in prohibited place, battery upon officer, unlawful camping, and possession. Assessment What has happened this shift: Patient awake at start of shift. Paces hallways, sits on floor in hallway and goes in and out of room. Somewhat restless. Patient denies and SI/ HI. Denies hallucinations/ delusions about which he states, I use to have them, but not anymore. Appears to be somewhat internally occupied and noted to smile on and off while walking alone. Pt very guarded and only answers direct questions. Does not engage in conversation with staff or peers. States on discharge he wants to live with his Dad in [place] or with his Aunt. S/I, H/I: Denies A/VH: Denies, but appears to be responding to internal stimuli Sleep: Refer to sleep assessment ADL's: Independent. Group attendance: N/A Were meds taken: Yes Any med S/E: None noted Mental Status Exam Appearance: Somewhat disheveled, but dressed appropriately for unit. Eye contact: Poor Behavior: Cooperative but socially withdrawn. Speech: Soft, responds minimally to direct questions only Mood: Guarded, however pleasant Affect: Blunted Thought process: Poverty of thought. Thought Content: Focused on discharge. Cognition: A&O X3 Insight: Poor Judgment: Poor Interventions PRN's used: None Therapeutic interventions: Maintained a safe and supportive environment, ensured contract for safety, provided clear and simple instructions, provided direction and encouragement as needed, encouraged participation on the unit, continued to monitor wound on pt's check, and maintained Q 15min safety checks. Restraints/seclusion/emergency medication: N/A Justification of Continued Inpatient Treatment: Patient is on a 1370 from [facility], patient has had very little change in the past few week and is waiting for his court date that is coming up.
[2021-07-15 19:00] VITALS: BP 101/65
[2021-07-15] MEDS: haloperidol 5mg tablet PO SCH (21:00)
--- NOTE | 2021-07-16 03:17 | NUR ---
Nursing Progress Note: Legal hold: 1370 Client on involuntary status for GD Report received from DANIEL Hassan Why are they here: Pt admitted from [facility] to restore competency. Pt has history of schizophrenia and substance abuse. Pt had negative PPD and Covid tests. Pt has multiple charges ranging from obstruction, public intoxication, trespassing, disturbing the peace, defecating in prohibited place, battery upon officer, unlawful camping, and possession. Assessment: Patient primarily isolates in his room tonight. 1:1 Interview at bedside. Patient speaks minimally and quietly, sometimes mumbling. He has a somewhat disheveled look. Patient is cooperative. He denies S/I, H/I, or any hallucinations. Assessment What happened this shift: Patient was observed out of his room following shift change. He exhibits minimal socialization with peers. Patient is somewhat disheveled looking. His speech is quiet. Patient is medication compliant. He denies S/I, H/I, or any hallucinations. He is medication compliant. Patient primarily isolates in his room. Patient minimizes any problem. He tells this board writer his primary thought is "going home." S/I, H/I: Denies. A/VH: Denies. Sleep: Will tally at 0500 hours. ADL's: Independent. Group attendance: None on field hand. Were meds taken: Yes, patient is medication compliant. Any med S/E: None noted. Mental Status Exam Appearance: Disheveled looking. Eye contact: Good. Behavior: Isolating, cooperative. Speech: Minimal, mumbles some, responds to direct questions only. Mood: Guarded, cooperative, friendly. Affect: Blunt. Thought process: Poverty of thought. Thought Content: Family and getting out of here. Cognition: A&O X3. Insight: Fair. Judgment: Fair. Interventions PRN's used: Trazadone. Therapeutic interventions: Maintained a safe and supportive environment, ensured contract for safety, provided clear and simple instructions, provided direction and encouragement as needed, encouraged participation on the unit, continued to monitor wound on pt's check, and maintained Q 15min safety checks. Restraints/seclusion/emergency medication: N/A Justification of Continued Inpatient Treatment: Patient is on a 1370 from [facility], patient has had very little change in the past few week and is waiting for his court date that is coming up.
[2021-07-16] MEDS: simethicone 125mg capsule PO SCH ×3 (07:26→20:49)
[2021-07-16] MEDS: PALIPERIDONE 3 MG TAB.ER.24 PO SCH (07:26)
[2021-07-16 08:00] VITALS: BP 113/72
--- NOTE | 2021-07-16 17:04 | NUR ---
Nursing Progress Note: Legal hold: 1370 Client on involuntary status for GD Report received from nurse with use of SBAR: Juliet Gale RN Why they are here: Pt admitted from [facility] to restore competency. Pt has history of schizophrenia and substance abuse. Pt had negative PPD and Covid tests. Pt has multiple charges ranging from obstruction, public intoxication, trespassing, disturbing the peace, defecating in prohibited place, battery upon officer, unlawful camping, and possession. Assessment What has happened this shift: Awake at start of shift. Appears restless, paces hallway. Denies any A/VH but appears occupied with internal stimuli. Withdrawn, answers only direct questions. S/I, H/I: Denies A/VH: Denies, but appears to be occupied with internal stimuli. Sleep: 8.5 hrs per NOC ADL's: Independent. Group attendance: N/A Were meds taken: Yes Any med S/E: None noted Mental Status Exam Appearance: Somewhat disheveled, but dressed appropriately for unit. Eye contact: Poor Behavior: Cooperative but socially withdrawn. Speech: Quiet, responds minimally to direct questions only Mood: Guarded, however pleasant Affect: Blunted Thought process: Poverty of thought. Thought Content: Focused on discharge. Cognition: A&O X3 Insight: Poor Judgment: Poor Interventions PRN's used: None Therapeutic interventions: Maintained a safe and supportive environment, ensured contract for safety, provided clear and simple instructions, provided direction and encouragement as needed, encouraged participation on the unit, continued to monitor wound on pt's check, and maintained Q 15min safety checks. Restraints/seclusion/emergency medication: N/A Justification of Continued Inpatient Treatment: Patient is on a 1370 from [facility], patient has had very little change in the past few week and is waiting for his court date that is coming up.
[2021-07-16 19:37] VITALS: BP 123/81
[2021-07-16] MEDS: haloperidol 5mg tablet PO SCH (20:49)
[2021-07-16] MEDS: traZODone 50mg tablet PO PRN (20:49)
--- NOTE | 2021-07-16 23:12 | NUR ---
Nursing Progress Note: Legal hold: 1370 Client on involuntary status for GD Report received from DANIEL Rubio Why are they here: [facility]. Pt has history of schizophrenia and substance abuse. Pt had negative PPD and Covid tests. Pt has multiple charges ranging from obstruction, public intoxication, trespassing, disturbing the peace, defecating in prohibited place, battery upon officer, unlawful camping, and possession. Assessment: Patient primarily isolates in his room tonight. 1:1 Interview at bedside. Patient speaks minimally and quietly, sometimes mumbling. He has a somewhat disheveled look. Patient is cooperative. He denies S/I, H/I, or any hallucinations. Assessment What happened this shift: Pt was quiet, antisocial and cooperative, pt spent majority of shift either wondering the hallways or in pts room. Pt took all medications without problem, pt was giving prn trazodone to help with sleeping. Asked pt if they were in pain or anxious or suicidal pt stated no, pts vitals were normal. S/I, H/I: Denies. A/VH: Denies. Sleep: Will tally at 0500 hours. ADL's: Independent. Group attendance: None on radio electrician. Were meds taken: Yes, patient is medication compliant. Any med S/E: None noted. Mental Status Exam Appearance: Disheveled looking. Eye contact: Good. Behavior: Isolating, cooperative. Speech: Minimal, mumbles some, responds to direct questions only. Mood: Guarded, cooperative, friendly. Affect: Blunt. Thought process: Poverty of thought. Thought Content: Meeting needs Cognition: A&O X3. Insight: Fair. Judgment: Fair. Interventions PRN's used: Trazodone. Therapeutic interventions: Maintained a safe and supportive environment, ensured contract for safety, provided clear and simple instructions, provided direction and encouragement as needed, encouraged participation on the unit, continued to monitor wound on pt's check, and maintained Q 15min safety checks. Restraints/seclusion/emergency medication: N/A Justification of Continued Inpatient Treatment: Patient is on a 1370 from [facility], patient has had very little change in the past few week and is waiting for his court date that is coming up.
[2021-07-17] MEDS: simethicone 125mg capsule PO SCH ×3 (07:53→20:22)
[2021-07-17] MEDS: PALIPERIDONE 3 MG TAB.ER.24 PO SCH (07:53)
[2021-07-17 08:00] VITALS: BP 118/83
--- NOTE | 2021-07-17 09:25 | NUR ---
Reassessment: Pt continues eating well with 100% PO intake on regular diet while receiving double protein TID, meeting estimated nutrient needs. [facility] 07/16. No nutrition intervention implemented at this time. Will continue to follow. Recommendations: 1) Continue regular diet; double eggs WB double meat BIDLD per diet order; offer snacks for satiety 2) Bowel care per rx 3) Weekly scaled weights Addendum: 07/17/21 at [address] Amended: Links added.
--- NOTE | 2021-07-17 17:36 | NUR ---
Nursing Progress Note: Legal hold: 1370 Client on involuntary status for GD Report received from nurse with use of SBAR: DANIEL Geiger Why are they here: Pt admitted from [facility] to restore competency. Pt has history of schizophrenia and substance abuse. Pt had negative PPD and Covid tests. Pt has multiple charges ranging from obstruction, public intoxication, trespassing, disturbing the peace, defecating in prohibited place, battery upon officer, unlawful camping, and possession. Assessment What has happened this shift: RN received pt. awake and sitting in hallway at start of shift. Pt. requesting coffee. Pt. took all medications and ate all meals in the community room. Pt. is socially withdrawn but seen in the milieu pacing and sitting on the hallway floor. During 1:1 interview, pt. reports he is well but offers minimal information. Pt. isolated to his room most of the day. S/I, H/I: Denies A/VH: Denies Sleep: Pt. slept 7 hrs on NOC shift and napped intermittently throughout the day. ADL's: Independent. Group attendance: N/A Were meds taken: Yes Any med S/E: Denies Mental Status Exam Appearance: Somewhat disheveled, but clean and wearing green scrubs. Eye contact: Good Behavior: Cooperative but socially withdrawn and isolated to his room. Speech: Soft, responds minimally to direct questions only Mood: Guarded, however pleasant Affect: Blunted Thought process: Poverty of thought. Thought Content: Circumstantial. Cognition: A&O X3 Insight: Fair Judgment: Fair Interventions PRN's used: None Therapeutic interventions: Maintained a safe and supportive environment, ensured contract for safety, provided clear and simple instructions, provided direction and encouragement as needed, encouraged participation on the unit, continued to monitor wound on pt's check, and maintained Q 15min safety checks. Restraints/seclusion/emergency medication: N/A Justification of Continued Inpatient Treatment: Patient is on a 1370 from [facility], patient has had very little change in the past few week and is waiting for his court date that is coming up.
[2021-07-17 19:13] VITALS: BP 115/72
[2021-07-17] MEDS: traZODone 50mg tablet PO PRN (20:22)
[2021-07-17] MEDS: haloperidol 5mg tablet PO SCH (20:22)
--- NOTE | 2021-07-17 22:44 | NUR ---
Nursing Progress Note: Legal hold: 1370 Client on involuntary status for GD Report received from DANIEL Rubio Why are they here: [facility]. Pt has history of schizophrenia and substance abuse. Pt had negative PPD and Covid tests. Pt has multiple charges ranging from obstruction, public intoxication, trespassing, disturbing the peace, defecating in prohibited place, battery upon officer, unlawful camping, and possession. Assessment: Patient primarily isolates in his room tonight. 1:1 Interview at bedside. Patient speaks minimally and quietly, sometimes mumbling. He has a somewhat disheveled look. Patient is cooperative. He denies S/I, H/I, or any hallucinations. Assessment What happened this shift: Pt was calm , quiet and cooperative. Asked pt if they were in pain or anxious pt stated no. Pt ate snack and took all of his medication without issue. Pt vitals were normal and he was given prn trazodone to help him sleep. Pt went to bed around 2030. pt appears to be sleeping without difficulty. S/I, H/I: Denies. A/VH: Denies. Sleep: Will tally at 0500 hours. ADL's: Independent. Group attendance: None on cofounder. Were meds taken: Yes, patient is medication compliant. Any med S/E: None noted. Mental Status Exam Appearance: Disheveled looking. Eye contact: Good. Behavior: Isolating, cooperative. Speech: Minimal, mumbles some, responds to direct questions only. Mood: Guarded, cooperative, friendly. Affect: Blunt. Thought process: Poverty of thought. Thought Content: Meeting needs Cognition: A&O X3. Insight: Fair. Judgment: Fair. Interventions PRN's used: Trazodone. Therapeutic interventions: Maintained a safe and supportive environment, ensured contract for safety, provided clear and simple instructions, provided direction and encouragement as needed, encouraged participation on the unit, continued to monitor wound on pt's check, and maintained Q 15min safety checks. Restraints/seclusion/emergency medication: N/A Justification of Continued Inpatient Treatment: Patient is on a 1370 from [facility], patient has had very little change in the past few week and is waiting for his court date that is coming up.
[2021-07-18 07:00] VITALS: BP 113/79
[2021-07-18] MEDS: PALIPERIDONE 3 MG TAB.ER.24 PO SCH (07:50)
[2021-07-18] MEDS: simethicone 125mg capsule PO SCH ×3 (07:50→19:27)
--- NOTE | 2021-07-18 16:20 | NUR ---
Nursing Progress Note: Legal hold: 1370 Client on involuntary status for GD Report received from nurse with use of SBAR: DANIEL Geiger Why are they here: [facility]. Pt has history of schizophrenia and substance abuse. Pt had negative PPD and Covid tests. Pt has multiple charges ranging from obstruction, public intoxication, trespassing, disturbing the peace, defecating in prohibited place, battery upon officer, unlawful camping, and possession. Assessment What has happened this shift: Received pt. up pacing in the hallway at the beginning of the shift, he independently attended breakfast in the Group Room, and afterwards sat in the Recreation Room looking out the window as is his routine. Pt. continues to be cooperative and pleasant with all care, however remains guarded and responds minimally to direct questions only. He continues to deny all MH s/s, and does not appear to be responding to internal stimuli nor any delusional statements made. Pt. is visible on the unit throughout the day, and naps intermittently. He patiently awaits to hear from the court. patient has no new complaints today. When asked patient has no idea how to make any sort of discharge plan, he gives off a blank stare. S/I, H/I: Denies A/VH: Denies, appear internally preoccupied Sleep: per NOC 8.25 ADL's: Requires some encouragement, showered today Group attendance: N/A Were meds taken: Yes Any med S/E: None Mental Status Exam Appearance: Somewhat disheveled, however appropriately dressed Eye contact: Good Behavior: Cooperative and somewhat restless Speech: Soft, responds minimally to direct questions only Mood: Guarded, however pleasant Affect: Blunted Thought process: Poverty of thought Thought Content: Goal oriented, "I want to go to my court hearing" Cognition: A&O X3 Insight: Fair Judgment: Fair Interventions PRN's used: None Therapeutic interventions: Maintained a safe and supportive environment, ensured contract for safety, provided clear and simple instructions, provided direction and encouragement as needed, encouraged participation on the unit, continued to monitor wound on pt's check, and maintained Q 15min safety checks. Restraints/seclusion/emergency medication: N/A Justification of Continued Inpatient Treatment: Patient is on a 1370 from [facility], patient has had very little change in the past few week and is waiting for his court date that is coming up.
[2021-07-18] MEDS: traZODone 50mg tablet PO PRN (19:27)
[2021-07-18] MEDS: haloperidol 5mg tablet PO SCH (19:27)
[2021-07-18 19:50] VITALS: BP 118/76
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
[2021-07-19 07:28] VITALS: BP 112/81
[2021-07-19] MEDS: simethicone 125mg capsule PO SCH ×3 (07:50→20:49)
[2021-07-19] MEDS: PALIPERIDONE 3 MG TAB.ER.24 PO SCH (07:50)
--- NOTE | 2021-07-19 18:09 | NUR ---
Nursing Progress Note: Legal hold: 1370 Client on involuntary status for GD Report received from nurse with use of SBAR: DANIEL Geiger Why are they here: [facility]. Pt has history of schizophrenia and substance abuse. Pt had negative PPD and Covid tests. Pt has multiple charges ranging from obstruction, public intoxication, trespassing, disturbing the peace, defecating in prohibited place, battery upon officer, unlawful camping, and possession. Assessment What has happened this shift: RN received pt. awake and sitting in hallway at start of shift. Pt. requesting coffee. Pt. took all medications and ate all meals in the community room. Pt. is socially withdrawn but seen in the milieu pacing and sitting on the hallway floor. During 1:1 interview, pt. reports he is well but offers minimal information, pt. is hopeful for discharge soon. S/I, H/I: Denies A/VH: Denies Sleep: Pt. slept 8.25 hrs on NOC shift and napped intermittently throughout the day. ADL's: Independent. Group attendance: N/A Were meds taken: Yes Any med S/E: Denies Mental Status Exam Appearance: Somewhat disheveled, but clean and wearing green scrubs. Eye contact: Good Behavior: Cooperative but socially withdrawn and isolated to his room. Speech: Soft, responds minimally to direct questions only Mood: Guarded, however pleasant Affect: Blunted Thought process: Poverty of thought. Thought Content: Circumstantial. Cognition: A&O X3 Insight: Fair Judgment: Fair Interventions PRN's used: None Therapeutic interventions: Maintained a safe and supportive environment, ensured contract for safety, provided clear and simple instructions, provided direction and encouragement as needed, encouraged participation on the unit, continued to monitor wound on pt's check, and maintained Q 15min safety checks. Restraints/seclusion/emergency medication: N/A Justification of Continued Inpatient Treatment: Patient is on a 1370 from [facility], patient has had very little change in the past few week and is waiting for his court date that is coming up.
[2021-07-19 19:07] VITALS: BP 10/74
[2021-07-19] MEDS: haloperidol 5mg tablet PO SCH (20:49)
[2021-07-19] MEDS: traZODone 50mg tablet PO PRN (20:54)
--- NOTE | 2021-07-20 04:58 | NUR ---
Nursing Progress Note: Legal hold: 1370 Client on involuntary status for GD Report received from nurse with use of SBAR: DANIEL Geiger Why are they here: Pt admitted from [facility] to restore competency. Pt has history of schizophrenia and substance abuse. Pt had negative PPD and Covid tests. Pt has multiple charges ranging from obstruction, public intoxication, trespassing, disturbing the peace, defecating in prohibited place, battery upon officer, unlawful camping, and possession. Assessment What has happened this shift: Pt. awake and pacing halls at beginning of shift. Pt. went back to his room and lied down shortly afterward. Pt. got up for HS snack and then fell asleep. RN awoke pt. for medications. Pt. took all medication. Pt. requested Trazodone 50mg for sleep and received with good effect. S/I, H/I: Denies A/VH: Denies Sleep: See NOC shift sleep hours. ADL's: Independent. Group attendance: N/A Were meds taken: Yes Any med S/E: Denies Mental Status Exam Appearance: Disheveled, but clean, and wearing green, unit scrubs. Eye contact: Good Behavior: Cooperative, but socially withdrawn and isolates to his room. Speech: Soft, responds minimally to direct questions only Mood: Euthymic. Affect: Flat Thought process: Poverty of thought. Thought Content: Circumstantial. Focused on discharge. Cognition: A&O X3 Insight: Fair Judgment: Fair Interventions PRN's used: Trazodone x1 Therapeutic interventions: Maintained a safe and supportive environment, ensured contract for safety, provided clear and simple instructions, provided direction and encouragement as needed, encouraged participation on the unit, continued to monitor wound on pt's check, and maintained Q 15min safety checks. Restraints/seclusion/emergency medication: N/A Justification of Continued Inpatient Treatment: Patient is on a 1370 from [facility], patient has had very little change in the past few week and is waiting for his court date that is coming up.
[2021-07-20 07:16] VITALS: BP 128/82
[2021-07-20] MEDS: simethicone 125mg capsule PO SCH ×3 (08:12→21:20)
[2021-07-20] MEDS: PALIPERIDONE 3 MG TAB.ER.24 PO SCH (08:12)
--- NOTE | 2021-07-20 16:11 | NUR ---
Nursing Progress Note: Legal hold: 1370 Client on involuntary status for GD Report received from nurse with use of SBAR: Kenton RN Why are they here: Pt admitted from [facility] to restore competency. Pt has history of schizophrenia and substance abuse. Pt had negative PPD and Covid tests. Pt has multiple charges ranging from obstruction, public intoxication, trespassing, disturbing the peace, defecating in prohibited place, battery upon officer, unlawful camping, and possession. Assessment What has happened this shift: Received pt. up pacing in the hallway at the beginning of the shift, he independently attended breakfast in the Group Room, and afterwards sat in the Recreation Room looking out the window as is his routine. Pt. continues to be cooperative and pleasant with all care, however remains guarded and responds minimally to direct questions only. He continues to deny all MH s/s, and does not appear to be responding to internal stimuli nor any delusional statements made. Pt. is visible on the unit throughout the day, and naps intermittently. He patiently awaits to hear from the court. patient has no new complaints today. When asked patient has no idea how to make any sort of discharge plan, he gives off a blank stare. No change in Cameron behavior for the past weeks. S/I, H/I: Denies A/VH: Denies, appear internally preoccupied Sleep: per NOC 8.75 ADL's: Requires some encouragement, showered today Group attendance: N/A Were meds taken: Yes Any med S/E: None Mental Status Exam Appearance: Somewhat disheveled, however appropriately dressed Eye contact: Good Behavior: Cooperative and somewhat restless Speech: Soft, responds minimally to direct questions only Mood: Guarded, however pleasant Affect: Blunted Thought process: Poverty of thought Thought Content: Goal oriented, "I want to go to my court hearing, that's all I can think about" Cognition: A&O X3 Insight: Fair Judgment: Fair Interventions PRN's used: None Therapeutic interventions: Maintained a safe and supportive environment, ensured contract for safety, provided clear and simple instructions, provided direction and encouragement as needed, encouraged participation on the unit, continued to monitor wound on pt's check, and maintained Q 15min safety checks. Restraints/seclusion/emergency medication: N/A Justification of Continued Inpatient Treatment: Patient is on a 1370 [address] [facility], patient has had very little change in the past few week and is waiting for his court date that is coming up.
[2021-07-20 19:00] VITALS: BP 105/67
[2021-07-20] MEDS: haloperidol 5mg tablet PO SCH (21:20)
[2021-07-20] MEDS: traZODone 50mg tablet PO PRN (21:20)
--- NOTE | 2021-07-20 23:55 | NUR ---
Nursing Progress Note: Legal hold: 1370 Client on involuntary status for GD Report received from DANIEL Hernandez with use of SBAR. Why are they here: [facility]. Pt has history of schizophrenia and substance abuse. Pt had negative PPD and Covid tests. Pt has multiple charges ranging from obstruction, public intoxication, trespassing, disturbing the peace, defecating in prohibited place, battery upon officer, unlawful camping, and possession. Assessment What has happened this shift: This patient primarily isolates in his room following shift change. Patient is alert and cooperative. Patient Denies, S/I, H/I, or any hallucinations. Patient tells this global technical writer that he isn't thinking about anything. "I just want to get some rest." The patient presents with poverty of thought. He is medication compliant, he tells this global technical writer "I feel great." S/I, H/I: Denies. A/VH: Denies both. Sleep: Will tally at 0500 hours. ADL's: Requires encouragement. Group attendance: No group on operations supervisor 2nd shift. Were meds taken: Yes, medication compliant. Any med S/E: None noted or reported. Mental Status Exam Appearance: Disheveled looking. Eye contact: Direct. Behavior: Cooperative, Isolating. Speech: Quiet, minimal. Mood: Guarded, friendly. Affect: Blunted. Thought process: Poverty of thought. Thought Content: Does not elaborate. Cognition: A&O X3. Insight: Fair. Judgment: Fair. Interventions PRN's used: Trazadone. Therapeutic interventions: Maintained a safe and supportive environment, ensured contract for safety, provided clear and simple instructions, provided direction and encouragement as needed, encouraged participation on the unit, continued to monitor wound on pt's check, and maintained Q 15min safety checks. Restraints/seclusion/emergency medication: N/A Justification of Continued Inpatient Treatment: Patient is on a 1370 from [facility], patient has had very little change in the past few week and is waiting for his court date that is coming up.
[2021-07-21] MEDS: simethicone 125mg capsule PO SCH ×3 (07:08→20:18)
[2021-07-21] MEDS: PALIPERIDONE 3 MG TAB.ER.24 PO SCH (07:08)
[2021-07-21 08:00] VITALS: BP 114/81
--- NOTE | 2021-07-21 15:39 | NUR ---
Nursing Progress Note: Legal hold: 1370 Client on involuntary status for GD Report received from nurse Juliet Coleman RN with use of SBAR Why are they here: Pt admitted from [facility] to restore competency. Pt has history of schizophrenia and substance abuse. Pt has multiple charges ranging from obstruction, public intoxication, trespassing, disturbing the peace, defecating in prohibited place, battery upon officer, unlawful camping, and possession. Assessment What has happened this shift: Terrence is quiet and keeps to himself. He smiles when you look at him. He is medication compliant and cooperative on the unit. He sits alone at meal times. Isolative. S/I, H/I: Denies A/VH: Denies Sleep: Pt. naps during the day ADL's: Independent Group attendance: N/A Were Meds taken: Yes Any med S/E: None noted or reported Mental Status Exam Appearance: Tall dark haired male wearing green scrubs Eye contact: Fair Behavior: Cooperative Speech: Audible slow to respond Mood: Guarded Affect: Blunted Thought process: Poverty of speech and content Thought Content: Asks about his court date Cognition: A&O X3 Insight: Fair Judgment: Fair Interventions PRN's used: None Therapeutic interventions: Provided 1:1 assessment with therapeutic communication; medication administration/education/monitoring, provided direction and encouragement as needed, encouraged participation on the unit, and maintained Q 15min safety checks. Restraints/seclusion/emergency medication: N/A Justification of Continued Inpatient Treatment: Per BEN Mccoy, pt. is at baseline, however continues to require a safe and supportive environment.
[2021-07-21] MEDS: traZODone 50mg tablet PO PRN (20:19)
[2021-07-21] MEDS: haloperidol 5mg tablet PO SCH (20:19)
[2021-07-21 20:47] VITALS: BP 108/68
--- NOTE | 2021-07-22 01:19 | NUR ---
Nursing Progress Note: Legal hold: 1370 Client on involuntary status for GD Report received from nurse Yassine RN with use of SBAR Why are they here: Pt admitted from [facility] to restore competency. Pt has history of schizophrenia and substance abuse. Pt has multiple charges ranging from obstruction, public intoxication, trespassing, disturbing the peace, defecating in prohibited place, battery upon officer, unlawful camping, and possession. Assessment What has happened this shift: Terrence continues to isolate with little inter action with staff and peers. He is med compliant and cooperative. He ate snack in the group room sitting by him self. He paced the garcia a few times before going to bed. S/I, H/I: Denies A/VH: Denies Sleep: See sleep assessment ADL's: Independent Group attendance: N/A Were Meds taken: Yes Any med S/E: None noted or reported Mental Status Exam Appearance: Tall dark haired male wearing green scrubs Eye contact: Fair Behavior: Cooperative Speech: Audible slow to respond Mood: Guarded Affect: Blunted Thought process: Poverty of speech and content Thought Content: Asks about his court date Cognition: A&O X3 Insight: Fair Judgment: Fair Interventions PRN's used: None Therapeutic interventions: Provided 1:1 assessment with therapeutic communication; medication administration/education/monitoring, provided direction and encouragement as needed, encouraged participation on the unit, and maintained Q 15min safety checks. Restraints/seclusion/emergency medication: N/A Justification of Continued Inpatient Treatment: Per BEN Mccoy, pt. is at baseline, however continues to require a safe and supportive environment.
[2021-07-22 07:19] VITALS: BP 112/55
[2021-07-22] MEDS: PALIPERIDONE 3 MG TAB.ER.24 PO SCH (07:50)
[2021-07-22] MEDS: simethicone 125mg capsule PO SCH ×3 (07:50→20:04)
--- NOTE | 2021-07-22 16:02 | NUR ---
Nursing Progress Note: Legal hold: 1370 Client on involuntary status for GD Report received from nurse Juliet Coleman RN with use of SBAR Why are they here: Pt admitted from [facility] to restore competency. Pt has history of schizophrenia and substance abuse. Pt has multiple charges ranging from obstruction, public intoxication, trespassing, disturbing the peace, defecating in prohibited place, battery upon officer, unlawful camping, and possession. Assessment What has happened this shift: Terrence is quiet and keeps to himself. He spends the days pacing the halls or looking at the television. He went outside today. S/I, H/I: Denies A/VH: Denies Sleep: Pt. naps during the day ADL's: Independent Group attendance: N/A Were Meds taken: Yes Any med S/E: None noted or reported Mental Status Exam Appearance: Tall dark haired male wearing green scrubs Eye contact: Fair Behavior: Cooperative Speech: Audible slow to respond Mood: Guarded Affect: Blunted Thought process: Poverty of speech and content Thought Content: Asks about his court date Cognition: A&O X3 Insight: Fair Judgment: Fair Interventions PRN's used: None Therapeutic interventions: Provided 1:1 assessment with therapeutic communication; medication administration/education/monitoring, provided direction and encouragement as needed, encouraged participation on the unit, and maintained Q 15min safety checks. Restraints/seclusion/emergency medication: N/A Justification of Continued Inpatient Treatment: Per BEN Mccoy, pt. is at baseline, however continues to require a safe and supportive environment.
[2021-07-22 19:11] VITALS: BP 98/65
[2021-07-22] MEDS: haloperidol 5mg tablet PO SCH (20:03)
[2021-07-22] MEDS: traZODone 50mg tablet PO PRN (20:04)
--- NOTE | 2021-07-23 00:18 | NUR ---
Nursing Progress Note: Legal hold: 1370 Client on involuntary status for GD Report received from nurse Mary RN with use of SBAR Why are they here: Pt admitted from [facility] to restore competency. Pt has history of schizophrenia and substance abuse. Pt has multiple charges ranging from obstruction, public intoxication, trespassing, disturbing the peace, defecating in prohibited place, battery upon officer, unlawful camping, and possession. Assessment What has happened this shift: Patient was in the group room watching tv at shift change. He ate snack in the group room was med compliant and had very little communication wit peers or staff. S/I, H/I: Denies A/VH: Denies Sleep: See sleep assessment ADL's: Independent Group attendance: N/A Were Meds taken: Yes Any med S/E: None noted or reported Mental Status Exam Appearance: Tall dark haired male wearing green scrubs Eye contact: Fair Behavior: Cooperative Speech: Audible slow to respond Mood: Guarded Affect: Blunted Thought process: Poverty of speech and content Thought Content: Asks about his court date Cognition: A&O X3 Insight: Fair Judgment: Fair Interventions PRN's used: None Therapeutic interventions: Provided 1:1 assessment with therapeutic communication; medication administration/education/monitoring, provided direction and encouragement as needed, encouraged participation on the unit, and maintained Q 15min safety checks. Restraints/seclusion/emergency medication: N/A Justification of Continued Inpatient Treatment: Per BEN Mccoy, pt. is at baseline, however continues to require a safe and supportive environment.
[2021-07-23] MEDS: simethicone 125mg capsule PO SCH ×3 (07:20→20:06)
[2021-07-23] MEDS: PALIPERIDONE 3 MG TAB.ER.24 PO SCH (07:21)
[2021-07-23 08:04] VITALS: BP 113/78
--- NOTE | 2021-07-23 11:37 | NUR ---
Nursing Progress Note: JUDI Legal hold: 1370 Client on involuntary status for GD Report received from LUIS CARLOS Telles with use of SBAR Why are they here: Pt admitted from [facility] to restore competency. Pt has history of schizophrenia and substance abuse. Pt has multiple charges ranging from obstruction, public intoxication, trespassing, disturbing the peace, defecating in prohibited place, battery upon officer, unlawful camping, and possession. Assessment What has happened this shift: Received patient awake sitting in the group room at shift change. Pt is pleasant and polite on greeting. Pt is currently stable and at baseline awaiting trial. Pt keeps to himself and makes needs known. Pt enjoys his snacks and coffee. Pt is not much of a conversationalist, but voices Im bored. Compliant with medications and all care. S/I, H/I: Denies both. A/VH: Denies both. Sleep: 8.5 hours per sleep assessment. Intermittent naps ADL's: Independent Group attendance: No scheduled group. Were Meds taken: Yes, without issue. Any med S/E: Pt denies, none observed. Mental Status Exam Appearance: Tall, unshaven male. Slightly disheveled. Dressed in green unit scrubs. Eye contact: Fair Behavior: Cooperative, polite. Keeps to self, watches T.V or sleeps. Enjoys food. Speech: Soft, slow to respond, clear. Mood: Euthymic/ bored. Affect: Constricted with brightening. Thought process: Poverty of speech and content Thought Content: Makes needs known. Cognition: A&O X3 Insight: Fair Judgment: Fair Interventions PRN's used: None Therapeutic interventions: Provided 1:1 assessment with therapeutic communication; medication administration/education/monitoring, provided direction and encouragement as needed, encouraged participation on the unit, and maintained Q 15min safety checks. Restraints/seclusion/emergency medication: N/A Justification of Continued Inpatient Treatment: Patient is at baseline and stable. Pt continues to benefit from mental health treatment while he waits for trial. It has been recommended that a referral for [facility] Conservatorship evaluation by [facility] and [facility].
[2021-07-23 19:44] VITALS: BP 109/70
[2021-07-23] MEDS: haloperidol 5mg tablet PO SCH (20:06)
[2021-07-23] MEDS: traZODone 50mg tablet PO PRN (20:07)
--- NOTE | 2021-07-24 00:45 | NUR ---
Nursing Progress Note: JUDI Legal hold: 1370 Client on involuntary status for GD Report received from LUIS CARLOS Hernandez with use of SBAR Why are they here: Pt admitted from [facility] to restore competency. Pt has history of schizophrenia and substance abuse. Pt has multiple charges ranging from obstruction, public intoxication, trespassing, disturbing the peace, defecating in prohibited place, battery upon officer, unlawful camping, and possession. Assessment What has happened this shift: Patient was in his room napping at change of shift. He keeps to him self but is cooperative and friendly. Pt ate snack in the group room was med compliant then went to bed. S/I, H/I: Denies both. A/VH: Denies both. Sleep: See sleep assessment. ADL's: Independent Group attendance: No scheduled group. Were Meds taken: Yes, without issue. Any med S/E: Pt denies, none observed. Mental Status Exam Appearance: Tall, unshaven male. Slightly disheveled. Dressed in green unit scrubs. Eye contact: Fair Behavior: Cooperative, polite. Keeps to self, watches T.V or sleeps. Enjoys food. Speech: Soft, slow to respond, clear. Mood: Euthymic/ bored. Affect: Constricted with brightening. Thought process: Poverty of speech and content Thought Content: Makes needs known. Cognition: A&O X3 Insight: Fair Judgment: Fair Interventions PRN's used: None Therapeutic interventions: Provided 1:1 assessment with therapeutic communication; medication administration/education/monitoring, provided direction and encouragement as needed, encouraged participation on the unit, and maintained Q 15min safety checks. Restraints/seclusion/emergency medication: N/A Justification of Continued Inpatient Treatment: Patient is at baseline and stable. Pt continues to benefit from mental health treatment while he waits for trial. It has been recommended that a referral for [facility] Conservatorship evaluation by [facility] and [facility].
[2021-07-24] MEDS: PALIPERIDONE 3 MG TAB.ER.24 PO SCH (07:39)
[2021-07-24] MEDS: simethicone 125mg capsule PO SCH ×3 (07:39→20:06)
[2021-07-24 08:00] VITALS: BP 118/66
--- NOTE | 2021-07-24 16:50 | NUR ---
Nursing Progress Note: Legal hold: 1370 Client on involuntary status for GD Report received from LUIS CARLOS Geiger with use of SBAR Why they are here: Pt admitted from [facility] to restore competency. Pt has history of schizophrenia and substance abuse. Pt has multiple charges ranging from obstruction, public intoxication, trespassing, disturbing the peace, defecating in prohibited place, battery upon officer, unlawful camping, and possession. Assessment What has happened this shift: Patient awake in bed at start of shift. Appears restless and paces hallways. Eats meals in community room with peers but interacts very little. Noted walking in halls and smiling on and off to himself. Appears to be occupied by internal stimuli. Isolates in room much of the time but will come out when prompted. Only answers to direct questions and gives minimal responses. S/I, H/I: Denies A/VH: Denies but appears occupied with internal stimuli, frequently smiles to self. Sleep: 7.5 hrs per NOC ADL's: Independent Group attendance: N/A Were Meds taken: Yes Any med S/E: None noted or reported. Mental Status Exam Appearance: Tall, unshaven male. Slightly disheveled. Dressed in green unit scrubs. Eye contact: Fair Behavior: Cooperative, polite, withdrawn Speech: Soft, slow to respond, clear. Mood: Alright Affect: congruent with mood Thought process: Distracted Thought Content: Poverty of thought Cognition: A&O X3 Insight: Fair Judgment: Fair Interventions PRN's used: None Therapeutic interventions: Provided 1:1 assessment with therapeutic communication; medication administration/education/monitoring, provided direction and encouragement as needed, encouraged participation on the unit, and maintained Q 15min safety checks. Restraints/seclusion/emergency medication: N/A Justification of Continued Inpatient Treatment: Patient is at baseline and stable. Pt continues to benefit from mental health treatment while he waits for trial. It has been recommended that a referral for [facility] Conservatorship evaluation by [facility] and [facility].
[2021-07-24] MEDS: traZODone 50mg tablet PO PRN (20:07)
[2021-07-24] MEDS: haloperidol 5mg tablet PO SCH (20:07)
[2021-07-24 20:42] VITALS: BP 124/72
--- NOTE | 2021-07-25 00:39 | NUR ---
Nursing Progress Note: JUDI Legal hold: 1370 Client on involuntary status for GD Report received from LUIS CARLOS Rubio with use of SBAR Why are they here: Pt admitted from [facility] to restore competency. Pt has history of schizophrenia and substance abuse. Pt has multiple charges ranging from obstruction, public intoxication, trespassing, disturbing the peace, defecating in prohibited place, battery upon officer, unlawful camping, and possession. Assessment What has happened this shift: Patient was in his room napping at change of shift. He keeps to him self but is cooperative and friendly. Pt ate snack in the group room was med compliant then went to bed. S/I, H/I: Denies both. A/VH: Denies both. Sleep: See sleep assessment. ADL's: Independent Group attendance: No scheduled group. Were Meds taken: Yes, without issue. Any med S/E: Pt denies, none observed. Mental Status Exam Appearance: Tall, unshaven male. Slightly disheveled. Dressed in green unit scrubs. Eye contact: Fair Behavior: Cooperative, polite. Keeps to self, watches T.V or sleeps. Enjoys food. Speech: Soft, slow to respond, clear. Mood: Euthymic/ bored. Affect: Constricted with brightening. Thought process: Poverty of speech and content Thought Content: Makes needs known. Cognition: A&O X3 Insight: Fair Judgment: Fair Interventions PRN's used: None Therapeutic interventions: Provided 1:1 assessment with therapeutic communication; medication administration/education/monitoring, provided direction and encouragement as needed, encouraged participation on the unit, and maintained Q 15min safety checks. Restraints/seclusion/emergency medication: N/A Justification of Continued Inpatient Treatment: Patient is at baseline and stable. Pt continues to benefit from mental health treatment while he waits for trial. It has been recommended that a referral for [facility] Conservatorship evaluation by [facility] and [facility].
[2021-07-25 07:00] VITALS: BP 109/82
[2021-07-25] MEDS: simethicone 125mg capsule PO SCH ×3 (08:14→20:06)
[2021-07-25] MEDS: PALIPERIDONE 3 MG TAB.ER.24 PO SCH (08:14)
--- NOTE | 2021-07-25 17:39 | NUR ---
Nursing Progress Note: Legal hold: 1370 Client on involuntary status for GD Report received from LUIS CARLOS Geiger with use of SBAR Why they are here: Pt admitted from [facility] to restore competency. Pt has history of schizophrenia and substance abuse. Pt has multiple charges ranging from obstruction, public intoxication, trespassing, disturbing the peace, defecating in prohibited place, battery upon officer, unlawful camping, and possession. Assessment What has happened this shift: Patient resting quietly in bed at start of shift. Appears restless and paces hallways. Eats meals in community room with peers. Cooperative and pleasant when engaged in conversation but guarded, only answers direct questions. Talks very little but makes needs known. Smiles to himself frequently and mumbles to self while pacing. S/I, H/I: Denies A/VH: Denies but appears occupied with internal stimuli. Sleep: 8.5 hrs per NOC ADL's: Independent Group attendance: partially. Pt is restless and paces in and out of group. Does not participate and spends most of the time out in the garcia. Were Meds taken: Yes Any med S/E: None noted or reported. Mental Status Exam Appearance: Tall, unshaven male. Slightly disheveled. Dressed in green unit scrubs. Eye contact: Fair Behavior: Cooperative, polite, withdrawn Speech: Soft, slow to respond, clear. Mood: Good Affect: Blunted. Smiles to self Thought process: Distracted Thought Content: Poverty of thought Cognition: A&O X3 to person, place and time Insight: Fair Judgment: Fair Interventions PRN's used: None Therapeutic interventions: Provided 1:1 assessment with therapeutic communication; medication administration/education/monitoring, provided direction and encouragement as needed, encouraged participation on the unit, and maintained Q 15min safety checks. Restraints/seclusion/emergency medication: N/A Justification of Continued Inpatient Treatment: Patient is at baseline and stable. Pt continues to benefit from mental health treatment while he waits for trial. It has been recommended that a referral for [facility] Conservatorship evaluation by [facility] and [facility].
[2021-07-25] MEDS: haloperidol 5mg tablet PO SCH (20:06)
[2021-07-25] MEDS: traZODone 50mg tablet PO PRN (20:07)
[2021-07-25 20:15] VITALS: BP 96/61
[2021-07-25 20:16] VITALS: BP 96/61
--- NOTE | 2021-07-25 23:59 | NUR ---
Nursing Progress Note: Legal hold: 1370 Client on involuntary status for GD Report received from LUIS CARLOS Geiger with use of SBAR Why they are here: Pt admitted from [facility] to restore competency. Pt has history of schizophrenia and substance abuse. Pt has multiple charges ranging from obstruction, public intoxication, trespassing, disturbing the peace, defecating in prohibited place, battery upon officer, unlawful camping, and possession. Assessment What has happened this shift: Patient was in and out of his room pacing in the garcia or in the group room watching tv. He was med compliant and pleasant. He ate snack in group room then went to bed. S/I, H/I: Denies A/VH: Denies but appears occupied with internal stimuli. Sleep: See sleep assessment ADL's: Independent Group attendance: partially. Pt is restless and paces in and out of group. Does not participate and spends most of the time out in the garcia. Were Meds taken: Yes Any med S/E: None noted or reported. Mental Status Exam Appearance: Tall, unshaven male. Slightly disheveled. Dressed in green unit scrubs. Eye contact: Fair Behavior: Cooperative, polite, withdrawn Speech: Soft, slow to respond, clear. Mood: Good Affect: Blunted. Smiles to self Thought process: Distracted Thought Content: Poverty of thought Cognition: A&O X3 to person, place and time Insight: Fair Judgment: Fair Interventions PRN's used: None Therapeutic interventions: Provided 1:1 assessment with therapeutic communication; medication administration/education/monitoring, provided direction and encouragement as needed, encouraged participation on the unit, and maintained Q 15min safety checks. Restraints/seclusion/emergency medication: N/A Justification of Continued Inpatient Treatment: Patient is at baseline and stable. Pt continues to benefit from mental health treatment while he waits for trial. It has been recommended that a referral for [facility] Conservatorship evaluation by [facility] and [facility].
[2021-07-26 07:14] VITALS: BP 110/65
[2021-07-26] MEDS: PALIPERIDONE 3 MG TAB.ER.24 PO SCH (07:29)
[2021-07-26] MEDS: simethicone 125mg capsule PO SCH ×3 (07:29→20:09)
--- NOTE | 2021-07-26 09:23 | NUR ---
Reassessment: Pt continues eating well with 100% PO intake on regular diet while receiving double protein TID, meeting estimated nutrient needs. [facility] 07/25. No nutrition intervention implemented at this time. Will continue to follow. Recommendations: 1) Continue regular diet; double eggs WB double meat BIDLD per diet order; offer snacks for satiety 2) Bowel care per rx 3) Weekly scaled weights Addendum: 07/26/21 at [address] Amended: Links added.
--- NOTE | 2021-07-26 13:27 | NUR ---
Nursing Progress Note: Legal hold: 1370 Client on involuntary status for GD Report received from Fely SANCHEZ with use of SBAR Why are they here: [facility]. Pt has history of schizophrenia and substance abuse. Pt has multiple charges ranging from obstruction, public intoxication, trespassing, disturbing the peace, defecating in prohibited place, battery upon officer, unlawful camping, and possession. Assessment What has happened this shift: Pt was up before breakfast. He was pleasant and cooperative with meds and care. Pt denies depression, anxiety, SI/HI/AH/VH. Pt reports, I'm doin' all right." No unsafe behaviors noted. S/I, H/I: Pt denies. A/VH: Pt denies. Sleep: Pt slept 8.5 hours last night per noc shift report. ADL's: Independent Group attendance: No Were Meds taken: Yes Any med S/E: None noted or reported. Mental Status Exam Appearance: Tall, pale man with short brown hair with bad teeth dressed in personal clothing. Eye contact: good. Behavior: Pleasant, cooperative, mostly isolative to self, paces and watches TV. Speech: Clear audible, normal rate and rhythm. Mood: Euthymic/ bored. Affect: Blunted with brightening. Thought process: Linear Thought Content: Focused on meals, snacks, and beverages. Cognition: A/O X3 Insight: Fair Judgment: Fair Interventions PRN's used: None Therapeutic interventions:1:1 assessment, therapeutic communication, active listening, medication administration/education/monitoring, provided direction and encouragement as needed, encouraged participation on the unit, and maintained Q 15 minute safety checks. Restraints/seclusion/emergency medication: N/A Justification of Continued Inpatient Treatment: Patient is at baseline and stable. Pt continues to benefit from mental health treatment while he waits for trial. It has been recommended that a referral for [facility] Conservatorship evaluation by [facility] and [facility].
[2021-07-26 19:00] VITALS: BP 115/80
[2021-07-26] MEDS: haloperidol 5mg tablet PO SCH (20:09)
[2021-07-26] MEDS: traZODone 50mg tablet PO PRN (20:09)
--- NOTE | 2021-07-27 01:22 | NUR ---
Nursing Progress Note: Legal hold: 1370 Report received from Ramiro SANCHEZ with use of SBAR Why are they here: Pt admitted from [facility] to restore competency. Pt has history of schizophrenia and substance abuse. Pt has multiple charges ranging from obstruction, public intoxication, trespassing, disturbing the peace, defecating in prohibited place, battery upon officer, unlawful camping, and possession Assessment What has happened this shift: The patient was up on the unit and was out in the general patient areas but he really did not attempt to socialize with peers or engage in any meaningful way. During the evening snack he sat by himself. He was pleasant and cooperative when approached for the evening assessment. He is treatment compliant but was unable to state the names of any of his medications or verbalize a realistic plan for self care if he were to leave the hospital. He was unable to state what was going to happen on his next court date. When asked what his plan for after he left custody he stated that he would go live with his father but has not spoken with his father since being at [facility]. S/I, H/I: Denied by the patient A/VH: Denied by the patient Sleep: Reports sleeping well ADL's: Independent and appeared clean and stated he had showered the day before Group attendance: No groups this shift Were meds taken: yes Any med S/E Denied by the patient Mental Status Exam Appearance: The patient appears to be his stated age. He is dressed appropriately for the unit Eye contact: Intermittent Behavior: No behavioral problems on the unit. He stays to himself. He has not been observed to talking to himself. Speech: Vague replies. Spontaneous. minimal Mood: denies depression or anxiety Affect: blunted Cognition: alert Insight: poor Judgment: poor Justification of Continued Inpatient Treatment: The patient continues to be gravely disabled and presents as having a poor understanding of why he is going to court or what to expect.
[2021-07-27] MEDS: simethicone 125mg capsule PO SCH ×3 (07:56→20:19)
[2021-07-27] MEDS: PALIPERIDONE 3 MG TAB.ER.24 PO SCH (07:58)
[2021-07-27 08:29] VITALS: BP 108/75
--- NOTE | 2021-07-27 13:28 | NUR ---
Nursing Progress Note: Legal hold: 1370 Client on involuntary status for GD Report received from Juliet Gale RN with use of SBAR Why are they here: [facility] Pt has history of schizophrenia and substance abuse. Pt has multiple charges ranging from obstruction, public intoxication, trespassing, disturbing the peace, defecating in prohibited place, battery upon officer, unlawful camping, and possession. Assessment What has happened this shift: Pt was up before breakfast. He was pleasant and cooperative with meds and care. Pt denies depression, anxiety, SI/HI/AH/VH. Pt reports, "I'm doin' good." No unsafe behaviors noted. S/I, H/I: Pt denies. A/VH: Pt denies. Sleep: Pt slept 7.5 hours last night per noc shift report. ADL's: Independent Group attendance: No Were Meds taken: Yes Any med S/E: None noted or reported. Mental Status Exam Appearance: Tall, pale man with short brown hair with bad teeth dressed in sweats and a black t-shirt. Eye contact: Good. Behavior: Pleasant, cooperative, mostly isolative to self, paces and watches TV. Speech: Clear audible, normal rate and rhythm. Mood: Euthymic/ bored. Affect: Blunted Thought process: Linear Thought Content: Focused on meals, snacks, and beverages. Cognition: A/O X3 Insight: Fair Judgment: Fair Interventions PRN's used: None Therapeutic interventions:1:1 assessment, therapeutic communication, active listening, medication administration/education/monitoring, provided direction and encouragement as needed, encouraged participation on the unit, and maintained Q 15 minute safety checks. Restraints/seclusion/emergency medication: N/A Justification of Continued Inpatient Treatment: Patient is at baseline and stable. Pt continues to benefit from mental health treatment while he waits for trial. It has been recommended that a referral for [facility] Conservatorship evaluation by [facility] and [facility] Public Guardian.
[2021-07-27 19:28] VITALS: BP 100/56
[2021-07-27] MEDS: traZODone 50mg tablet PO PRN (20:19)
[2021-07-27] MEDS: haloperidol 5mg tablet PO SCH (20:19)
--- NOTE | 2021-07-28 02:43 | NUR ---
Nursing Progress Note: Legal hold: 1370 Client on involuntary status for GD Report received from Mo RN with use of SBAR Why they are here: [facility] Pt has history of schizophrenia and substance abuse. Pt has multiple charges ranging from obstruction, public intoxication, trespassing, disturbing the peace, defecating in prohibited place, battery upon officer, unlawful camping, and possession. Assessment What has happened this shift: Pt lying in bed at start of shift. Up to group room for snack. He was pleasant and cooperative with meds and care. Pt denies depression, anxiety, SI/HI/AH/VH. Pt reports, he had a good day and his mood is good. S/I, H/I: Pt denies. A/VH: Pt denies. Sleep: Asleep at this time ADL's: Independent Group attendance: No Were Meds taken: Yes Any med S/E: None noted or reported. Mental Status Exam Appearance: Tall, pale man with short brown hair with bad teeth dressed in sweats and a black t-shirt. Eye contact: Good. Behavior: Pleasant, cooperative, mostly isolative to self, paces and watches TV. Speech: Clear audible, normal rate and rhythm. Mood: Euthymic/ bored. Affect: Blunted Thought process: Linear Thought Content: Focused on meals, snacks, and beverages. Cognition: A/O X3 Insight: Fair Judgment: Fair Interventions PRN's used: None Therapeutic interventions:1:1 assessment, therapeutic communication, active listening, medication administration/education/monitoring, provided direction and encouragement as needed, encouraged participation on the unit, and maintained Q 15 minute safety checks. Restraints/seclusion/emergency medication: N/A Justification of Continued Inpatient Treatment: Patient is at baseline and stable. Pt continues to benefit from mental health treatment while he waits for trial. It has been recommended that a referral for [facility] Conservatorship evaluation by [facility] and [facility] Public Guardian.
[2021-07-28 07:41] VITALS: BP 98/62
[2021-07-28] MEDS: PALIPERIDONE 3 MG TAB.ER.24 PO SCH (07:46)
[2021-07-28] MEDS: simethicone 125mg capsule PO SCH ×3 (07:46→20:26)
--- NOTE | 2021-07-28 15:56 | NUR ---
Nursing Progress Note: Legal hold: 1370 Client on involuntary status for GD Report received from nurse Juliet Coleman RN with use of SBAR Why are they here: Pt admitted from [facility] to restore competency. Pt has history of schizophrenia and substance abuse. Pt has multiple charges ranging from obstruction, public intoxication, trespassing, disturbing the peace, defecating in prohibited place, battery upon officer, unlawful camping, and possession. Assessment What has happened this shift: Received Pt in bed resting w/o distress in his room. Pt calm and pleasant. Cooperative with vitals and meds. Watched TV and walked halls. Napped shortly in am. S/I, H/I: Denies A/VH: Denies Sleep: Napped ADL's: Independent Group attendance: N/A Were Meds taken: Yes Any med S/E: None noted or reported Mental Status Exam Appearance: Tall dark haired male wearing green scrubs Eye contact: Fair Behavior: Cooperative; isolative Speech: Coherent short answers Mood: Guarded Affect: Blunted Thought process: Poverty of speech and content Thought Content: Meeting immediate needs Cognition: A&O X3 Insight: Fair Judgment: Fair Interventions PRN's used: None Therapeutic interventions: Provided 1:1 assessment with therapeutic communication; medication administration/education/monitoring, provided direction and encouragement as needed, encouraged participation on the unit, and maintained Q 15min safety checks. Restraints/seclusion/emergency medication: N/A Justification of Continued Inpatient Treatment: Per BEN Mccoy, pt. is at baseline, however continues to require a safe and supportive environment.
[2021-07-28 19:14] VITALS: BP 118/72
[2021-07-28] MEDS: haloperidol 5mg tablet PO SCH (20:26)
[2021-07-28] MEDS: traZODone 50mg tablet PO PRN (20:26)
--- NOTE | 2021-07-29 02:18 | NUR ---
Nursing Progress Note: Legal hold: 1370 Client on involuntary status for GD Report received from DANIEL Hernandez with use of SBAR Why are they here: Pt admitted from [facility] to restore competency. Pt has history of schizophrenia and substance abuse. Pt has multiple charges ranging from obstruction, public intoxication, trespassing, disturbing the peace, defecating in prohibited place, battery upon officer, unlawful camping, and possession. Assessment What has happened this shift: Pt up on unit at start of shift. Watching TV interacting with peers. Pt pleasant and cooperative. Answers questions with short answers does not initiate conversation. Pt ate snack in Group room and went to bed. Medication compliant. S/I, H/I: Denies A/VH: Denies Sleep: Asleep at this time ADL's: Independent Group attendance: N/A Were Meds taken: Yes Any med S/E: None noted or reported Mental Status Exam Appearance: Tall dark haired male wearing green scrubs Eye contact: Fair Behavior: Cooperative; isolative Speech: Coherent short answers Mood: Guarded Affect: Blunted Thought process: Poverty of speech and content Thought Content: Meeting immediate needs Cognition: A&O X3 Insight: Fair Judgment: Fair Interventions PRN's used: None Therapeutic interventions: Provided 1:1 assessment with therapeutic communication; medication administration/education/monitoring, provided direction and encouragement as needed, encouraged participation on the unit, and maintained Q 15min safety checks. Restraints/seclusion/emergency medication: N/A Justification of Continued Inpatient Treatment: Per BEN Mccoy, pt. is at baseline, however continues to require a safe and supportive environment.
[2021-07-29 07:46] VITALS: BP 114/82
[2021-07-29] MEDS: PALIPERIDONE 3 MG TAB.ER.24 PO SCH (08:48)
[2021-07-29] MEDS: simethicone 125mg capsule PO SCH ×3 (08:48→20:16)
--- NOTE | 2021-07-29 16:02 | NUR ---
Nursing Progress Note: Legal hold: 1370 Client on involuntary status for GD Report received from nurse Ramiro RN with use of SBAR Why are they here: Pt admitted from [facility] to restore competency. Pt has history of schizophrenia and substance abuse. Pt has multiple charges ranging from obstruction, public intoxication, trespassing, disturbing the peace, defecating in prohibited place, battery upon officer, unlawful camping, and possession. Assessment What has happened this shift: Pt woke for breakfast. He appears in a good mood smiling and thanking staff. Pt up for meals and snacks then observed back in bed after each meal and snack. He took his meds as prescribed. S/I, H/I: Denies A/VH: Denies Sleep: Napped ADL's: Independent Group attendance: N/A Were Meds taken: Yes Any med S/E: None noted or reported Mental Status Exam Appearance: Tall dark haired male wearing personal clothing; jeans and black t-shirt Eye contact: Fair Behavior: Cooperative; isolative Speech: Coherent short answers Mood: Guarded Affect: Blunted Thought process: Poverty of speech and content Thought Content: Meeting immediate needs Cognition: A&O X3 Insight: Fair Judgment: Fair Interventions PRN's used: None Therapeutic interventions: Provided 1:1 assessment with therapeutic communication; medication administration/education/monitoring, provided direction and encouragement as needed, encouraged participation on the unit, and maintained Q 15min safety checks. Restraints/seclusion/emergency medication: N/A Justification of Continued Inpatient Treatment: Per BEN Mccoy, pt. is at baseline, however continues to require a safe and supportive environment.
[2021-07-29 18:58] VITALS: BP 105/69
[2021-07-29 19:27] VITALS: BP 105/69
[2021-07-29] MEDS: traZODone 50mg tablet PO PRN (20:16)
[2021-07-29] MEDS: haloperidol 5mg tablet PO SCH (20:16)
--- NOTE | 2021-07-30 02:16 | NUR ---
Nursing Progress Note: Legal hold: 1370 Client on involuntary status for GD Report received from DANIEL Hernandez with use of SBAR Why are they here: Pt admitted from [facility] to restore competency. Pt has history of schizophrenia and substance abuse. Pt has multiple charges ranging from obstruction, public intoxication, trespassing, disturbing the peace, defecating in prohibited place, battery upon officer, unlawful camping, and possession. Assessment What has happened this shift: Pt up on unit at start of shift. Pacing in halls wearing headphones at start of shift. Watched TV interacting with peers. Pt pleasant and cooperative. Answers questions with short answers does not initiate conversation. Pt ate snack in Group room and went to bed. Medication compliant. S/I, H/I: Denies A/VH: Denies Sleep: Asleep at this time ADL's: Independent Group attendance: N/A Were Meds taken: Yes Any med S/E: None noted or reported Mental Status Exam Appearance: Tall dark haired male wearing green scrubs Eye contact: Fair Behavior: Cooperative; isolative Speech: Coherent short answers Mood: Guarded Affect: Blunted Thought process: Poverty of speech and content Thought Content: Meeting immediate needs Cognition: A&O X3 Insight: Fair Judgment: Fair Interventions PRN's used: None Therapeutic interventions: Provided 1:1 assessment with therapeutic communication; medication administration/education/monitoring, provided direction and encouragement as needed, encouraged participation on the unit, and maintained Q 15min safety checks. Restraints/seclusion/emergency medication: N/A Justification of Continued Inpatient Treatment: Per BEN Mccoy, pt. is at baseline, however continues to require a safe and supportive environment.
[2021-07-30 07:47] VITALS: BP 131/80
[2021-07-30] MEDS: simethicone 125mg capsule PO SCH ×3 (07:50→20:27)
[2021-07-30] MEDS: PALIPERIDONE 3 MG TAB.ER.24 PO SCH (07:51)
--- NOTE | 2021-07-30 11:36 | NUR ---
Nursing Progress Note: Legal hold: 1370 Client on involuntary status for GD Report received from Koki SANCHEZ with use of SBAR Why are they here: [facility] Pt has history of schizophrenia and substance abuse. Pt has multiple charges ranging from obstruction, public intoxication, trespassing, disturbing the peace, defecating in prohibited place, battery upon officer, unlawful camping, and possession. Assessment What has happened this shift: Pt was up before breakfast. He was pleasant and cooperative with meds and care. Pt denies depression, anxiety, SI/HI/AH/VH. Pt reports, he's doing well and has no complaints. No unsafe behaviors noted. S/I, H/I: Pt denies. A/VH: Pt denies. Sleep: Pt slept 7.5 hours last night per noc shift report. ADL's: Independent Group attendance: No Were Meds taken: Yes Any med S/E: None noted or reported. Mental Status Exam Appearance: Tall, pale man with short brown hair with bad teeth dressed in sweats and a black t-shirt. Eye contact: Good. Behavior: Pleasant, cooperative, mostly isolative to self, paces and watches TV. Speech: Clear audible, normal rate and rhythm. Mood: Euthymic/ bored. Affect: Blunted Thought process: Linear Thought Content: Focused on meals, snacks, and beverages. Cognition: A/O X3 Insight: Fair Judgment: Fair Interventions PRN's used: None Therapeutic interventions:1:1 assessment, therapeutic communication, active listening, medication administration/education/monitoring, provided direction and encouragement as needed, encouraged participation on the unit, and maintained Q 15 minute safety checks. Restraints/seclusion/emergency medication: N/A Justification of Continued Inpatient Treatment: Patient is at baseline and stable. Pt continues to benefit from mental health treatment while he waits for trial. It has been recommended that a referral for [facility] Conservatorship evaluation by [facility] and [facility] Public Guardian.
[2021-07-30 20:00] VITALS: BP 108/71
[2021-07-30] MEDS: traZODone 50mg tablet PO PRN (20:27)
[2021-07-30] MEDS: haloperidol 5mg tablet PO SCH (20:27)
--- NOTE | 2021-07-31 00:37 | NUR ---
Nursing Progress Note: Legal hold: 1370 Client on involuntary status for GD Report received from Mary SANCHEZ with use of SBAR Why are they here: [facility]. Pt has history of schizophrenia and substance abuse. Pt has multiple charges ranging from obstruction, public intoxication, trespassing, disturbing the peace, defecating in prohibited place, battery upon officer, unlawful camping, and possession. Assessment What has happened this shift: Pt lying in bed at the start of shift, did spend time in the community room watching tv and having snacks. No complaints at this time, denies any issues with his meds. S/I, H/I: Pt denies. A/VH: Pt denies. Sleep: sleeps well at night, does request PRN Trazadone to help him sleep ADL's: Independent Group attendance: n/a Were Meds taken: Yes Any med S/E: None noted or reported. Mental Status Exam Appearance: fair hygiene and grooming, wearing green hospital scrubs Eye contact: Good. Behavior: WNL Speech:normal rate, low volume Mood: Euthymic Affect: Blunted Thought process: Linear Thought Content:WNL Cognition: A/O X3 Insight: Fair Judgment: Fair Interventions PRN's used: None Therapeutic interventions:1:1 assessment, therapeutic communication, active listening, medication administration/education/monitoring, provided direction and encouragement as needed, encouraged participation on the unit, and maintained Q 15 minute safety checks. Restraints/seclusion/emergency medication: N/A Justification of Continued Inpatient Treatment: Patient is at baseline and stable. Pt continues to benefit from mental health treatment while he waits for trial. It has been recommended that a referral for [facility] Conservatorship evaluation by [facility] and [facility] Public Guardian.
[2021-07-31 07:12] VITALS: BP 113/70
[2021-07-31] MEDS: simethicone 125mg capsule PO SCH ×3 (07:58→20:02)
[2021-07-31] MEDS: PALIPERIDONE 3 MG TAB.ER.24 PO SCH (07:59)
--- NOTE | 2021-07-31 17:45 | NUR ---
Nursing Progress Note: Cameron Ortega Legal hold: 1370 Client on involuntary status for GD Report received from DANIEL Geiger with use of SBAR Why are they here: Pt admitted from [facility] to restore competency. Pt has history of schizophrenia and substance abuse. Pt has multiple charges ranging from obstruction, public intoxication, trespassing, disturbing the peace, defecating in prohibited place, battery upon officer, unlawful camping, and possession. Assessment What has happened this shift: Patient noted walking around the unit first thing this morning drinking coffee. He was noted to be polite, cooperative, and appropriate. He joined in the community room for breakfast, noted sitting by himself eating quietly. He continues to be self-isolative and quiet, only interacting when asked direct questions. When asked how patient is feeling today, he stated, doing great. Patient endorsed to this telegraphic typewriter installer that he wants to go outside on the patio today. 1:1 assessment completed, lungs CTA. Pt denies SI/HI, AH or VH. Does not appear to be responding to internal stimuli. He presents with euthymic mood. This telegraphic typewriter installer encouraged him to participate on the unit throughout the day. Patient endorsed that he doesnt want to go to group today and that he cant really get into them. He participated with peers on the outside patio. He is compliant with all medications. He was noted sleeping in bed after lunch. He spent the remainder of the day walking around the unit, slowly pacing the halls. He watched television periodically in the community room. He was observed taking naps intermittently throughout the day. He participated in the community room for all snacks/meals. S/I, H/I: Pt denies. A/VH: Pt denies. Sleep: Pt slept 7.75 hours last night per noc shift report, intermittent naps throughout the day ADL's: Independent Group attendance: No Were Meds taken: Yes Any med S/E: None noted or reported. Mental Status Exam Appearance: Shaved head, dressed in sweats and a black t-shirt. Eye contact: Good. Behavior: Pleasant, cooperative, self-isolative Speech: Clear, WNL Mood: Euthymic, bored Affect: Blunted Thought process: Linear Thought Content: Meeting needs, going outside Cognition: A/O X3 Insight: Fair Judgment: Fair Interventions PRN's used: None Therapeutic interventions: 1:1 assessment, therapeutic communication, active listening, medication administration/education/monitoring, provided direction and encouragement as needed, encouraged participation on the unit, and maintained Q 15 minute safety checks. Restraints/seclusion/emergency medication: N/A Justification of Continued Inpatient Treatment: Patient is at baseline and stable. Pt continues to benefit from mental health treatment while he waits for trial. Patient continues to be deemed incompetent to stand trial. It has been recommended that a referral for [facility] Conservatorship evaluation by [facility] and [facility] Guardian. Per BEN rCenshaw, No change in medication or treatment plan at this time. Patient is awaiting court's decision.
[2021-07-31] MEDS: traZODone 50mg tablet PO PRN (20:02)
[2021-07-31] MEDS: haloperidol 5mg tablet PO SCH (20:02)
[2021-07-31 20:58] VITALS: BP 112/74
--- NOTE | 2021-08-01 00:59 | NUR ---
Nursing Progress Note: Legal hold: 1370 Client on involuntary status for GD Report received from Mary SANCHEZ with use of SBAR Why are they here: Pt admitted from [facility] to restore competency. Pt has history of schizophrenia and substance abuse. Pt has multiple charges ranging from obstruction, public intoxication, trespassing, disturbing the peace, defecating in prohibited place, battery upon officer, unlawful camping, and possession. Assessment What has happened this shift: Received the patient sleeping at shift change. He occasionally goes into the community room to watch TV, but bores of it quickly. Says he's doing "fine." He received his HS meds while snacking, then went to bed. S/I, H/I: Denies. A/VH: Denies. Sleep: See sleep assessment ADL's: Independent Group attendance: n/a Were Meds taken: Yes Any med S/E: None noted or reported. Mental Status Exam Appearance: fair hygiene and grooming, wearing green hospital scrubs Eye contact: Good. Behavior: WNL, paces, sleeps, isolates. Speech:normal rate, low volume Mood: Euthymic Affect: Blunted Thought process: Linear Thought Content:WNL Cognition: A/O X3 Insight: Fair Judgment: Fair Interventions PRN's used: None Therapeutic interventions:1:1 assessment, therapeutic communication, active listening, medication administration/education/monitoring, provided direction and encouragement as needed, encouraged participation on the unit, and maintained Q 15 minute safety checks. Restraints/seclusion/emergency medication: N/A Justification of Continued Inpatient Treatment: Patient is at baseline and stable. Pt continues to benefit from mental health treatment while he waits for trial. It has been recommended that a referral for [facility] Conservatorship evaluation by [facility] and [facility] Public Guardian.
[2021-08-01 08:00] VITALS: BP 99/68
[2021-08-01] MEDS: simethicone 125mg capsule PO SCH ×3 (08:04→20:13)
[2021-08-01] MEDS: PALIPERIDONE 3 MG TAB.ER.24 PO SCH (08:05)
--- NOTE | 2021-08-01 17:54 | NUR ---
Nursing Progress Note: Cameron Ortega Legal hold: 1370 Client on involuntary status for GD Report received from DANIEL Sadler with use of SBAR Why are they here: Pt admitted from [facility] to restore competency. Pt has history of schizophrenia and substance abuse. Pt has multiple charges ranging from obstruction, public intoxication, trespassing, disturbing the peace, defecating in prohibited place, battery upon officer, unlawful camping, and possession. Assessment What has happened this shift: Patient observed walking around the unit upon change of shift. He was noted asking for coffee and walking through the unit, quietly keeping to himself. He joined in the community room for breakfast, noted sitting by himself eating quietly. Patient endorsed to this content writer that he is doing good today. He continues to be self-isolative and quiet, only interacting when asked direct questions. 1:1 assessment completed, lungs CTA. Pt denies SI/HI, AH or VH. Does not appear to be responding to internal stimuli. He joined peers on the outside patio today. He continues to be polite, cooperative, and appropriate. He did not participate in group today despite encouragement. He is compliant with all medications. He was noted intermittently napping throughout the day. He was observed watching television in the community room periodically. He slowly walks around the unit, appearing bored. He participated in the community room for all snacks/meals. S/I, H/I: Pt denies. A/VH: Pt denies. Sleep: Pt slept 9 hours last night per noc shift report, intermittent naps throughout the day. ADL's: Requires prompting Group attendance: No Were Meds taken: Yes Any med S/E: None noted or reported. Mental Status Exam Appearance: Shaved head, dressed in green unit scrubs, poor hygiene is noted Eye contact: Good. Behavior: Pleasant, cooperative, self-isolative Speech: Clear, WNL Mood: Euthymic, bored Affect: Blunted Thought process: Linear Thought Content: Meeting needs, going outside Cognition: A/O X3 Insight: Fair Judgment: Fair Interventions PRN's used: None Therapeutic interventions: 1:1 assessment, therapeutic communication, active listening, medication administration/education/monitoring, provided direction and encouragement as needed, encouraged participation on the unit, and maintained Q 15 minute safety checks. Restraints/seclusion/emergency medication: N/A Justification of Continued Inpatient Treatment: Patient is at baseline and stable. Pt continues to benefit from mental health treatment while he waits for trial. Patient continues to be deemed incompetent to stand trial. It has been recommended that a referral for [facility] Conservatorship evaluation by [facility] and [facility] Guardian. Per BEN Crenshaw, No change in medication or treatment plan at this time. Patient is awaiting court's decision.
[2021-08-01] MEDS: traZODone 50mg tablet PO PRN (20:14)
[2021-08-01] MEDS: haloperidol 5mg tablet PO SCH (20:14)
[2021-08-01 20:45] VITALS: BP 107/68
--- NOTE | 2021-08-02 00:09 | NUR ---
Nursing Progress Note: Cameron Ortega Legal hold: 1370 Client on involuntary status for GD Report received from DANIEL Rubio with use of SBAR Why are they here: Pt admitted from [facility] to restore competency. Pt has history of schizophrenia and substance abuse. Pt has multiple charges ranging from obstruction, public intoxication, trespassing, disturbing the peace, defecating in prohibited place, battery upon officer, unlawful camping, and possession. Assessment What has happened this shift: Patient up walking around the unit upon change of shift. He continues to be self-isolative and quiet, only interacting when asked direct questions. Does not appear to be responding to internal stimuli. He ate snack in the group room and was med compliant. S/I, H/I: Pt denies. A/VH: Pt denies. Sleep: See sleep assessment. ADL's: Requires prompting Group attendance: No Were Meds taken: Yes Any med S/E: None noted or reported. Mental Status Exam Appearance: Shaved head, dressed in green unit scrubs, poor hygiene is noted Eye contact: Good. Behavior: Pleasant, cooperative, self-isolative Speech: Clear, WNL Mood: Euthymic, bored Affect: Blunted Thought process: Linear Thought Content: Meeting needs, going outside Cognition: A/O X3 Insight: Fair Judgment: Fair Interventions PRN's used: None Therapeutic interventions: 1:1 assessment, therapeutic communication, active listening, medication administration/education/monitoring, provided direction and encouragement as needed, encouraged participation on the unit, and maintained Q 15 minute safety checks. Restraints/seclusion/emergency medication: N/A Justification of Continued Inpatient Treatment: Patient is at baseline and stable. Pt continues to benefit from mental health treatment while he waits for trial. Patient continues to be deemed incompetent to stand trial. It has been recommended that a referral for [facility] Conservatorship evaluation by [facility] and [facility] Public Guardian. Per BEN Crenshaw, No change in medication or treatment plan at this time. Patient is awaiting court's decision.
[2021-08-02] MEDS: PALIPERIDONE 3 MG TAB.ER.24 PO SCH (07:59)
[2021-08-02] MEDS: simethicone 125mg capsule PO SCH ×3 (07:59→20:38)
[2021-08-02 08:00] VITALS: BP 104/65
--- NOTE | 2021-08-02 11:11 | NUR ---
F/u 08/02: Pt continues eating well with 100% PO intake on regular diet while receiving double protein TID per diet order, meeting estimated nutrient needs. LBM 08/01. No nutrition intervention implemented at this time. Will continue to follow. Recommendations: 1) Continue regular diet; double eggs WB double meat BIDLD per diet order 2) Bowel care per rx 3) Weekly scaled weights Addendum: 08/02/21 at [address] Amended: Links added.
--- NOTE | 2021-08-02 17:43 | NUR ---
Nursing Progress Note: Cameron Ortega Legal hold: 1370 Client on involuntary status for GD Report received from DANIEL Rubio with use of SBAR Why are they here: Pt admitted from [facility] to restore competency. Pt has history of schizophrenia and substance abuse. Pt has multiple charges ranging from obstruction, public intoxication, trespassing, disturbing the peace, defecating in prohibited place, battery upon officer, unlawful camping, and possession. Assessment What has happened this shift: Patient noted sleeping in bed at shift change. He endorsed to this editorial writer that he slept good last night and is feeling fine. He is complaint with all medications. He ate breakfast in the community room with peers. He continues to be antisocial, isolative, and quiet. 1:1 assessment completed, lungs CTA. He continues to only interact with staff/ peers when directly approached. Patient took a shower this morning, dressed in clean clothing with clean linen applied to bed. He is polite, composed, and cooperative with care. Pt denies SI/HI, AH or VH. Does not appear to be responding to internal stimuli. This editorial writer encouraged patient to participate in group today. He was observed walking into the community room for group therapy and moments later retreating back to his room. He was observed sleeping in bed for approximately one hour until lunch arrived. He joined peers on the outside patio today, noted interacting appropriately. He napped intermittently throughout the day. He slowly walks around the unit, appearing bored. He participated in the community room for all snacks/meals. S/I, H/I: Pt denies. A/VH: Pt denies. Sleep: Pt slept 8.5 hours last night per noc shift report, intermittent naps throughout the day. ADL's: Requires prompting Group attendance: No Were Meds taken: Yes Any med S/E: None noted or reported. Mental Status Exam Appearance: Took a shower today, clean, dressed in green unit scrubs Eye contact: Good. Behavior: Pleasant, cooperative, self-isolative Speech: Clear, WNL Mood: Euthymic, bored Affect: Blunted Thought process: Linear Thought Content: Meeting needs, going outside Cognition: A/O X3 Insight: Fair Judgment: Fair Interventions PRN's used: None Therapeutic interventions: 1:1 assessment, therapeutic communication, active listening, medication administration/education/monitoring, provided direction and encouragement as needed, encouraged participation on the unit, and maintained Q 15 minute safety checks. Restraints/seclusion/emergency medication: N/A Justification of Continued Inpatient Treatment: Patient is at baseline and stable. Pt continues to benefit from mental health treatment while he waits for trial. Patient continues to be deemed incompetent to stand trial. It has been recommended that a referral for [facility] Conservatorship evaluation [facility] Per BEN Crenshaw, no change in medication or treatment plan at this time. Patient continues to be incompetent to stand trial based on his insight and his explanations and his understanding of his charges.
[2021-08-02 19:00] VITALS: BP 124/87
[2021-08-02] MEDS: haloperidol 5mg tablet PO SCH ×2 (20:38→21:01)
[2021-08-02] MEDS: traZODone 50mg tablet PO PRN ×2 (20:38→21:01)
--- NOTE | 2021-08-02 23:38 | NUR ---
Nursing Progress Note: Cameron Ortega Legal hold: 1370 Client on involuntary status for GD Report received from DANIEL Rubio with use of SBAR Why are they here: Pt admitted from [facility] to restore competency. Pt has history of schizophrenia and substance abuse. Pt has multiple charges ranging from obstruction, public intoxication, trespassing, disturbing the peace, defecating in prohibited place, battery upon officer, unlawful camping, and possession. Assessment What has happened this shift: Patient is self isolating in room following shift change. Patient out of his room for a short time for meals and snacks. Patient is well oriented. He minimizes any psychiatric complaints. Patient denies S/I, H/I, or any hallucinations. Patient tells this justowriter operator "I feel fine." Patient requests and was given Trazadone for sleep. S/I, H/I: Pt denies. A/VH: Pt denies. Sleep: Will tally at 0500 hours. ADL's: Capable but requires encouragement. Group attendance: No group on nights. Were Meds taken: Yes, medication compliant. Any med S/E: None noted or reported. Mental Status Exam Appearance: Clean, well dressed. Eye contact: Good. Behavior: Quiet, isolative, friendly. Speech: WNL. Mood: Euthymic, bored. Affect: Blunted. Thought process: Linear. Thought Content: Meeting' ones own needs, focused on rest. Cognition: A/O X3. Insight: Fair. Judgment: Fair. Interventions PRN's used: Trazadone. Therapeutic interventions: 1:1 assessment, therapeutic communication, active listening, medication administration/education/monitoring, provided direction and encouragement as needed, encouraged participation on the unit, and maintained Q 15 minute safety checks. Restraints/seclusion/emergency medication: N/A Justification of Continued Inpatient Treatment: Patient is at baseline and stable. Pt continues to benefit from mental health treatment while he waits for trial. Patient continues to be deemed incompetent to stand trial. It has been recommended that a referral for [facility] Conservatorship evaluation by [facility] and [facility] Public Guardian. Per BEN Crenshaw, no change in medication or treatment plan at this time. Patient continues to be incompetent to stand trial based on his insight and his explanations and his understanding of his charges.
[2021-08-03 07:04] VITALS: BP 116/78
[2021-08-03] MEDS: PALIPERIDONE 3 MG TAB.ER.24 PO SCH (07:37)
[2021-08-03] MEDS: simethicone 125mg capsule PO SCH ×3 (07:37→20:01)
--- NOTE | 2021-08-03 13:04 | NUR ---
Nursing Progress Note: Cameron Ortega Legal hold: 1370 Client on involuntary status for GD Report received from DANIEL Cardoso with use of SBAR Why are they here: [facility] Pt has history of schizophrenia and substance abuse. Pt has multiple charges ranging from obstruction, public intoxication, trespassing, disturbing the peace, defecating in prohibited place, battery upon officer, unlawful camping, and possession. Assessment What has happened this shift: Patient continues to do well, no behavior issues and pt is compliant and cooperative for care and assessments. Pt walks the halls but does not interact with others. Pt accepts meds without issue. S/I, H/I: Pt denies. A/VH: Pt denies. Sleep: see sleep hours ADL's: Capable but requires encouragement. Group attendance: No group Were Meds taken: Yes, medication compliant. Any med S/E: None noted or reported. Mental Status Exam Appearance: Clean, well dressed. Eye contact: Good. Behavior: Quiet, isolative, friendly. Speech: WNL. Mood: Euthymic, bored. Affect: Blunted. Thought process: Linear. Thought Content: Meeting' ones own needs, focused on rest. Cognition: A/O X3. Insight: Fair. Judgment: Fair. Interventions PRN's used: Trazadone. Therapeutic interventions: 1:1 assessment, therapeutic communication, active listening, medication administration/education/monitoring, provided direction and encouragement as needed, encouraged participation on the unit, and maintained Q 15 minute safety checks. Restraints/seclusion/emergency medication: N/A Justification of Continued Inpatient Treatment: Patient is at baseline and stable. Pt continues to benefit from mental health treatment while he waits for trial. Patient continues to be deemed incompetent to stand trial. It has been recommended that a referral for [facility] Conservatorship evaluation by [facility] and [facility] Public Guardian. Per BEN Crenshaw, no change in medication or treatment plan at this time. Patient continues to be incompetent to stand trial based on his insight and his explanations and his understanding of his charges.
[2021-08-03 19:00] VITALS: BP 108/66
[2021-08-03] MEDS: traZODone 50mg tablet PO PRN (20:01)
--- NOTE | 2021-08-04 01:39 | NUR ---
Nursing Progress Note: Cameron Ortega Legal hold: 1370 Client on involuntary status for GD Report received from DANIEL Cardoso with use of SBAR [facility] are they here[facility] Pt has history of schizophrenia and substance abuse. Pt has multiple charges ranging from obstruction, public intoxication, trespassing, disturbing the peace, defecating in prohibited place, battery upon officer, unlawful camping, and possession. Assessment What has happened this shift: Patient had a good evening, no complaints and pt denies all mh symptoms. Pt was seen walking the garcia but not interacting with other. At times he can be seen smiling, as if someone has said something funny. Pt accepted hs meds without issue. S/I, H/I: Pt denies. A/VH: Pt denies. Sleep: see sleep hours ADL's: Capable but requires encouragement. Group attendance: No group Were Meds taken: Yes, medication compliant. Any med S/E: None noted or reported. Mental Status Exam Appearance: Clean, well dressed. Eye contact: Good. Behavior: Quiet, isolative, friendly. Speech: WNL. Mood: Euthymic, bored. Affect: Blunted. Thought process: Linear. Thought Content: snacks Cognition: A/O X3. Insight: Fair. Judgment: Fair. Interventions PRN's used: Trazadone. Therapeutic interventions: 1:1 assessment, therapeutic communication, active listening, medication administration/education/monitoring, provided direction and encouragement as needed, encouraged participation on the unit, and maintained Q 15 minute safety checks. Restraints/seclusion/emergency medication: N/A Justification of Continued Inpatient Treatment: Patient is at baseline and stable. Pt continues to benefit from mental health treatment while he waits for trial. Patient continues to be deemed incompetent to stand trial. It has been recommended that a referral for [facility] Conservatorship evaluation by [facility] and [facility] Guardian. Per BEN Crenshaw, no change in medication or treatment plan at this time. Patient continues to be incompetent to stand trial based on his insight and his explanations and his understanding of his charges.
[2021-08-04] MEDS: simethicone 125mg capsule PO SCH ×3 (07:32→20:12)
[2021-08-04] MEDS: PALIPERIDONE 3 MG TAB.ER.24 PO SCH (07:33)
[2021-08-04 08:00] VITALS: BP 98/54
--- NOTE | 2021-08-04 14:26 | NUR ---
Nursing Progress Note: Legal hold: 1370 Client on involuntary status for GD Report received from Juliet Gale RN with use of SBAR Why are they here[facility] Pt has history of schizophrenia and substance abuse. Pt has multiple charges ranging from obstruction, public intoxication, trespassing, disturbing the peace, defecating in prohibited place, battery upon officer, unlawful camping, and possession. Assessment What has happened this shift: Pt was up before breakfast watching TV in the dining room. Pt was cooperative with medications. Pt denied depression, anxiety, SI/HI/AH/VH. Pt reports he is "good" and hoping to get out of here next week. Pt's hearing is scheduled for 08/10/21. Pt attended group. Pt watched TV. No unsafe behaviors noted. S/I, H/I: Pt denies. A/VH: Pt denies. Sleep: Pt slept 8 hours last night per noc shift report. ADL's: Independent Group attendance: Yes Were Meds taken: Yes Any med S/E: None noted or reported. Mental Status Exam Appearance: Tall, pale man with short brown hair and bad teeth dressed in personal clothing. Eye contact: Good. Behavior: Pleasant, cooperative, quiet, watched football. Speech: Clear audible, normal rate and rhythm. Mood: "Good" Affect: Blunted with brightening. Thought process: Linear Thought Content: Focused on football today. Cognition: A/O X3 Insight: Fair Judgment: Fair Interventions PRN's used: None Therapeutic interventions: 1:1 assessment, therapeutic communication, active listening, medication administration/education/monitoring, provided direction and encouragement as needed, encouraged participation on the unit, and maintained Q 15 minute safety checks. Restraints/seclusion/emergency medication: N/A Justification of Continued Inpatient Treatment: Patient is at baseline and stable. Pt continues to benefit from mental health treatment while he waits for trial. It [facility] been [facility] and [facility] Public Guardian. Hearing date is set for 08/10/21.
[2021-08-04 20:00] VITALS: BP 114/72
[2021-08-04] MEDS: traZODone 50mg tablet PO PRN (20:12)
[2021-08-04] MEDS: haloperidol 5mg tablet PO SCH (20:12)
--- NOTE | 2021-08-05 00:02 | NUR ---
Nursing Progress Note: Legal hold: 1370 Client on involuntary status for GD Report received from DANIEL Rubio with use of SBAR Why are they here: Pt admitted from [facility] to restore competency. Pt has history of schizophrenia and substance abuse. Pt has multiple charges ranging from obstruction, public intoxication, trespassing, disturbing the peace, defecating in prohibited place, battery upon officer, unlawful camping, and possession. Assessment What has happened this shift: The patient was pacing the halls at shift change. He was smiling and laughing as he walked by. Patient spent the rest of the evening in his room. He continues to deny all MH symptoms. Patient was up for snack and HS med pass, then went back to his room. S/I, H/I: Denies. A/VH: Denies. Sleep: See sleep assessment ADL's: Independent Group attendance: n/a Were Meds taken: Yes Any med S/E: None noted or reported. Mental Status Exam Appearance: fair hygiene and grooming, wearing green hospital scrubs Eye contact: Good. Behavior: WNL, paces, sleeps, isolates. Speech:normal rate, low volume Mood: Euthymic Affect: Blunted Thought process: Linear Thought Content:WNL Cognition: A/O X3 Insight: Fair Judgment: Fair Interventions PRN's used: None Therapeutic interventions:1:1 assessment, therapeutic communication, active listening, medication administration/education/monitoring, provided direction and encouragement as needed, encouraged participation on the unit, and maintained Q 15 minute safety checks. Restraints/seclusion/emergency medication: N/A Justification of Continued Inpatient Treatment: Patient is at baseline and stable. Pt continues to benefit from mental health treatment while he waits for trial. It has been recommended that a referral for [facility] Conservatorship evaluation by [facility] and [facility] Public Guardian.
[2021-08-05 08:00] VITALS: BP 114/87
[2021-08-05] MEDS: simethicone 125mg capsule PO SCH ×3 (08:30→20:07)
[2021-08-05] MEDS: PALIPERIDONE 3 MG TAB.ER.24 PO SCH (08:30)
--- NOTE | 2021-08-05 17:51 | NUR ---
Nursing Progress Note: Cameron Ortega Legal hold: 1370 Client on involuntary status for GD Report received from DANIEL Hassan with use of SBAR Why are they here: Pt admitted from [facility] to restore competency. Pt has history of schizophrenia and substance abuse. Pt has multiple charges ranging from obstruction, public intoxication, trespassing, disturbing the peace, defecating in prohibited place, battery upon officer, unlawful camping, and possession. Assessment What has happened this shift: Patient was noted walking around the unit at change of shift. He was observed drinking coffee and waiting for breakfast to arrive. He endorsed to this principal technical writer that he is looking forward to watching the football game today. He continues to be polite, composed, and cooperative with care. He joined in the community room for breakfast with peers, noted eating his food quietly. He is compliant with all medications. 1:1 assessment completed, lungs CTA. Patient retreated back to his room after breakfast and was noted sleeping in bed. He was observed sitting in the community room at approximately 1030 this morning watching football on the television. He endorsed to this nurse that he feels good today. He slowly walks around the unit, appearing bored. He continues to be antisocial, isolative, and quiet. Pt denies SI/HI, AH or VH. Does not appear to be responding to internal stimuli. He continues to only interact with staff/ peers when directly approached. He was noted taking two short naps today. He was active on the unit, however, does not socialize very often with others. He joined in the community room for all snacks/meals today. S/I, H/I: Pt denies. A/VH: Pt denies. Sleep: Pt slept 8.25 hours last night per NOC shift, two short naps noted today. ADL's: Requires prompting Group attendance: No group provided today Were Meds taken: Yes Any med S/E: None noted or reported. Mental Status Exam Appearance: Fair hygiene and grooming, short brown hair and bad teeth, wearing green unit scrubs. Eye contact: Good. Behavior: Pleasant, cooperative, quiet, watching football. Speech: Clear, WNL Mood: Feels good today, Euthymic, bored Affect: Blunted, smiles at times during conversation Thought process: Linear Thought Content: Meeting needs, looking forward to watching the football game today. Cognition: A&O X3 Insight: Fair Judgment: Fair Interventions PRN's used: None Therapeutic interventions: 1:1 assessment, therapeutic communication, active listening, medication administration/education/monitoring, provided direction and encouragement as needed, encouraged participation on the unit, and maintained Q 15 minute safety checks. Restraints/seclusion/emergency medication: N/A Justification of Continued Inpatient Treatment: Patient is at baseline and stable. Pt continues to benefit from mental health treatment while he waits for trial. Patient continues to be deemed incompetent to stand trial. Per BEN Crenshaw, no change in medication or treatment plan at this time. Patient has 6 more days before his next court hearing.
[2021-08-05 20:00] VITALS: BP 97/58
[2021-08-05] MEDS: traZODone 50mg tablet PO PRN (20:07)
[2021-08-05] MEDS: haloperidol 5mg tablet PO SCH (20:07)
--- NOTE | 2021-08-06 00:26 | NUR ---
Nursing Progress Note: Legal hold: 1370 Client on involuntary status for GD Report received from DANIEL Rubio with use of SBAR Why are they here: Pt admitted from [facility] to restore competency. Pt has history of schizophrenia and substance abuse. Pt has multiple charges ranging from obstruction, public intoxication, trespassing, disturbing the peace, defecating in prohibited place, battery upon officer, unlawful camping, and possession. Assessment What has happened this shift: The patient was in his room napping when this feature writer entered his room. he easily woke to his name. "I'm doing good," when asked. He says that he's doing the best he can, while waiting for something to happen with his case. "It's boring here." Patient denies HI/SI and AV/H. He also denies depression. He was out for snack time, but retires to bed right after HS med pass. S/I, H/I: Denies. A/VH: Denies. Sleep: See sleep assessment ADL's: Independent Group attendance: n/a Were Meds taken: Yes Any med S/E: None noted or reported. Mental Status Exam Appearance: fair hygiene and grooming, wearing street clothes. Eye contact: Good. Behavior: WNL, paces, sleeps, isolates. Speech:normal rate, low volume Mood: Euthymic Affect: Blunted Thought process: Linear Thought Content:WNL Cognition: A/O X3 Insight: Fair Judgment: Fair Interventions PRN's used: None Therapeutic interventions:1:1 assessment, therapeutic communication, active listening, medication administration/education/monitoring, provided direction and encouragement as needed, encouraged participation on the unit, and maintained Q 15 minute safety checks. Restraints/seclusion/emergency medication: N/A Justification of Continued Inpatient Treatment: Patient is at baseline and stable. Pt continues to benefit from mental health treatment while he waits for trial. It has been [facility] and [facility] Guardian.
[2021-08-06 08:00] VITALS: BP 109/69
[2021-08-06] MEDS: PALIPERIDONE 3 MG TAB.ER.24 PO SCH (08:20)
[2021-08-06] MEDS: simethicone 125mg capsule PO SCH ×3 (08:20→20:09)
--- NOTE | 2021-08-06 17:28 | NUR ---
Nursing Progress Note: Cameron Ortega Legal hold: 1370 Client on involuntary status for GD Report received from Juliet Coleman RN with use of SBAR Why are they here: Pt admitted from [facility] to restore competency. Pt has history of schizophrenia and substance abuse. Pt has multiple charges ranging from obstruction, public intoxication, trespassing, disturbing the peace, defecating in prohibited place, battery upon officer, unlawful camping, and possession. Assessment What has happened this shift: Patient was observed sleeping in bed at shift change. He joined with peers in the community room, noted quietly eating food by himself. Patient endorsed to this screenplay writer that he is doing good and that he wants to take a shower and go outside on the patio today. He continues to be polite, calm, and cooperative with care. He is compliant with all medications. Patient noted sitting in his room, self-isolating after breakfast, appearing bored. 1:1 assessment completed, lungs CTA. He joined with other peers on the outside patio today, noted interacting appropriately. He was noted sitting in the community room with peers for snack time. Patient retreated back to his room when group therapy began in the community room. This screenplay writer attempted to encourage him to participate in group today, however, he was not interested. Patient approached this screenplay writer later in the day endorsing that he "took a shower this morning and went out of the patio with peers", stating that it was nice. He was dressed in clean clothing with clean linen applied to bed. Patient noted walking through the unit drinking coffee. He continues to be antisocial, isolative, and quiet. He napped intermittently throughout the day. Pt denies SI/HI, AH or VH. Does not appear to be responding to internal stimuli. He continues to only interact with staff/ peers when directly approached. He was observed walking slowly throughout the unit the remainder of the day and sitting in the community room watching football. He joined in the community room for all meals and snacks. S/I, H/I: Pt denies. A/VH: Pt denies. Sleep: Pt slept 9.5 hours last night per NOC shift, napped intermittently throughout the day ADL's: Requires prompting Group attendance: No Were Meds taken: Yes Any med S/E: None noted or reported. Mental Status Exam Appearance: Clean, took a shower on this shift, short brown hair and bad teeth, dressed appropriately for unit. Eye contact: Good. Behavior: Pleasant, cooperative, quiet Speech: Clear, WNL Mood: Doing good, Euthymic, bored Affect: Blunted, smiles at times during conversation Thought process: Linear Thought Content: Meeting needs, Wanting to go outside today Cognition: A&O X3 Insight: Fair Judgment: Fair Interventions PRN's used: None Therapeutic interventions: 1:1 assessment, therapeutic communication, active listening, medication administration/education/monitoring, provided direction and encouragement as needed, encouraged participation on the unit, and maintained Q 15 minute safety checks. Restraints/seclusion/emergency medication: N/A Justification of Continued Inpatient Treatment: Patient is at baseline and stable. Pt continues to benefit from mental health treatment while he waits for trial. Patient continues to be deemed incompetent to stand trial. Per BEN Crenshaw, no change in medication or treatment plan at this time. Continue medications patient has court this Friday.
[2021-08-06 20:09] VITALS: BP 110/77
[2021-08-06] MEDS: traZODone 50mg tablet PO PRN (20:09)
[2021-08-06] MEDS: haloperidol 5mg tablet PO SCH (20:09)
--- NOTE | 2021-08-06 23:39 | NUR ---
Nursing Progress Note: Legal hold: 1370 Client on involuntary status for GD Report received from DANIEL Rubio with use of SBAR Why are they here: Pt admitted from [facility] to restore competency. Pt has history of schizophrenia and substance abuse. Pt has multiple charges ranging from obstruction, public intoxication, trespassing, disturbing the peace, defecating in prohibited place, battery upon officer, unlawful camping, and possession. Assessment What has happened this shift: The patient was in his room napping when this technical publications writer entered his room. he easily woke to his name. "I'm doing good," when asked. He says that he's doing the best he can, while waiting for something to happen with his case. "It's boring here." Patient denies HI/SI and AV/H. He also denies depression. He was out for snack time, but retires to bed right after HS med pass. S/I, H/I: Denies. A/VH: Denies. Sleep: See sleep assessment ADL's: Independent Group attendance: n/a Were Meds taken: Yes Any med S/E: None noted or reported. Mental Status Exam Appearance: fair hygiene and grooming, wearing street clothes. Eye contact: Good. Behavior: WNL, paces, sleeps, isolates. Speech:normal rate, low volume Mood: Euthymic Affect: Blunted Thought process: Linear Thought Content:WNL Cognition: A/O X3 Insight: Fair Judgment: Fair Interventions PRN's used: None Therapeutic interventions:1:1 assessment, therapeutic communication, active listening, medication administration/education/monitoring, provided direction and encouragement as needed, encouraged participation on the unit, and maintained Q 15 minute safety checks. Restraints/seclusion/emergency medication: N/A Justification of Continued Inpatient Treatment: Patient is at baseline and stable. Pt continues to benefit from mental health treatment while he waits for trial. [facility] and [facility] Guardian.
[2021-08-07 07:27] VITALS: BP 106/77
[2021-08-07] MEDS: simethicone 125mg capsule PO SCH ×3 (08:23→20:07)
[2021-08-07] MEDS: PALIPERIDONE 3 MG TAB.ER.24 PO SCH (08:23)
--- NOTE | 2021-08-07 17:28 | NUR ---
Nursing Progress Note: Cameron Ortega Legal hold: 1370 Client on involuntary status for GD Report received from DANIEL Johnson with use of SBAR Why are they here: Pt admitted from [facility] to restore competency. Pt has history of schizophrenia and substance abuse. Pt has multiple charges ranging from obstruction, public intoxication, trespassing, disturbing the peace, defecating in prohibited place, battery upon officer, unlawful camping, and possession. Assessment What has happened this shift: Patient was observed sleeping in bed at change of shift. He is compliant with all medications. Patient had breakfast in the community room with peers this morning. He endorsed to this bond underwriter that he is feeling good today and wants to go outside. He continues to present as polite, calm, composed, and cooperative with care. 1:1 assessment completed, lungs CTA. Pt denies SI/HI, AH or VH. Does not appear to be responding to internal stimuli. He joined with other peers on the outside patio today, noted interacting appropriately. This bond underwriter tried to encourage patient to participate in group therapy today, however, he did not attend. Patient endorsed to this bond underwriter that he doesnt enjoy going to group unless they are doing something interacting like playing bingo. Patient noted walking around the unit throughout the day. He continues to be antisocial, isolative, and quiet. He napped intermittently throughout the day and joined in the community room for all meals and snacks. S/I, H/I: Pt denies. A/VH: Pt denies. Sleep: Pt slept 8 hours last night per NOC shift, napped intermittently throughout the day ADL's: Requires prompting Group attendance: No Were Meds taken: Yes Any med S/E: None noted or reported. Mental Status Exam Appearance: Clean, short brown hair and bad teeth, dressed in green unit scrubs Eye contact: Good. Behavior: Pleasant, cooperative, quiet Speech: Clear, WNL Mood: Euthymic, bored , feeling good today Affect: Blunted, smiles at times during conversation Thought process: Linear Thought Content: Meeting needs, wanting to go outside today, bored Cognition: A&O X3 Insight: Fair Judgment: Fair Interventions PRN's used: None Therapeutic interventions: 1:1 assessment, therapeutic communication, active listening, medication administration/education/monitoring, provided direction and encouragement as needed, encouraged participation on the unit, and maintained Q 15 minute safety checks. Restraints/seclusion/emergency medication: N/A Justification of Continued Inpatient Treatment: Patient is at baseline and stable. Pt continues to benefit from mental health treatment while he waits for trial. Patient continues to be deemed incompetent to stand trial. Per BEN Crenshaw, No change in medication or treatment plan at this time.
[2021-08-07 20:00] VITALS: BP 98/55
[2021-08-07] MEDS: haloperidol 5mg tablet PO SCH (20:07)
[2021-08-07] MEDS: traZODone 50mg tablet PO PRN (20:07)
--- NOTE | 2021-08-07 23:06 | NUR ---
Nursing Progress Note: Legal hold: 1370 Client on involuntary status for GD Report received from DANIEL Rubio with use of SBAR Why are they here: Pt admitted from [facility] to restore competency. Pt has history of schizophrenia and substance abuse. Pt has multiple charges ranging from obstruction, public intoxication, trespassing, disturbing the peace, defecating in prohibited place, battery upon officer, unlawful camping, and possession. Assessment What has happened this shift: The patient continues to be isolative. He comes out of his room for meals and snack time, but prefers the quiet of his room. He uses few words when answering questions, but has become more comfortable, so he will show more emotions, like smiling and laughing when conversing with staff. The patient has no behavioral problems and continues to be compliant with medications. He reports not feeling comfortable in group settings, so he usually declines going to groups, "I don't like to talk about myself, and that's what they want me to do." He does not appear to be RIS, and denies all MH symptoms. The patient receives his HS meds at bedside before going to sleep. S/I, H/I: Denies. A/VH: Denies. Sleep: See sleep assessment ADL's: Independent Group attendance: n/a Were Meds taken: Yes Any med S/E: None reported or observed. Mental Status Exam Appearance: fair hygiene and grooming, wearing street clothes. Eye contact: Good. Behavior: WNL, paces, sleeps, isolates. Speech: normal rate, low volume Mood: Euthymic Affect: Restricted Thought process: Linear Thought Content: Boredom Cognition: A/O X3 Insight: Fair Judgment: Fair Interventions PRN's used: None Therapeutic interventions:1:1 assessment, therapeutic communication, active listening, medication administration/education/monitoring, provided direction and encouragement as needed, encouraged participation on the unit, and maintained Q 15 minute safety checks. Restraints/seclusion/emergency medication: N/A Justification of Continued Inpatient Treatment: Patient is at baseline and stable. Pt continues to benefit from mental health treatment while he waits for trial. It has been recommended that a referral for [facility] Conservatorship evaluation by [facility] and [facility] Guardian.
[2021-08-08] MEDS: PALIPERIDONE 3 MG TAB.ER.24 PO SCH (07:43)
[2021-08-08] MEDS: simethicone 125mg capsule PO SCH ×3 (07:43→19:58)
[2021-08-08 07:46] VITALS: BP 130/85
--- NOTE | 2021-08-08 15:49 | NUR ---
Nursing Progress Note: Legal hold: 1370 Client on involuntary status for GD Report received from DANIEL Rubio with use of SBAR Why they are here: Pt admitted from [facility] to restore competency. Pt has history of schizophrenia and substance abuse. Pt has multiple charges ranging from obstruction, public intoxication, trespassing, disturbing the peace, defecating in prohibited place, battery upon officer, unlawful camping, and possession. Assessment What has happened this shift: Patient resting quietly in bed at start of shift. Eats meals in community room with peers. Very little interaction. Appears internally occupied but denies any AH/ VH. Isolates in room or paces unit. Patient is restless. Sometimes goes into common areas to sit, but is generally unable to sit for long and paces the unit. Guarded and only answers to direct questions. S/I, H/I: Pt denies. A/VH: Pt denies. Sleep: 8.75 hours per NOC. Naps off and on throughout day. ADL's: Independent Group attendance: No Were Meds taken: Yes Any med S/E: None noted or reported. Mental Status Exam Appearance: Clean, short brown hair and bad teeth, dressed in green unit scrubs Eye contact: Good. Behavior: Cooperative, isolative Speech: Clear, quiet, scant Mood: Good. Affect: congruent with mood Thought process: Appears internally occupied Thought Content: Poverty of thought Cognition: A&O X3 Insight: Fair Judgment: Fair Interventions PRN's used: None Therapeutic interventions: 1:1 assessment, therapeutic communication, active listening, medication administration/education/monitoring, provided direction and encouragement as needed, encouraged participation on the unit, and maintained Q 15 minute safety checks. Restraints/seclusion/emergency medication: N/A Justification of Continued Inpatient Treatment: Patient is at baseline and stable. Pt continues to benefit from mental health treatment while he waits for trial. Patient continues to be deemed incompetent to stand trial. Per BNE Crenshaw, No change in medication or treatment plan at this time.
[2021-08-08] MEDS: traZODone 50mg tablet PO PRN (19:58)
[2021-08-08] MEDS: haloperidol 5mg tablet PO SCH (19:58)
[2021-08-08 20:38] VITALS: BP 113/82
--- NOTE | 2021-08-09 01:12 | NUR ---
Nursing Progress Note: Legal hold: 1370 Client on involuntary status for GD Report received from DANIEL Hernandez with use of SBAR Why they are here: Pt admitted from [facility] to restore competency. Pt has history of schizophrenia and substance abuse. Pt has multiple charges ranging from obstruction, public intoxication, trespassing, disturbing the peace, defecating in prohibited place, battery upon officer, unlawful camping, and possession. Assessment What has happened this shift: Patient was up in the garcia at the start of the shift.He was in and out of his room keeping to him self. He ate snack in the group room and was med compliant. S/I, H/I: Pt denies. A/VH: Pt denies. Sleep: See sleep assessment. ADL's: Independent Group attendance: No Were Meds taken: Yes Any med S/E: None noted or reported. Mental Status Exam Appearance: Clean, short brown hair and bad teeth, dressed in green unit scrubs Eye contact: Good. Behavior: Cooperative, isolative Speech: Clear, quiet, scant Mood: Good. Affect: congruent with mood Thought process: Appears internally occupied Thought Content: Poverty of thought Cognition: A&O X3 Insight: Fair Judgment: Fair Interventions PRN's used: None Therapeutic interventions: 1:1 assessment, therapeutic communication, active listening, medication administration/education/monitoring, provided direction and encouragement as needed, encouraged participation on the unit, and maintained Q 15 minute safety checks. Restraints/seclusion/emergency medication: N/A Justification of Continued Inpatient Treatment: Patient is at baseline and stable. Pt continues to benefit from mental health treatment while he waits for trial. Patient continues to be deemed incompetent to stand trial. Per BEN Crenshaw, No change in medication or treatment plan at this time.
[2021-08-09] MEDS: PALIPERIDONE 3 MG TAB.ER.24 PO SCH (07:23)
[2021-08-09] MEDS: simethicone 125mg capsule PO SCH ×3 (07:23→21:03)
[2021-08-09 07:27] VITALS: BP 115/75
--- NOTE | 2021-08-09 12:08 | NUR ---
COURT TOMORROW 08/10/21 AT 8:30 AM Called [facility] [employer], Mo Holland (ph# [phone]) to inquire about transportation. He reported Burner Technician Stephane signed the transportation order for the [facility]'s Dept to transport. Cameron has court at 8:30 AM and should be picked up by the [facility]'s Dept prior to that. DAMIEN Pérez
--- NOTE | 2021-08-09 13:36 | NUR ---
Nursing Progress Note: Legal hold: 1370 Client on involuntary status for GD Report received from nurse with use of SBAR: DANIEL Rubio Why are they here: Pt admitted from [facility] to restore competency. Pt has history of schizophrenia and substance abuse. Pt had negative PPD and Covid tests. Pt has multiple charges ranging from obstruction, public intoxication, trespassing, disturbing the peace, defecating in prohibited place, battery upon officer, unlawful camping, and possession. Assessment What has happened this shift: Received pt. sleeping in bed at the beginning of the shift, he awoke and attended breakfast in the Group Room. Pt. continues to be guarded, however is pleasant and cooperative. He continues to respond to direct questions only with a minimal soft response. Pt. denies any MH s/s and reports with animation that he is looking forward to court tomorrow. He states somewhat restlessly, "I hope I get out of here." Pt. continues to report that he plans to go and stay with his father once he is released. He isolates in his room throughout most of the shift laying in bed, but does get up for meals. Pt. continues to interact very minimally with others, but is pleasant. S/I, H/I: Denies A/VH: Denies, does not appear internally preoccupied Sleep: Pt. reports he slept well ADL's: Independent Group attendance: None Were meds taken: Yes Any med S/E: None Mental Status Exam Appearance: Somewhat disheveled and appropriately dressed Eye contact: Good Behavior: Cooperative, somewhat restless and guarded Speech: Soft, responds minimally to direct questions only Mood: Guarded, however pleasant Affect: Blunted with animation Thought process: Linear Thought Content: Goal oriented Cognition: A&O X3 Insight: Fair Judgment: Fair Interventions PRN's used: None Therapeutic interventions: Maintained a safe and supportive environment, ensured contract for safety, provided clear and simple instructions, provided active listening and positive encouragement, and maintained Q 15min safety checks. Restraints/seclusion/emergency medication: N/A Justification of Continued Inpatient Treatment: Per BEN Mccoy, pt. is at baseline, he continues to require a safe and supportive environment while awaiting court tomorrow.
[2021-08-09 20:00] VITALS: BP 95/50
[2021-08-09] MEDS: haloperidol 5mg tablet PO SCH (21:03)
[2021-08-09] MEDS: traZODone 50mg tablet PO PRN (21:03)
--- NOTE | 2021-08-10 00:31 | NUR ---
Nursing Progress Note: Legal hold: 1370 Client on involuntary status for GD Report received from nurse with use of SBAR: DANIEL Hernandez Why are they here: Pt admitted from [facility] to restore competency. Pt has history of schizophrenia and substance abuse. Pt had negative PPD and Covid tests. Pt has multiple charges ranging from obstruction, public intoxication, trespassing, disturbing the peace, defecating in prohibited place, battery upon officer, unlawful camping, and possession. Assessment What has happened this shift: Received pt. resting in bed in a dark room at the beginning of the shift, he continued to remain withdrawn here throughout the shift, but did attend HS snack. Pt. continues to be cooperative and pleasant, however remains withdrawn and guarded with conversation. He continues to deny all MH s/s and reports animatedly that he is looking forward to court tomorrow. Pt. requests PRN Trazodone at HS, and appears to be sleeping well. S/I, H/I: Denies A/VH: Denies, does not appear internally preoccupied Sleep: Pt. requests PRN Trazodone at HS and appears to be sleeping well ADL's: Independent Group attendance: N/A Were meds taken: Yes Any med S/E: None Mental Status Exam Appearance: Somewhat disheveled and appropriately dressed Eye contact: Good Behavior: Cooperative, guarded, and withdrawn Speech: Soft, responds minimally to direct questions only Mood: Guarded, however pleasant Affect: Blunted with animation Thought process: Linear Thought Content: Goal oriented Cognition: A&O X3 Insight: Fair Judgment: Fair Interventions PRN's used: Trazodone Therapeutic interventions: Maintained a safe and supportive environment, ensured contract for safety, provided clear and simple instructions, provided active listening and positive encouragement, and maintained Q 15min safety checks. Restraints/seclusion/emergency medication: N/A Justification of Continued Inpatient Treatment: Per BEN Mccoy, pt. is at baseline, he continues to require a safe and supportive environment while awaiting court tomorrow.
--- NOTE | 2021-08-10 07:31 | NUR ---
F/u 08/09: Pt continues eating well with 100% PO intake on regular diet while receiving double protein TID per diet order, meeting estimated nutrient needs. LBM 08/08. No nutrition intervention implemented at this time. Will continue to follow. Recommendations: 1) Continue regular diet; double eggs WB double meat BIDLD per diet order 2) Bowel care per rx 3) Weekly scaled weights Addendum: 08/10/21 at [address] Amended: Links added.
[2021-08-10 07:34] VITALS: BP 112/77
[2021-08-10] MEDS: PALIPERIDONE 3 MG TAB.ER.24 PO SCH (07:39)
[2021-08-10] MEDS: simethicone 125mg capsule PO SCH ×3 (07:39→20:18)
[2021-08-10 08:00] VITALS: BP 112/77
--- NOTE | 2021-08-10 09:21 | NUR ---
Called [facility] Burner Operator, Mo Holland (ph# [phone]), to inform that [facility]'s Dept did not grape picker Cameron for court this morning. Left a message and requested a call back.
--- NOTE | 2021-08-10 19:11 | NUR ---
Nursing Progress Note: Legal hold: 1370 Client on involuntary status for GD Report received from nurse with use of SBAR: DANIEL Rubio Why are they here: Pt admitted from [facility] to restore competency. Pt has history of schizophrenia and substance abuse. Pt had negative PPD and Covid tests. Pt has multiple charges ranging from obstruction, public intoxication, trespassing, disturbing the peace, defecating in prohibited place, battery upon officer, unlawful camping, and possession. Assessment What has happened this shift: Received pt. sleeping in bed at the beginning of the shift, he awoke and attended breakfast in the Group Room. Pt. continues to be guarded, but is pleasant and cooperative. 1:1 done at bedside, pt. reports he is hopeful for discharge today, stating that he has a court hearing today. Pt.s court hearing was cancelled due to the [facility] being unable to drive the pt. to court. Pt. observed pacing the hallway and lying in bed napping. S/I, H/I: Denies A/VH: Denies Sleep: Pt. slept. 8.75 hrs on NOC shift and napped intermittently throughout the day. ADL's: Independent Group attendance: No Were meds taken: Yes Any med S/E: Denies Mental Status Exam Appearance: Disheveled but clean, wearing clean green scrubs. Eye contact: Good Behavior: Cooperative but guarded. Speech: Minimal, but otherwise WNL. Mood: Euthymic Affect: Flat with some brightening. Thought process: Linear Thought Content: Goal oriented Cognition: A&O X3 Insight: Fair Judgment: Fair Interventions PRN's used: None Therapeutic interventions: Maintained a safe and supportive environment, ensured contract for safety, provided clear and simple instructions, provided active listening and positive encouragement, and maintained Q 15min safety checks. Restraints/seclusion/emergency medication: N/A Justification of Continued Inpatient Treatment: Per BEN Mccoy, pt. is at baseline, he continues to require a safe and supportive environment while awaiting court tomorrow.
[2021-08-10 19:30] VITALS: BP 117/73
[2021-08-10] MEDS: traZODone 50mg tablet PO PRN (20:18)
[2021-08-10] MEDS: haloperidol 5mg tablet PO SCH (20:18)
--- NOTE | 2021-08-11 01:53 | NUR ---
Nursing Progress Note: Legal hold: 1370 Client on involuntary status for GD Report received from nurse with use of SBAR: DANIEL Rubio Why are they here: Pt admitted from [facility] to restore competency. Pt has history of schizophrenia and substance abuse. Pt had negative PPD and Covid tests. Pt has multiple charges ranging from obstruction, public intoxication, trespassing, disturbing the peace, defecating in prohibited place, battery upon officer, unlawful camping, and possession. Assessment What has happened this shift: Pt. finishing his dinner in the community room at the beginning of shift. Pt. retired to room shortly afterward and found lying in bed. Pt. reports he is doing well and feels hopeful for the future. Pt. got up for evening snack, took medications and went to sleep. S/I, H/I: Denies A/VH: Denies Sleep: See sleep hours. ADL's: Independent Group attendance: NA Were meds taken: Yes Any med S/E: Denies Mental Status Exam Appearance: Disheveled but clean, wearing clean green scrubs. Eye contact: Good Behavior: Cooperative but guarded. Speech: Minimal, but otherwise WNL. Mood: Euthymic Affect: Flat with some brightening Thought process: Linear Thought Content: Hopeful for discharge. Cognition: A&O X3 Insight: Fair Judgment: Fair Interventions PRN's used: None Therapeutic interventions: Maintained a safe and supportive environment, ensured contract for safety, provided clear and simple instructions, provided active listening and positive encouragement, and maintained Q 15min safety checks. Restraints/seclusion/emergency medication: N/A Justification of Continued Inpatient Treatment: Per BEN Mccoy, pt. is at baseline, he continues to require a safe and supportive environment while awaiting court tomorrow.
[2021-08-11 07:31] VITALS: BP 111/69
[2021-08-11] MEDS: PALIPERIDONE 3 MG TAB.ER.24 PO SCH (07:50)
[2021-08-11] MEDS: simethicone 125mg capsule PO SCH ×3 (07:50→20:38)
[2021-08-11 09:35] LABS: BASOPHILS % (AUTO) 0.7 % (0-1); EOSINOPHILS # (AUTO) 0.2 X10'3 (0-0.9); EOSINOPHILS % (AUTO) 3.8 % (0-6); HEMATOCRIT 41.2 % (42.0-52.0); HEMOGLOBIN 14.1 g/dl (14.0-17.9); LYMPHOCYTES # (AUTO) 1.5 X10'3 (1.1-4.8); LYMPHOCYTES % (AUTO) 30.5 % (21-51); MEAN CORPUSCULAR HEMOGLOBIN 30.7 PG (27.0-31.0); MEAN CORPUSCULAR HGB CONC 34.2 g/dL (33.0-36.5); MEAN CORPUSCULAR VOLUME 89.7 FL (78-98); MEAN PLATELET VOLUME 7.7 FL (7.4-10.4); MONOCYTES # (AUTO) 0.5 X10'3 (0-0.9); MONOCYTES % (AUTO) 9.2 % (2-12); NEUTROPHILS # (AUTO) 2.8 X10'3 (1.8-7.7); NEUTROPHILS % (AUTO) 55.8 % (42-75); PLATELET COUNT 289 X10'3 (140-440); RED CELL DISTRIBUTION WIDTH 12.1 % (11.5-14.5)
[2021-08-11 09:46] LABS: ALANINE AMINOTRANSFERASE 26 U/L (12-78); ALBUMIN 3.7 G/DL (3.4-5.0); ALBUMIN/GLOBULIN RATIO 0.9 (1.1-1.5); ALKALINE PHOSPHATASE 94 IU/L (46-116); ANION GAP 6 (8-16); ASPARTATE AMINO TRANSFERASE 9 U/L (10-37); BILIRUBIN,TOTAL 0.8 MG/DL (0.1-1.0); BLOOD UREA NITROGEN 16 MG/DL (7-18); BUN/CREATININE RATIO 21.9 (5.4-32.0); CALCIUM 9.2 MG/DL (8.5-10.1); CHLORIDE 106 MMOL/L (99-107); CREATININE 0.73 MG/DL (0.60-1.10); GLUCOSE 96 MG/DL (70-104); POTASSIUM 4.1 MMOL/L (3.5-5.1); SODIUM 141 MMOL/L (135-145); TOTAL CARBON DIOXIDE 29.4 MMOL/L (24-32); eGFR > 90 ML/MIN
--- NOTE | 2021-08-11 13:11 | NUR ---
Nursing Progress Note: Legal hold: 1370 Client on involuntary status for GD Report received from nurse with use of SBAR: DANIEL Rubio Why are they here: Pt admitted from [facility] to restore competency. Pt has history of schizophrenia and substance abuse. Pt had negative PPD and Covid tests. Pt has multiple charges ranging from obstruction, public intoxication, trespassing, disturbing the peace, defecating in prohibited place, battery upon officer, unlawful camping, and possession. Assessment What has happened this shift: Received pt. sleeping in bed at the beginning of the shift, he awoke and was observed to be pacing in the hallway. 1:1 completed, pt. presents with a constricted affect, but does brighten when greeted. He continues to deny all MH s/s, and when this information writer questioned him regarding court, pt. stated in a disappointed way, "I didn't get to go." Pt. was not aware of the circumstances regarding why he was not able to go when further questioned by this information writer. However, per health care social worker's note, pt. was not picked up. Pt. continues to want to go go to his father's home who he claims lives in [place], however he has not been in any communication with his father. Pt. continues to interact very minimally with others, and remains pleasant, however restless throughout the day. S/I, H/I: Denies A/VH: Denies, does not appear internally preoccupied Sleep: Pt. reports he slept well ADL's: Independent Group attendance: N/A Were meds taken: Yes Any med S/E: None Mental Status Exam Appearance: Somewhat disheveled and appropriately dressed Eye contact: Good Behavior: Cooperative, somewhat restless and guarded Speech: Soft, responds minimally to direct questions only Mood: Guarded, however pleasant Affect: Constricted with brightening Thought process: Linear Thought Content: Poverty of thought, however appears linear Cognition: A&O X3 Insight: Fair Judgment: Fair Interventions PRN's used: None Therapeutic interventions: Maintained a safe and supportive environment, ensured contract for safety, provided clear and simple instructions, provided active listening and positive encouragement, and maintained Q 15min safety checks. Restraints/seclusion/emergency medication: N/A Justification of Continued Inpatient Treatment: Per BEN Pettit, pt. continues to require a safe and supportive environment while awaiting court. Addendum: 08/11/21 at 1439 by Amy Mejia RN Pt. received ordered Invega Sustenna injection in left deltoid, he tolerated well. Will continue to monitor.
[2021-08-11] MEDS ORDERED: paliperidone palmitate 156 mg/ml inj.**IM only IM ONE (14:00)
[2021-08-11 20:02] VITALS: BP 98/64
[2021-08-11] MEDS: traZODone 50mg tablet PO PRN (20:38)
[2021-08-11] MEDS: haloperidol 5mg tablet PO SCH (20:38)
--- NOTE | 2021-08-11 23:43 | NUR ---
Nursing Progress Note: Legal hold: 1370 Client on involuntary status for GD Report received from nurse with use of SBAR: Mo RN Why are they here: [facility]. Pt has history of schizophrenia and substance abuse. Pt had negative PPD and Covid tests. Pt has multiple charges ranging from obstruction, public intoxication, trespassing, disturbing the peace, defecating in prohibited place, battery upon officer, unlawful camping, and possession. Assessment What has happened this shift: Received pt. resting in bed at the beginning of the shift, he attended snack and then retreated back to bed. Pt. continues to present as guarded with a blunted affect, but he brightens with conversation. He continues to deny all MH s/s aside from some anxiety and restlessness r/t to his desire to discharge. Pt. appears to be adjusting well to his new room. He requests PRN Trazodone at and appears to be sleeping well. S/I, H/I: Denies A/VH: Denies, does not appear internally preoccupied Sleep: Pt. requests PRN Trazodone at , and appears to be sleeping well Group attendance: N/A Were meds taken: Yes Any med S/E: None Mental Status Exam Appearance: Somewhat disheveled and appropriately dressed Eye contact: Good Behavior: Cooperative, somewhat restless and guarded Speech: Soft, responds minimally to direct questions only Mood: Guarded, however pleasant Affect: blunted with brightening Thought process: Linear Thought Content: Poverty of thought, however appears linear Cognition: A&O X3 Insight: Fair Judgment: Fair Interventions PRN's used: Trazodone Therapeutic interventions: Maintained a safe and supportive environment, ensured contract for safety, provided clear and simple instructions, provided active listening and positive encouragement, and maintained Q 15min safety checks. Restraints/seclusion/emergency medication: N/A Justification of Continued Inpatient Treatment: Per BEN Pettit, pt. continues to require a safe and supportive environment while awaiting court.
[2021-08-12] MEDS: simethicone 125mg capsule PO SCH ×3 (07:05→20:23)
[2021-08-12 07:48] VITALS: BP 116/85
--- NOTE | 2021-08-12 17:19 | NUR ---
Nursing Progress Note: Legal hold: 1370 Client on involuntary status for GD Report received from nurse with use of SBAR: Mo RN Why are they here: Pt admitted from [facility] to restore competency. Pt has history of schizophrenia and substance abuse. Pt had negative PPD and Covid tests. Pt has multiple charges ranging from obstruction, public intoxication, trespassing, disturbing the peace, defecating in prohibited place, battery upon officer, unlawful camping, and possession. Assessment What has happened this shift: Resting quietly in bed at start of shift. Paces and stands in hallways of unit watching staff and peers. Spends time in common rooms watching TV and interacting with select peers. Does not speak much but listens to conversations. Appears to react to internal stimuli at times. Smiles to himself frequently and occasionally mumbles to himself. Restless AEB frequently moving around unit. Does not stay in one place for more than a few minutes. Cooperative and pleasant but guarded. Only answers direct questions and does not engage in conversation. S/I, H/I: Denies A/VH: Denies, does not appear internally preoccupied Sleep: 9 hours per NOC ADL's: Independent Group attendance: N/A Were meds taken: Yes Any med S/E: None Mental Status Exam Appearance: Somewhat disheveled and appropriately dressed Eye contact: Good Behavior: Cooperative, somewhat restless and guarded Speech: Soft, responds minimally to direct questions only Mood: Guarded, however pleasant. States his mood is Good. Affect: Constricted with brightening Thought process: Linear Thought Content: Poverty of thought, however appears linear Cognition: A&O X3 Insight: Fair Judgment: Fair Interventions PRN's used: None Therapeutic interventions: Maintained a safe and supportive environment, ensured contract for safety, provided clear and simple instructions, provided active listening and positive encouragement, and maintained Q 15min safety checks. Restraints/seclusion/emergency medication: N/A Justification of Continued Inpatient Treatment: Per BEN Pettit, pt. continues to require a safe and supportive environment while awaiting court.
[2021-08-12 19:45] VITALS: BP 98/57
[2021-08-12] MEDS: haloperidol 5mg tablet PO SCH (20:23)
[2021-08-12] MEDS: traZODone 50mg tablet PO PRN (20:31)
--- NOTE | 2021-08-13 05:30 | NUR ---
Nursing Progress Note: Legal hold: 1370 Client on involuntary status for GD Report received from nurse with use of SBAR: Mary RN Why they are here: [facility]. Pt has history of schizophrenia and substance abuse. Pt had negative PPD and Covid tests. Pt has multiple charges ranging from obstruction, public intoxication, trespassing, disturbing the peace, defecating in prohibited place, battery upon officer, unlawful camping, and possession. Assessment What has happened this shift: Patient watching TV in rec room at start of shift. Appears guarded and only answers direct questions. Does appear occupied with internal stimuli. Cooperative with medications and 1:1. Sleeps quietly through the night. S/I, H/I: Denies A/VH: Denies, appears internally occupied. Sleep: See sleep assessment ADL's: Independent Group attendance: N/A Were meds taken: Yes Any med S/E: None Mental Status Exam Appearance: Somewhat disheveled and appropriately dressed Eye contact: Good Behavior: Cooperative, somewhat restless and guarded Speech: Soft, responds minimally to direct questions only Mood: Guarded, however pleasant. States his mood is Good. Affect: Constricted with brightening Thought process: Linear Thought Content: Poverty of thought, however appears linear Cognition: A&O X3 Insight: Fair Judgment: Fair Interventions PRN's used: Therapeutic interventions: Maintained a safe and supportive environment, ensured contract for safety, provided clear and simple instructions, provided active listening and positive encouragement, and maintained Q 15min safety checks. Restraints/seclusion/emergency medication: N/A Justification of Continued Inpatient Treatment: BEN Keating, pt. continues to require a safe and supportive environment while awaiting court.
[2021-08-13 07:57] VITALS: BP 99/69
[2021-08-13] MEDS: simethicone 125mg capsule PO SCH ×3 (08:14→20:13)
--- NOTE | 2021-08-13 16:08 | NUR ---
Nursing Progress Note: Legal hold: 1370 Client on involuntary status for GD Report received from nurse with use of SBAR: DANIEL Sadler Why are they here: Pt admitted from [facility] to restore competency. Pt has history of schizophrenia and substance abuse. Pt had negative PPD and Covid tests. Pt has multiple charges ranging from obstruction, public intoxication, trespassing, disturbing the peace, defecating in prohibited place, battery upon officer, unlawful camping, and possession. Assessment What has happened this shift: Resting quietly in bed at start of shift. Paces and stands in hallways of unit watching staff and peers. Spends time in common rooms watching TV. Does not speak much but listens to conversations. Appears to react to internal stimuli at times. Smiles to himself frequently and occasionally mumbles to himself. Restless AEB frequently moving around unit. Does not stay in one place for more than a few minutes. Cooperative and pleasant but guarded. Only answers direct questions and does not engage in conversation. Although today after missing his court date, Cameron has a few words to day, "I want out of here I am bored and I have been here long enough". Patient appears to be frustrated that once again his court date came and went. Patient states he is happy to be back on the Invega shot verses the pill daily. S/I, H/I: Denies A/VH: Denies, does not appear internally preoccupied Sleep: short nap today ADL's: Independent Group attendance: N/A Were meds taken: Yes Any med S/E: None Mental Status Exam Appearance: Somewhat disheveled and appropriately dressed Eye contact: Good Behavior: Cooperative, somewhat restless and guarded Speech: Soft, responds minimally to direct questions only Mood: Guarded, however pleasant. States his mood is Good. Affect: Constricted with brightening Thought process: Linear Thought Content: Poverty of thought, however appears linear Cognition: A&O X3 Insight: Fair Judgment: Fair Interventions PRN's used: None Therapeutic interventions: Maintained a safe and supportive environment, ensured contract for safety, provided clear and simple instructions, provided active listening and positive encouragement, and maintained Q 15min safety checks. Restraints/seclusion/emergency medication: N/A Justification of Continued Inpatient Treatment: Patient is here on a 1370 awaiting the outcome of his court hearing today. "I think I will be released, so I will go stay with my dad". Per patient he has not spoke to his dad in years. If released today patient would be at risk for re admission as he is gravely disabled.
[2021-08-13] MEDS: haloperidol 5mg tablet PO SCH (20:13)
[2021-08-13] MEDS: traZODone 50mg tablet PO PRN (20:13)
[2021-08-13 20:22] VITALS: BP 106/80
--- NOTE | 2021-08-14 04:01 | NUR ---
Nursing Progress Note: Legal hold: 1370 Client on involuntary status for GD Report received from DANIEL Hernandez with use of SBAR: Why they are here: [facility]. Pt has history of schizophrenia and substance abuse. Pt had negative PPD and Covid tests. Pt has multiple charges ranging from obstruction, public intoxication, trespassing, disturbing the peace, defecating in prohibited place, battery upon officer, unlawful camping, and possession. Assessment What has happened this shift: The patient was napping at shift change. He severo soon after and went into the rec room saying, "it's raining, that's cool." The patient sat watching out the window to see the rain for a while before going to his room to wait for snack time. He takes his HS meds and goes to his room to sleep. S/I, H/I: Denies A/VH: Denies, appears internally occupied. Sleep: See sleep assessment ADL's: Independent Group attendance: N/A Were meds taken: Yes Any med S/E: None reported or observed. Mental Status Exam Appearance: Somewhat disheveled and appropriately dressed Eye contact: Good Behavior: Cooperative, somewhat restless and guarded, isolative Speech: Soft, responds minimally to direct questions only Mood: "Good" Affect: Constricted with brightening Thought process: Linear Thought Content: Poverty of thought, however appears linear Cognition: A&O X3 Insight: Fair Judgment: Fair Interventions PRN's used: Therapeutic interventions: Maintained a safe and supportive environment, ensured contract for safety, provided clear and simple instructions, provided active listening and positive encouragement, and maintained Q 15min safety checks. Restraints/seclusion/emergency medication: N/A Justification of Continued Inpatient Treatment: Per BEN Pettit, pt. continues to require a safe and supportive environment while awaiting court.
[2021-08-14 08:00] VITALS: BP 116/85
[2021-08-14] MEDS: simethicone 125mg capsule PO SCH ×3 (08:01→20:00)
--- NOTE | 2021-08-14 15:34 | NUR ---
Nursing Progress Note: Legal hold: 1370 Client on involuntary status for GD Report received from nurse with use of SBAR: Fely RN Why are they here: Pt admitted from [facility] to restore competency. Pt has history of schizophrenia and substance abuse. Pt had negative PPD and Covid tests. Pt has multiple charges ranging from obstruction, public intoxication, trespassing, disturbing the peace, defecating in prohibited place, battery upon officer, unlawful camping, and possession. Assessment What has happened this shift: Resting quietly in bed at start of shift. Paces and stands in hallways of unit watching staff and peers. Spends time in common rooms watching TV. Does not speak much but listens to conversations. Appears to react to internal stimuli at times. Smiles to himself frequently and occasionally mumbles to himself. Restless AEB frequently moving around unit. Does not stay in one place for more than a few minutes. Cooperative and pleasant but guarded. Only answers direct questions and does not engage in conversation. Cameron has had no change in the past weeks. Patient is just "bored" S/I, H/I: Denies A/VH: Denies, does not appear internally preoccupied Sleep: short nap today ADL's: Independent Group attendance: no Were meds taken: Yes Any med S/E: None Mental Status Exam Appearance: Somewhat disheveled and appropriately dressed Eye contact: Good Behavior: Cooperative, somewhat restless and guarded Speech: Soft, responds minimally to direct questions only Mood: Guarded, however pleasant. States his mood is Good. Affect: Constricted with brightening Thought process: Linear Thought Content: Poverty of thought, however appears linear Cognition: A&O X3 Insight: Fair Judgment: Fair Interventions PRN's used: None Therapeutic interventions: Maintained a safe and supportive environment, ensured contract for safety, provided clear and simple instructions, provided active listening and positive encouragement, and maintained Q 15min safety checks. Restraints/seclusion/emergency medication: N/A Justification of Continued Inpatient Treatment: Patient continues to be here on a 1370. If released today patient would be at risk for re admission as he is gravely disabled.
[2021-08-14] MEDS: haloperidol 5mg tablet PO SCH (20:00)
[2021-08-14] MEDS: traZODone 50mg tablet PO PRN (20:00)
[2021-08-14 20:52] VITALS: BP 110/85
--- NOTE | 2021-08-15 02:10 | NUR ---
Nursing Progress Note: Legal hold: 1370 Client on involuntary status for GD Report received from nurse with use of SBAR: Mary RN Why are they here: [facility]. Pt has history of schizophrenia and substance abuse. Pt had negative PPD and Covid tests. Pt has multiple charges ranging from obstruction, public intoxication, trespassing, disturbing the peace, defecating in prohibited place, battery upon officer, unlawful camping, and possession. Assessment What has happened this shift: Pt was in his room at change of shift. Pt comes to the group room for snacks and occasionally walks in the garcia when out asking for snacks. Pt isolates to self and doesnt engage with peers. Pt is pleasant and cooperative. S/I, H/I: Denies A/VH: Denies, does not appear internally preoccupied Sleep: short nap today ADL's: Independent Group attendance: no Were meds taken: Yes Any med S/E: None Mental Status Exam Appearance: Somewhat disheveled and appropriately dressed Eye contact: Good Behavior: Cooperative, somewhat restless and guarded Speech: Soft, responds minimally to direct questions only Mood: Guarded, however pleasant. States his mood is Good. Affect: Constricted with brightening Thought process: Linear Thought Content: Poverty of thought, however appears linear Cognition: A&O X3 Insight: Fair Judgment: Fair Interventions PRN's used: None Therapeutic interventions: Maintained a safe and supportive environment, ensured contract for safety, provided clear and simple instructions, provided active listening and positive encouragement, and maintained Q 15min safety checks. Restraints/seclusion/emergency medication: N/A Justification of Continued Inpatient Treatment: Patient continues to be here on a 1370. If released today patient would be at risk for re admission as he is gravely disabled.
[2021-08-15] MEDS: simethicone 125mg capsule PO SCH ×3 (08:36→21:22)
[2021-08-15 08:48] VITALS: BP 100/65
--- NOTE | 2021-08-15 12:04 | NUR ---
[employer] RETURN REPAIRER FOR COURT 7:45 AM FRIDAY Spoke to Bianca Cruz (ph# [phone]) from the [facility] who reported officers will poultry picker Cameron around 7:45 AM for his 8:[address] DAMIEN Pérez
[2021-08-15] MEDS: ondansetron 4mg rapidly disintigrating tab PO PRN ×2 (13:46→20:40)
--- NOTE | 2021-08-15 17:33 | NUR ---
Nursing Progress Note: Legal hold: 1370 Client on involuntary status for GD Report received RN with use of SBAR Why are they here: Pt admitted from [facility] to restore competency. Pt has history of schizophrenia and substance abuse. Pt has multiple charges ranging from obstruction, public intoxication, trespassing, disturbing the peace, defecating in prohibited place, battery upon officer, unlawful camping, and possession. Assessment What has happened this shift: Received Pt in bed sleeping w/o distress in his room at change of shift. Pt calm and pleasant. Cooperative with vitals and meds. Pt ate breakfast and then reported vomiting. Pt returned to bed and attempted to nap. Pt at a small bit of lunch and vomited again. Zofran order obtained and he received 4mg. Later in day pt reported not feeling nauseous and his room was moved to [facility] so he could be in a room with a bathroom. Vitals retaken at 1245: T-98.4, P-78, BP-115/85, R-16, O2-99%. S/I, H/I: Denies A/VH: Denies Sleep: Napped ADL's: Independent Group attendance: No Were Meds taken: Yes Any med S/E: None noted or reported Mental Status Exam Appearance: Casual in scrubs Eye contact: Fair Behavior: Cooperative Speech: Coherent short answers Mood: Guarded Affect: Blunted Thought process: Poverty of speech and content Thought Content: Meeting immediate needs; feeling sick to stomach Cognition: A&O X3 Insight: Fair Judgment: Fair Interventions PRN's used: Zofran Therapeutic interventions: Provided 1:1 assessment with therapeutic communication; medication administration/education/monitoring, provided direction and encouragement as needed, encouraged participation on the unit, and maintained Q 15min safety checks. Restraints/seclusion/emergency medication: N/A Justification of Continued Inpatient Treatment: Per BNE Mccoy, pt. is at baseline, however continues to require a safe and supportive environment.
[2021-08-15 19:21] VITALS: BP 107/70
[2021-08-15] MEDS: haloperidol 5mg tablet PO SCH (21:22)
[2021-08-15] MEDS: traZODone 50mg tablet PO PRN (21:22)
[2021-08-16] MEDS: ondansetron 4mg rapidly disintigrating tab PO PRN ×3 (04:35→18:13)
--- NOTE | 2021-08-16 05:01 | NUR ---
Pt again vomiting this morning, zofran given, v/s assessed B/P 122/86, HR87 T99.4 R 16. Pt denies pain or discomfort at this time. Will continue to monitor.
--- NOTE | 2021-08-16 05:31 | NUR ---
Nursing Progress Note: Legal hold: 1370 Client on involuntary status for GD Report received RN with use of SBAR Why are they here: Pt admitted from [facility] to restore competency. Pt has history of schizophrenia and substance abuse. Pt has multiple charges ranging from obstruction, public intoxication, trespassing, disturbing the peace, defecating in prohibited place, battery upon officer, unlawful camping, and possession. Assessment What has happened this shift: Received Pt in bed resting w/o distress in his room at change of shift. He did not get up for snack. Pt had vomiting episode and received Zofran. Pt states he feels better after vomiting. Pt took PM meds approx.. 30 min after zofran and went to sleep. S/I, H/I: Denies A/VH: Denies Sleep: See sleep assessment ADL's: Independent Group attendance: No Were Meds taken: Yes Any med S/E: None noted or reported Mental Status Exam Appearance: Casual in scrubs Eye contact: Fair Behavior: Cooperative Speech: Coherent short answers Mood: Guarded Affect: Blunted Thought process: Poverty of speech and content Thought Content: Meeting immediate needs; feeling sick to stomach Cognition: A&O X3 Insight: Fair Judgment: Fair Interventions PRN's used: Zofran Therapeutic interventions: Provided 1:1 assessment with therapeutic communication; medication administration/education/monitoring, provided direction and encouragement as needed, encouraged participation on the unit, and maintained Q 15min safety checks. Restraints/seclusion/emergency medication: N/A Justification of Continued Inpatient Treatment: Per BEN Mccoy, pt. is at baseline, however continues to require a safe and supportive environment.
[2021-08-16 07:31] VITALS: BP 121/87
[2021-08-16] MEDS: simethicone 125mg capsule PO SCH (08:00)
[2021-08-16] MEDS ORDERED: simethicone 125mg capsule PO PRN (11:00)
--- NOTE | 2021-08-16 13:03 | NUR ---
Nursing Progress Note: Legal hold: 1370 Client on involuntary status for GD Report received from nurse with use of SBAR: DANIEL Geiger Why are they here: Pt admitted from [facility] to restore competency. Pt has history of schizophrenia and substance abuse. Pt had negative PPD and Covid tests. Pt has multiple charges ranging from obstruction, public intoxication, trespassing, disturbing the peace, defecating in prohibited place, battery upon officer, unlawful camping, and possession. Assessment What has happened this shift: Received pt. sleeping in bed at the beginning of the shift, he awoke and requested something for constipation, however per pt's chart his last BM was two days ago, and his bowl sounds are WNL. Pt. did not have any episodes of vomiting this shift, and he was provided education regarding the importance of consuming fluids to prevent dehydration and reported understanding. Pt. initially refused breakfast, however was able to eat approximately 50% with encouragement. This personal lines underwriter endorsed pt's s/s to BEN Mccoy who advised the administration of prune juice and decreased scheduled Simethicone to Q6 hours PRN for flatulence. Pt. was able to have a normal bowl movement. He denies any abdominal pain and V/S remain WNL. This personal lines underwriter attempted to complete 1:1 at bedside, pt. continues to present as guarded with conversation and responds to direct questions only with a minimal response. He states, "I'm fine." Pt. is aware he will attend court tomorrow AM and reports he is ready. PRN Zofran administered at approximately 1100, and pt. reported some contentment, however he refused lunch. He remains in bed throughout the day napping intermittently, will continue to monitor. S/I, H/I: Denies A/VH: Denies, does not appear internally preoccupied Sleep: Sleep hours are 5.25, and pt. remains in bed throughout the day napping intermittently ADL's: Independent Group attendance: No Were meds taken: Yes Any med S/E: None Mental Status Exam Appearance: Somewhat disheveled and appropriately dressed Eye contact: Good Behavior: Cooperative, fatigued, guarded, and isolative Speech: Soft, responds minimally to direct questions only Mood: Guarded and fatigued Affect: Blunted Thought process: Linear Thought Content: Poverty of thought, however appears linear Cognition: A&O X3 Insight: Fair Judgment: Fair Interventions PRN's used: Zofran Therapeutic interventions: Maintained a safe and supportive environment, ensured contract for safety, provided clear and simple instructions, provided active listening and positive encouragement, monitored for any N/V and provided Zofran as needed, encouraged fluids and endorsed s/s to BEN Mccoy, and maintained Q 15min safety checks. Restraints/seclusion/emergency medication: N/A Justification of Continued Inpatient Treatment: Per BEN Mccoy, pt. continues to require a safe and supportive environment while awaiting court tomorrow.
[2021-08-16 19:00] VITALS: BP 98/59
[2021-08-16] MEDS: traZODone 50mg tablet PO PRN (20:03)
[2021-08-16] MEDS: haloperidol 5mg tablet PO SCH (20:03)
[2021-08-16] MEDS ORDERED: pantoprazole 40 MG vial IV ONE (21:00)
[2021-08-16 21:32] LABS: GASTRIC OCCULT BLOOD NEGATIVE (Neg)
[2021-08-16 21:43] LABS: BASOPHILS % (AUTO) 0.5 % (0-1); EOSINOPHILS % (AUTO) 0.6 % (0-6); HEMATOCRIT 41.8 % (42.0-52.0); HEMOGLOBIN 14.4 g/dl (14.0-17.9); LYMPHOCYTES # (AUTO) 1.9 X10'3 (1.1-4.8); LYMPHOCYTES % (AUTO) 22.8 % (21-51); MEAN CORPUSCULAR HEMOGLOBIN 30.3 PG (27.0-31.0); MEAN CORPUSCULAR HGB CONC 34.4 g/dL (33.0-36.5); MEAN CORPUSCULAR VOLUME 88.1 FL (78-98); MEAN PLATELET VOLUME 7.6 FL (7.4-10.4); MONOCYTES # (AUTO) 1.2 X10'3 (0-0.9); MONOCYTES % (AUTO) 14.4 % (2-12); NEUTROPHILS % (AUTO) 61.7 % (42-75); PLATELET COUNT 325 X10'3 (140-440); RED BLOOD COUNT 4.74 X10'6 (4.70-6.10); RED CELL DISTRIBUTION WIDTH 11.9 % (11.5-14.5); WHITE BLOOD COUNT 8.1 X10'3 (4.5-11.0)
--- NOTE | 2021-08-17 02:10 | NUR ---
Nursing Progress Note: Legal hold: 1370 Client on involuntary status for GD Report received from nurse with use of SBAR: DANIEL Rubio Why are they here: Pt admitted from [facility] to restore competency. Pt has history of schizophrenia and substance abuse. Pt had negative PPD and Covid tests. Pt has multiple charges ranging from obstruction, public intoxication, trespassing, disturbing the peace, defecating in prohibited place, battery upon officer, unlawful camping, and possession. Assessment What has happened this shift: Patient laying in bed at the beginning of shift. Patient c/o n/v; abnormal vomit observed by staff. CRN contacted hospitalist; sample sent to lab for gastric occult blood with negative findings. IV 22g placed in L AC; Protonix 40mg IV push given by CRN with no ASE observed or reported. Patient denies stomach pains. CBC/DIFF completed. Patient denies MH symptoms and reports court is supposed to be in the morning. Patient did not participate in HS snack and observed sleeping with no apparent distress. S/I, H/I: Denies A/VH: Denies Sleep: Refer to sleep assessment ADL's: Independent Group attendance: No Were meds taken: Yes Any med S/E: None observed or reported Mental Status Exam Appearance: Somewhat disheveled and appropriately dressed Eye contact: Good Behavior: Cooperative, fatigued, guarded, and isolative Speech: Soft, responds minimally to direct questions only Mood: Guarded and fatigued Affect: Blunted Thought process: Linear Thought Content: Meeting needs and court Cognition: A&O X3 Insight: Fair Judgment: Fair Interventions PRN's used: Protonix 40mg IV push Therapeutic interventions: Maintained a safe and supportive environment, ensured contract for safety, provided clear and simple instructions, provided active listening and positive encouragement, monitored for any N/V and provided Zofran as needed, encouraged fluids and endorsed s/s to BEN Mccoy, and maintained Q 15min safety checks. Restraints/seclusion/emergency medication: N/A Justification of Continued Inpatient Treatment: Per BEN Mccoy, pt. continues to require a safe and supportive environment while awaiting court tomorrow.
--- NOTE | 2021-08-17 05:37 | NUR ---
N/V RN NOTE: Client vomited approximately 1400 ml of brownish fluid. Client denied abdominal pain or diarrhea. Client does not have a fever. Vital signs were stable. Client reported he had only eaten oatmeal for breakfast. Client has been vomiting for 2 - [address] Hopkins was notified. Gastro Occult blood was negative. CBC was drawn. Client received 40 mg Protonix IV push over 2 min. No vomiting was noted the rest of the shift. 22g Saline Lock left in left AC. Client denies N/V at this time.
--- NOTE | 2021-08-17 07:48 | NUR ---
Court: Pt's IV was taken out and he tolerated well. He denies any n/v, and V/S WNL. Pt. received an early breakfast and was picked up by officers and taken to his court hearing.
[2021-08-17 08:00] VITALS: BP 110/85
--- NOTE | 2021-08-17 10:08 | NUR ---
Pt. was brought back to the unit by security officers, he reported his court hearing went well and he will get to leave, however he is unsure of where he is going to discharge to.
--- NOTE | 2021-08-17 13:52 | NUR ---
Cameron was returned from court and it was "time served". He has another court date next month scheduled. Cameron wants to leave. He reported he will go to his dad's house in [place]. He stated he thinks he saw his dad right before coming to [facility]. Informed him that his dad was shot and killed by police in 2016. He stated that was not true, he just saw his dad. Offered to print off the news article senior technical writer found. Printed it off and gave it to Cameron. He read it and said it's not true, "that doesn't look like my dad" (there were not any pictures on the news article). He continued to state he thinks his dad is still alive. He reported if he can't go to his dad's he will go to his aunt's house. He was unable to give an address but seemed to know where her house is. He reported if he can't go there he will go to a parking lot near the hospital and "hang out until I figure it out". He reported he is not able to go to the [place] because he was kicked out. Contacted [facility] and requested conservatorship eval. Spoke to Ubaldo Shaw, [employer]inal Pet Technologist (ph# [phone]). Ubaldo reported she will see if one of the [facility] evaluators in the ED can meet with Cameron to evaluate for 5150 criteria. She reported she will ask Sanchez Calvillo to call senior technical writer to discuss. Emailed LPS referral to Dr Velazquez. DAMIEN Pérez
--- NOTE | 2021-08-17 16:02 | NUR ---
Nursing Progress Note: Legal hold: 5150 Client on involuntary status for GD Report received from nurse with use of SBAR: Juliet Coleman RN Why are they here: Pt admitted from [facility] to restore competency. Pt has history of schizophrenia and substance abuse. Pt had negative PPD and Covid tests. Pt has multiple charges ranging from obstruction, public intoxication, trespassing, disturbing the peace, defecating in prohibited place, battery upon officer, unlawful camping, and possession. Assessment What has happened this shift: Received pt. sleeping in bed at the beginning of the shift, he awoke and attended his court hearing (see previous note). After returning from court, pt. continued to present with fatigued and isolated in his room napping intermittently throughout the day. 1:1 completed, pt. continues to deny any MH s/s, however remains guarded with conversation. Pt. was cleared from all charges at court, however he remains GD, requiring assistance with food, clothing, and skilled nursing. When questioned by staff regarding where he would go go if discharged, pt. reported he would go to his father's house. However, per transition social worker, pt's father is , and when he was notified of this he was not receptive. Per evaluation from [facility], pt. was placed on a 5150 for GD. Pt. denies any N/V this shift, however he remains fatigued. V/S are WNL, and pt. is eating approximately 50% of meals, will continue to monitor. S/I, H/I: Denies A/VH: Denies, does not appear internally preoccupied Sleep: Sleep hours are 6.75, and pt. remains in bed throughout the day napping intermittently ADL's: Independent Group attendance: No Were meds taken: Yes Any med S/E: None Mental Status Exam Appearance: Hair and clothing disheveled Eye contact: Good Behavior: Cooperative, fatigued, guarded, and isolative Speech: Soft, responds minimally to direct questions only Mood: Guarded and fatigued Affect: Blunted Thought process: Poverty of thought Thought Content: Possible delusions Cognition: A&O X3 Insight: Fair Judgment: Fair Interventions PRN's used: None Therapeutic interventions: Maintained a safe and supportive environment, ensured contract for safety, provided clear and simple instructions, provided active listening and positive encouragement, monitored for any N/V and appetite, and maintained Q 15min safety checks. Restraints/seclusion/emergency medication: N/A Justification of Continued Inpatient Treatment: Per BEN Mccoy, pt. continues to require a safe and supportive environment at this time.
[2021-08-17 19:00] VITALS: BP 110/77
[2021-08-17] MEDS: haloperidol 5mg tablet PO SCH (20:15)
[2021-08-17] MEDS: traZODone 50mg tablet PO PRN (20:15)
[2021-08-17] MEDS ORDERED: pantoprazole 40mg Tablet.DR PO ONE (21:25)
--- NOTE | 2021-08-17 22:51 | NUR ---
Nursing Progress Note: Legal hold: 5150 Client on involuntary status for GD Report received from nurse with use of SBAR: DANIEL Reyes Why are they here: Pt admitted from [facility] to restore competency. Pt has history of schizophrenia and substance abuse. Pt had negative PPD and Covid tests. Pt has multiple charges ranging from obstruction, public intoxication, trespassing, disturbing the peace, defecating in prohibited place, battery upon officer, unlawful camping, and possession. Assessment What has happened this shift: Patient laying in bed awake at the beginning of shift. Patient reported vomiting after dinner; 1100cc measured. MD notified and Protonix 40mg PO provided with positive effects reported. Patient denies SI, HI, A/VH. He is pleasant and cooperative with care; compliant with all medications. Patient participated in HS snack this shift; PRN Trazodone provided with positive effect as he is observed sleeping and does not appear to be having difficulty. S/I, H/I: Denies A/VH: Denies Sleep: Refer to sleep assessment ADL's: Independent Group attendance: No Were meds taken: Yes Any med S/E: None observed or reported Mental Status Exam Appearance: Somewhat disheveled and appropriately dressed Eye contact: Good Behavior: Cooperative, fatigued, guarded, and isolative Speech: Soft, responds minimally to direct questions only Mood: Guarded and fatigued Affect: Blunted Thought process: Linear, delusions r/t his dad Thought Content: Meeting needs Cognition: A&O X3 Insight: Fair Judgment: Fair Interventions PRN's used: Protonix 40mg PO Therapeutic interventions: Maintained a safe and supportive environment, ensured contract for safety, provided clear and simple instructions, provided active listening and positive encouragement, monitored for any N/V and provided Zofran as needed, encouraged fluids and endorsed s/s to BEN Mccoy, and maintained Q 15min safety checks. Restraints/seclusion/emergency medication: N/A Justification of Continued Inpatient Treatment: Per BEN Mccoy, pt. continues to require a safe and supportive environment.
[2021-08-18 08:00] VITALS: BP 93/54
[2021-08-18] MEDS: pantoprazole 40mg Tablet.DR PO SCH (09:43)
--- NOTE | 2021-08-18 13:47 | NUR ---
Nursing Progress Note: Legal hold: 5150 Client on involuntary status for GD Report received from nurse with use of SBAR: Juliet Coleman RN Why are they here: Pt admitted from [facility] to restore competency. Pt has history of schizophrenia and substance abuse. Pt had negative PPD and Covid tests. Pt has multiple charges ranging from obstruction, public intoxication, trespassing, disturbing the peace, defecating in prohibited place, battery upon officer, unlawful camping, and possession. Assessment What has happened this shift: Received pt. sleeping in bed at the beginning of the shift, he awoke and attended breakfast in the Group Room, eating 100%. Afterwards, pt. returned to bed, and continued to nap intermittently during the day, however he was more visible on the unit this shift and appeared to have increased animation. 1:1 completed at bedside, pt. continues to deny all MH s/s, and does not appear internally preoccupied. However, he points to his 5150 paperwork (stating his father is ) and states in a delusional manner, "That's wrong right there, I was with him before I came in here. The phone is just off the hook." Pt. appears to be fixed in this delusion. Pt. was observed to be more present on the unit this shift, but continues to be guarded and withdrawn from others. Pt. denies any n/v this shift, no pain present, abdominal sounds WNL in all four quadrants, and V/S remain WNL.This documentation writer obtained an order for daily Protonix from BEN Mccoy. Also, per BEN Mccoy, no need for Gastrointestinal workup at this time, will continue to monitor. S/I, H/I: Denies A/VH: Denies, does not appear internally preoccupied Sleep: Sleep hours are 7.25, and pt. naps intermittently during the shift ADL's: Requires some encouragement Group attendance: No Were meds taken: Yes Any med S/E: None Mental Status Exam Appearance: Hair and clothing disheveled Eye contact: Good Behavior: Cooperative, fatigued, guarded, and isolative Speech: Soft, responds minimally to direct questions only Mood: Guarded with animation Affect: Blunted with animation Thought process: Poverty of thought Thought Content: Fixed delusions Cognition: A&O X3 Insight: Fair Judgment: Fair Interventions PRN's used: None Therapeutic interventions: Maintained a safe and supportive environment, ensured contract for safety, provided clear and simple instructions, provided active listening and positive encouragement, monitored for any N/V and appetite, obtained an order for daily Protonix, and maintained Q 15min safety checks. Restraints/seclusion/emergency medication: N/A Justification of Continued Inpatient Treatment: Per BEN Mccoy, pt. continues to require a safe and supportive environment at this time.
[2021-08-18 19:27] VITALS: BP 105/75
[2021-08-18] MEDS: haloperidol 5mg tablet PO SCH (21:07)
[2021-08-18] MEDS: traZODone 50mg tablet PO PRN (21:07)
--- NOTE | 2021-08-18 22:13 | NUR ---
Nursing Progress Note: Legal hold: 5150 Client on involuntary status for GD Report received from nurse with use of SBAR: Mo RN Why are they here: Pt admitted from [facility] to restore competency. Pt has history of schizophrenia and substance abuse. Pt had negative PPD and Covid tests. Pt has multiple charges ranging from obstruction, public intoxication, trespassing, disturbing the peace, defecating in prohibited place, battery upon officer, unlawful camping, and possession. Assessment What has happened this shift: Patient laying in bed at the beginning of shift. Pleasant and cooperative with care; compliant with medication. PRN Trazodone provided per patient request with positive effect. Patient denies SI, HI, A/VH; does not appear to be responding to IS and no delusional thought content expressed this shift. Patient denies N/V at this time and reports regular BM. Patient observed pacing the unit and briefly watching TV in the recreation room. Participated in HS snack prior to bed; observed sleeping without difficulty. S/I, H/I: Denies A/VH: Denies Sleep: Refer to sleep assessment ADL's: Independent Group attendance: No Were meds taken: Yes Any med S/E: None observed or reported Mental Status Exam Appearance: Somewhat disheveled and appropriately dressed Eye contact: Good Behavior: Cooperative, fatigued, guarded, and isolative Speech: Soft, responds minimally to direct questions only Mood: Guarded Affect: Blunted Thought process: Linear Thought Content: Meeting needs Cognition: A&O X3 Insight: Fair Judgment: Fair Interventions PRN's used: Trazodone Therapeutic interventions: Maintained a safe and supportive environment, ensured contract for safety, provided clear and simple instructions, provided active listening and positive encouragement, monitored for any N/V and provided Zofran as needed, encouraged fluids and endorsed s/s to BEN Mccoy, and maintained Q 15min safety checks. Restraints/seclusion/emergency medication: N/A Justification of Continued Inpatient Treatment: Per BEN Mccoy, pt. continues to require a safe and supportive environment.
[2021-08-19] MEDS: pantoprazole 40mg Tablet.DR PO SCH (07:52)
[2021-08-19 08:00] VITALS: BP 107/81
--- NOTE | 2021-08-19 12:26 | NUR ---
Nursing Progress Note: Legal hold: 5150 Client on involuntary status for GD Report received from nurse with use of SBAR: Juliet Coleman RN Why are they here: Pt admitted from [facility] to restore competency. Pt has history of schizophrenia and substance abuse. Pt had negative PPD and Covid tests. Pt has multiple charges ranging from obstruction, public intoxication, trespassing, disturbing the peace, defecating in prohibited place, battery upon officer, unlawful camping, and possession. Assessment What has happened this shift: Received pt. sleeping in bed at the beginning of the shift, he awoke and attended breakfast in the Group Room, and is eating well. 1:1 completed afterwards at bedside, pt. continues to deny any M/H s/s, but remains guarded with conversation with soft speech and responds minimally to direct questions only. Pt. does not appear to be internally preoccupied, however does appear to present with a disorganized thought process at times, and fixed delusions. When questioned regarding his last bowl movement, pt. states, "I think everything is slowed." When further questioned by this contract technical writer, pt. states in a disorganized and way, "I touched my stomach." He does not elaborate, and is unable to tell this contract technical writer when his last BM was, however per chart last BM was yesterday. Pt. continues to require some encouragement to preform ADLs (showering) and has no viable plans for discharge. Pt. continues to deny any N/V or stomach upset this shift, and V/S remain WNL. Will continue to monitor. S/I, H/I: Denies A/VH: Denies, does not appear internally preoccupied Sleep: Sleep hours are 8, and pt. naps intermittently during the shift ADL's: Requires some encouragement Group attendance: N/A Were meds taken: Yes Any med S/E: None Mental Status Exam Appearance: Hair and clothing disheveled Eye contact: Good Behavior: Cooperative, fatigued, guarded, and isolative Speech: Soft, responds minimally to direct questions only Mood: Guarded with animation Affect: Blunted with animation Thought process: Poverty of thought with disorganization at times Thought Content: Fixed delusions Cognition: A&O X3 Insight: Fair Judgment: Fair Interventions PRN's used: None Therapeutic interventions: Maintained a safe and supportive environment, ensured contract for safety, provided clear and simple instructions, provided active listening and positive encouragement, monitored for any ongoing N/V, and maintained Q 15min safety checks. Restraints/seclusion/emergency medication: N/A Justification of Continued Inpatient Treatment: Per BEN Mccoy, pt. continues to require a safe and supportive environment at this time. The plan is to conserve him.
--- NOTE | 2021-08-19 12:39 | NUR ---
F/u 08/19: Pt continues eating well with mostly 100% PO intake on regular diet while receiving double protein TID per diet order, meeting estimated nutrient needs. LBM 08/18. No nutrition intervention implemented at this time. Will continue to follow. Recommendations: 1) Continue regular diet; double eggs WB double meat BIDLD per diet order 2) Bowel care per rx 3) Weekly scaled weights Addendum: 08/19/21 at [address] Amended: Links added.
[2021-08-19 20:02] VITALS: BP 114/68
[2021-08-19] MEDS: traZODone 50mg tablet PO PRN (20:14)
[2021-08-19] MEDS: haloperidol 5mg tablet PO SCH (20:14)
--- NOTE | 2021-08-19 23:14 | NUR ---
Nursing Progress Note: Legal hold: 5150 Client on involuntary status for GD Report received from nurse with use of SBAR: DANIEL Interiano Why are they here: Pt admitted from [facility] to restore competency. Pt has history of schizophrenia and substance abuse. Pt had negative PPD and Covid tests. Pt has multiple charges ranging from obstruction, public intoxication, trespassing, disturbing the peace, defecating in prohibited place, battery upon officer, unlawful camping, and possession. Assessment What has happened this shift: Patient pacing the unit at the beginning of shift. Pleasant and cooperative with care; compliant with medication. PRN Trazodone provided this shift. Patient denies SI, HI, A/VH this shift; reports delusional thought content. Patient was asking questions about hold being up tomorrow; upon specification writer asking where he'd go if he were to discharge he said to his dad's house. Associate Loan Officer asked if he remembered the conversation with the [employer] worker, he smirked and stated, "yeah, but that wasn't my dad." Patient participated in HS snack prior to bed; observed sleeping and does not appear to be having difficulty. No N/V reported or observed this shift. S/I, H/I: Denies A/VH: Denies Sleep: Refer to sleep assessment ADL's: Independent Group attendance: No Were meds taken: Yes Any med S/E: None observed or reported Mental Status Exam Appearance: Somewhat disheveled and appropriately dressed Eye contact: Good Behavior: Pleasant and cooperative, pacing the unit Speech: Soft, responds minimally to direct questions only Mood: Guarded Affect: Blunted Thought process: Linear with delusional content Thought Content: Meeting needs; hold expiring and discharge Cognition: A&O X3 Insight: Fair Judgment: Fair Interventions PRN's used: Trazodone Therapeutic interventions: Maintained a safe and supportive environment, ensured contract for safety, provided clear and simple instructions, provided active listening and positive encouragement, monitored for any N/V and provided Zofran as needed, encouraged fluids and endorsed s/s to BEN Mccoy, and maintained Q 15min safety checks. Restraints/seclusion/emergency medication: N/A Justification of Continued Inpatient Treatment: Per BEN Mccoy, pt. continues to require a safe and supportive environment.
[2021-08-20 07:27] VITALS: BP 113/80
[2021-08-20] MEDS: pantoprazole 40mg Tablet.DR PO SCH (07:35)
--- NOTE | 2021-08-20 12:52 | NUR ---
LPS REFERRAL Sent completed LPS referral to [facility]. DAMIEN Pérez
--- NOTE | 2021-08-20 13:47 | NUR ---
Nursing Progress Note: JUDI Legal hold: 5250 Client on involuntary status for GD Report received from MIRTA Arias with use of SBAR. Why are they here: Pt admitted from [facility] to restore competency. Pt has history of schizophrenia and substance abuse. Pt had negative PPD and Covid tests. Pt has multiple charges ranging from obstruction, public intoxication, trespassing, disturbing the peace, defecating in prohibited place, battery upon officer, unlawful camping, and possession. Assessment What has happened this shift: Received patient sleeping at shift change, pt woke and attended breakfast then paced garcia before returning to bed. Pt was compliant with care and his one morning medication. Pt is pleasant, does not appear to be internally preoccupied, however presents with a disorganized thought process Pts conversation revolves around his 5150 being up. Pt states, as he is showing consumer loan underwriter his 5150, dont I get to leave today? Pt states I get money, so I can take care of that. I can still live with my dad. Pt continues to deny that his father has . Pt states that wasnt him. That has happened twice. Asked what he meant by happened twice, pt stated my dad being gone. S/I, H/I: Denies both A/VH: Denies, does not appear internally preoccupied Sleep: 8.25 hours per sleep assessment. Intermittent naps during the day. ADL's: Requires some encouragement Group attendance: Declined. Were meds taken: Yes, without issue. Any med S/E: None reported or observed. Mental Status Exam Appearance: Hair and clothing disheveled Eye contact: Good Behavior: Cooperative, fatigued, guarded, and isolative Speech: Soft, responds minimally to direct questions only Mood: Guarded with animation Affect: Blunted with animation Thought process: Poverty of thought with disorganization at times Thought Content: Fixed delusions Cognition: A&O X3 Insight: Fair Judgment: Fair Interventions PRN's used: None Therapeutic interventions: Maintained a safe and supportive environment, ensured contract for safety, provided clear and simple instructions, provided active listening and positive encouragement, monitored for any ongoing N/V, and maintained Q 15min safety checks. Restraints/seclusion/emergency medication: N/A Justification of Continued Inpatient Treatment: Pt is gravely disabled and unable to formulate a viable safety plan for food, fpc and clothing. Addendum: 08/20/21 at 1728 by Emily Sandoval RN Pt spoke with his "ex step-mom." Pt stated "that was my dad that got shot." Pt states "he dropped me off and took off" that was the last time the patient saw his father. Pt stated "I guess its just me now." "Well except for my son." Pt states he has a 10 year old son that lives locally who he hasn't seen for awhile. Pt states "I just want to really get out of here right now." Pt remains calm, declines any PRN's. Pt was encouraged to let staff know if he gets frustrated or feels safe or just needs to talk.
[2021-08-20 19:34] VITALS: BP 124/84
[2021-08-20] MEDS: haloperidol 5mg tablet PO SCH (20:07)
[2021-08-20] MEDS: ondansetron 4mg rapidly disintigrating tab PO PRN (20:07)
[2021-08-20] MEDS: traZODone 50mg tablet PO PRN ×2 (20:07→21:58)
--- NOTE | 2021-08-20 23:52 | NUR ---
Nursing Progress Note: Legal hold: 5250 Client on involuntary status for GD Report received from nurse with use of SBAR: DANIEL Rubio Why are they here: Pt admitted from [facility] to restore competency. Pt has history of schizophrenia and substance abuse. Pt had negative PPD and Covid tests. Pt has multiple charges ranging from obstruction, public intoxication, trespassing, disturbing the peace, defecating in prohibited place, battery upon officer, unlawful camping, and possession. Assessment What has happened this shift: Patient pacing the unit at the beginning of shift. Pleasant and cooperative with care; compliant with medication. PRN Trazodone x2 per patient request and Zofran provided for c/o of N/V. Patient denies SI, HI, A/VH; does not appear to be responding to IS and delusional thought content presented this shift. Patient talked with ghost writer about wanting to discharge but unable to formulate a plan. Patient providing short responses but answered ghost writer's questions about his child. Patient participated in HS snack prior to bed; observed sleeping and post repeat Trazodone patient does not appear to be having difficulty. S/I, H/I: Denies A/VH: Denies Sleep: Refer to sleep assessment ADL's: Independent Group attendance: No Were meds taken: Yes Any med S/E: None observed or reported Mental Status Exam Appearance: Somewhat disheveled and appropriately dressed Eye contact: Good Behavior: Pleasant and cooperative, pacing the unit Speech: Soft, responds minimally to direct questions only Mood: Guarded Affect: Blunted Thought process: Linear Thought Content: Meeting needs; discharge Cognition: A&O X3 Insight: Fair Judgment: Fair Interventions PRN's used: Trazodone x2 and Zofran Therapeutic interventions: Maintained a safe and supportive environment, ensured contract for safety, provided clear and simple instructions, provided active listening and positive encouragement, monitored for any N/V and provided Zofran as needed, encouraged fluids and endorsed s/s to BEN Mccoy, and maintained Q 15min safety checks. Restraints/seclusion/emergency medication: N/A Justification of Continued Inpatient Treatment: Per BEN Mccoy, pt. continues to require a safe and supportive environment.
[2021-08-21] MEDS: pantoprazole 40mg Tablet.DR PO SCH (07:38)
[2021-08-21 08:00] VITALS: BP 119/83
--- NOTE | 2021-08-21 16:40 | NUR ---
Nursing Progress Note: Legal hold: 5250 Client on involuntary status for GD Report received RN with use of SBAR Why are they here: Pt admitted from [facility] to restore competency. Pt has history of schizophrenia and substance abuse. Pt has multiple charges ranging from obstruction, public intoxication, trespassing, disturbing the peace, defecating in prohibited place, battery upon officer, unlawful camping, and possession. Assessment What has happened this shift: Received Pt in bed sleeping w/o distress in his room at change of shift. Pt woke for vitals and took AM med w/o issue. Pt tolerated assessments well and spent most of day resting, walking halls and watching tv. Pt went to [facility] and partially attended a group. Denies SI/HI and did not appear to be responding to internal stimuli. S/I, H/I: Denies A/VH: Denies Sleep: Napped ADL's: Independent Group attendance: Yes Were Meds taken: Yes Any med S/E: None noted or reported Mental Status Exam Appearance: Casual in own clothes Eye contact: Fair Behavior: Cooperative Speech: Coherent short answers Mood: Guarded Affect: Blunted Thought process: Poverty of speech and content Thought Content: Meeting immediate needs Cognition: A&O X3 Insight: Fair Judgment: Fair Interventions PRN's used: None Therapeutic interventions: Provided 1:1 assessment with therapeutic communication; medication administration/education/monitoring, provided direction and encouragement as needed, encouraged participation on the unit, and maintained Q 15min safety checks. Restraints/seclusion/emergency medication: N/A Justification of Continued Inpatient Treatment: Per BEN Mccoy, pt. is at baseline, however continues to require a safe and supportive environment.
[2021-08-21 19:00] VITALS: BP 120/80
[2021-08-21] MEDS: traZODone 50mg tablet PO PRN (20:49)
[2021-08-21] MEDS: haloperidol 5mg tablet PO SCH (20:49)
--- NOTE | 2021-08-21 22:04 | NUR ---
Nursing Progress Note: Legal hold: 5250 Client on involuntary status for GD Report received from nurse with use of SBAR: DANIEL Rubio Why are they here: Pt admitted from [facility] to restore competency. Pt has history of schizophrenia and substance abuse. Pt had negative PPD and Covid tests. Pt has multiple charges ranging from obstruction, public intoxication, trespassing, disturbing the peace, defecating in prohibited place, battery upon officer, unlawful camping, and possession. Assessment What has happened this shift: Patient walking the garcia at the beginning of shift. Pleasant and cooperative with care; compliant with medication. PRN Trazodone provided this shift. Patient denies n/v at this time. He denies SI, HI, A/VH; does not appear to be responding to IS and no delusional thought content expressed. Patient continues to provided minimal responses to direct questions. He participated in HS snack prior to bed; observed sleeping and does not appear to be having difficulty. S/I, H/I: Denies A/VH: Denies Sleep: Refer to sleep assessment ADL's: Independent Group attendance: No Were meds taken: Yes Any med S/E: None observed or reported Mental Status Exam Appearance: Somewhat disheveled and appropriately dressed Eye contact: Good Behavior: Pleasant and cooperative, pacing the unit Speech: Soft, responds minimally to direct questions only Mood: Guarded Affect: Blunted Thought process: Linear Thought Content: Meeting needs; discharge Cognition: A&O X3 Insight: Fair Judgment: Fair Interventions PRN's used: Trazodone Therapeutic interventions: Maintained a safe and supportive environment, ensured contract for safety, provided clear and simple instructions, provided active listening and positive encouragement, monitored for any N/V and provided Zofran as needed, encouraged fluids and endorsed s/s to BEN Mccoy, and maintained Q 15min safety checks. Restraints/seclusion/emergency medication: N/A Justification of Continued Inpatient Treatment: Per BEN Mccoy, pt. continues to require a safe and supportive environment.
[2021-08-22] MEDS: pantoprazole 40mg Tablet.DR PO SCH (07:05)
[2021-08-22 07:37] VITALS: BP 104/80
--- NOTE | 2021-08-22 15:35 | NUR ---
Nursing Progress Note: Legal hold: 5250 Client on involuntary status for GD Report received from nurse with use of SBAR: Fely RN Why are they here: Pt admitted from [facility] to restore competency. Pt has history of schizophrenia and substance abuse. Pt had negative PPD and Covid tests. Pt has multiple charges ranging from obstruction, public intoxication, trespassing, disturbing the peace, defecating in prohibited place, battery upon officer, unlawful camping, and possession. Assessment What has happened this shift: Patient resting quietly in bed at the start of the shift. Awakens prior to breakfast and paces the unit. Denies any GI symptoms. States his last BM was 4 days ago but that he has not been eating and does not feel constipated. Bowel sounds active x4. Eats meals in community room and interacts appropriately with peers and staff. Speaks very little but answers appropriately to direct questions. Patient sometimes mumbles or smiles to himself and appears internally occupied. S/I, H/I: Denies A/VH: Denies but appears internally occupied. Sleep: 8 hours per NOC ADL's: Independent Group attendance: No Were meds taken: Yes Any med S/E: None observed or reported Mental Status Exam Appearance: Somewhat disheveled and dressed in personal clothing appropriate for unit. Eye contact: Good Behavior: Pleasant and cooperative, paces the unit Speech: Soft, responds minimally to direct questions only Mood: Good. Affect: congruent with mood Thought process: Linear Thought Content: Meeting needs Cognition: A&O X3 to person, place and situation Insight: Fair Judgment: Fair Interventions PRN's used: None Therapeutic interventions: Maintained a safe and supportive environment, ensured contract for safety, provided clear and simple instructions, provided active listening and positive encouragement, monitored for any N/V and provided Zofran as needed, encouraged fluids and endorsed s/s to BEN Mccoy, and maintained Q 15min safety checks. Restraints/seclusion/emergency medication: N/A Justification of Continued Inpatient Treatment: Per BEN Mccoy, pt. continues to require a safe and supportive environment.
[2021-08-22 19:12] VITALS: BP 111/79
[2021-08-22] MEDS: haloperidol 5mg tablet PO SCH (20:15)
[2021-08-22] MEDS: traZODone 50mg tablet PO PRN (20:15)
--- NOTE | 2021-08-22 22:32 | NUR ---
Nursing Progress Note: Legal hold: 5250 Client on involuntary status for GD Report received from nurse with use of SBAR: Mary RN Why are they here: Pt admitted from [facility] to restore competency. Pt has history of schizophrenia and substance abuse. Pt had negative PPD and Covid tests. Pt has multiple charges ranging from obstruction, public intoxication, trespassing, disturbing the peace, defecating in prohibited place, battery upon officer, unlawful camping, and possession. Assessment What has happened this shift: Patient laying in bed awake at the beginning of shift. Pleasant and cooperative with care; compliant with medication. PRN Trazodone provided this shift. Patient denies SI, HI, A/VH; does not appear to be responding to IS and delusional thought content expressed this shift. Patient ate HS snack in his room; observed sleeping and does not appear to be having difficulty. S/I, H/I: Denies A/VH: Denies Sleep: Refer to sleep assessment ADL's: Independent Group attendance: No Were meds taken: Yes Any med S/E: None observed or reported Mental Status Exam Appearance: Somewhat disheveled and appropriately dressed Eye contact: Good Behavior: Pleasant and cooperative, pacing the unit Speech: Soft, responds minimally to direct questions only Mood: Guarded Affect: Blunted Thought process: Linear Thought Content: Meeting needs; discharge Cognition: A&O X3 Insight: Fair Judgment: Fair Interventions PRN's used: Trazodone Therapeutic interventions: Maintained a safe and supportive environment, ensured contract for safety, provided clear and simple instructions, provided active listening and positive encouragement, monitored for any N/V and provided Zofran as needed, encouraged fluids and endorsed s/s to BEN Mccoy, and maintained Q 15min safety checks. Restraints/seclusion/emergency medication: N/A Justification of Continued Inpatient Treatment: Per BEN Mccoy, pt. continues to require a safe and supportive environment.
[2021-08-23 07:25] VITALS: BP 106/73
[2021-08-23] MEDS: pantoprazole 40mg Tablet.DR PO SCH (08:09)
--- NOTE | 2021-08-23 12:23 | NUR ---
SAM Anderson, social contact worker staff, assisted Cameron with calling [employer] to get it it re-instated. He has to do a new application. He did a preliminary one over the phone. Contacted XENA Thompson, and requested she assist him with completing the application. She reported she will meet with him to do so. DAMIEN Pérez
--- NOTE | 2021-08-23 17:16 | NUR ---
Nursing Progress Note: Cameron Ortega Legal hold: 5250 Client on involuntary status for GD Report received from nurse with use of SBAR: DANIEL Geiger Why are they here: [facility]. Pt has history of schizophrenia and substance abuse. Pt had negative PPD and Covid tests. Pt has multiple charges ranging from obstruction, public intoxication, trespassing, disturbing the peace, defecating in prohibited place, battery upon officer, unlawful camping, and possession. Assessment What has happened this shift: Patient was observed walking around the unit at the beginning of shift and sitting in the recreation room until breakfast arrived. He endorsed to this aligner typewriter that he is Doing good this morning. He joined with peers in the community room for breakfast. He continues to present as polite, quiet, composed, and cooperative with care. 1:1 assessment completed, lungs CTA. He is compliant with all medications. He was noted sleeping in bed for approximately one hour after breakfast. He was later observed walking throughout the unit, asking for snacks and coffee. Patient denies SI/HI, AH or VH. Does not appear to be responding to internal stimuli. He responds minimally to direct questions only. He was observed sitting in the recreation room by himself, looking out the window around 1100. He did not attend group therapy today despite encouragement. Patient endorsed to this aligner typewriter that he wants to go back out on the streets and get a room at the [facility]. Patient endorsing that he once lived at the [facility] with a roommate and split the cost of a room together. Patient is unable to come up with a means for income to support his idea of living in a motel or providing food and clothing for himself. He slept intermittently throughout the day and was observed walking periodically throughout the unit. He continues to be antisocial, isolative, and quiet. He joined in the community room for all meals and snacks. S/I, H/I: Denies. A/VH: Denies. Does not appear to be responding to internal stimuli. Sleep: Pt slept 8 hours last night per NOC shift, slept intermittently throughout the day ADL's: Independent Group attendance: No Were meds taken: Yes Any med S/E: None observed or reported Mental Status Exam Appearance: Somewhat disheveled, unkempt hair, wearing green unit scrubs Eye contact: Good Behavior: Pleasant, quiet, cooperative, appears bored Speech: Clear, soft, responds minimally to direct questions only Mood: Guarded Affect: Blunted Thought process: Linear Thought Content: Meeting needs; leaving the facility and get a room at the [facility]. Cognition: A&O x3 Insight: Fair Judgment: Fair Interventions PRN's used: None Therapeutic interventions: Maintained a safe and supportive environment, ensured contract for safety, provided clear and simple instructions, provided active listening and positive encouragement, monitored for any N/V, encouraged participation on the unit, medication education/administration/monitoring and maintained Q 15min safety checks. Restraints/seclusion/emergency medication: N/A Justification of Continued Inpatient Treatment: Patient continues to require a safe and supportive environment while awaiting possible conservatorship and placement. Per BEN Crenshaw, no change in medication or treatment plan. The county will determine whether they want to conserve him at this time.
[2021-08-23 19:00] VITALS: BP 111/75
[2021-08-23] MEDS: traZODone 50mg tablet PO PRN ×2 (20:12→20:48)
[2021-08-23] MEDS: haloperidol 5mg tablet PO SCH (20:12)
--- NOTE | 2021-08-24 01:46 | NUR ---
Nursing Progress Note: Legal hold: 5250 Client on involuntary status for GD Report received from nurse with use of SBAR: Mary RN Why are they here: Pt admitted from [facility] to restore competency. Pt has history of schizophrenia and substance abuse. Pt had negative PPD and Covid tests. Pt has multiple charges ranging from obstruction, public intoxication, trespassing, disturbing the peace, defecating in prohibited place, battery upon officer, unlawful camping, and possession. Assessment What has happened this shift: Patient had a good evening, stating that he has no complaints or concerns. Pt walked the halls, not interacting with others for most of the evening. Pt accepted hs meds and requested a second round of trazadone and went to bed. S/I, H/I: Denies A/VH: Denies Sleep: Refer to sleep assessment ADL's: Independent Group attendance: No Were meds taken: Yes Any med S/E: None observed or reported Mental Status Exam Appearance: Somewhat disheveled and appropriately dressed Eye contact: Good Behavior: Pleasant and cooperative, pacing the unit Speech: Soft, responds minimally to direct questions only Mood: Guarded Affect: Blunted Thought process: Linear Thought Content: Meeting needs; discharge Cognition: A&O X3 Insight: Fair Judgment: Fair Interventions PRN's used: Trazodone Therapeutic interventions: Maintained a safe and supportive environment, ensured contract for safety, provided clear and simple instructions, provided active listening and positive encouragement, monitored for any N/V and provided Zofran as needed, encouraged fluids and endorsed s/s to BEN Mccoy, and maintained Q 15min safety checks. Restraints/seclusion/emergency medication: N/A Justification of Continued Inpatient Treatment: Per BEN Mccoy, pt. continues to require a safe and supportive environment.
[2021-08-24 07:37] VITALS: BP 105/64
[2021-08-24] MEDS: pantoprazole 40mg Tablet.DR PO SCH (08:09)
--- NOTE | 2021-08-24 17:07 | NUR ---
Nursing Progress Note: Cameron Ortega Legal hold: 5250 Client on involuntary status for GD Report received from nurse with use of SBAR: Juliet Gale RN Why are they here: [facility]. Pt has history of schizophrenia and substance abuse. Pt had negative PPD and Covid tests. Pt has multiple charges ranging from obstruction, public intoxication, trespassing, disturbing the peace, defecating in prohibited place, battery upon officer, unlawful camping, and possession. Assessment What has happened this shift: Patient was noted sleeping in bed at shift change. He participated in the community room for breakfast with peers, noted sitting by himself quietly. He is compliant with all medications. He retreated back to his room after breakfast and was observed sleeping in his bed. 1:1 assessment completed, lungs CTA. He continues to be polite, composed, and cooperative with care. Patient noted to responds minimally to direct questions only, in a quiet tone of voice. He denies SI/HI, AH or VH. Does not appear to be responding to internal stimuli. He was observed walking around the unit throughout the day. He participated in group therapy today with peers. He was observed sitting in the community room having a snack and watching television, keeping to himself. He continues to present as antisocial, isolative, and quiet. He was observed being helpful on the unit today, assisting staff in returning lunch carts to their rightful location. He was noted napping intermittently throughout the day and walking periodically throughout the unit. He joined in the community room for all meals and snacks. S/I, H/I: Denies. A/VH: Denies. Does not appear to be responding to internal stimuli. Sleep: Pt slept 7 hours last night per NOC shift, slept intermittently throughout the day ADL's: Independent Group attendance: No Were meds taken: Yes Any med S/E: None observed or reported Mental Status Exam Appearance: Somewhat disheveled, unkempt hair, wearing green unit scrubs Eye contact: Good Behavior: Pleasant, quiet, and cooperative Speech: Clear, soft, responds minimally to direct questions only Mood: Guarded Affect: Blunted Thought process: Linear Thought Content: Meeting needs Cognition: A&O x3 Insight: Fair Judgment: Fair Interventions PRN's used: None Therapeutic interventions: Maintained a safe and supportive environment, ensured contract for safety, provided clear and simple instructions, provided active listening and positive encouragement, encouraged participation on the unit, medication education/administration/monitoring and maintained Q 15min safety checks. Restraints/seclusion/emergency medication: N/A Justification of Continued Inpatient Treatment: Patient continues to require a safe and supportive environment while awaiting possible conservatorship and placement. Per BEN Crenshaw, no change in medication or treatment plan. The county will determine whether they want to conserve him at this time. If they do not pursue conservatorship I would recommend the [facility] with a full star team approach.
[2021-08-24 19:48] VITALS: BP 94/54
[2021-08-24] MEDS: traZODone 50mg tablet PO PRN (20:48)
[2021-08-24] MEDS: haloperidol 5mg tablet PO SCH (20:48)
--- NOTE | 2021-08-25 03:00 | NUR ---
Progress Note: Cameron Ortega Legal hold: 5250 Client on involuntary status for GD Why are they here: Pt admitted from [facility] to restore competency. Pt has history of schizophrenia and substance abuse. Pt had negative PPD and Covid tests. Pt has multiple charges ranging from obstruction, public intoxication, trespassing, disturbing the peace, defecating in prohibited place, battery upon officer, unlawful camping, and possession. Assessment Slept most of shift, was in bed resting when shift began, woke the patient for his hs meds and he rolled over and went back to sleep. Frequent checks throughout the shift showed patient remained restive and without any signs of distress. S/I, H/I: Denies. A/VH: Denies. Does not appear to be responding to internal stimuli. Sleep: Pt slept 7 hours last night per NOC shift, slept intermittently throughout the day ADL's: Independent Group attendance: No Were meds taken: Yes Any med S/E: None observed or reported Mental Status Exam Appearance: Somewhat disheveled, unkempt hair, wearing green unit scrubs Eye contact: Good Behavior: Pleasant, quiet, and cooperative Speech: Clear, soft, responds minimally to direct questions only Mood: Guarded Affect: Blunted Thought process: Linear Thought Content: Meeting needs Cognition: A&O x3 Insight: Fair Judgment: Fair Interventions PRN's used: None Therapeutic interventions: Maintained a safe and supportive environment, ensured contract for safety, provided clear and simple instructions, provided active listening and positive encouragement, encouraged participation on the unit, medication education/administration/monitoring and maintained Q 15min safety checks. Restraints/seclusion/emergency medication: N/A Justification of Continued Inpatient Treatment: Patient continues to require a safe and supportive environment while awaiting possible conservatorship and placement. Per BEN Crenshaw, no change in medication or treatment plan. The county will determine whether they want to conserve him at this time. If they do not pursue conservatorship I would recommend the [facility] with a full star team approach.
[2021-08-25] MEDS: pantoprazole 40mg Tablet.DR PO SCH (08:03)
[2021-08-25 08:20] VITALS: BP 110/70
--- NOTE | 2021-08-25 17:18 | NUR ---
Nursing Progress Note: Cameron Ortega Legal hold: 5250 Client on involuntary status for GD Report received from nurse with use of SBAR: DANIEL Johnson Why are they here: [facility]. Pt has history of schizophrenia and substance abuse. Pt had negative PPD and Covid tests. Pt has multiple charges ranging from obstruction, public intoxication, trespassing, disturbing the peace, defecating in prohibited place, battery upon officer, unlawful camping, and possession. Assessment What has happened this shift: Patient was noted walking around the unit at change of shift. He was observed assisting staff with delivering breakfast cart to the community room this morning. He sat in the community room by himself eating breakfast quietly. Patient noted to be in a good mood and smiling upon interaction with this comic writer. He continues to be polite, composed, quiet, and cooperative with care. 1:1 assessment completed, lungs CTA. He denies SI/HI, AH or VH. Does not appear to be responding to internal stimuli. He endorsed to this comic writer that he is feeling good today. He is compliant with all medications. He was noted taking an hour long nap later in the morning. Patient noted to respond minimally to direct questions only, in a quiet tone of voice. He participated in group therapy today and was noted interacting appropriately. He was observed walking around the unit, watching television in the recreation room, and being active on the unit throughout the day. He participated in the community room for all snack and meal times. S/I, H/I: Denies. A/VH: Denies. Does not appear to be responding to internal stimuli. Sleep: Pt slept 7.75 hours last night per NOC shift, slept for one hour today ADL's: Independent Group attendance: Yes Were meds taken: Yes Any med S/E: None observed or reported Mental Status Exam Appearance: Somewhat disheveled, unkempt hair, wearing green unit scrubs Eye contact: Good Behavior: Pleasant, quiet, and cooperative Speech: Clear, soft, responds minimally to direct questions only Mood: Guarded. Feeling good today. Affect: Blunted Thought process: Linear Thought Content: Meeting needs Cognition: A&O x3 Insight: Fair Judgment: Fair Interventions PRN's used: None Therapeutic interventions: Maintained a safe and supportive environment, ensured contract for safety, provided clear and simple instructions, provided active listening and positive encouragement, encouraged participation on the unit, medication education/administration/monitoring and maintained Q 15min safety checks. Restraints/seclusion/emergency medication: N/A Justification of Continued Inpatient Treatment: Patient continues to require a safe and supportive environment while awaiting placement. Per BEN Mccoy, It is of concern whether he can actually be successful and follow through with his plans.
[2021-08-25 19:06] VITALS: BP 118/74
[2021-08-25] MEDS: haloperidol 5mg tablet PO SCH (20:16)
[2021-08-25] MEDS: traZODone 50mg tablet PO PRN (20:16)
--- NOTE | 2021-08-26 02:05 | NUR ---
Nursing Progress Note: Legal hold: 5250 Client on involuntary status for GD Report received from nurse with use of SBAR: Mo RN Why are they here: Pt admitted from [facility] to restore competency. Pt has history of schizophrenia and substance abuse. Pt had negative PPD and Covid tests. Pt has multiple charges ranging from obstruction, public intoxication, trespassing, disturbing the peace, defecating in prohibited place, battery upon officer, unlawful camping, and possession. Assessment What has happened this shift: Patient was hanging out by the food trays asking for additional food at shift change. pt is polite and cooperative and does not have any behavior issues. Pt denies hearing voices but is seen responding to IS at various times. Pt will walk the halls and occasionally laugh to himself. All hs meds accepted without issue. S/I, H/I: Denies A/VH: Denies Sleep: Refer to sleep assessment ADL's: Independent Group attendance: No Were meds taken: Yes Any med S/E: None observed or reported Mental Status Exam Appearance: Somewhat disheveled and appropriately dressed Eye contact: Good Behavior: Pleasant and cooperative, pacing the unit Speech: Soft, responds minimally to direct questions only Mood: Guarded Affect: Blunted Thought process: Linear Thought Content: Meeting needs; discharge Cognition: A&O X3 Insight: Fair Judgment: Fair Interventions PRN's used: Trazodone Therapeutic interventions: Maintained a safe and supportive environment, ensured contract for safety, provided clear and simple instructions, provided active listening and positive encouragement, monitored for any N/V and provided Zofran as needed, encouraged fluids and endorsed s/s to BEN Mccoy, and maintained Q 15min safety checks. Restraints/seclusion/emergency medication: N/A Justification of Continued Inpatient Treatment: Per BEN Mccoy, pt. continues to require a safe and supportive environment.
[2021-08-26] MEDS: pantoprazole 40mg Tablet.DR PO SCH (07:29)
[2021-08-26 07:35] VITALS: BP 99/65
--- NOTE | 2021-08-26 13:38 | NUR ---
F/u 08/19: Pt continues eating well with mostly 100% PO intake on regular diet while receiving double protein TID per diet order, meeting estimated nutrient needs. LBM 08/23. No nutrition intervention implemented at this time. Will continue to follow. Recommendations: 1) Continue regular diet; double eggs WB double meat BIDLD per diet order 2) Bowel care per rx 3) Weekly scaled weights Addendum: 08/26/21 at [address] Amended: Links added.
--- NOTE | 2021-08-26 16:18 | NUR ---
Nursing Progress Note: Cameron Ortega Legal hold: 5250 Client on involuntary status for GD Report received from nurse with use of SBAR: DANIEL Mims Why are they here: [facility]. Pt has history of schizophrenia and substance abuse. Pt had negative PPD and Covid tests. Pt has multiple charges ranging from obstruction, public intoxication, trespassing, disturbing the peace, defecating in prohibited place, battery upon officer, unlawful camping, and possession. Assessment What has happened this shift: Pt. received sleeping in his room. Awoke to receive medication and then attended breakfast in dining room. Pt. denied S/I, H/I and is receptive to assessment, however is guarded in his responses with blunted affect. Pt. spent most of his day watching tv in common area, but with little social interaction observed. He attended lunch in dining room and remains nonsocial, but appears comfortable around peers. Pt. observed ambulating in garcia and doesnt appear to be responding to IS this shift. No behavioral changes this shift. S/I, H/I: Denies. A/VH: Denies. Sleep: Pt slept 8 hours last night per NOC shift, intermittent naps today ADL's: Independent Group attendance: N/A Were meds taken: Yes Any med S/E: None observed or reported Mental Status Exam Appearance: Young man appears over weight, wearing green unit scrubs Eye contact: Good Behavior: Pleasant, cooperative Speech: Clear Mood: Guarded Affect: Blunted Thought process: Linear Thought Content: meeting his needs. Cognition: A&O x3 Insight: Fair Judgment: Fair Interventions PRN's used: None Therapeutic interventions: Maintained a safe and supportive environment, ensured contract for safety, provided clear and simple instructions, provided active listening and positive encouragement, encouraged participation on the unit, medication education/administration/monitoring and maintained Q 15min safety checks. Restraints/seclusion/emergency medication: N/A Justification of Continued Inpatient Treatment: Patient continues to require a safe and supportive environment while awaiting possible conservatorship and placement. Per BEN Crenshaw, no change in medication or treatment plan. [facility] will determine whether they want to conserve him at this time.
[2021-08-26 19:56] VITALS: BP 111/75
[2021-08-26] MEDS: traZODone 50mg tablet PO PRN (20:11)
[2021-08-26] MEDS: haloperidol 5mg tablet PO SCH (20:11)
--- NOTE | 2021-08-27 02:51 | NUR ---
Nursing Progress Note: Legal hold: 5250 Client on involuntary status for GD Report received from nurse with use of SBAR: Mary RN Why are they here: Pt admitted from [facility] to restore competency. Pt has history of schizophrenia and substance abuse. Pt had negative PPD and Covid tests. Pt has multiple charges ranging from obstruction, public intoxication, trespassing, disturbing the peace, defecating in prohibited place, battery upon officer, unlawful camping, and possession. Assessment What has happened this shift: Pt isolated to his room for most of the evening, only coming out when he needs something. When asked how he is doing, pt responded, Im doing pretty good. Pt continues to be pleasant but does not want to talk about much. Pt accepted hs meds without issue and went to bed. S/I, H/I: Denies A/VH: Denies Sleep: Refer to sleep assessment ADL's: Independent Group attendance: No Were meds taken: Yes Any med S/E: None observed or reported Mental Status Exam Appearance: Somewhat disheveled and appropriately dressed Eye contact: Good Behavior: Pleasant and cooperative, pacing the unit Speech: Soft, responds minimally to direct questions only Mood: Guarded Affect: Blunted Thought process: Linear Thought Content: Meeting needs; discharge Cognition: A&O X3 Insight: Fair Judgment: Fair Interventions PRN's used: Trazodone Therapeutic interventions: Maintained a safe and supportive environment, ensured contract for safety, provided clear and simple instructions, provided active listening and positive encouragement, monitored for any N/V and provided Zofran as needed, encouraged fluids and endorsed s/s to BEN Mccoy, and maintained Q 15min safety checks. Restraints/seclusion/emergency medication: N/A Justification of Continued Inpatient Treatment: Per BEN Mccoy, pt. continues to require a safe and supportive environment.
[2021-08-27 07:34] VITALS: BP 97/58
[2021-08-27 07:43] VITALS: BP 97/58
[2021-08-27] MEDS: pantoprazole 40mg Tablet.DR PO SCH (07:52)
--- NOTE | 2021-08-27 14:32 | NUR ---
Nursing Progress Note: JUDI Legal hold: 5250 Expires 09/03 Client on involuntary status for GD Report received from nurse with use of SBAR: DANIEL Telles Why are they here: Pt admitted from [facility] to restore competency. Pt has history of schizophrenia and substance abuse. Pt had negative PPD and Covid tests. Pt has multiple charges ranging from obstruction, public intoxication, trespassing, disturbing the peace, defecating in prohibited place, battery upon officer, unlawful camping, and possession. Assessment What has happened this shift: Received patient sleeping at shift change. Pt woke prior to breakfast and sat in recreation room drinking his coffee. Pt napped shortly after breakfast and slept until 1100 snack time. . Pt was encouraged to attend group, but he declined. Pt continues to be cooperative and compliant with care and medications. Pt interacts appropriately, but keeps to himself most of the time. Pt denies all psychotic symptoms. Pts conversations continue to be minimal, pt is focused on discharge and hopes to be soon. I told the doctor I had a payee. No delusional remarks made. S/I, H/I: Denies both. A/VH: Denies. Does not appear to be responding to internal stimuli. Sleep: Slept 8.5 hours. Napped most of the morning and hour nap in afternoon. ADL's: Independent Group attendance: Yes Were meds taken: Yes, without issue. Any med S/E: None observed or reported Mental Status Exam Appearance: Somewhat disheveled, unkempt hair, wearing green unit scrubs Eye contact: Good Behavior: Cooperative, isolates to self, but visible on unit. Engages appropriately. Speech: Clear, soft, responds minimally to direct questions only Mood: Guarded. Feeling good today. Affect: Constricted. Thought process: Linear Thought Content: Getting needs met, discharge. Cognition: A&O x3 Insight: Fair Judgment: Fair Interventions PRN's used: None Therapeutic interventions: Maintained a safe and supportive environment, provided clear and simple instructions, provided active listening and positive encouragement, encouraged participation on the unit, medication education/administration/monitoring and maintained Q 15min safety checks. Restraints/seclusion/emergency medication: N/A Justification of Continued Inpatient Treatment: Patient continues to require a safe and supportive environment while awaiting placement. Addendum: 08/27/21 at 1734 by Emily Sandoval RN Pt asked contract technical writer when his hold was up (pt referred to his court papers.) Pt stated "I just want out of here!" "I don't mean to be rude." Pt stated "I am over-stayed." Pt states he can live with his aunt, even though he hasn't talked to her "in a while." Pt is linear in thought and continues to not make any delusional remarks.
--- NOTE | 2021-08-27 14:40 | NUR ---
[facility] REFERRAL Sewell was agreeable to [facility] upon discharge. Completed and faxed [facility] referral. Mangle Tender will follow up tomorrow to schedule interview. DAMIEN Pérez
[2021-08-27 20:11] VITALS: BP 95/57
[2021-08-27] MEDS: haloperidol 5mg tablet PO SCH (20:12)
[2021-08-27] MEDS: traZODone 50mg tablet PO PRN (20:12)
--- NOTE | 2021-08-28 03:01 | NUR ---
Nursing Progress Note: Legal hold: 5250 Client on involuntary status for GD Report received from nurse with use of SBAR: Mary RN Why are they here: Pt admitted from [facility] to restore competency. Pt has history of schizophrenia and substance abuse. Pt had negative PPD and Covid tests. Pt has multiple charges ranging from obstruction, public intoxication, trespassing, disturbing the peace, defecating in prohibited place, battery upon officer, unlawful camping, and possession. Assessment What has happened this shift: Pt was cooperative for all assessments and care and was friendly during 1:1. Pt denies having any concerns and denies hearing voices but can be seen responding to IS at times. Pt accepted hs meds without issue and went to bed. Pt requests trazadone for sleep. S/I, H/I: Denies A/VH: Denies Sleep: Refer to sleep assessment ADL's: Independent Group attendance: No Were meds taken: Yes Any med S/E: None observed or reported Mental Status Exam Appearance: disheveled, lying in bed Eye contact: Good Behavior: Pleasant and cooperative Speech: Soft, responds minimally to direct questions only Mood: Guarded Affect: Blunted Thought process: Linear Thought Content: Meeting needs; bored Cognition: A&O X3 Insight: Fair Judgment: Fair Interventions PRN's used: Trazodone Therapeutic interventions: Maintained a safe and supportive environment, ensured contract for safety, provided clear and simple instructions, provided active listening and positive encouragement, monitored for any N/V and provided Zofran as needed, encouraged fluids and endorsed s/s to BEN Mccoy, and maintained Q 15min safety checks. Restraints/seclusion/emergency medication: N/A Justification of Continued Inpatient Treatment: Per BEN Mccoy, pt. continues to require a safe and supportive environment.
[2021-08-28 08:00] VITALS: BP 107/71
[2021-08-28] MEDS: pantoprazole 40mg Tablet.DR PO SCH (08:09)
[2021-08-28] MEDS ORDERED: [UNRECOGNIZED DRUG - CODE] PO (13:12)
[2021-08-28] MEDS ORDERED: TRAZ-251 PO (13:12)
[2021-08-28] MEDS ORDERED: HALO5TAB PO (13:12)
[2021-08-28] MEDS ORDERED: PANT40TA54 PO (13:12)
--- NOTE | 2021-08-28 13:51 | NUR ---
[facility] INTERVIEW 1530 TODAY Cameron has [facility] interview today at 1530 with [place]. Sourcing Coordinator prepped him for the interview. DAMIEN Pérez
[2021-08-28] MEDS: ondansetron 4mg rapidly disintigrating tab PO PRN (14:18)
--- NOTE | 2021-08-28 16:55 | NUR ---
Nursing Progress Note: Cameron Ortega Legal hold: 5250 Client on involuntary status for GD Report received from nurse with use of SBAR: DANIEL Geiger Why are they here: Pt admitted from [facility] to restore competency. Pt has history of schizophrenia and substance abuse. Pt had negative PPD and Covid tests. Pt has multiple charges ranging from obstruction, public intoxication, trespassing, disturbing the peace, defecating in prohibited place, battery upon officer, unlawful camping, and possession. Assessment What has happened this shift: Patient was observed sleeping in bed at shift change. He joined in the community room with peers for breakfast this morning. He continues to present as quiet, reserved, polite, and self-isolative throughout the day. He is cooperative with care. He retreated back to his room after breakfast and was noted sleeping. 1:1 assessment completed, lungs CTA. He talks minimally with staff and only when directly questioned, otherwise his speech is soft and minimal. He is compliant with all medications. He denies SI/HI, AH or VH. He is noted walking around the unit appearing to talk under his breath periodically. He was observed participating for the first few minutes of group therapy today and then retreated to his room. He was not as active on the unit today and spent the majority of the day in his room. Patient endorsed that his stomach is bothering him and he feels like he is going to throw up. He was given PRN Zofran 4mg with effectiveness. He was observed sleeping in his room intermittently and participated in the community room for dinner with peers. He had an interview with an employee from the [facility] today. S/I, H/I: Denies A/VH: Denies. Possibly responding to IS. Observed talking under his breath quietly. Sleep: Slept 9.25 hours last night per NOC shift. Napped intermittently today. ADL's: Independent Group attendance: No Were meds taken: Yes Any med S/E: None observed or reported Mental Status Exam Appearance: Disheveled, lying in bed, scruffy varghese, green unit scrubs Eye contact: Good Behavior: Pleasant and cooperative Speech: Soft, responds minimally to direct questions only Mood: Guarded Affect: Blunted Thought process: Linear Thought Content: Meeting needs; bored Cognition: A&O x3 Insight: Fair Judgment: Fair Interventions PRN's used: Zofran 4mg PO Therapeutic interventions: Maintained a safe and supportive environment, ensured contract for safety, provided clear and simple instructions, provided active listening and positive encouragement, monitored for any N/V and provided Zofran as needed, encouraged fluids and endorsed s/s to BEN Mccoy, and maintained Q 15min safety checks. Restraints/seclusion/emergency medication: N/A Justification of Continued Inpatient Treatment: Patient continues to require a safe and supportive environment. Per BEN Mccoy, A referral to the [facility] was done.
[2021-08-28 19:00] VITALS: BP 110/77
[2021-08-28] MEDS: traZODone 50mg tablet PO PRN (19:52)
[2021-08-28] MEDS: haloperidol 5mg tablet PO SCH (21:05)
--- NOTE | 2021-08-29 03:28 | NUR ---
Nursing Progress Note: Legal hold: 5250 Client on involuntary status for GD Report received from nurse with use of SBAR: Mary RN Why are they here: Pt admitted from [facility] to restore competency. Pt has history of schizophrenia and substance abuse. Pt had negative PPD and Covid tests. Pt has multiple charges ranging from obstruction, public intoxication, trespassing, disturbing the peace, defecating in prohibited place, battery upon officer, unlawful camping, and possession. Assessment What has happened this shift: Pt continues to be cooperative for all assessments and care and was friendly during 1:1. Pt denies si/hi, hallucinations. Pt accepted hs meds without issue and went to bed. Pt requested trazadone for sleep, reporting that it has been helping him. S/I, H/I: Denies A/VH: Denies Sleep: see sleep assessment ADL's: Independent Group attendance: No Were meds taken: Yes Any med S/E: None observed or reported Mental Status Exam Appearance: disheveled, dirty clothes Eye contact: Good Behavior: Pleasant and cooperative Speech: Soft, responds minimally to direct questions only Mood: Guarded Affect: Blunted Thought process: Linear Thought Content: Meeting needs; bored Cognition: A&O X3 Insight: Fair Judgment: Fair Interventions PRN's used: Trazodone Therapeutic interventions: Maintained a safe and supportive environment, ensured contract for safety, provided clear and simple instructions, provided active listening and positive encouragement, monitored for any N/V and provided Zofran as needed, encouraged fluids and endorsed s/s to BEN Mccoy, and maintained Q 15min safety checks. Restraints/seclusion/emergency medication: N/A Justification of Continued Inpatient Treatment: Per BEN Mccoy, pt. continues to require a safe and supportive environment.
[2021-08-29 08:00] VITALS: BP 110/70
[2021-08-29] MEDS: ondansetron 4mg rapidly disintigrating tab PO PRN (08:24)
[2021-08-29] MEDS: pantoprazole 40mg Tablet.DR PO SCH (08:24)
--- NOTE | 2021-08-29 11:43 | NUR ---
ACCEPTED AT [facility] Cameron has been accepted at [facility]. It would be helpful if he can return to [facility] upon discharge from the medical floor in order to assist him with going to [facility]. DAMIEN Pérez
--- NOTE | 2021-08-29 12:00 | NUR ---
Patient noted to have reports of emesis x2 weeks. Hospitalist Dr. Wayne contacted and informed. Patient had approximately 4 liters of emesis noted first thing this morning, rust/brown colored. He had two more episodes of emesis noted later in the morning. Patient refused breakfast this morning due to upset stomach/ vomiting. Patient given PRN Zofran at 0824 and encouraged to drink fluids throughout the morning. Abd soft, non-distended. Last bowel movement yesterday (small). Hypoactive bowel sounds. Will continue to monitor.
--- NOTE | 2021-08-29 17:00 | NUR ---
DISCHARGE NOTE: Pt vomiting brown emesis with foul smell at start of shift 4L. Dr. Wayne assessed about 11am putting in transfer orders to a medical floor. Bed #358 B on the surgical floor became available at 1645. IV placed L wrist saline locked and documented in nurses note. Pt transferred to surgical at 1700. Orders from [facility] handed to nurseMarcelle RN who will call [facility] for new orders for that floor. By the time the pt left pt had vomited at least 3tx each time an average of 4L remaining brown with a foul smell. Discharge meds taken to the pharmacy by nurse Ruma KIRBY. Paperwork given to surgical nurse, Marcelle SANCHEZ. All personal property inventoried and discharged with pt to the surgical floor. Per Anna and provider, Jermaine Mccoy pt is to return to the [facility] floor upon discharge from surgical.
[2021-08-29 17:30] VITALS: BP 107/75
--- NOTE | 2021-08-29 17:35 | NUR ---
Received Bedsite report from Jessica SANCHEZ from [facility]. Pt is A & O x4 and in no apparent distress. pt is a Direct admit from [facility]. There is no admit orders yet. Group paged was send out to get orders. Pt is comfortable and in no pain. No N/V, resting. Put pt NPO for now, awaiting orders. Pt Dc from [facility] today at noon, he was on hold there until brought back to surgical. Waiting for call.
[2021-08-29] MEDS ORDERED: acetaminophen 325mg tablet PO PRN (18:20)
[2021-08-29] MEDS ORDERED: magnesium hydroxide 30ml (MOM) UD suspension PO PRN (18:20)
[2021-08-29] MEDS ORDERED: mag hydrox/Alum hydrox/simeth 30ml oral suspension PO PRN (18:20)
[2021-08-29] MEDS ORDERED: ondansetron/PF 4mg/2ml inj IV PRN (18:20)
[2021-08-29] MEDS ORDERED: morphine 2 MG/ML inj. syringe IV PRN (18:20)
--- NOTE | 2021-08-29 18:21 | NUR ---
Problems reprioritized. Patient report given, questions answered & plan of care reviewed with Grace SANCHEZ traveler.
[2021-08-29] MEDS: normal saline 1000ml 1,000 ML IV SCH (19:50)
[2021-08-29] MEDS: haloperidol 5mg tablet PO SCH (20:04)
[2021-08-29] MEDS: diatr meglu/diatrizoate 30ml oral sol.-(3 dose) bottle PO SCH (20:04)
[2021-08-29] MEDS: docusate sod 100mg capsule PO SCH (20:04)
[2021-08-29] MEDS: traZODone 50mg tablet PO SCH (21:57)
[2021-08-29 23:27] LABS: BASOPHILS % (AUTO) 0.3 % (0-1); EOSINOPHILS % (AUTO) 0.1 % (0-6); HEMATOCRIT 42.1 % (42.0-52.0); HEMOGLOBIN 14.6 g/dl (14.0-17.9); LYMPHOCYTES % (AUTO) 9.2 % (21-51); MEAN CORPUSCULAR HEMOGLOBIN 29.9 PG (27.0-31.0); MEAN CORPUSCULAR HGB CONC 34.6 g/dL (33.0-36.5); MEAN CORPUSCULAR VOLUME 86.4 FL (78-98); MEAN PLATELET VOLUME 7.9 FL (7.4-10.4); MONOCYTES # (AUTO) 1.4 X10'3 (0-0.9); MONOCYTES % (AUTO) 12.6 % (2-12); NEUTROPHILS # (AUTO) 8.8 X10'3 (1.8-7.7); NEUTROPHILS % (AUTO) 77.8 % (42-75); PLATELET COUNT 349 X10'3 (140-440); RED BLOOD COUNT 4.87 X10'6 (4.70-6.10); RED CELL DISTRIBUTION WIDTH 11.8 % (11.5-14.5); WHITE BLOOD COUNT 11.3 X10'3 (4.5-11.0)
[2021-08-29 23:38] LABS: ALANINE AMINOTRANSFERASE 26 U/L (12-78); ALBUMIN 3.1 G/DL (3.4-5.0); ALBUMIN/GLOBULIN RATIO 0.7 (1.1-1.5); ALKALINE PHOSPHATASE 83 IU/L (46-116); ANION GAP 9 (8-16); ASPARTATE AMINO TRANSFERASE 11 U/L (10-37); BILIRUBIN,TOTAL 1.8 MG/DL (0.1-1.0); BLOOD UREA NITROGEN 25 MG/DL (7-18); BUN/CREATININE RATIO 33.8 (5.4-32.0); CALCIUM 7.4 MG/DL (8.5-10.1); CHLORIDE 102 MMOL/L (99-107); CREATININE 0.74 MG/DL (0.60-1.10); GLUCOSE 106 MG/DL (70-104); SODIUM 144 MMOL/L (135-145); TOTAL CARBON DIOXIDE 33.2 MMOL/L (24-32); TOTAL PROTEIN 7.4 G/DL (6.4-8.2); eGFR > 90 ML/MIN
[2021-08-29 23:57] LABS: POTASSIUM 2.2 MMOL/L (3.5-5.1)
[2021-08-30] MEDS ORDERED: magnesium Cl slow-release 64mg tablet PO PRN (00:15)
[2021-08-30] MEDS ORDERED: potassium Cl 20 mEq SR tablet PO PRN (00:15)
[2021-08-30] MEDS ORDERED: magnesium 4gm in 100ml NS 100 ML IV PRN (00:15)
[2021-08-30] MEDS: potassium Cl 40MEQ/1/2NS 520ml 520 ML IV PRN ×2 (01:29→10:34)
[2021-08-30 06:23] LABS: BASOPHILS % (AUTO) 0.2 % (0-1); EOSINOPHILS % (AUTO) 0.1 % (0-6); HEMATOCRIT 49.3 % (42.0-52.0); HEMOGLOBIN 16.9 g/dl (14.0-17.9); LYMPHOCYTES # (AUTO) 1.1 X10'3 (1.1-4.8); LYMPHOCYTES % (AUTO) 10.3 % (21-51); MEAN CORPUSCULAR HEMOGLOBIN 30.3 PG (27.0-31.0); MEAN CORPUSCULAR HGB CONC 34.2 g/dL (33.0-36.5); MEAN CORPUSCULAR VOLUME 88.5 FL (78-98); MEAN PLATELET VOLUME 8.2 FL (7.4-10.4); MONOCYTES # (AUTO) 1.6 X10'3 (0-0.9); MONOCYTES % (AUTO) 14.6 % (2-12); NEUTROPHILS % (AUTO) 74.8 % (42-75); PLATELET COUNT 385 X10'3 (140-440); RED BLOOD COUNT 5.57 X10'6 (4.70-6.10); WHITE BLOOD COUNT 10.7 X10'3 (4.5-11.0)
[2021-08-30 06:46] LABS: ALBUMIN 3.9 G/DL (3.4-5.0); ANION GAP 12 (8-16); BLOOD UREA NITROGEN 30 MG/DL (7-18); BUN/CREATININE RATIO 35.7 (5.4-32.0); CALCIUM 9.1 MG/DL (8.5-10.1); CHLORIDE 95 MMOL/L (99-107); CREATININE 0.84 MG/DL (0.60-1.10); GLUCOSE 122 MG/DL (70-104); MAGNESIUM 2.5 MG/DL (1.5-2.4); POTASSIUM 3.1 MMOL/L (3.5-5.1); SODIUM 143 MMOL/L (135-145); eGFR > 90 ML/MIN
--- NOTE | 2021-08-30 06:58 | NUR ---
Patient in room [facility]. I have received report from Nini SANCHEZ Traveler and had the opportunity to ask questions and assume patient care.
[2021-08-30 07:00] VITALS: BP 112/83
[2021-08-30] MEDS: normal saline 1000ml 1,000 ML IV SCH ×2 (07:15→14:25)
[2021-08-30] MEDS: diatr meglu/diatrizoate 30ml oral sol.-(3 dose) bottle PO SCH ×2 (07:37→08:27)
[2021-08-30] MEDS: docusate sod 100mg capsule PO SCH ×2 (07:38→20:00)
[2021-08-30] MEDS: pantoprazole 40mg Tablet.DR PO SCH (07:39)
[2021-08-30] MEDS: enoxaparin 40mg/0.4ml syringe SUBCUT SCH (07:42)
[2021-08-30] MEDS: K and/or MAG REPLACEMENT MC SCH ×2 (08:00→20:00)
[2021-08-30] MEDS ORDERED: iohexol 300mg/ml 100ml inj. ONE (09:11)
[2021-08-30 12:08] VITALS: BP 110/62
[2021-08-30 14:38] VITALS: BP 118/60
[2021-08-30 14:57] VITALS: BP 117/82
[2021-08-30 15:00] VITALS: BP 117/82
--- NOTE | 2021-08-30 15:16 | NUR ---
PAGER ID: [phone] MESSAGE: Terrence Neilanya #[id number] - Critical findings radiologist needs to talk to you briana please call [phone] Dr. Mehta. Thank you. Marcelle Romo [phone]
--- NOTE | 2021-08-30 15:18 | NUR ---
PAGER ID: [phone] MESSAGE: MESSAGE: Terrence Ortega #[id number] - Critical findings radiologist needs to talk to you briana please call [phone] Dr. Mehta. Please advise,Thank you. Marcelle Romo [phone]
--- NOTE | 2021-08-30 15:39 | NUR ---
Dr Agrawal stated he spoke w/ radiologist, and Dr. Lopez.
[2021-08-30 17:06] LABS: PARTIAL THROMBOPLASTIN TIME 29 SECONDS (22-32)
--- NOTE | 2021-08-30 17:55 | NUR ---
Problems reprioritized. Patient report given, questions answered & plan of care reviewed with Luc SANCHEZ in recovery.
--- NOTE | 2021-08-30 18:51 | NUR ---
Problems reprioritized. Patient report given, questions answered & plan of care reviewed with Prudence RN.
--- NOTE | 2021-08-30 19:10 | NUR ---
Patient in room [facility]. I have received report from ASHLEY SANCHEZ and had the opportunity to ask questions and assume patient care.
[2021-08-30] MEDS ORDERED: LIDOcaine 1% 30ml preserv. free vial ONE ×2 (19:59→20:45)
[2021-08-30] MEDS ORDERED: BUPIVAcaine/PF 2.5mg/ml (0.25%) 10ml vial ONE (19:59)
--- NOTE | 2021-08-30 20:00 | NUR ---
PATIENT IN OR Addendum: 08/31/21 at 0533 by Belgica Yuan RN Amended: Links added.
[2021-08-30] MEDS ORDERED: INDOCYANINE GREEN 25 MG/10 ML VIAL IV ONE ×2 (20:15→22:25)
[2021-08-30] MEDS ORDERED: sevoflurane 250ml liquid IH ONE (20:40)
[2021-08-30] MEDS ORDERED: ondansetron/PF 4mg/2ml inj ONE (20:40)
[2021-08-30] MEDS ORDERED: metoprolol tartrate 1mg/ml inj IV ONE (20:40)
[2021-08-30] MEDS ORDERED: dexamethasone sod phosphate 10mg/ml inj ONE (20:40)
[2021-08-30] MEDS ORDERED: BUPIVAcaine 0.5% inj/PF 30 ML ONE (20:45)
[2021-08-30] MEDS ORDERED: fentaNYL /PF 50mcg/ml 5ml ampule ONE ×2 (20:58→23:00)
[2021-08-30] MEDS ORDERED: MIDAZolam 1 MG/ML 5ML VIAL ONE (20:58)
[2021-08-30] MEDS: haloperidol 5mg tablet PO SCH (21:00)
[2021-08-30] MEDS ORDERED: rocuronium 10mg/ml inj IV ONE ×2 (21:10→23:16)
[2021-08-30] MEDS ORDERED: propofol inj 20 ML IV ONE (21:10)
[2021-08-30] MEDS ORDERED: ceFAZolin 1000mg inj ONE ×2 (21:19)
[2021-08-30 23:54] LABS: ISTAT HGB 15.3 g/dl (14.0-18.0); ISTAT IONIZED CALCIUM 1.01 mmol/L (1.03-1.32); ISTAT K 3.8 mmol/L (3.5-5.1)
[2021-08-31] VITALS (15 sets, daily range): BP systolic 121–163; BP diastolic 74–98
[2021-08-31] MEDS: normal saline 1000ml 1,000 ML IV SCH ×2 (00:20→06:45)
[2021-08-31] MEDS ORDERED: CADD PCA waste documentation MC PRN (00:40)
[2021-08-31] MEDS ORDERED: naloxone 0.4 mg/ml inj IV PRN ×2 (00:40→03:10)
--- NOTE | 2021-08-31 00:40 | NUR ---
Received from OR via BED, accompanied by Anesthesiologist LENA and report given by Anesthesiolgist. PT DROWSY, OXYGENATING WELL ON 10 LPM O2 VIA MASK, NO RESP DISTRESS NOTED. DENIES PAIN AT THIS TIME, NO NAUSEA. PT HAS NGT TO L NARE, LCWS. LARGE BANDAIDS TO ABD TROCAR SITES, CDI. YAMILEX DRAIN TO R ABD, GOOD SX. FC PATENT, VSS.
[2021-08-31] MEDS ORDERED: benzocaine/menthol oral lozeng 1 EACH BOX MM PRN ×2 (01:05)
--- NOTE | 2021-08-31 01:45 | NUR ---
Report called to receiving nurse. Transferred via BED Belongings IN PT ROOM. PRIOR TO LEAVING PACU, PT STATED HIS POST OP PAIN WAS 10/10. MEDICATED WITH IVP MORPHINE. TOLERATING SIPS OF ICE WATER. FREQUENT RE ORIENTATION NEEDED TO KEEP PT FROM PULLING ON FORTUNE OR NGT. VSS. TRANSFERRED BACK TO 3 SURG IN STABLE CONDITION. Special Issues communicated to receiving nurse.
--- NOTE | 2021-08-31 01:55 | NUR ---
Patient on the unit. Will continue to monitor
[2021-08-31] MEDS: HYDROmorph./NS 0.2 mg/ml CADD 100 ML IV SCH ×11 (03:26→19:00)
[2021-08-31 06:04] LABS: BASOPHILS % (AUTO) 0 % (0-1); EOSINOPHILS % (AUTO) 0 % (0-6); HEMATOCRIT 43.3 % (42.0-52.0); HEMOGLOBIN 14.5 g/dl (14.0-17.9); LYMPHOCYTES # (AUTO) 0.4 X10'3 (1.1-4.8); LYMPHOCYTES % (AUTO) 2.5 % (21-51); MEAN CORPUSCULAR HEMOGLOBIN 29.8 PG (27.0-31.0); MEAN CORPUSCULAR HGB CONC 33.4 g/dL (33.0-36.5); MEAN CORPUSCULAR VOLUME 89.4 FL (78-98); MEAN PLATELET VOLUME 8.2 FL (7.4-10.4); MONOCYTES # (AUTO) 1.2 X10'3 (0-0.9); MONOCYTES % (AUTO) 7.5 % (2-12); NEUTROPHILS # (AUTO) 13.9 X10'3 (1.8-7.7); PLATELET COUNT 317 X10'3 (140-440); RED BLOOD COUNT 4.85 X10'6 (4.70-6.10); RED CELL DISTRIBUTION WIDTH 11.8 % (11.5-14.5); WHITE BLOOD COUNT 15.4 X10'3 (4.5-11.0)
--- NOTE | 2021-08-31 06:45 | NUR ---
Patient in room [facility]. I have received report from Belgica SANCHEZ and had the opportunity to ask questions and assume patient care.
[2021-08-31 06:47] LABS: ALANINE AMINOTRANSFERASE 31 U/L (12-78); ALBUMIN 3.4 G/DL (3.4-5.0); ALBUMIN/GLOBULIN RATIO 0.7 (1.1-1.5); ALKALINE PHOSPHATASE 79 IU/L (46-116); ANION GAP 13 (8-16); ASPARTATE AMINO TRANSFERASE 23 U/L (10-37); BILIRUBIN,TOTAL 1.9 MG/DL (0.1-1.0); BLOOD UREA NITROGEN 26 MG/DL (7-18); BUN/CREATININE RATIO 26.8 (5.4-32.0); CALCIUM 8.5 MG/DL (8.5-10.1); CHLORIDE 101 MMOL/L (99-107); CREATININE 0.97 MG/DL (0.60-1.10); GLUCOSE 170 MG/DL (70-104); MAGNESIUM 2.4 MG/DL (1.5-2.4); POTASSIUM 3.3 MMOL/L (3.5-5.1); SODIUM 148 MMOL/L (135-145); TOTAL CARBON DIOXIDE 34.4 MMOL/L (24-32); eGFR 87 ML/MIN
--- NOTE | 2021-08-31 07:00 | NUR ---
Patient in room [facility]. I have received report from Belgica and had the opportunity to ask questions and assume patient care.
[2021-08-31] MEDS: K and/or MAG REPLACEMENT MC SCH ×2 (08:00→20:00)
[2021-08-31] MEDS: pantoprazole 40mg Tablet.DR PO SCH (09:31)
[2021-08-31] MEDS: docusate sod 100mg capsule PO SCH ×2 (09:31→20:59)
[2021-08-31] MEDS: enoxaparin 40mg/0.4ml syringe SUBCUT SCH (09:36)
--- NOTE | 2021-08-31 13:08 | NUR ---
DISCHARGE PLAN Cameron has been accepted at [facility] once he is medically stable. emu farm worker, Mayra, has his paperwork and can assist with the transition to [facility]. [facility] psych [facility]. If he has additional medications he will need to have a 30 day supply in hand upon discharge to go to [facility]. DAMIEN Pérez
[2021-08-31] MEDS: potassium Cl 20 mEq SR tablet PO PRN (14:33)
--- NOTE | 2021-08-31 16:25 | NUR ---
Student documentation: I have reviewed and agree with all interventions, assessments performed and documented by Daniel Burgos from [facility].
--- NOTE | 2021-08-31 18:21 | NUR ---
Problems reprioritized. Patient report given, questions answered & plan of care reviewed with Natty SANCHEZ Traveler.
--- NOTE | 2021-08-31 18:32 | NUR ---
Problems reprioritized. Patient report given, questions answered & plan of care reviewed with Natty RN.
[2021-08-31] MEDS: traZODone 50mg tablet PO SCH (20:59)
[2021-08-31] MEDS: haloperidol 5mg tablet PO SCH (20:59)
--- NOTE | 2021-09-01 06:38 | NUR ---
Patient in room [facility]. I have received report from Clari SANCHEZ and had the opportunity to ask questions and assume patient care.
[2021-09-01] MEDS: HYDROmorph./NS 0.2 mg/ml CADD 100 ML IV SCH ×9 (07:00→22:52)
[2021-09-01 07:03] LABS: BASOPHILS % (AUTO) 0.3 % (0-1); EOSINOPHILS % (AUTO) 0 % (0-6); HEMATOCRIT 40.7 % (42.0-52.0); HEMOGLOBIN 13.7 g/dl (14.0-17.9); LYMPHOCYTES # (AUTO) 1.2 X10'3 (1.1-4.8); LYMPHOCYTES % (AUTO) 7.8 % (21-51); MEAN CORPUSCULAR HEMOGLOBIN 29.9 PG (27.0-31.0); MEAN CORPUSCULAR HGB CONC 33.6 g/dL (33.0-36.5); MEAN CORPUSCULAR VOLUME 88.9 FL (78-98); MEAN PLATELET VOLUME 8.5 FL (7.4-10.4); MONOCYTES # (AUTO) 1.4 X10'3 (0-0.9); MONOCYTES % (AUTO) 9.3 % (2-12); NEUTROPHILS # (AUTO) 12.4 X10'3 (1.8-7.7); NEUTROPHILS % (AUTO) 82.6 % (42-75); PLATELET COUNT 316 X10'3 (140-440); RED BLOOD COUNT 4.58 X10'6 (4.70-6.10); RED CELL DISTRIBUTION WIDTH 12.2 % (11.5-14.5)
[2021-09-01] MEDS: normal saline 1000ml 1,000 ML IV SCH ×2 (07:29→08:01)
[2021-09-01] MEDS: pantoprazole 40mg Tablet.DR PO SCH (07:29)
[2021-09-01] MEDS: docusate sod 100mg capsule PO SCH ×2 (07:30→20:42)
[2021-09-01 07:31] LABS: ALANINE AMINOTRANSFERASE 24 U/L (12-78); ALBUMIN 2.8 G/DL (3.4-5.0); ALBUMIN/GLOBULIN RATIO 0.6 (1.1-1.5); ALKALINE PHOSPHATASE 69 IU/L (46-116); ANION GAP 10 (8-16); ASPARTATE AMINO TRANSFERASE 12 U/L (10-37); BILIRUBIN,TOTAL 1.9 MG/DL (0.1-1.0); BLOOD UREA NITROGEN 15 MG/DL (7-18); BUN/CREATININE RATIO 21.1 (5.4-32.0); CALCIUM 8.1 MG/DL (8.5-10.1); CHLORIDE 108 MMOL/L (99-107); CREATININE 0.71 MG/DL (0.60-1.10); GLUCOSE 120 MG/DL (70-104); MAGNESIUM 2.7 MG/DL (1.5-2.4); POTASSIUM 3.1 MMOL/L (3.5-5.1); SODIUM 151 MMOL/L (135-145); TOTAL CARBON DIOXIDE 32.6 MMOL/L (24-32); TOTAL PROTEIN 7.4 G/DL (6.4-8.2); eGFR > 90 ML/MIN
[2021-09-01] MEDS: enoxaparin 40mg/0.4ml syringe SUBCUT SCH (07:31)
[2021-09-01] MEDS: potassium Cl 20 mEq SR tablet PO PRN ×2 (07:42→14:05)
[2021-09-01 07:59] VITALS: BP 126/90
[2021-09-01] MEDS: K and/or MAG REPLACEMENT MC SCH ×2 (08:00→20:00)
[2021-09-01] MEDS: Potassium Cl inj 20 MEQ in dextrose 5%-water 990 ML IV SCH ×3 (09:36→22:33)
[2021-09-01 12:36] VITALS: BP 121/87
[2021-09-01] MEDS ORDERED: albumin (Human) 5% 250ml 250 ML IV ONE ×4 (15:50→17:55)
--- NOTE | 2021-09-01 16:04 | NUR ---
Dr. Saunders rounded, said he would like 1 Liter of 5% Albumin given to this patient. Discussed this with the pharmacist and he said that it is okay to give this amount. That will be a total of 4 bottles, will put the order in.
[2021-09-01 18:00] VITALS: BP 123/76
--- NOTE | 2021-09-01 18:20 | NUR ---
Student documentation: I have reviewed and agree with all interventions, assessments performed and documented by SN Serafin. Student Medication Administration: For this medication-pass time frame, all medication were reviewed, dispensed, administered and documented per hospital policy by SN Serafin.
--- NOTE | 2021-09-01 18:21 | NUR ---
Problems reprioritized. Patient report given, questions answered & plan of care reviewed with Madalyn SANCHEZ.
--- NOTE | 2021-09-01 18:30 | NUR ---
Patient in room [facility]. I have received report from DANIEL Bauer and had the opportunity to ask questions and assume patient care.
[2021-09-01] MEDS: haloperidol 5mg tablet PO SCH (20:42)
[2021-09-01] MEDS: traZODone 50mg tablet PO SCH (20:42)
--- NOTE | 2021-09-01 23:14 | NUR ---
Pt refusing walk at this time. Will attempt again in AM.
[2021-09-02] VITALS: BP 135/86
[2021-09-02] MEDS: HYDROmorph./NS 0.2 mg/ml CADD 100 ML IV SCH ×12 (01:00→23:00)
[2021-09-02] MEDS: traZODone 50mg tablet PO PRN (01:53)
--- NOTE | 2021-09-02 06:17 | NUR ---
Problems reprioritized. Patient report given, questions answered & plan of care reviewed with DANIEL Reyes.
--- NOTE | 2021-09-02 06:45 | NUR ---
Patient in room [facility] 358B. I have received report from DANIEL COREY and had the opportunity to ask questions and assume patient care.
[2021-09-02 07:00] VITALS: BP 103/60
[2021-09-02 07:10] LABS: BASOPHILS % (AUTO) 0.2 % (0-1); EOSINOPHILS # (AUTO) 0.1 X10'3 (0-0.9); EOSINOPHILS % (AUTO) 0.6 % (0-6); HEMATOCRIT 36.5 % (42.0-52.0); HEMOGLOBIN 11.9 g/dl (14.0-17.9); MEAN CORPUSCULAR HEMOGLOBIN 29.3 PG (27.0-31.0); MEAN CORPUSCULAR HGB CONC 32.6 g/dL (33.0-36.5); MEAN CORPUSCULAR VOLUME 89.9 FL (78-98); MEAN PLATELET VOLUME 8.5 FL (7.4-10.4); MONOCYTES # (AUTO) 0.9 X10'3 (0-0.9); MONOCYTES % (AUTO) 7.5 % (2-12); NEUTROPHILS # (AUTO) 9.9 X10'3 (1.8-7.7); NEUTROPHILS % (AUTO) 83.7 % (42-75); PLATELET COUNT 274 X10'3 (140-440); RED BLOOD COUNT 4.06 X10'6 (4.70-6.10); RED CELL DISTRIBUTION WIDTH 12.2 % (11.5-14.5); WHITE BLOOD COUNT 11.8 X10'3 (4.5-11.0)
[2021-09-02 07:14] LABS: ALANINE AMINOTRANSFERASE 19 U/L (12-78); ALBUMIN 2.9 G/DL (3.4-5.0); ALBUMIN/GLOBULIN RATIO 0.7 (1.1-1.5); ALKALINE PHOSPHATASE 63 IU/L (46-116); ANION GAP 8 (8-16); ASPARTATE AMINO TRANSFERASE 10 U/L (10-37); BILIRUBIN,TOTAL 1.9 MG/DL (0.1-1.0); BLOOD UREA NITROGEN 11 MG/DL (7-18); CALCIUM 8.1 MG/DL (8.5-10.1); CHLORIDE 105 MMOL/L (99-107); CREATININE 0.58 MG/DL (0.60-1.10); GLUCOSE 141 MG/DL (70-104); MAGNESIUM 2.4 MG/DL (1.5-2.4); POTASSIUM 3.4 MMOL/L (3.5-5.1); SODIUM 145 MMOL/L (135-145); TOTAL CARBON DIOXIDE 32.4 MMOL/L (24-32); TOTAL PROTEIN 7.1 G/DL (6.4-8.2); eGFR > 90 ML/MIN
[2021-09-02] MEDS: K and/or MAG REPLACEMENT MC SCH ×2 (08:00→21:00)
[2021-09-02] MEDS: Potassium Cl inj 20 MEQ in dextrose 5%-water 990 ML IV SCH ×2 (08:20→19:56)
[2021-09-02] MEDS: pantoprazole 40mg Tablet.DR PO SCH (08:21)
[2021-09-02] MEDS: docusate sod 100mg capsule PO SCH ×2 (08:21→20:55)
[2021-09-02] MEDS: enoxaparin 40mg/0.4ml syringe SUBCUT SCH (08:22)
[2021-09-02 11:00] VITALS: BP 121/77
--- NOTE | 2021-09-02 11:55 | NUR ---
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 Pt w/ mostly 100% up to 08/28 where PO declined and Pt currently NPO now. NGT for low continuous suction w/ 500ml dark green fluid 09/01. LBM 08/29. Pt receiving KCl/D5 at 100ml/hr providing 408kcals/d. Limited nutrition intervention at this time given pt diet order. Will continue to monitor. Recommendations: 1) Advance as tolerated to Regular diet per MD 2) Bowel care per rx 3) Weekly scaled weights Addendum: 09/02/21 at [address] Amended: Links added.
[2021-09-02 18:00] VITALS: BP 124/85
--- NOTE | 2021-09-02 18:22 | NUR ---
Patient in room [facility]. I have received report from Amy Almazan and had the opportunity to ask questions and assume patient care.
--- NOTE | 2021-09-02 18:45 | NUR ---
Problems reprioritized. Patient report given, questions answered & plan of care reviewed with DANIEL SPENCER.
[2021-09-02] MEDS ORDERED: potassium Cl 20 mEq SR tablet PO PRN ×2 (20:55)
[2021-09-02] MEDS: traZODone 50mg tablet PO SCH (20:56)
[2021-09-02] MEDS: diatr meglu/diatrizoate 30ml oral sol.-(3 dose) bottle PO SCH (20:56)
[2021-09-02] MEDS: haloperidol 5mg tablet PO SCH (20:56)
[2021-09-02] MEDS: Potassium Cl inj 20 MEQ in dextrose 5%-water 1,000 ML IV SCH (23:29)
[2021-09-03] VITALS: BP 121/91
[2021-09-03] MEDS: HYDROmorph./NS 0.2 mg/ml CADD 100 ML IV SCH ×12 (01:00→23:00)
[2021-09-03] MEDS: Potassium Cl inj 20 MEQ in dextrose 5%-water 1,000 ML IV SCH ×2 (05:07→18:18)
[2021-09-03 05:57] LABS: BASOPHILS % (AUTO) 0.2 % (0-1); EOSINOPHILS # (AUTO) 0.2 X10'3 (0-0.9); EOSINOPHILS % (AUTO) 1.5 % (0-6); HEMATOCRIT 36.1 % (42.0-52.0); HEMOGLOBIN 11.8 g/dl (14.0-17.9); MEAN CORPUSCULAR HEMOGLOBIN 29.5 PG (27.0-31.0); MEAN CORPUSCULAR HGB CONC 32.6 g/dL (33.0-36.5); MEAN CORPUSCULAR VOLUME 90.5 FL (78-98); MEAN PLATELET VOLUME 8.7 FL (7.4-10.4); MONOCYTES # (AUTO) 1.1 X10'3 (0-0.9); MONOCYTES % (AUTO) 8.7 % (2-12); NEUTROPHILS # (AUTO) 10.5 X10'3 (1.8-7.7); NEUTROPHILS % (AUTO) 81.6 % (42-75); PLATELET COUNT 266 X10'3 (140-440); RED BLOOD COUNT 3.99 X10'6 (4.70-6.10); RED CELL DISTRIBUTION WIDTH 12.2 % (11.5-14.5); WHITE BLOOD COUNT 12.8 X10'3 (4.5-11.0)
[2021-09-03 06:23] LABS: ALANINE AMINOTRANSFERASE 23 U/L (12-78); ALBUMIN 2.6 G/DL (3.4-5.0); ALBUMIN/GLOBULIN RATIO 0.6 (1.1-1.5); ALKALINE PHOSPHATASE 80 IU/L (46-116); ANION GAP 8 (8-16); ASPARTATE AMINO TRANSFERASE 17 U/L (10-37); BILIRUBIN,TOTAL 2.5 MG/DL (0.1-1.0); BLOOD UREA NITROGEN 10 MG/DL (7-18); BUN/CREATININE RATIO 16.4 (5.4-32.0); CALCIUM 8.2 MG/DL (8.5-10.1); CHLORIDE 102 MMOL/L (99-107); CREATININE 0.61 MG/DL (0.60-1.10); GLUCOSE 136 MG/DL (70-104); MAGNESIUM 2.1 MG/DL (1.5-2.4); POTASSIUM 3.9 MMOL/L (3.5-5.1); SODIUM 139 MMOL/L (135-145); TOTAL CARBON DIOXIDE 29.5 MMOL/L (24-32); eGFR > 90 ML/MIN
--- NOTE | 2021-09-03 06:35 | NUR ---
Problems reprioritized. Patient report given, questions answered & plan of care reviewed with Darshana SANCHEZ.
[2021-09-03 07:00] VITALS: BP 123/85
[2021-09-03] MEDS: diatr meglu/diatrizoate 30ml oral sol.-(3 dose) bottle PO SCH ×2 (07:27→10:21)
[2021-09-03] MEDS: pantoprazole 40mg Tablet.DR PO SCH (07:27)
[2021-09-03] MEDS: docusate sod 100mg capsule PO SCH ×2 (07:27→22:09)
[2021-09-03] MEDS: K and/or MAG REPLACEMENT MC SCH ×2 (08:00→20:00)
[2021-09-03] MEDS ORDERED: iohexol 300mg/ml 100ml inj. ONE (10:18)
[2021-09-03 11:00] VITALS: BP 118/78
[2021-09-03] MEDS: enoxaparin 40mg/0.4ml syringe SUBCUT SCH (12:30)
[2021-09-03] MEDS ORDERED: sincalide inj 2.1 MCG in normal saline 50ml IV soln 50 ML IV ONE (14:40)
--- NOTE | 2021-09-03 14:50 | NUR ---
Emptied NGT drainage canister to monitor output for 4 hours
--- NOTE | 2021-09-03 14:59 | NUR ---
I called [facility] department to coordinate HIDA scan, the tech said she could not do it today because they do not have the medicine they need available and patient would need to have off narcotic for at least 6 hours prior to procedure. Charge nurse Whit notified about this.
--- NOTE | 2021-09-03 18:15 | NUR ---
Patient in room [facility]. I have received report from Darshana SANCHEZ and had the opportunity to ask questions and assume patient care.
[2021-09-03 19:00] VITALS: BP 135/87
[2021-09-03] MEDS: traZODone 50mg tablet PO SCH (22:09)
[2021-09-03] MEDS: haloperidol 5mg tablet PO SCH (22:09)
[2021-09-04] VITALS (7 sets, daily range): BP systolic 118–126; BP diastolic 78–91
[2021-09-04] MEDS: HYDROmorph./NS 0.2 mg/ml CADD 100 ML IV SCH ×12 (01:00→23:00)
--- NOTE | 2021-09-04 03:30 | NUR ---
IT SERVICE MANAGER turned off in preparation for the HIDA scan scheduled later today.
[2021-09-04] MEDS: Potassium Cl inj 20 MEQ in dextrose 5%-water 1,000 ML IV SCH ×3 (04:18→20:11)
[2021-09-04 06:24] LABS: ALANINE AMINOTRANSFERASE 29 U/L (12-78); ALBUMIN 2.4 G/DL (3.4-5.0); ALBUMIN/GLOBULIN RATIO 0.5 (1.1-1.5); ALKALINE PHOSPHATASE 98 IU/L (46-116); ANION GAP 6 (8-16); ASPARTATE AMINO TRANSFERASE 19 U/L (10-37); BILIRUBIN,TOTAL 3.1 MG/DL (0.1-1.0); BLOOD UREA NITROGEN 9 MG/DL (7-18); BUN/CREATININE RATIO 15.5 (5.4-32.0); CALCIUM 8.4 MG/DL (8.5-10.1); CHLORIDE 100 MMOL/L (99-107); CREATININE 0.58 MG/DL (0.60-1.10); GLUCOSE 139 MG/DL (70-104); POTASSIUM 3.9 MMOL/L (3.5-5.1); SODIUM 135 MMOL/L (135-145); TOTAL PROTEIN 6.9 G/DL (6.4-8.2); eGFR > 90 ML/MIN
--- NOTE | 2021-09-04 06:45 | NUR ---
Reported off to Safia SANCHEZ traveler.
--- NOTE | 2021-09-04 07:00 | NUR ---
Patient in room [facility] 358. I have received report from Bijal SANCHEZ and had the opportunity to ask questions and assume patient care.
--- NOTE | 2021-09-04 07:00 | NUR ---
0700: Cadd setting check not done because pum is been off since 0300 as patient has HIDA scane to be done in AM
[2021-09-04] MEDS: K and/or MAG REPLACEMENT MC SCH ×2 (08:00→20:00)
[2021-09-04] MEDS: enoxaparin 40mg/0.4ml syringe SUBCUT SCH ×2 (08:00→16:26)
[2021-09-04] MEDS: pantoprazole 40mg Tablet.DR PO SCH (09:17)
[2021-09-04] MEDS: docusate sod 100mg capsule PO SCH ×2 (09:17→20:00)
--- NOTE | 2021-09-04 13:00 | NUR ---
Patient had a 2nd YAMILEX drainage placement. Patient stable at this time. Vital sign is wnl. Will continue to monitor patient.
--- NOTE | 2021-09-04 15:11 | NUR ---
Dr. Saunders made rounds, primary nurse Safia at bedside too. Received order to d/c OLD YAMILEX drain and to clamp NGT overnight. Dr. Saunders said may release the NGT if not tolerating. Safia RN at bedside, she said she heard the new orders from Dr. Saunders.
[2021-09-04] MEDS: piperacillin/tazo 4.5gm/100ml 100 ML IV SCH (16:25)
--- NOTE | 2021-09-04 18:30 | NUR ---
Problems reprioritized. Patient report given, questions answered & plan of care reviewed with Bijal SANCHEZ. Report given to clamp NG overnight , but to unclamp if patient does not tolerate well
--- NOTE | 2021-09-04 18:30 | NUR ---
Patient in room [facility]. I have received report from Safia SANCHEZ Traveler and had the opportunity to ask questions and assume patient care.
--- NOTE | 2021-09-04 19:00 | NUR ---
Ng tube clamped for trial 12 hrs. Patient aware that he may have only few ice chips tonight.
[2021-09-04] MEDS: haloperidol 5mg tablet PO SCH (21:55)
[2021-09-04] MEDS: traZODone 50mg tablet PO SCH (21:58)
--- NOTE | 2021-09-04 22:13 | NUR ---
1st YAMILEX drain removed per orders. Patient tolerated well. Small optifoam placed over site. Only 5cc yellow drainage noted. New YAMILEX drain in with stopcock open and draining yellow/orange drainage.
[2021-09-05] VITALS: BP 126/74
[2021-09-05] MEDS: Potassium Cl inj 20 MEQ in dextrose 5%-water 1,000 ML IV SCH ×4 (00:48→19:57)
[2021-09-05] MEDS: piperacillin/tazo 4.5gm/100ml 100 ML IV SCH ×3 (00:49→16:12)
[2021-09-05] MEDS: HYDROmorph./NS 0.2 mg/ml CADD 100 ML IV SCH ×4 (00:50→07:00)
--- NOTE | 2021-09-05 05:24 | NUR ---
promotional table spacer promotional table spacer Page Sent promotional table spacer PAGER ID: [phone] MESSAGE: [id number]. Jordan Hayden had low grade fere, now it is 101.7. on Abx already. please call katerina richard [phone] (97 character message out of a maximum of [phone]) Close [X] Send Another Page Thank you for visiting [facility] promotional table spacer promotional table spacer
--- NOTE | 2021-09-05 05:55 | NUR ---
returned page, no new orders at this time as patient currently on ABX and culture still pending.
--- NOTE | 2021-09-05 06:30 | NUR ---
Problems reprioritized. Patient report given, questions answered & plan of care reviewed with Safia SANCHEZ Traveler..
--- NOTE | 2021-09-05 06:30 | NUR ---
Patient in room [facility] 358. I have received report from Bijal SANCHEZ and had the opportunity to ask questions and assume patient care.
[2021-09-05 06:56] LABS: BASOPHILS % (AUTO) 0.2 % (0-1); EOSINOPHILS # (AUTO) 0.2 X10'3 (0-0.9); EOSINOPHILS % (AUTO) 1.1 % (0-6); HEMATOCRIT 34.2 % (42.0-52.0); HEMOGLOBIN 11.3 g/dl (14.0-17.9); LYMPHOCYTES # (AUTO) 0.7 X10'3 (1.1-4.8); MEAN CORPUSCULAR HEMOGLOBIN 29.3 PG (27.0-31.0); MEAN CORPUSCULAR HGB CONC 32.9 g/dL (33.0-36.5); MEAN CORPUSCULAR VOLUME 89.1 FL (78-98); MEAN PLATELET VOLUME 8.7 FL (7.4-10.4); MONOCYTES # (AUTO) 1.5 X10'3 (0-0.9); MONOCYTES % (AUTO) 9.9 % (2-12); NEUTROPHILS # (AUTO) 12.4 X10'3 (1.8-7.7); NEUTROPHILS % (AUTO) 83.8 % (42-75); PLATELET COUNT 292 X10'3 (140-440); RED BLOOD COUNT 3.84 X10'6 (4.70-6.10); RED CELL DISTRIBUTION WIDTH 12.2 % (11.5-14.5); WHITE BLOOD COUNT 14.8 X10'3 (4.5-11.0)
[2021-09-05 07:16] LABS: ALANINE AMINOTRANSFERASE 38 U/L (12-78); ALBUMIN 2.2 G/DL (3.4-5.0); ALBUMIN/GLOBULIN RATIO 0.5 (1.1-1.5); ALKALINE PHOSPHATASE 123 IU/L (46-116); ANION GAP 9 (8-16); ASPARTATE AMINO TRANSFERASE 28 U/L (10-37); BILIRUBIN,TOTAL 2.8 MG/DL (0.1-1.0); BLOOD UREA NITROGEN 8 MG/DL (7-18); BUN/CREATININE RATIO 13.3 (5.4-32.0); CALCIUM 8.1 MG/DL (8.5-10.1); CHLORIDE 96 MMOL/L (99-107); GLUCOSE 128 MG/DL (70-104); POTASSIUM 3.8 MMOL/L (3.5-5.1); SODIUM 132 MMOL/L (135-145); TOTAL CARBON DIOXIDE 27.4 MMOL/L (24-32); eGFR > 90 ML/MIN
[2021-09-05 08:00] VITALS: BP 111/77
[2021-09-05] MEDS: K and/or MAG REPLACEMENT MC SCH ×2 (08:00→20:00)
[2021-09-05] MEDS: enoxaparin 40mg/0.4ml syringe SUBCUT SCH (08:26)
[2021-09-05] MEDS: docusate sod 100mg capsule PO SCH ×2 (08:27→20:00)
[2021-09-05] MEDS: pantoprazole 40mg Tablet.DR PO SCH (08:27)
--- NOTE | 2021-09-05 09:30 | NUR ---
PAGER ID: [phone] MESSAGE: Sussy Ortega: [id number]: patient running fever of 101.6. last Tylenor for fever was given at 0529., wbc :14.8. Safia: [phone]
[2021-09-05 11:00] VITALS: BP 120/81
[2021-09-05] MEDS ORDERED: ibuprofen tablet 400 MG TABLET PO ONE (11:05)
--- NOTE | 2021-09-05 11:05 | NUR ---
Motrin not given, Meds need to be taken with food. Patient is NPO. Patient temp at this time is 97.2 Dr. Coto notified. no new order given
--- NOTE | 2021-09-05 15:16 | NUR ---
F/u 09/05: Noted pt NPO since cholecystectomy 08/30 7 days no nutrition w/ NG in place currently clamped per EMR. DORETHA d/w RN and paged DO regarding nutrition support needs given prolonged NPO status. RN reports pending surgeon input as NG suction on and off alternating. Given pt functioning gut LBM 09/03 taking PO meds may benefit from supplemental EN to prevent bacterial translocation and optimize nutrition status; if to remain NPO consider TPN to meet nutrition needs. Recommendations: 1) Advance as tolerated to Regular diet per MD 2) Consider supplemental EN given functional gut and NPO day 7; IF to remain NPO consider TPN to meet nutrition needs. 3) Bowel care per rx 4) Weekly scaled weights Addendum: 09/05/21 at [address] Amended: Links added.
--- NOTE | 2021-09-05 15:20 | NUR ---
NG tube removed per order. Patient tolerated procedure well. Will continue to monitor patient.
--- NOTE | 2021-09-05 16:00 | NUR ---
Patient walked X2 today, walked 1 lap each time
[2021-09-05] MEDS: CADD PCA waste documentation MC PRN (16:51)
--- NOTE | 2021-09-05 17:00 | NUR ---
I did a Cadd waste with Chel SANCHEZ who open the cadd with a camejo, we got 4ml with syringe. cadd pump shows 31ml, pharmacist was notified of the discrepancy. I return the the cadd back to the pharmacist. I was told they will follow it up tomorrow.
--- NOTE | 2021-09-05 19:01 | NUR ---
Problems reprioritized. Patient report given, questions answered & plan of care reviewed with James SANCHEZ.
[2021-09-05] MEDS: lactobacillus rhamnosus 10,000 MMU CELLS/CAPSULE PO SCH (21:28)
[2021-09-05] MEDS: traZODone 50mg tablet PO SCH (21:30)
[2021-09-05] MEDS: haloperidol 5mg tablet PO SCH (21:30)
[2021-09-05] MEDS: traZODone 50mg tablet PO PRN (23:50)
[2021-09-06] MEDS: piperacillin/tazo 4.5gm/100ml 100 ML IV SCH ×4 (00:29→23:56)
[2021-09-06] MEDS: Potassium Cl inj 20 MEQ in dextrose 5%-water 1,000 ML IV SCH (02:46)
[2021-09-06 06:14] LABS: BASOPHILS % (AUTO) 0.1 % (0-1); EOSINOPHILS # (AUTO) 0.1 X10'3 (0-0.9); EOSINOPHILS % (AUTO) 0.8 % (0-6); HEMATOCRIT 32.3 % (42.0-52.0); LYMPHOCYTES # (AUTO) 0.8 X10'3 (1.1-4.8); LYMPHOCYTES % (AUTO) 5.9 % (21-51); MEAN CORPUSCULAR HEMOGLOBIN 29.6 PG (27.0-31.0); MEAN CORPUSCULAR HGB CONC 34.1 g/dL (33.0-36.5); MEAN CORPUSCULAR VOLUME 86.8 FL (78-98); MEAN PLATELET VOLUME 8.5 FL (7.4-10.4); MONOCYTES # (AUTO) 1.4 X10'3 (0-0.9); MONOCYTES % (AUTO) 10.5 % (2-12); NEUTROPHILS # (AUTO) 10.8 X10'3 (1.8-7.7); NEUTROPHILS % (AUTO) 82.7 % (42-75); PLATELET COUNT 320 X10'3 (140-440); RED BLOOD COUNT 3.72 X10'6 (4.70-6.10); RED CELL DISTRIBUTION WIDTH 12.5 % (11.5-14.5); WHITE BLOOD COUNT 13.1 X10'3 (4.5-11.0)
--- NOTE | 2021-09-06 06:40 | NUR ---
Patient in room [facility] 358. I have received report from James SNACHEZ and had the opportunity to ask questions and assume patient care.
[2021-09-06 06:42] LABS: ALANINE AMINOTRANSFERASE 45 U/L (12-78); ALBUMIN 2.3 G/DL (3.4-5.0); ALBUMIN/GLOBULIN RATIO 0.5 (1.1-1.5); ALKALINE PHOSPHATASE 147 IU/L (46-116); ANION GAP 7 (8-16); ASPARTATE AMINO TRANSFERASE 32 U/L (10-37); BILIRUBIN,TOTAL 1.9 MG/DL (0.1-1.0); BLOOD UREA NITROGEN 4 MG/DL (7-18); BUN/CREATININE RATIO 5.5 (5.4-32.0); CALCIUM 8.3 MG/DL (8.5-10.1); CHLORIDE 98 MMOL/L (99-107); CREATININE 0.73 MG/DL (0.60-1.10); GLUCOSE 133 MG/DL (70-104); POTASSIUM 3.6 MMOL/L (3.5-5.1); SODIUM 132 MMOL/L (135-145); TOTAL CARBON DIOXIDE 26.8 MMOL/L (24-32); TOTAL PROTEIN 7.1 G/DL (6.4-8.2); eGFR > 90 ML/MIN
[2021-09-06 08:00] VITALS: BP 145/70
[2021-09-06] MEDS: K and/or MAG REPLACEMENT MC SCH ×2 (08:00→20:00)
[2021-09-06] MEDS: lactobacillus rhamnosus 10,000 MMU CELLS/CAPSULE PO SCH ×2 (08:32→21:39)
[2021-09-06] MEDS: enoxaparin 40mg/0.4ml syringe SUBCUT SCH (08:32)
[2021-09-06] MEDS: docusate sod 100mg capsule PO SCH (08:33)
[2021-09-06] MEDS: pantoprazole 40mg Tablet.DR PO SCH (08:33)
--- NOTE | 2021-09-06 10:19 | NUR ---
Dr Saunders rounded stating pt may advance diet to Full Liquids followed by Regular if tolerated, and SL IV. Plan is to DC pt 09/07 if tolerates diet.
[2021-09-06 11:00] VITALS: BP 114/78
[2021-09-06] MEDS: CADD PCA waste documentation MC PRN (11:20)
--- NOTE | 2021-09-06 11:20 | NUR ---
cadd waste amount was rectified. The pharmacist and Magdi was able to pull out additional 25ml from the cassette with a more pressure.
--- NOTE | 2021-09-06 16:03 | NUR ---
F/u 09/06: Pt NG removed advanced to clear liquids last night and now full liquids started WL today per EMR. PO 100% clear liquids breakfast this AM pending further PO documentation. Given pt prior NPO 7 days w/ mild weakness meets minimum non-severe malnutrition criteria; MD notified. LBM 09/05 receiving routine colace. Will continue to monitor for additional nutrition intervention needs w/ PO diet advancing. Recommendations: 1) Advance as tolerated to Regular diet per MD 2) Monitor for ONS needs pending PO trends given prior 7 days no nutrition 3) Bowel care per rx 4) Weekly scaled weights Addendum: 09/06/21 at [address] Amended: Links added.
--- NOTE | 2021-09-06 17:00 | NUR ---
Patient seen walking around the [address] couple of times today. He stated that he is doing good and feeling more better.
[2021-09-06 20:00] VITALS: BP 127/79
[2021-09-06] MEDS: traZODone 50mg tablet PO SCH (21:40)
[2021-09-06] MEDS: haloperidol 5mg tablet PO SCH (21:40)
[2021-09-07] VITALS (7 sets, daily range): BP systolic 95–125; BP diastolic 62–87
--- NOTE | 2021-09-07 04:51 | NUR ---
pt lying in bed. denies pain. pt noted to need new iv site . explained to pt that in case of an emergency he needed to have a good iv to get medications through and also go give iv abx to fight infection. pt declined . will endorse to am nurse. charge nurse susan informed
--- NOTE | 2021-09-07 07:00 | NUR ---
Patient in room [facility] 358. I have received report from Marissa SANCHEZ and had the opportunity to ask questions and assume patient care.
[2021-09-07 07:39] LABS: BASOPHILS % (AUTO) 0.3 % (0-1); EOSINOPHILS # (AUTO) 0.1 X10'3 (0-0.9); EOSINOPHILS % (AUTO) 1.2 % (0-6); HEMOGLOBIN 10.3 g/dl (14.0-17.9); LYMPHOCYTES % (AUTO) 8.2 % (21-51); MEAN CORPUSCULAR HEMOGLOBIN 29.3 PG (27.0-31.0); MEAN CORPUSCULAR HGB CONC 33.4 g/dL (33.0-36.5); MEAN CORPUSCULAR VOLUME 87.8 FL (78-98); MEAN PLATELET VOLUME 8.4 FL (7.4-10.4); MONOCYTES # (AUTO) 1.6 X10'3 (0-0.9); MONOCYTES % (AUTO) 13.8 % (2-12); NEUTROPHILS % (AUTO) 76.5 % (42-75); PLATELET COUNT 378 X10'3 (140-440); RED BLOOD COUNT 3.53 X10'6 (4.70-6.10); RED CELL DISTRIBUTION WIDTH 12.5 % (11.5-14.5); WHITE BLOOD COUNT 11.8 X10'3 (4.5-11.0)
[2021-09-07] MEDS: K and/or MAG REPLACEMENT MC SCH ×2 (08:00→19:00)
[2021-09-07] MEDS: piperacillin/tazo 4.5gm/100ml 100 ML IV SCH ×3 (08:49→23:47)
[2021-09-07] MEDS: enoxaparin 40mg/0.4ml syringe SUBCUT SCH (08:50)
[2021-09-07] MEDS: pantoprazole 40mg Tablet.DR PO SCH (08:50)
[2021-09-07] MEDS: lactobacillus rhamnosus 10,000 MMU CELLS/CAPSULE PO SCH ×2 (08:50→21:04)
--- NOTE | 2021-09-07 18:30 | NUR ---
Problems reprioritized. Patient report given, questions answered & plan of care reviewed with James SANCHEZ.
[2021-09-07] MEDS: haloperidol 5mg tablet PO SCH (21:04)
[2021-09-07] MEDS: traZODone 50mg tablet PO SCH ×2 (21:04→22:42)
[2021-09-08] VITALS: BP 115/75
[2021-09-08 05:35] LABS: BASOPHILS % (AUTO) 0.3 % (0-1); EOSINOPHILS # (AUTO) 0.2 X10'3 (0-0.9); EOSINOPHILS % (AUTO) 1.5 % (0-6); HEMATOCRIT 30.9 % (42.0-52.0); HEMOGLOBIN 10.2 g/dl (14.0-17.9); LYMPHOCYTES # (AUTO) 1.1 X10'3 (1.1-4.8); LYMPHOCYTES % (AUTO) 9.5 % (21-51); MEAN CORPUSCULAR HGB CONC 33.1 g/dL (33.0-36.5); MEAN CORPUSCULAR VOLUME 87.5 FL (78-98); MEAN PLATELET VOLUME 8.5 FL (7.4-10.4); MONOCYTES # (AUTO) 1.7 X10'3 (0-0.9); MONOCYTES % (AUTO) 15.2 % (2-12); NEUTROPHILS # (AUTO) 8.4 X10'3 (1.8-7.7); NEUTROPHILS % (AUTO) 73.5 % (42-75); PLATELET COUNT 424 X10'3 (140-440); RED BLOOD COUNT 3.53 X10'6 (4.70-6.10); RED CELL DISTRIBUTION WIDTH 12.6 % (11.5-14.5); WHITE BLOOD COUNT 11.4 X10'3 (4.5-11.0)
--- NOTE | 2021-09-08 06:37 | NUR ---
Patient in room [facility] 358. I have received report from James SANCHEZ and had the opportunity to ask questions and assume patient care.
[2021-09-08] MEDS: piperacillin/tazo 4.5gm/100ml 100 ML IV SCH ×2 (07:22→16:39)
[2021-09-08] MEDS: enoxaparin 40mg/0.4ml syringe SUBCUT SCH (07:23)
[2021-09-08] MEDS: lactobacillus rhamnosus 10,000 MMU CELLS/CAPSULE PO SCH ×2 (07:23→20:06)
[2021-09-08] MEDS: K and/or MAG REPLACEMENT MC SCH ×2 (07:24→20:00)
[2021-09-08] MEDS: pantoprazole 40mg Tablet.DR PO SCH (07:24)
[2021-09-08 07:57] VITALS: BP 118/78
[2021-09-08 11:00] VITALS: BP 119/81
--- NOTE | 2021-09-08 11:00 | NUR ---
Dr. Wayne was notified of patient sodium level of 132, he stated is ok.
--- NOTE | 2021-09-08 18:14 | NUR ---
Problems reprioritized. Patient report given, questions answered & plan of care reviewed with James SANCHEZ.
[2021-09-08 20:00] VITALS: BP 133/44
[2021-09-08] MEDS: haloperidol 5mg tablet PO SCH (20:07)
[2021-09-08] MEDS: traZODone 50mg tablet PO PRN (22:29)
[2021-09-09] VITALS: BP 134/72
[2021-09-09] MEDS: piperacillin/tazo 4.5gm/100ml 100 ML IV SCH ×2 (00:14→08:40)
[2021-09-09 05:41] LABS: BASOPHILS % (AUTO) 0.3 % (0-1); EOSINOPHILS # (AUTO) 0.2 X10'3 (0-0.9); EOSINOPHILS % (AUTO) 1.6 % (0-6); HEMATOCRIT 29.7 % (42.0-52.0); LYMPHOCYTES # (AUTO) 1.3 X10'3 (1.1-4.8); LYMPHOCYTES % (AUTO) 10.9 % (21-51); MEAN CORPUSCULAR HEMOGLOBIN 29.7 PG (27.0-31.0); MEAN CORPUSCULAR HGB CONC 33.8 g/dL (33.0-36.5); MEAN CORPUSCULAR VOLUME 87.6 FL (78-98); MEAN PLATELET VOLUME 7.9 FL (7.4-10.4); MONOCYTES # (AUTO) 1.5 X10'3 (0-0.9); MONOCYTES % (AUTO) 12.7 % (2-12); NEUTROPHILS # (AUTO) 9.1 X10'3 (1.8-7.7); NEUTROPHILS % (AUTO) 74.5 % (42-75); PLATELET COUNT 490 X10'3 (140-440); RED BLOOD COUNT 3.39 X10'6 (4.70-6.10); RED CELL DISTRIBUTION WIDTH 12.5 % (11.5-14.5); WHITE BLOOD COUNT 12.1 X10'3 (4.5-11.0)
--- NOTE | 2021-09-09 06:50 | NUR ---
Patient in room [facility] 358. I have received report from DANIEL Ramirez and had the opportunity to ask questions and assume patient care.
[2021-09-09 07:00] VITALS: BP 108/70
[2021-09-09] MEDS: K and/or MAG REPLACEMENT MC SCH ×2 (08:00→20:00)
[2021-09-09] MEDS: pantoprazole 40mg Tablet.DR PO SCH (08:40)
[2021-09-09] MEDS: enoxaparin 40mg/0.4ml syringe SUBCUT SCH (08:40)
[2021-09-09] MEDS: lactobacillus rhamnosus 10,000 MMU CELLS/CAPSULE PO SCH ×2 (08:40→20:58)
[2021-09-09 12:00] VITALS: BP 107/64
[2021-09-09 18:00] VITALS: BP 108/70
[2021-09-09] MEDS: haloperidol 5mg tablet PO SCH (20:58)
[2021-09-09] MEDS: traZODone 50mg tablet PO SCH (20:58)
[2021-09-10] VITALS: BP 118/71
--- NOTE | 2021-09-10 06:48 | NUR ---
Patient in room [facility] 358B. I have received report from DANIEL ROMERO and had the opportunity to ask questions and assume patient care.
[2021-09-10 08:00] VITALS: BP 119/71
[2021-09-10] MEDS: K and/or MAG REPLACEMENT MC SCH ×2 (08:00→20:00)
[2021-09-10] MEDS: pantoprazole 40mg Tablet.DR PO SCH (09:20)
[2021-09-10] MEDS: lactobacillus rhamnosus 10,000 MMU CELLS/CAPSULE PO SCH ×2 (09:20→22:34)
[2021-09-10] MEDS: enoxaparin 40mg/0.4ml syringe SUBCUT SCH (09:21)
--- NOTE | 2021-09-10 11:37 | NUR ---
DISCHARGE PLAN Cameron has been [facility] at [facility]) for tomorrow. Transport will pick him up at 1:30 PM to take him to [facility]. He will need his medications from the pharmacy to go with him. All necessary paperwork has been completed and sent to [facility] already. DAMIEN Pérez
[2021-09-10 12:00] VITALS: BP 108/72
--- NOTE | 2021-09-10 19:12 | NUR ---
Problems reprioritized. Patient report given, questions answered & plan of care reviewed with YUMIKO CALDERON RN.
--- NOTE | 2021-09-10 19:13 | NUR ---
Patient in room [facility] 358. I have received report from ROGERS SANCHEZ and had the opportunity to ask questions and assume patient care.
[2021-09-10 20:00] VITALS: BP 101/63
[2021-09-10] MEDS: traZODone 50mg tablet PO SCH (22:34)
[2021-09-10] MEDS: haloperidol 5mg tablet PO SCH (22:35)
[2021-09-11] VITALS: BP 108/72
--- NOTE | 2021-09-11 06:21 | NUR ---
Problems reprioritized. Patient report given, questions answered & plan of care reviewed with ROGERS SANCHEZ.
--- NOTE | 2021-09-11 06:56 | NUR ---
Patient in room [facility] 358B. I have received report from YUMIKO CALDERON RN and had the opportunity to ask questions and assume patient care.
[2021-09-11 07:00] VITALS: BP 114/78
[2021-09-11] MEDS: lactobacillus rhamnosus 10,000 MMU CELLS/CAPSULE PO SCH (09:59)
[2021-09-11] MEDS: pantoprazole 40mg Tablet.DR PO SCH (09:59)
[2021-09-11] MEDS: enoxaparin 40mg/0.4ml syringe SUBCUT SCH (10:00)
[2021-09-11 11:00] VITALS: BP 110/73
--- NOTE | 2021-09-11 13:45 | NUR ---
PATIENT STABLE AND APPROPRIATE FOR DISCHARGE, IV TAKEN OUT, EDUCATION GIVEN, SUPPLIES FOR LAP SITES GIVEN, ALL BELONGINGS SENT WITH PATIENT PATIENT WALKED TO LOBBY WITH TRANSPORT STAFF FROM [facility] WHERE THEY WILL TAKE PATIENT TO CRISIS HOUSE. MARY ROBLERO IN PHARMACY, SINA RHODES FROM [facility] PICKED UP AND TOOK TO PATIENT
== END 2021-08-29 19:57 | disposition home or self-care (01) | DRG 750 ==
LOC: ADULT MH 08:09 → UNDOADMIN 08:09 → ADULT MH 05-16 19:50 → SUR 3N 08-29 17:00 → UNDODISIN 08-29 19:57
PROVIDERS: ADMIT Internal Medicine; ATTEND Internal Medicine
PROC: 0W9F30Z Drainage of Abdominal Wall with Drainage Device, Percutaneous Approach (ICD-10-PCS; principal; 2021-05-05)
DX: F20.9 Schizophrenia, unspecified (principal); A41.9 Sepsis, unspecified organism; F10.10 Alcohol abuse, uncomplicated; K80.20 Calculus of gallbladder without cholecystitis without obstruction; E87.6 Hypokalemia; K04.7 Periapical abscess without sinus; K82.8 Other specified diseases of gallbladder; F15.10 Other stimulant abuse, uncomplicated; F17.210 Nicotine dependence, cigarettes, uncomplicated; Z20.822 Contact with and (suspected) exposure to COVID-19; K21.00 Gastro-esophageal reflux disease with esophagitis, without bleeding; Y90.9 Presence of alcohol in blood, level not specified; Z59.00 Homelessness unspecified; Z71.6 Tobacco abuse counseling
CPT/HCPCS: 36415; 49406; 71045; 74176; 74177; 75989; 78226; 80047; 80048; 80053; 80061; 82271; 82948; 83036; 83605; 83735; 84443; 85025; 85610; 85730; 87040; 87070; 87075; 87081; 87102; 87635; 93005; A4215; A4618; A7000; A9537; C1758; C9113; G0378; J0690; J1100; J1170; J1650; J2250; J2270; J2405; J2543; J2704; J3010; J3480; J3490; J7030; J7070; J7120; P9045; Q0163; Q9963; Q9967; S0020

== ENCOUNTER 2021-08-29 19:58 | Inpatient (IN) | payer MEDICAID, OTHER ==
[~2021-08-29 19:58] MED LIST changes: -ARIP5TAB14 PO; -AZIT250T13 PO; -CHLO25CA10 PO; -CLIN150C2 PO; -GUAI600T45 PO; +HALO5TAB PO; -HYDR1TAB PO; +NO HOME MEDS; +PANT40TA54 PO; -PSEU-259 PO; -RISP3TAB11 PO; -TRAM50TA2 PO; +TRAZ-251 PO; +[UNRECOGNIZED DRUG - CODE] PO
== END 2021-09-11 13:05 | disposition still patient (30) | DRG 710 ==
LOC: SUR 3N 19:58
PROVIDERS: ADMIT Family Medicine; ATTEND Family Medicine
PROC: BW211ZZ Computerized Tomography (CT Scan) of Abdomen and Pelvis using Low Osmolar Contrast (ICD-10-PCS; 2021-08-30)
PROC: 0FC44ZZ Extirpation of Matter from Gallbladder, Percutaneous Endoscopic Approach (ICD-10-PCS; principal; 2021-08-31)
PROC: 0FB44ZZ Excision of Gallbladder, Percutaneous Endoscopic Approach (ICD-10-PCS; 2021-08-31)
PROC: 0DNU4ZZ Release Omentum, Percutaneous Endoscopic Approach (ICD-10-PCS; 2021-08-31)
PROC: 8E0W4CZ Robotic Assisted Procedure of Trunk Region, Percutaneous Endoscopic Approach (ICD-10-PCS; 2021-08-31)
PROC: 0D968ZZ Drainage of Stomach, Via Natural or Artificial Opening Endoscopic (ICD-10-PCS; 2021-08-31)
PROC: 0W9F30Z Drainage of Abdominal Wall with Drainage Device, Percutaneous Approach (ICD-10-PCS; 2021-09-04)
PROC: CF1C1ZZ Planar Nuclear Medicine Imaging of Hepatobiliary System, All using Technetium 99m (Tc-99m) (ICD-10-PCS; 2021-09-04)
DX: A41.9 Sepsis, unspecified organism (principal); K80.12 Calculus of gallbladder with acute and chronic cholecystitis without obstruction; E87.6 Hypokalemia; F10.10 Alcohol abuse, uncomplicated; F20.9 Schizophrenia, unspecified; Z20.822 Contact with and (suspected) exposure to COVID-19; F15.10 Other stimulant abuse, uncomplicated; Y90.9 Presence of alcohol in blood, level not specified; F17.210 Nicotine dependence, cigarettes, uncomplicated; Z60.2 Problems related to living alone; F32.A Depression, unspecified; K21.00 Gastro-esophageal reflux disease with esophagitis, without bleeding; K29.80 Duodenitis without bleeding; G47.00 Insomnia, unspecified; Z79.899 Other long term (current) drug therapy; Z91.011 Allergy to milk products; Z90.49 Acquired absence of other specified parts of digestive tract; Z59.00 Homelessness unspecified
CPT/HCPCS: 36415; 49406; 71045; 74176; 74177; 75989; 78226; 80047; 80048; 80053; 82271; 82948; 83605; 83735; 84443; 85025; 85610; 85730; 87040; 87070; 87075; 87081; 87102; 87635; 93005; A4215; A4618; A7000; A9537; C1758; C9113; G0378; J0690; J1100; J1170; J1650; J2001; J2250; J2270; J2405; J2543; J2704; J3010; J3480; J3490; J7030; J7070; J7120; P9045; Q0163; Q9963; Q9967